=== PATIENT | male | born 1955 | race Caucasian/White ===

== ENCOUNTER → 2020-09-19 08:06 | Outpatient (BNVA) | payer BC, SELFPAY | PROVIDERS: Visit Provider Orthopaedic Surgery | DX: M75.101 Unspecified rotator cuff tear or rupture of right shoulder, not specified as traumatic (principal); M12.811 Other specific arthropathies, not elsewhere classified, right shoulder; I99.8 Other disorder of circulatory system | CPT/HCPCS: 20610; J1040 ==

== ENCOUNTER → 2021-03-14 15:41 | Outpatient (BNVA) | payer BC, SELFPAY | PROVIDERS: PCP Family Medicine; Visit Provider Orthopaedic Surgery ==

== ENCOUNTER 2021-12-31 15:37 | Outpatient (REF) | payer BC, SELFPAY ==
[2021-12-31 16:01] LABS: MANUAL DIFF FLAG NO
[2021-12-31 17:13] LABS: Basophils Absolute Auto 0.1 X10*3/uL (0.0-0.2); Basophils Percent Auto 0.6 % (0-2); Eosinophils Absolute Auto 0.4 X10*3/uL (0.0-0.4); Eosinophils Percent Auto 5.3 % (0-4); Hematocrit 40.6 % (42.0-52.0); Hemoglobin 13.4 g/dl (14.0-18.0); Imm Gran Abs Auto 0.02 X10*3/uL (0.00-0.03); Imm Gran Pct Auto 0.3 % (0.0-0.4); Lymphocytes Absolute Auto 1.2 X10*3/uL (1.2-4.9); Lymphocytes Percent Auto 15.5 % (20-40); Mean Corpuscular Hemoglobin 30.1 pg (27.0-33.0); Mean Corpuscular Volume 91.2 fL (80.0-98.0); Mean Platelet Volume 10.8 fL (9.4-12.4); Monocytes Absolute Auto 0.9 X10*3/uL (0.1-1.2); Monocytes Percent Auto 11.2 % (2-11); Neutrophils Absolute Auto 5.3 x10*3/uL (2.0-8.3); Neutrophils Percent Auto 67.1 % (45-73); Platelet Count 282 X10*3/uL (160-400); Red Blood Count 4.45 X10*6/uL (4.60-5.80); Red Cell Distribution Width 15.2 % (11.0-16.0); White Blood Count 7.9 X10*3/uL (4.8-10.8)
[2021-12-31 17:49] LABS: Anion Gap 14 (12-20); Blood Urea Nitrogen 13 mg/dL (9-16); Calcium 9.2 mg/dL (8.4-10.2); Carbon Dioxide 28 mmol/L (22-29); Chloride 101 mmol/L (96-108); Estimated Glomerular Filt Rate > 60; Glucose Random 82 mg/dL (60-115); Potassium 4.5 mmol/L (3.3-5.1); Sodium 138 mmol/L (135-145)
[2021-12-31 18:11] LABS: Erythrocyte Sedimentation Rate 20 MM/HR (0-15)
[2022-01-01 17:52] LABS: Lyme Abs Screen <0.90 index
[2022-01-07 10:33] LABS: Anti Nuclear Antibody Screen POSITIVE (NEGATIVE)
== END 2021-12-31 15:38 | disposition home or self-care (01) ==
LOC: HO.LAB 15:37
PROVIDERS: PCP Family Medicine; Visit Provider Psychiatry & Neurology Neurology
DX: G50.9 Disorder of trigeminal nerve, unspecified (principal)
CPT/HCPCS: 36415; 80048; 85025; 85652; 86038; 86039; 86617; 86618

== ENCOUNTER 2022-11-12 09:57 | Outpatient (AMB) | payer BC, SELFPAY ==
[2022-11-12 10:03] VITALS: BP 164/80; PULSE 60; BMI 23.2
--- NOTE | 2022-11-12 10:03 | MHC.OFFVIS ---
Intake Vital Signs 11/12/22 10:03 Height 5 ft 10 in Weight 162 lb BMI 23.2 BP 164/80 H Blood Pressure Location Rt brachial Position Sitting Pulse 60 Intake Visit Reasons: Hernia Intake Note: Patient referred for Lt lower abd hernia. C/o on and off pain and discomfort. Reports normal BM. Denies vomiting. Event Producer Required: No Accompanied by: Spouse Allergies No Known Allergies Allergy (Verified 11/12/22 10:05) HPI HPI Comments History of Present Illness Details Patient presents with his for evaluation of a recently acquired left inguinal hernia. He has had a several weeks time. He does not recall any precipitating events or activities. Patient is otherwise tolerating his diet. He is having normal bowel habits. He has lost an appreciable amount of weight over the last several months time. Chart was reviewed and patient evaluated. Patient was being treated for an acute renal insufficiency requiring temporary hemodialysis which was recently discontinued. The precise etiology of his renal ailment was unknown. 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 Right groin negative. Genitalia within normal limits. Moderate-sized left inguinal hernia reducible. Assessment & Plan Assessment & Plan (1) Inguinal hernia: Code(s): K40.90 - Unilateral inguinal hernia, without obstruction or gangrene, not specified as recurrent Plan: Risks, benefits, alternatives open inguinal hernia left side repair with mesh were reviewed with the patient and included but not limited to bleeding, infection, recurrence, numbness, pain, scarring the patient was to proceed. All questions were answered. Arrangements will be made for this on the day which is convenient for the patient. Coding Level of Care Code New Pt Level 5 (89695) Diagnoses Inguinal hernia K40.90
== END 2022-11-12 10:29 | disposition home or self-care (01) ==
PROVIDERS: PCP Family Medicine; Referring Provider Family Medicine; Visit Provider Surgery
DX: K40.90 Unilateral inguinal hernia, without obstruction or gangrene, not specified as recurrent (principal)
CPT/HCPCS: 99204

== ENCOUNTER → 2022-11-12 09:57 | Outpatient (BNVA) | payer BC, SELFPAY | PROVIDERS: PCP Family Medicine; Referring Provider Family Medicine; Visit Provider Surgery | DX: K40.90 Unilateral inguinal hernia, without obstruction or gangrene, not specified as recurrent (principal) | CPT/HCPCS: 99202 ==

== ENCOUNTER 2023-01-01 06:04 | Day surgery (SDC) | payer OTHER, SELFPAY ==
[2022-11-24 16:36] VITALS: BMI 23.2
[2022-11-25 12:08] VITALS: BMI 23.6
--- NOTE | 2022-11-26 09:08 | P.CONAN_ITS ---
HPI - Anesthesia Eval Consult details Narrative: 66yo M for Left OPEN Hernia Repair Inguinal w/mesh Previously on dialysis. None for ~ 3 months. Follows renal. Last seen 11/06/22. Stable CKD St 4 Cardiology clearance pending [facility] Active Problems Active Problems: All Active Problems (Updated 11/25/22 @ 12:07 by Allie Franklin RN) Inguinal hernia (Acute) Osteoarthritis of right shoulder (Acute) Rotator cuff tear arthropathy of right shoulder (Acute) Past Medical History Medical History (Updated 11/25/22 @ 12:07 by Allie Franklin RN) Chronic renal disease, stage IV History of renal stone Arthritis Hx of acute renal failure HTN (hypertension) History of renal dialysis Surgical History Surgical History (Updated 11/25/22 @ 12:05 by Allie Franklin RN) History of biopsy Hx of colonoscopy History of esophagogastroduodenoscopy (EGD) Hx of arthroscopy of knee History of excision of pilonidal cyst History of arthroscopic surgery of shoulder Social History Social History (Updated 11/12/22 @ 10:09 by CARLOS ENRIQUE Nix) Are you a primary acute care surgeon to a significant other at home: No Do you presently have visiting nurse or other home services: No Alcohol intake: never Patient Tobacco Use Status: Never used Tobacco Current occupational status: employed 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 [employer] Allergies Allergy/AdvReac Type Severity Reaction Status Date / Time No Known Allergies Allergy Verified 11/25/22 11:57 Home Medications Medication Instructions Recorded Confirmed Last Taken Type carvedilol 25 mg tablet 25 mg PO BID 11/12/22 11/25/22 Unknown History fluticasone propionate 50 1 spray intranasal DAILY 11/12/22 11/25/22 Unknown History mcg/actuation nasal spray,suspension vitamin B complex and vitamin C 1 cap PO DAILY 11/12/22 11/25/22 Unknown History no.20-folic acid 1 mg capsule ([place]ack Caps) ascorbic acid (vitamin C) 500 mg 500 mg PO DAILY 11/25/22 11/25/22 Unknown History tablet (Vitamin C) nifedipine 30 mg tablet,extended 30 mg PO DAILY 11/25/22 11/25/22 Unknown History release 24 hr Exam Exam Date and Time: November 26, 2022 09 Height,Weight and Vital Signs: Height 5 ft 9 in Weight 72.575 kg Assessment and Plan Assessment Anesthesia Assessment: Chart Reviewed
--- NOTE | 2022-12-31 08:54 | P.CONAN_ITS ---
Documented by User: Salena Ashford NP 12/31/22 11:48 HPI - Anesthesia Eval Consult details Narrative: 66yo M for Left OPEN Hernia Repair Inguinal w/mesh Previously on dialysis. None since 08/2022. Follows renal. Last seen 11/06/22. Stable CKD St 4 Cardiac and medically cleared [facility] Active Problems Active Problems: All Active Problems (Updated 11/25/22 @ 12:07 by Allie Franklin RN) Inguinal hernia (Acute) Osteoarthritis of right shoulder (Acute) Rotator cuff tear arthropathy of right shoulder (Acute) Past Medical History Medical History Chronic renal disease, stage IV History of renal stone Arthritis Hx of acute renal failure HTN (hypertension) History of renal dialysis Surgical History Surgical History Inguinal hernia (01/01/23) History of biopsy Hx of colonoscopy History of esophagogastroduodenoscopy (EGD) Hx of arthroscopy of knee History of excision of pilonidal cyst History of arthroscopic surgery of shoulder Social History Are you a primary wild animal caretaker to a significant other at home: No Do you presently have visiting nurse or other home services: No Alcohol intake: never Patient Tobacco Use Status: Never used Tobacco Current occupational status: employed 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 Allergies Allergy/AdvReac Type Severity Reaction Status Date / Time No Known Allergies Allergy Verified 01/09/23 09:43 Home Medications Medication Instructions Recorded Confirmed Last Taken Type carvedilol 25 mg tablet 25 mg PO BID 11/12/22 11/25/22 01/01/23 History fluticasone propionate 50 1 spray intranasal DAILY 11/12/22 11/25/22 Unknown History mcg/actuation nasal spray,suspension vitamin B complex and vitamin C 1 cap PO DAILY 11/12/22 11/25/22 Unknown History no.20-folic acid 1 mg capsule (Mack Caps) ascorbic acid (vitamin C) 500 mg 500 mg PO DAILY 11/25/22 11/25/22 Unknown History tablet (Vitamin C) nifedipine 30 mg tablet,extended 30 mg PO DAILY 11/25/22 11/25/22 01/01/23 History release 24 hr Exam Exam Date and Time: December 31, 2022 0854 Height,Weight and Vital Signs: Height 5 ft 9 in Weight 72.575 kg Pertinent Lab Results Pertinent Lab Results: CBC 12/11/22 from outside facility. WNL except low H&H (10.9&34.7) Lytes 12/11/22 from outside facility WNL except Bicarb low @ 20 BUN and Creat elevated @ 45 and 3.5 Narrative Narrative: EKG 12/2022 SB with 1st degree AV block @ 57 LAFB Nuc Stress 12/2022 1. Myocardial perfusion imaging is probably normal without reversible or definite fixed perfusion defect after exercise stress test. Small focal defect at the apex point with normal motion is likely normal variant. 2. LV function is normal with an EF of 54% at rest and 66% with stress with normal wall motion and thickening. 3. EKG portion showed no ischemic changes. Abnormal ETT d/t abnormal physiology ECHO 04/2022 (per cardiac clearance note) EF 50-55% mild dilation RA Trace mitral insufficiency Nml RV systolic function No RWMA Assessment and Plan Assessment Anesthesia Assessment: Chart Reviewed Documented by User: Francois Scott MD 01/29/23 18:22 [facility] Past Medical History Medical History Chronic renal disease, stage IV History of renal stone Arthritis Hx of acute renal failure HTN (hypertension) History of renal dialysis Family History Family history of problems with anesthesia: No Surgical History Surgical History Inguinal hernia (01/01/23) History of biopsy Hx of colonoscopy History of esophagogastroduodenoscopy (EGD) Hx of arthroscopy of knee History of excision of pilonidal cyst History of arthroscopic surgery of shoulder History of Problems with Anesthesia: No Social History Are you a primary wild animal caretaker to a significant other at home: No Do you presently have visiting nurse or other home services: No Alcohol intake: never Patient Tobacco Use Status: Never used Tobacco Current occupational status: employed 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 Allergies Allergy/AdvReac Type Severity Reaction Status Date / Time No Known Allergies Allergy Verified 01/09/23 09:43 Home Medications Medication Instructions Recorded Confirmed Last Taken Type carvedilol 25 mg tablet 25 mg PO BID 11/12/22 11/25/22 01/01/23 History fluticasone propionate 50 1 spray intranasal DAILY 11/12/22 11/25/22 Unknown History mcg/actuation nasal spray,suspension vitamin B complex and vitamin C 1 cap PO DAILY 11/12/22 11/25/22 Unknown History no.20-folic acid 1 mg capsule ([place] Caps) ascorbic acid (vitamin C) 500 mg 500 mg PO DAILY 11/25/22 11/25/22 Unknown History tablet (Vitamin C) nifedipine 30 mg tablet,extended 30 mg PO DAILY 11/25/22 11/25/22 01/01/23 History release 24 hr Exam Airway Mallampati Class: III Loose/Missing/Broken Teeth: Yes Assessment and Plan Assessment Anesthesia Assessment: Anesthesia Plan Discussed Final Anesthetic Review Family History of Problems with Anesthesia: No History of Problems with Anesthesia: No NPO: Yes ASA Class: III Final Preanesthetic Review: Meds/Allgs Chart Reviewed, Consent Obtained/Reviewed and Anes Risks/Benef Reviewed Patient Risk: Intermediate Procedure Risk: Intermediate Anesthetic Plan Anesthetic Plan: MAC: and Agree w/ Assess. and Plan Disposition: Standard PACU
--- NOTE | 2022-12-31 09:25 | MHC.SHP ---
Pre-Procedural Eval Section A Date of Service: 12/31/22 The patient is an INPATIENT: No Changes since office visit: No Cold of Flu in the past 2 weeks, No New Medical Problems, No Changes in Medication and No Patient answered all questions The History & Physical has been completed within 30 days and I have reviewed it.: Yes Section B Chief Complaint: Unilateral inguinal hernia, without obstruction or Allergies: Allergies Allergy/AdvReac Type Severity Reaction Status Date / Time No Known Allergies Allergy Verified 11/25/22 11:57 Plan I have reviewed the history and physical and performed a pertinent physical examination on my patient. No changes have occurred unless specified. Time Spent With Patient Time: Total time managing care of this patient today ____ minutes.
[2023-01-01 06:13] VITALS: BP 115/68; PULSE 60; RESP 20; TEMP 36.1; O2SAT 98
[2023-01-01] MEDS: 0.9 % Sodium Chloride 1,000 ML 100 ML IVCONT (06:39)
[2023-01-01 08:39] VITALS: BP 95/54; PULSE 54; RESP 18; TEMP 36.2; O2SAT 96
--- NOTE | 2023-01-01 08:52 | P.OP_ITS ---
Operative Note Operative Note Date of Service: 01/01/23 Narrative: Preoperative diagnosis: [] Symptomatic large left inguinal hernia Postop diagnosis: [] Same Procedure [] open left inguinal herniorrhaphy with Bard mesh Surgeon: [] [employer] Internship: [] Type of Anesthesia: [] MAC Indication for surgery: [] Very large indirect hernia. No direct hernia demonstrated. Findings; Patient brought to the operating room, placed on operative table in supine position, after adequate level of MAC anesthesia was induced, patient's left groin was prepped and draped in usual sterile fashion. Preemptive analgesia with ilioinguinal block using 0.5% Marcaine/1% lidocaine plus wound infiltration with the same was performed. A small left para- inguinal incision was made and carried down through skin, subcutaneous tissue, Troy's fascia. External oblique fascia was opened in the direction of its fibers with care to preserve the ilioinguinal nerve throughout the procedure. Spermatic cord was identified and retracted from the field. No direct hernia was demonstrated a very large indirect hernia sac was from the cord and reduced. A Bard plug was placed in the indirect defect and sutured inferiorly to the inguinal ligament and superiorly to the transversalis fascia using interrupted 0 Ethibond suture. At completion the procedure, mesh was in good position. Internal ring admitted 1 finger tip.. Mesh also covered entire inguinal floor. Wounds irrigated, secured hemostasis, and closed in the following manner; external oblique fascia was closed using running 2-0 Vicryl suture. Troy's fascia was reapproximated using interrupted 3-0 Vicryl sutures. Interrupted inverted deep dermal 3-0 Vicryl sutures followed by running subcuticular 4-0 Vicryl suture placed. Steri-Strips and sterile dressings were applied. Ipsilateral testicle is intrascrotal at completion of the procedure. Sponge, needle, and instrument counts reported correct. Patient tolerated the procedure well and emerged anesthesia and stable in condition. EBL minimal
[2023-01-01 08:54] VITALS: BP 104/58; PULSE 51; RESP 16; O2SAT 88
[2023-01-01 09:09] VITALS: BP 108/57; PULSE 51; RESP 16; O2SAT 98
[2023-01-01 09:24] VITALS: BP 110/63; PULSE 50; RESP 16; TEMP 36.3; O2SAT 99
== END 2023-01-01 10:00 | disposition home or self-care (01) ==
PROVIDERS: PCP Family Medicine; Visit Provider Surgery
PROC: (CPT 49505; principal; 2023-01-01 07:30)
DX: K40.90 Unilateral inguinal hernia, without obstruction or gangrene, not specified as recurrent (principal); R63.4 Abnormal weight loss; Z68.23 Body mass index [BMI] 23.0-23.9, adult; N17.9 Acute kidney failure, unspecified; I12.9 Hypertensive chronic kidney disease with stage 1 through stage 4 chronic kidney disease, or unspecified chronic kidney disease; N18.4 Chronic kidney disease, stage 4 (severe); Z87.442 Personal history of urinary calculi; Z79.899 Other long term (current) drug therapy
CPT/HCPCS: 49505; C1781; J0690; J1100; J1170; J2250; J2405

== ENCOUNTER → 2023-01-01 06:04 | Outpatient (BNV) | payer BC, SELFPAY | PROVIDERS: PCP Family Medicine; Visit Provider Surgery | DX: K40.90 Unilateral inguinal hernia, without obstruction or gangrene, not specified as recurrent (principal) | CPT/HCPCS: 49505 ==

== ENCOUNTER → 2023-01-09 09:36 | Outpatient (BNVA) | payer OTHER, SELFPAY | PROVIDERS: PCP Family Medicine; Visit Provider Surgery ==

== ENCOUNTER 2023-02-16 13:42 | Outpatient (AMB) | payer OTHER, SELFPAY ==
--- NOTE | 2023-02-16 13:48 | HO.NEPHOV_ITS ---
HPI HPI Comments History of Present Illness Details 67 yr old man with advanced CKD and HTN is here for follow up He was seen in [facility] for renal insufficiency. Biopsy revealed severe arterial sclerosis. He required hemodialysis for few weeks. Urine output progressively increased and he was therefore taken off hemodialysis. He has been off hemodialysis for the last 3 months. He complains of fatigue. He is also feeling cold all the time. No urinary symptoms. No hematuria. No nausea or vomiting. No shortness of breath. He recently underwent herniorrhaphy which was uneventful. Mary [facility] Medical History (Updated 02/16/23 @ 14:40 by Ruben Moreno MD) Chronic renal disease, stage IV History of renal stone Arthritis Hx of acute renal failure HTN (hypertension) History of renal dialysis Surgical History Inguinal hernia (01/01/23) History of biopsy Hx of colonoscopy History of esophagogastroduodenoscopy (EGD) Hx of arthroscopy of knee History of excision of pilonidal cyst History of arthroscopic surgery of shoulder Social History Are you a primary career coach to a significant other at home: No Do you presently have visiting nurse or other home services: No Alcohol intake: never Patient Tobacco Use Status: Never used Tobacco Current occupational status: employed 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 occupation: [employer] - Right 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 Vital Signs 02/16/23 13:50 Height 5 ft 9 in Weight 154 lb BMI 22.7 BP 124/70 Blood Pressure Location Lt brachial Position Sitting Physical Exam Vital Signs: Last Vital Signs BP 124/70 02/16/23 13:50 BMI result Body Mass Index 22.7 Const General: comfortable Nutritional Appearance: well nourished Orientation/consciousness: patient oriented x3 HEENT Head: No normal to inspection Mouth: moist mucous membranes Neck Neck: Yes supple and Yes no JVD Resp Auscultation: clear to auscultation bilaterally, no rales and rub present Cardio Jugular venous distension: no JVD Palpation: no palpable S3 and no palpable S4 Heart sounds: no rubs GI Palpation (GI): Soft to palpation and nontender Percussion: No Fluid wave present General: Yes no CVA tenderness Back/Spine/Pelvis Back: no CVA tenderness Skin General skin exam: other (Livedo reticularis Both thighs) Neuro General: patient oriented x3 Extrem General: Yes no pedal edema and No clubbing Assessment & Plan Assessment & Plan (1) Chronic renal disease, stage IV: Code(s): N18.4 - Chronic kidney disease, stage 4 (severe) (2) HTN (hypertension): Code(s): I10 - Essential (primary) hypertension (3) Anemia due to chronic kidney disease: Code(s): N18.9 - Chronic kidney disease, unspecified; D63.1 - Anemia in chronic kidney disease Plan 67-year-old man with advanced kidney disease in the setting of hypertension. Juan is experiencing significant fatigue which may be related to the underlying renal insufficiency. Anemia might be a contributing factor as well. Goal is to slow the progression of renal disease. Continue to avoid nephrotoxic agents including NSAIDs. Ordered a set of renal panel today. Hypertension blood pressure is well controlled home blood pressure readings are excellent. No hypotensive episodes. I would continue with the current regimen. He should stay on low-sodium diet. 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 Recheck hemoglobin along with iron panel today. If hemoglobin less than 10 he will benefit from erythropoietin replacement therapy. 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 I have repeated serological tests and he may need further workup and follow-up with supervisor liquefaction. Orders: Orders Creatinine Today N18.4 - Chronic kidney disease, stage 4 (severe) Creatinine Urine Today N18.4 - Chronic kidney disease, stage 4 (severe) Proteinase 3 PR3 Antibodies Today N18.4 - Chronic kidney disease, stage 4 (severe) Complement C4 Today N18.4 - Chronic kidney disease, stage 4 (severe) Complement C3 Today N18.4 - Chronic kidney disease, stage 4 (severe) Electrolytes Today N18.4 - Chronic kidney disease, stage 4 (severe) Blood Urea Nitrogen Today N18.4 - Chronic kidney disease, stage 4 (severe) Calcium Today N18.4 - Chronic kidney disease, stage 4 (severe) Sodium Urine Random Today N18.4 - Chronic kidney disease, stage 4 (severe) Total Protein Urine Random Today N18.4 - Chronic kidney disease, stage 4 (severe) Parathyroid Hormone Intact Today N18.4 - Chronic kidney disease, stage 4 ( severe) Complete Blood Count no Diff Today N18.4 - Chronic kidney disease, stage 4 (severe) IRON PROFILE Today N18.4 - Chronic kidney disease, stage 4 (severe) Ferritin Today N18.4 - Chronic kidney disease, stage 4 (severe) Neutrophil Cytoplasma Ab Today N18.4 - Chronic kidney disease, stage 4 (severe) TSH reflex Free T4 Today N18.4 - Chronic kidney disease, stage 4 (severe) Coding Level of Care Code Est Pt Level 4 (46433) Diagnoses Chronic renal disease, stage IV N18.4 HTN (hypertension) I10 Anemia due to chronic kidney disease N18.9; D63.1 Results Reviewed Results Reviewed: Labs on [facility] was reviewed Nephrology Results: Hgb 13.4 g/dl (14.0-18.0) L 12/31/21 WBC 7.9 X10*3/uL (4.8-10.8) 12/31/21 Plt Count 282 X10*3/uL (160-400) 12/31/21 Sodium 138 mmol/L (135-145) 12/31/21 Potassium 4.5 mmol/L (3.3-5.1) 12/31/21 Chloride 101 mmol/L (96-108) 12/31/21 Carbon Dioxide 28 mmol/L (22-29) 12/31/21 BUN 13 mg/dL (9-16) 12/31/21 Creatinine 0.86 mg/dL (0.5-1.4) 12/31/21 Calcium 9.2 mg/dL (8.4-10.2) 12/31/21
[2023-02-16 13:50] VITALS: BP 124/70; BMI 22.7
== END 2023-02-16 14:18 | disposition home or self-care (01) ==
PROVIDERS: PCP Family Medicine; Visit Provider Internal Medicine Hypertension Specialist
DX: I12.9 Hypertensive chronic kidney disease with stage 1 through stage 4 chronic kidney disease, or unspecified chronic kidney disease (principal); N18.4 Chronic kidney disease, stage 4 (severe); N18.9 Chronic kidney disease, unspecified; D63.1 Anemia in chronic kidney disease
CPT/HCPCS: 99214

== ENCOUNTER 2023-02-16 13:42 | Outpatient (REF) | payer OTHER, SELFPAY ==
[2023-02-16 15:24] LABS: Hematocrit 34.7 % (42.0-52.0); Hemoglobin 10.9 g/dl (14.0-18.0); Mean Corpuscular HGB Conc 31.4 g/dl (31.0-36.0); Mean Corpuscular Hemoglobin 30.4 pg (27.0-33.0); Mean Corpuscular Volume 96.9 fL (80.0-98.0); Mean Platelet Volume 10.1 fL (9.4-12.4); Platelet Count 244 X10*3/uL (160-400); Red Blood Count 3.58 X10*6/uL (4.60-5.80); White Blood Count 10.3 X10*3/uL (4.8-10.8)
[2023-02-16 15:53] LABS: Creatinine Urine 101.01 mg/dL; Total Protein Urine Random 23 mg/dL (<12)
[2023-02-16 15:54] LABS: Parathyroid Hormone Intact 50.5 pg/mL (8.7-77.1)
[2023-02-16 16:01] LABS: Anion Gap 13 (12-20); Blood Urea Nitrogen 40 mg/dL (9-16); Calcium 9.2 mg/dL (8.4-10.2); Carbon Dioxide 20 mmol/L (22-29); Chloride 110 mmol/L (96-108); Estimated Glomerular Filt Rate 22; Iron 59 mcg/dL (45-160); Percent Iron Saturation 30 % (15-50); Potassium 4.5 mmol/L (3.3-5.1); Sodium 138 mmol/L (135-145); Total Iron Binding Capacity 198 mcg/dL (228-428); Unsaturated Iron Binding 139 ug/dL
[2023-02-16 16:09] LABS: Ferritin 858 ng/mL (20-250); TSH reflex Free T4 2.08 uIU/mL (0.32-4.0)
[2023-02-17 18:35] LABS: Neutrophil Cyto Ab Screen NEGATIVE (NEGATIVE); Proteinase 3 PR3 Antibodies <1.0 AI
[2023-02-17 19:54] LABS: Complement C3 50 mg/dL (82-185)
== END 2023-02-16 13:43 | disposition home or self-care (01) ==
LOC: HO.LAB 13:42
PROVIDERS: PCP Family Medicine; Visit Provider Internal Medicine Hypertension Specialist
DX: I12.9 Hypertensive chronic kidney disease with stage 1 through stage 4 chronic kidney disease, or unspecified chronic kidney disease (principal); N18.4 Chronic kidney disease, stage 4 (severe); D63.1 Anemia in chronic kidney disease; R53.83 Other fatigue
CPT/HCPCS: 36415; 80051; 82310; 82565; 82570; 82728; 83540; 83970; 84156; 84300; 84443; 84520; 85027; 86021; 86036; 86160; 99212

== ENCOUNTER 2023-03-30 14:07 | Outpatient (AMB) | payer OTHER, SELFPAY ==
--- NOTE | 2023-03-30 14:14 | HO.NEPHOV ---
HPI HPI Comments History of Present Illness Details 67 yr old man with advanced CKD and HTN is here for follow up He was seen in [facility] for renal insufficiency. Biopsy revealed severe arterial sclerosis. He required hemodialysis for few weeks. Urine output progressively increased and he was therefore taken off hemodialysis. He has been off hemodialysis for the last 3 months. He complains of fatigue. He is also feeling cold all the time. No urinary symptoms. No hematuria. No nausea or vomiting. No shortness of breath. He recently underwent herniorrhaphy which was uneventful. 03/30/23 Still feels weak c/o fatigue Home BP readings are good [facility] Medical History (Updated 02/16/23 @ 14:40 by Ruben Moreno MD) Chronic renal disease, stage IV History of renal stone Arthritis Hx of acute renal failure HTN (hypertension) History of renal dialysis Surgical History Inguinal hernia (01/01/23) History of biopsy Hx of colonoscopy History of esophagogastroduodenoscopy (EGD) Hx of arthroscopy of knee History of excision of pilonidal cyst History of arthroscopic surgery of shoulder Social History Are you a primary senior care provider to a significant other at home: No Do you presently have visiting nurse or other home services: No Alcohol intake: never Patient Tobacco Use Status: Never used Tobacco Current occupational status: employed 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 03/30/23 14:15 Height 5 ft 9 in Weight 163 lb BMI 24.1 BP 128/70 Blood Pressure Location Rt brachial Position Sitting Pulse 56 Pulse Source Pulse Oximeter Pulse Oximetry (%) 96 Oxygen Delivery Method Room Air Physical Exam Vital Signs: Last Vital Signs Pulse 56 03/30/23 14:15 BP 128/70 03/30/23 14:15 Pulse Ox 96 03/30/23 14:15 Oxygen Delivery Method Room Air 03/30/23 14:15 BMI result Body Mass Index 24.1 Const General: comfortable Nutritional Appearance: well nourished Orientation/consciousness: patient oriented x3 HEENT Head: No normal to inspection Mouth: moist mucous membranes Neck Neck: Yes supple and Yes no JVD Resp Auscultation: clear to auscultation bilaterally, no rales and rub present Cardio Jugular venous distension: no JVD Palpation: no palpable S3 and no palpable S4 Heart sounds: no rubs GI Palpation (GI): Soft to palpation and nontender Percussion: No Fluid wave present General: Yes no CVA tenderness Back/Spine/Pelvis Back: no CVA tenderness Skin General skin exam: no rashes or lesions noted Neuro General: patient oriented x3 Extrem General: Yes no pedal edema and No clubbing Assessment & Plan Assessment & Plan (1) Chronic renal disease, stage IV: Code(s): N18.4 - Chronic kidney disease, stage 4 (severe) (2) HTN (hypertension): Code(s): I10 - Essential (primary) hypertension (3) Anemia due to chronic kidney disease: Code(s): N18.9 - Chronic kidney disease, unspecified; D63.1 - Anemia in chronic kidney disease Plan 67-year-old man with advanced kidney disease in the setting of hypertension. Juan is experiencing significant fatigue which may be related to the underlying renal insufficiency. Anemia might be a contributing factor as well. Goal is to slow the progression of renal disease. Continue to avoid nephrotoxic agents including NSAIDs. Hypertension blood pressure is well controlled home blood pressure readings are excellent. No hypotensive episodes. I would continue with the current regimen. He should stay on low-sodium diet. 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 Recheck hemoglobin along with iron panel today. If hemoglobin less than 10 he will benefit from erythropoietin replacement therapy. 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 serological tests were normal may need further workup and follow-up with confectionery drops machine operator. Await CT scan. Would not administer IV contrast since he is at high risk for contrast induced nephropathy Orders: Orders Comprehensive Met. Panel 3 Months D63.1 - Anemia in chronic kidney disease, N18.4 - Chronic kidney disease, stage 4 (severe), N18.9 - Chronic kidney disease, unspecified Complete Blood Count no Diff 3 Months D63.1 - Anemia in chronic kidney disease, N18.4 - Chronic kidney disease, stage 4 (severe), N18.9 - Chronic kidney disease, unspecified Coding Level of Care Code Est Pt Level 4 (81390) Diagnoses Chronic renal disease, stage IV N18.4 HTN (hypertension) I10 Anemia due to chronic kidney disease N18.9; D63.1 Results Reviewed Nephrology Results: Hgb 10.9 g/dl (14.0-18.0) L 02/16/23 WBC 10.3 X10*3/uL (4.8-10.8) 02/16/23 Plt Count 244 X10*3/uL (160-400) 02/16/23 Sodium 138 mmol/L (135-145) 02/16/23 Potassium 4.5 mmol/L (3.3-5.1) 02/16/23 Chloride 110 mmol/L (96-108) H 02/16/23 Carbon Dioxide 20 mmol/L (22-29) L 02/16/23 BUN 40 mg/dL (9-16) H 02/16/23 Creatinine 2.82 mg/dL (0.5-1.4) H 02/16/23 Calcium 9.2 mg/dL (8.4-10.2) 02/16/23 PTH Intact 50.5 pg/mL (8.7-77.1) 02/16/23 Urine Creatinine 101.01 mg/dL 02/16/23
[2023-03-30 14:15] VITALS: BP 128/70; PULSE 56; O2SAT 96; BMI 24.1
== END 2023-03-30 14:48 | disposition home or self-care (01) ==
PROVIDERS: PCP Family Medicine; Referring Provider Family Medicine; Visit Provider Internal Medicine Hypertension Specialist
DX: I12.9 Hypertensive chronic kidney disease with stage 1 through stage 4 chronic kidney disease, or unspecified chronic kidney disease (principal); N18.4 Chronic kidney disease, stage 4 (severe); N18.9 Chronic kidney disease, unspecified; D63.1 Anemia in chronic kidney disease
CPT/HCPCS: 99214

== ENCOUNTER → 2023-03-30 14:07 | Outpatient (BNVA) | payer OTHER, SELFPAY | PROVIDERS: PCP Family Medicine; Visit Provider Internal Medicine Hypertension Specialist | DX: I12.9 Hypertensive chronic kidney disease with stage 1 through stage 4 chronic kidney disease, or unspecified chronic kidney disease (principal); N18.4 Chronic kidney disease, stage 4 (severe); D63.1 Anemia in chronic kidney disease | CPT/HCPCS: 99212 ==

== ENCOUNTER 2023-06-19 14:57 | Outpatient (REF) | payer OTHER, SELFPAY ==
[2023-06-19 17:05] LABS: Hematocrit 35.9 % (42.0-52.0); Hemoglobin 11.6 g/dl (14.0-18.0); Mean Corpuscular HGB Conc 32.3 g/dl (31.0-36.0); Mean Corpuscular Hemoglobin 30.1 pg (27.0-33.0); Mean Corpuscular Volume 93.2 fL (80.0-98.0); Mean Platelet Volume 10.2 fL (9.4-12.4); Platelet Count 289 X10*3/uL (160-400); Red Blood Count 3.85 X10*6/uL (4.60-5.80); Red Cell Distribution Width 14.6 % (11.0-16.0); White Blood Count 11.4 X10*3/uL (4.8-10.8)
[2023-06-19 17:42] LABS: Alanine Aminotransferase 11 U/L (0-40); Albumin Level 3.9 g/dL (3.5-5.0); Alkaline Phosphatase 67 U/L (39-117); Anion Gap 18 (12-20); Aspartate Amino Transferase 16 U/L (5-37); Bilirubin Total 0.4 mg/dL (0.0-1.0); Blood Urea Nitrogen 42 mg/dL (9-16); Calcium 9.4 mg/dL (8.4-10.2); Carbon Dioxide 17 mmol/L (22-29); Chloride 107 mmol/L (96-108); Estimated Glomerular Filt Rate 25; Glucose Random 84 mg/dL (60-115); Potassium 4.5 mmol/L (3.3-5.1); Sodium 137 mmol/L (135-145); Total Protein 7.7 g/dL (6.5-8.0)
== END 2023-06-19 14:58 | disposition home or self-care (01) ==
LOC: HO.LAB 14:57
PROVIDERS: PCP Internal Medicine; Visit Provider Internal Medicine Hypertension Specialist
DX: N18.4 Chronic kidney disease, stage 4 (severe) (principal); D63.1 Anemia in chronic kidney disease
CPT/HCPCS: 36415; 80053; 85027

== ENCOUNTER 2023-06-29 14:27 | Outpatient (AMB) | payer OTHER, SELFPAY ==
[2023-06-29 14:30] VITALS: BP 128/70; PULSE 60; O2SAT 99; BMI 24.5
--- NOTE | 2023-06-29 14:30 | HO.NEPHOV ---
Vital Signs 06/29/23 14:30 Height 5 ft 9 in Weight 166 lb BMI 24.5 BP 128/70 Blood Pressure Location Rt brachial Position Sitting Pulse 60 Pulse Source Pulse Oximeter Pulse Oximetry (%) 99 Oxygen Delivery Method Room Air Intake Visit Reasons: Anemia due to ckd/ 3 MO FU/ Confirmed Core Rescuer Required: No Accompanied by: Spouse Allergies No Known Allergies Allergy (Verified 06/29/23 14:32) HPI Comments Details: 67 yr old man with advanced CKD and HTN is here for follow up He was seen in [facility] for renal insufficiency. Biopsy revealed severe arterial sclerosis. He required hemodialysis for few weeks. Urine output progressively increased and he was therefore taken off hemodialysis. He has been off hemodialysis for the last 3 months. He complains of fatigue. He is also feeling cold all the time. No urinary symptoms. No hematuria. No nausea or vomiting. No shortness of breath. He recently underwent herniorrhaphy which was uneventful. 03/30/23 Still feels weak;c/o fatigue ; Home BP readings are good 06/29/23 c/o Fatigue Appetite is fair Gained 8 lbs in 6 months [facility] Medical History (Updated 06/29/23 @ 14:52 by Ruben Moreno MD) Chronic renal disease, stage IV History of renal stone Arthritis Hx of acute renal failure HTN (hypertension) History of renal dialysis Surgical History Inguinal hernia (01/01/23) History of biopsy Hx of colonoscopy History of esophagogastroduodenoscopy (EGD) Hx of arthroscopy of knee History of excision of pilonidal cyst History of arthroscopic surgery of shoulder Social History Are you a primary medicare contact specialist to a significant other at home: No Do you presently have visiting nurse or other home services: No Alcohol intake: never Patient Tobacco Use Status: Never used Tobacco Current occupational status: employed 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 Exam Vital Signs: Last Vital Signs Pulse 60 06/29/23 14:30 BP 128/70 06/29/23 14:30 Pulse Ox 99 06/29/23 14:30 Oxygen Delivery Method Room Air 06/29/23 14:30 BMI result Body Mass Index 24.5 Const General: comfortable Nutritional Appearance: well nourished Orientation/consciousness: patient oriented x3 HEENT Head: No normal to inspection Mouth: moist mucous membranes Neck Neck: Yes supple and Yes no JVD Resp Auscultation: clear to auscultation bilaterally, no rales and rub present Cardio Jugular venous distension: no JVD Palpation: no palpable S3 and no palpable S4 Heart sounds: no rubs GI Palpation (GI): Soft to palpation and nontender Percussion: No Fluid wave present General: Yes no CVA tenderness Back/Spine/Pelvis Back: no CVA tenderness Skin General skin exam: no rashes or lesions noted Neuro General: patient oriented x3 Extrem General: Yes no pedal edema and No clubbing Results Reviewed Nephrology Results: Hgb 11.6 g/dl (14.0-18.0) L 06/19/23 WBC 11.4 X10*3/uL (4.8-10.8) H 06/19/23 Plt Count 289 X10*3/uL (160-400) 06/19/23 Sodium 137 mmol/L (135-145) 06/19/23 Potassium 4.5 mmol/L (3.3-5.1) 06/19/23 Chloride 107 mmol/L (96-108) 06/19/23 Carbon Dioxide 17 mmol/L (22-29) L 06/19/23 BUN 42 mg/dL (9-16) H 06/19/23 Creatinine 2.57 mg/dL (0.5-1.4) H 06/19/23 Calcium 9.4 mg/dL (8.4-10.2) 06/19/23 PTH Intact 50.5 pg/mL (8.7-77.1) 02/16/23 Urine Creatinine 101.01 mg/dL 02/16/23 Assessment & Plan Assessment & Plan (1) Chronic renal disease, stage IV: Code(s): N18.4 - Chronic kidney disease, stage 4 (severe) Category: Medical (2) HTN (hypertension): Code(s): I10 - Essential (primary) hypertension Category: Medical (3) Anemia due to chronic kidney disease: Code(s): N18.9 - Chronic kidney disease, unspecified; D63.1 - Anemia in chronic kidney disease Category: Medical Plan 67-year-old man with advanced kidney disease in the setting of hypertension. Biopsy revealed Nephrosclerosis Goal is to slow the progression of renal disease. Continue to avoid nephrotoxic agents including NSAIDs. Hypertension blood pressure is well controlled home blood pressure readings are excellent. No hypotensive episodes. I would continue with the current regimen. He should stay on low-sodium diet. 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 Shall refer Orders: Orders Complete Blood Count Auto Diff 3 Months N18.30 - Chronic kidney disease, stage 3 unspecified Comprehensive Met. Panel 3 Months N18.9 - Chronic kidney disease, unspecified Referrals Rheumatology Referral M35.9 - Systemic involvement of connective tissue, unspecified Scribe Plan - Not visible on output: Mary
== END 2023-06-29 14:56 | disposition home or self-care (01) ==
LOC: HO.HKA 14:27
PROVIDERS: PCP Internal Medicine; Visit Provider Internal Medicine Hypertension Specialist
DX: I12.9 Hypertensive chronic kidney disease with stage 1 through stage 4 chronic kidney disease, or unspecified chronic kidney disease (principal); N18.4 Chronic kidney disease, stage 4 (severe); N18.9 Chronic kidney disease, unspecified; D63.1 Anemia in chronic kidney disease
CPT/HCPCS: 99214

== ENCOUNTER → 2023-06-29 14:27 | Outpatient (BNVA) | payer OTHER, SELFPAY | PROVIDERS: PCP Internal Medicine; Visit Provider Internal Medicine Hypertension Specialist | DX: I12.9 Hypertensive chronic kidney disease with stage 1 through stage 4 chronic kidney disease, or unspecified chronic kidney disease (principal); N18.4 Chronic kidney disease, stage 4 (severe) | CPT/HCPCS: 99212 ==

== ENCOUNTER 2023-09-08 10:59 | Outpatient (AMB) | payer OTHER, SELFPAY ==
--- NOTE | 2023-09-08 11:04 | A.OFFVIS_ITS ---
Vital Signs 09/08/23 11:09 Height 5 ft 9 in Weight 164 lb 7.437 oz BMI 24.3 BP 120/70 Blood Pressure Location Rt brachial Position Sitting Pulse 55 Pulse Source Pulse Oximeter Pulse Oximetry (%) 95 Oxygen Delivery Method Room Air Intake Visit Reasons: + AARON/CONFIRMED Intake Note: Patient presents for AARON. Allergies No Known Allergies Allergy (Verified 09/08/23 11:08) Medication List - Last Reconciled 09/08/23 by Jose Dent MD ascorbic acid (vitamin C) (Vitamin C) 500 mg PO DAILY B complex with C 20-folic acid 1 mg (Doswell Caps) 1 cap PO DAILY carvedilol 25 mg PO BID fluticasone propionate 50 mcg/actuation 1 spray intranasal DAILY nifedipine ER 30 mg PO DAILY HPI Comments Details: This is a 67-year-old male who presents for evaluation of a positive AARON. Patient states that in April of 2022 he developed abrupt onset of difficulty breathing, he went to the emergency room, his blood pressure was significantly elevated. He was started on hemodialysis inpatient. He continued on hemodialysis for 4 more months. Prior to that episode he was losing weight. Was not feeling well, feeling cold all the time, bluish discoloration of his fingertips, skin changes especially of his thighs. Intermittent acid reflux. States that he has lost around 50 lb in the last 18 months or so. Mostly due to lack of appetite. He has generalized fatigue. Patient is unaware of any family history of an autoimmune rheumatic disease. Denies any history of DVT/PE [facility] Medical History (Updated 09/08/23 @ 12:23 by Jose Dent MD) Chronic renal disease, stage IV History of renal stone Arthritis Hx of acute renal failure HTN (hypertension) History of renal dialysis Surgical History Inguinal hernia (01/01/23) History of biopsy Hx of colonoscopy History of esophagogastroduodenoscopy (EGD) Hx of arthroscopy of knee History of excision of pilonidal cyst History of arthroscopic surgery of shoulder Social History Are you a primary career placement services counselor to a significant other at home: No Do you presently have visiting nurse or other home services: No Alcohol intake: never Patient Tobacco Use Status: Never used Tobacco Current occupational status: employed 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 Review of Systems Const Denies fever(s), Reports weakness and Reports weight loss Musc Reports muscle weakness and Reports numbness Neuro Reports numbness and Reports weakness Physical Exam Vital Signs: Last Vital Signs Pulse 55 09/08/23 11:09 BP 120/70 09/08/23 11:09 Pulse Ox 95 09/08/23 11:09 Oxygen Delivery Method Room Air 09/08/23 11:09 BMI result Body Mass Index 24.3 Const General: cooperative, healthy appearing and comfortable Nutritional Appearance: average body habitus Orientation/consciousness: patient oriented x3 Limitations: no limitations HEENT Head: Yes normocephalic and Yes atraumatic Resp Effort & Inspection: normal respiratory effort and able to speak in complete sentences Auscultation: clear to auscultation bilaterally Cardio Rate: regular rate Rhythm: regular rhythm Skin Other: Skin thickening of his fingers distal to his PIP is and patch of and thickening on the dorsal aspect of his left ankle Multiple areas of salt and pepper appearance of his skin Multiple telangiectasias especially left hand, face, oral cavity No significant skin thickening otherwise Neuro General: patient oriented x3 Extrem Other: Osteoarthritic changes of both hands with no active synovitis Mildly cool fingertips no tapered appearance of his fingertips No bluish discoloration today Normal nailfold capillaroscopy Pretibial edema bilaterally Assessment & Plan Assessment & Plan (1) AARON positive: Code(s): R76.8 - Other specified abnormal immunological findings in serum Category: Medical Plan: This is a 67-year-old male who presents for evaluation of a positive AARON. Patient has history of abrupt onset of malignant hypertension requiring hemodialysis, (possible scleroderma renal crisis) significant weight loss, new onset Raynaud's,, multiple telangiectasias on exam, few areas of skin thickening all suggest scleroderma. Will order comprehensive serology to screen for underlying autoimmune rheumatic disease. Check bilateral hand x-rays Follow-up in 6 weeks Plan I spent 60 minutes reviewing patient's chart, evaluating patient, ordering diagnostic workup, counseling patient and documenting in the chart Orders: Orders AARON Reflex Titer and Pattern Today M32.9 - Systemic lupus erythematosus, unspecified Anti Extractable Nuclear Ag Today M32.9 - Systemic lupus erythematosus, unspecified Anti DNA DS Antibody Today M32.9 - Systemic lupus erythematosus, unspecified C Reactive Protein Today M32.9 - Systemic lupus erythematosus, unspecified Protein Creatinine Ratio, Ur Today M32.9 - Systemic lupus erythematosus, unspecified UA w Microscopic Today M32.9 - Systemic lupus erythematosus, unspecified Scleroderma 12 Panel Today M34.9 - Systemic sclerosis, unspecified Cardiolipin Antibodies Today D68.61 - Antiphospholipid syndrome Lupus Anticoagulant Panel Today D68.61 - Antiphospholipid syndrome Complete Blood Count Auto Diff Today M34.9 - Systemic sclerosis, unspecified Comprehensive Met. Panel Today M34.9 - Systemic sclerosis, unspecified Creatine Kinase Total Today M34.9 - Systemic sclerosis, unspecified Hepatitis A,B,C Profile Today Z11.59 - Encounter for screening for other viral diseases T Spot TB Today Z11.7 - Encounter for testing for latent tuberculosis infection Protein Electrophoresis, Serum Today M34.9 - Systemic sclerosis, unspecified XR hand wrist LT Today M25.50 - Pain in unspecified joint Complement C3 Today M32.9 - Systemic lupus erythematosus, unspecified Complement C4 Today M32.9 - Systemic lupus erythematosus, unspecified DNA Double Stranded-Crithidia Today M32.9 - Systemic lupus erythematosus, unspecified Erythrocyte Sedimentation Rate Today M32.9 - Systemic lupus erythematosus, unspecified Sjogren's Antibodies Today M32.9 - Systemic lupus erythematosus, unspecified MSA Panel Extended Today M60.9 - Myositis, unspecified Rheumatoid Factor Today M25.50 - Pain in unspecified joint Cyclic Citrullinated Peptide Today M25.50 - Pain in unspecified joint Beta-2 Glycoprotein Antibody Today D68.61 - Antiphospholipid syndrome Immunofixation Pnl, Serum Today M34.9 - Systemic sclerosis, unspecified HIV Ab/Ag Today Z11.59 - Encounter for screening for other viral diseases XR hand wrist RT Today M25.50 - Pain in unspecified joint Coding Level of Care Code New Pt Level 4 (48840) Diagnoses AARON positive R76.8
[2023-09-08 11:09] VITALS: BP 120/70; PULSE 55; O2SAT 95; BMI 24.3
== END 2023-09-08 11:50 | disposition home or self-care (01) ==
PROVIDERS: PCP Internal Medicine; Referring Provider Family Medicine; Visit Provider Student in an Organized Health Care Education/Training Program
DX: R76.8 Other specified abnormal immunological findings in serum (principal)
CPT/HCPCS: 99204

== ENCOUNTER 2023-09-08 10:59 | Outpatient (REF) | payer OTHER, SELFPAY ==
[2023-09-08 12:25] LABS: MANUAL DIFF FLAG NO
[2023-09-08 12:45] LABS: Basophils Absolute Auto 0.1 X10*3/uL (0.0-0.2); Basophils Percent Auto 0.6 % (0-2); Eosinophils Absolute Auto 0.6 X10*3/uL (0.0-0.4); Eosinophils Percent Auto 6.1 % (0-4); Hematocrit 36.3 % (42.0-52.0); Hemoglobin 11.6 g/dl (14.0-18.0); Imm Gran Abs Auto 0.04 X10*3/uL (0.00-0.03); Imm Gran Pct Auto 0.4 % (0.0-0.4); Lymphocytes Absolute Auto 0.9 X10*3/uL (1.2-4.9); Lymphocytes Percent Auto 8.6 % (20-40); Mean Corpuscular Hemoglobin 29.4 pg (27.0-33.0); Mean Corpuscular Volume 92.1 fL (80.0-98.0); Mean Platelet Volume 9.8 fL (9.4-12.4); Monocytes Absolute Auto 0.7 X10*3/uL (0.1-1.2); Monocytes Percent Auto 6.6 % (2-11); Neutrophils Absolute Auto 8.2 x10*3/uL (2.0-8.3); Neutrophils Percent Auto 77.7 % (45-73); Platelet Count 291 X10*3/uL (160-400); Red Blood Count 3.94 X10*6/uL (4.60-5.80); Red Cell Distribution Width 14.9 % (11.0-16.0); White Blood Count 10.6 X10*3/uL (4.8-10.8)
[2023-09-08 12:50] LABS: Appearance Urine Clear; Color Urine Yellow; Glucose Urine UA Negative (Negative); Leukocyte Esterase Urine Negative (Negative); Nitrite Urine Negative (Negative); PH 5.5 (5.0-9.0); Specific Gravity - Urine 1.015 (1.005-1.025); Urine Blood Negative (Negative); Urine Ketones Negative (Negative); Urine Protein Trace mg/dL (Neg-Trace)
[2023-09-08 12:55] LABS: Bacteria Urine None Seen (None Seen); Hyaline Casts Urine 0-2 /LPF (0-2); RBC Urine 0-2 /HPF (0-2); Squamous Epithelial Cell Urine 0-2 /HPF (0-2); WBC Urine 0-5 /HPF (0-5)
[2023-09-08 13:14] LABS: Creatinine Urine 115.44 mg/dL; Protein/Creatinine Ratio, Ur 0.15 (<0.2); Total Protein Urine Random 17 mg/dL (<12)
[2023-09-08 13:17] LABS: Alanine Aminotransferase 12 U/L (0-40); Albumin Level 3.9 g/dL (3.5-5.0); Alkaline Phosphatase 72 U/L (39-117); Anion Gap 13 (12-20); Aspartate Amino Transferase 20 U/L (5-37); Bilirubin Total 0.4 mg/dL (0.0-1.0); Blood Urea Nitrogen 40 mg/dL (9-16); Calcium 9.2 mg/dL (8.4-10.2); Carbon Dioxide 22 mmol/L (22-29); Chloride 107 mmol/L (96-108); Estimated Glomerular Filt Rate 25; Glucose Random 110 mg/dL (60-115); Potassium 4.8 mmol/L (3.3-5.1); Sodium 137 mmol/L (135-145); Total Protein 7.9 g/dL (6.5-8.0)
[2023-09-08 13:24] LABS: Rheumatoid Factor < 13.0 IU/mL (<15.0)
[2023-09-08 13:29] LABS: Erythrocyte Sedimentation Rate 40 MM/HR (0-15)
[2023-09-08 15:33] LABS: HBc Num1 0.15 S/CO (0.00-0.79); HBsAGNum1 0.24 S/CO (0.00-0.99); HIV AB/AG Nonreactive (Nonreactive); HIV Num 1 0.05 S/CO (0.00-0.99); Hepatitis A Antibody IgM 0.15 Index (0-0.79); Hepatitis B Core Antibody Nonreactive (Nonreactive); Hepatitis B Surface Antigen Negative (Negative); ~HepC Num1 0.23 S/CO (0.00-0.79); ~Hepatitis A Antibody IgM Nonreactive (Nonreactive); ~Hepatitis B Surface Antibody NONREACTIVE (Nonreactive); ~Hepatitis C Antibody Nonreactive (Nonreactive)
[2023-09-09 13:44] LABS: Anti DNA DS Antibody 1 IU/mL; Antibody to SS-A Antigen <1.0 NEG AI (<1.0 NEG); Antibody to SS-B Antigen <1.0 NEG AI (<1.0 NEG); SM/Ribonucleoprotein Ab <1.0 NEG AI (<1.0 NEG); Smith Protein <1.0 NEG AI (<1.0 NEG)
[2023-09-09 22:09] LABS: IgA 431 mg/dL (70-320); IgG 1601 mg/dL (600-1540); IgM 78 mg/dL (50-300)
[2023-09-09 23:44] LABS: Cardiolipin IgG Ab <2.0 GPL-U/mL; Cardiolipin IgM Ab <2.0 MPL-U/mL
[2023-09-10 20:39] LABS: TS Negative Control Passed; TS Panel A 0; TS Panel B 0; TS Positive Control Passed; TSpotTB Negative (Negative)
[2023-09-11 12:28] LABS: Prot Elec - Albumin 3.9 g/dL (3.8-4.8); Prot Elec - Alpha1 0.4 g/dL (0.2-0.3); Prot Elec - Alpha2 0.8 g/dL (0.5-0.9); Prot Elec - Beta 1 0.4 g/dL (0.4-0.6); Prot Elec - Beta 2 0.5 g/dL (0.2-0.5); Prot Elec - Gamma 1.5 g/dL (0.8-1.7); Prot Elec - Total Protein 7.4 g/dL (6.1-8.1)
[2023-09-12 00:54] LABS: Complement C3 113 mg/dL (82-185)
[2023-09-15 12:39] LABS: Cyclic Citrullinated Peptide <16 UNITS
[2023-09-16 05:19] LABS: PTT (LAC) Screen 40 sec (<=40)
[2023-09-16 05:49] LABS: Beta-2 Glycoprotein IgA <2.0 U/mL (<20.0); Beta-2 Glycoprotein IgG <2.0 U/mL (<20.0); Beta-2 Glycoprotein IgM <2.0 U/mL (<20.0)
[2023-09-16 12:03] LABS: Centromere Protein A Ab <11 SI (<11); Centromere Protein B Ab <11 SI (<11); Fibrillarin Ab <11 SI (<11); PM SCL 100 Ab <11 SI (<11); PM SCL 75 Ab <11 SI (<11); RNA Polymerase III RP11 Ab <11 SI (<11); RNA Polymerase III RP155 Ab <11 SI (<11); SCL-70 Extractable Nuclear Ab 101 SI (<11); Th-To Ab <11 SI (<11); U1 SNRNP RNP 70KD <11 SI (<11); U1 SNRNP RNP A <11 SI (<11); U1 SNRNP RNP C <11 SI (<11)
[2023-09-17 15:54] LABS: DNAds, Crithidia Antibody Negative (Negative)
[2023-09-18 09:28] LABS: ANA Pattern 2 Nuclear, Speckled; Anti Nuclear Antibody Pattern Nuclear, Nucleolar; Anti Nuclear Antibody Screen POSITIVE (NEGATIVE)
[2023-09-20 15:29] LABS: Cytosolic 5'nuc 1A Ab IgG <5 Units; Ej Ab <11 SI (<11); HMGCR Ab IgG <2 CU (<20); Jo-1 Ab <11 SI (<11); MDA5 Ab <11 SI (<11); Mi-2 alpha Ab <11 SI (<11); Mi-2 beta Ab <11 SI (<11); NXP-2 (MJ) Ab <11 SI (<11); Oj Ab <11 SI (<11); Pl-12 Ab <11 SI (<11); Pl-7 Ab <11 SI (<11); SRP Ab <11 SI (<11); TIF1 gamma Ab <11 SI (<11)
== END 2023-09-08 11:00 | disposition home or self-care (01) ==
LOC: HO.LAB 10:59
PROVIDERS: PCP Internal Medicine; Visit Provider Student in an Organized Health Care Education/Training Program
DX: Z11.7 Encounter for testing for latent tuberculosis infection (principal); Z11.59 Encounter for screening for other viral diseases; M32.9 Systemic lupus erythematosus, unspecified; M34.9 Systemic sclerosis, unspecified; D68.61 Antiphospholipid syndrome; M25.50 Pain in unspecified joint; R76.8 Other specified abnormal immunological findings in serum; Z72.89 Other problems related to lifestyle
CPT/HCPCS: 36415; 80053; 81001; 82550; 82570; 82784; 83516; 83520; 84156; 84165; 84182; 85025; 85597; 85598; 85613; 85652; 85730; 86038; 86039; 86140; 86146; 86147; 86160; 86200; 86225; 86235; 86255; 86334; 86431; 86481; 86704; 86706; 86709; 86803; 87340; 87389; 99202

== ENCOUNTER 2023-09-21 16:07 | Outpatient (REF) | payer OTHER, SELFPAY ==
--- NOTE | ~2023-09-21 | XR_ITS ---
EXAMINATION: XR HAND/WRIST, BILATERAL CLINICAL INFORMATION: Bilateral hand pain. COMPARISON: None available. TECHNIQUE: 4 views of each hand/wrist FINDINGS: Right Hand/Wrist: Cyst or erosion within the central/volar aspect of the mid scaphoid. Chronic-appearing erosion of the distal ulna in the region of the fovea, and degenerative cyst or erosion of the proximal lunate, opposite the distal ulna. Mild osteoarthritis of the triscaphoid articulation, 1st CMC joint, and 1st interphalangeal joint. Mild degenerative changes of the interphalangeal joints with no active erosion or suspicious soft tissue calcification. Left Hand/Wrist: Marked narrowing and chronic remodeling at the junction of the distal radius and the lunate. Sclerosis and a cyst/erosion of the distal radius. Ulnar-positive variance, chronically eroding into the ulnar aspect of the lunate. Mild degenerative changes of the interphalangeal joints and 1st CMC joint. No suspicious soft tissue calcification. XR/XR hand wrist LT IMPRESSION: RIGHT HAND/WRIST: Findings of the carpus suggest an inflammatory arthritis, likely chronic. Mild degenerative changes elsewhere. LEFT HAND/WRIST: Marked arthritic changes of the radiocarpal joint likely due to a chronic inflammatory arthritis. Mild degenerative changes elsewhere.
--- NOTE | ~2023-09-21 | XR_ITS ---
EXAMINATION: XR HAND/WRIST, BILATERAL CLINICAL INFORMATION: Bilateral hand pain. COMPARISON: None available. TECHNIQUE: 4 views of each hand/wrist FINDINGS: Right Hand/Wrist: Cyst or erosion within the central/volar aspect of the mid scaphoid. Chronic-appearing erosion of the distal ulna in the region of the fovea, and degenerative cyst or erosion of the proximal lunate, opposite the distal ulna. Mild osteoarthritis of the triscaphoid articulation, 1st CMC joint, and 1st interphalangeal joint. Mild degenerative changes of the interphalangeal joints with no active erosion or suspicious soft tissue calcification. Left Hand/Wrist: Marked narrowing and chronic remodeling at the junction of the distal radius and the lunate. Sclerosis and a cyst/erosion of the distal radius. Ulnar-positive variance, chronically eroding into the ulnar aspect of the lunate. Mild degenerative changes of the interphalangeal joints and 1st CMC joint. No suspicious soft tissue calcification. XR/XR hand wrist RT IMPRESSION: RIGHT HAND/WRIST: Findings of the carpus suggest an inflammatory arthritis, likely chronic. Mild degenerative changes elsewhere. LEFT HAND/WRIST: Marked arthritic changes of the radiocarpal joint likely due to a chronic inflammatory arthritis. Mild degenerative changes elsewhere.
[2023-09-21 16:21] LABS: MANUAL DIFF FLAG NO
[2023-09-21 16:32] LABS: Basophils Absolute Auto 0.1 X10*3/uL (0.0-0.2); Basophils Percent Auto 0.5 % (0-2); Eosinophils Absolute Auto 0.6 X10*3/uL (0.0-0.4); Eosinophils Percent Auto 5.5 % (0-4); Hematocrit 33.5 % (42.0-52.0); Hemoglobin 10.6 g/dl (14.0-18.0); Imm Gran Abs Auto 0.04 X10*3/uL (0.00-0.03); Imm Gran Pct Auto 0.4 % (0.0-0.4); Lymphocytes Absolute Auto 0.9 X10*3/uL (1.2-4.9); Mean Corpuscular HGB Conc 31.6 g/dl (31.0-36.0); Mean Corpuscular Hemoglobin 29.1 pg (27.0-33.0); Mean Platelet Volume 9.5 fL (9.4-12.4); Monocytes Absolute Auto 0.9 X10*3/uL (0.1-1.2); Monocytes Percent Auto 8.1 % (2-11); Neutrophils Absolute Auto 8.6 x10*3/uL (2.0-8.3); Neutrophils Percent Auto 77.5 % (45-73); Platelet Count 262 X10*3/uL (160-400); Red Blood Count 3.64 X10*6/uL (4.60-5.80); White Blood Count 11.1 X10*3/uL (4.8-10.8)
[2023-09-21 17:05] LABS: Alanine Aminotransferase 10 U/L (0-40); Albumin Level 3.8 g/dL (3.5-5.0); Alkaline Phosphatase 68 U/L (39-117); Anion Gap 16 (12-20); Aspartate Amino Transferase 16 U/L (5-37); Bilirubin Total 0.4 mg/dL (0.0-1.0); Blood Urea Nitrogen 36 mg/dL (9-16); Calcium 9.3 mg/dL (8.4-10.2); Carbon Dioxide 19 mmol/L (22-29); Chloride 109 mmol/L (96-108); Estimated Glomerular Filt Rate 26; Glucose Random 123 mg/dL (60-115); Potassium 4.6 mmol/L (3.3-5.1); Sodium 139 mmol/L (135-145); Total Protein 7.5 g/dL (6.5-8.0)
== END 2023-09-21 16:08 | disposition home or self-care (01) ==
LOC: HO.LAB 16:07
PROVIDERS: Absent Provider Internal Medicine Hypertension Specialist; PCP Internal Medicine; Visit Provider Student in an Organized Health Care Education/Training Program
DX: N18.30 Chronic kidney disease, stage 3 unspecified (principal); N18.9 Chronic kidney disease, unspecified; M25.50 Pain in unspecified joint
CPT/HCPCS: 36415; 73110; 73130; 80053; 85025

== ENCOUNTER 2023-09-28 15:27 | Outpatient (AMB) | payer OTHER, SELFPAY ==
[2023-09-28 15:29] VITALS: BP 122/68; PULSE 58; O2SAT 98; BMI 24.4
--- NOTE | 2023-09-28 15:29 | HO.NEPHOV ---
Vital Signs 09/28/23 15:29 Height 5 ft 9 in Weight 165 lb BMI 24.4 BP 122/68 Blood Pressure Location Lt brachial Position Sitting Pulse 58 Pulse Source Pulse Oximeter Pulse Oximetry (%) 98 Oxygen Delivery Method Room Air Intake Visit Reasons: Anemia due to ckd/ 3 MO FU/ Conf Matrix Inspector Required: No Accompanied by: Spouse Allergies No Known Allergies Allergy (Verified 09/28/23 15:31) HPI Comments Details: 67 yr old man with advanced CKD and HTN is here for follow up He was seen in [facility] for renal insufficiency. Biopsy revealed severe arterial sclerosis. He required hemodialysis for few weeks. Urine output progressively increased and he was therefore taken off hemodialysis. He has been off hemodialysis for the last 3 months. He complains of fatigue. He is also feeling cold all the time. No urinary symptoms. No hematuria. No nausea or vomiting. No shortness of breath. He recently underwent herniorrhaphy which was uneventful. 03/30/23 Still feels weak;c/o fatigue ; Home BP readings are good 06/29/23 c/o Fatigue Appetite is fair Gained 8 lbs in 6 months [facility] Medical History (Updated 09/08/23 @ 12:23 by Jose Dent MD) Chronic renal disease, stage IV History of renal stone Arthritis Hx of acute renal failure HTN (hypertension) History of renal dialysis Surgical History Inguinal hernia (01/01/23) History of biopsy Hx of colonoscopy History of esophagogastroduodenoscopy (EGD) Hx of arthroscopy of knee History of excision of pilonidal cyst History of arthroscopic surgery of shoulder Social History Are you a primary care manager to a significant other at home: No Do you presently have visiting nurse or other home services: No Alcohol intake: never Patient Tobacco Use Status: Never used Tobacco Current occupational status: employed 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 Vital Signs: Last Vital Signs Pulse 58 09/28/23 15:29 BP 122/68 09/28/23 15:29 Pulse Ox 98 09/28/23 15:29 Oxygen Delivery Method Room Air 09/28/23 15:29 BMI result Body Mass Index 24.4 Eyes General: appearance normal, both eyes and all related structures Visual Reeves: normal visual reeves by confrontation Neck Neck: Yes supple Resp Effort & Inspection: normal respiratory effort and respiratory effort not decreased Auscultation: clear to auscultation bilaterally Cardio Palpation: no palpable S3 Heart sounds: no rubs GI Inspection: Yes normal to inspection Palpation (GI): Soft to palpation Percussion: Yes normal to percussion Auscultation: normal bowel sounds General: Yes no CVA tenderness Back/Spine/Pelvis Back: no CVA tenderness Skin General skin exam: no petechiae and no purpura Neuro General: no focal motor deficits Motor exam (neuro): no asterixis Extrem General: No clubbing and No edema Results Reviewed Nephrology Results: Hgb 10.6 g/dl (14.0-18.0) L 09/21/23 WBC 11.1 X10*3/uL (4.8-10.8) H 09/21/23 Plt Count 262 X10*3/uL (160-400) 09/21/23 Sodium 139 mmol/L (135-145) 09/21/23 Potassium 4.6 mmol/L (3.3-5.1) 09/21/23 Chloride 109 mmol/L (96-108) H 09/21/23 Carbon Dioxide 19 mmol/L (22-29) L 09/21/23 BUN 36 mg/dL (9-16) H 09/21/23 Creatinine 2.46 mg/dL (0.5-1.4) H 09/21/23 Calcium 9.3 mg/dL (8.4-10.2) 09/21/23 PTH Intact 50.5 pg/mL (8.7-77.1) 02/16/23 Urine Protein Trace mg/dL (Neg-Trace) 09/08/23 Urine Creatinine 115.44 mg/dL 09/08/23 Protein/Creatinin Ratio 0.15 (<0.2) 09/08/23 Assessment & Plan Assessment & Plan (1) Chronic renal disease, stage IV: Code(s): N18.4 - Chronic kidney disease, stage 4 (severe) Category: Medical (2) HTN (hypertension): Code(s): I10 - Essential (primary) hypertension Category: Medical (3) Anemia due to chronic kidney disease: Code(s): N18.9 - Chronic kidney disease, unspecified; D63.1 - Anemia in chronic kidney disease Category: Medical Plan 67-year-old man with advanced kidney disease in the setting of hypertension. Biopsy revealed Nephrosclerosis Goal is to slow the progression of renal disease. Continue to avoid nephrotoxic agents including NSAIDs. Hypertension blood pressure is well controlled home blood pressure readings are excellent. No hypotensive episodes. I would continue with the current regimen. He should stay on low-sodium diet. 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
== END 2023-09-28 15:46 | disposition home or self-care (01) ==
PROVIDERS: PCP Internal Medicine; Visit Provider Internal Medicine Hypertension Specialist
DX: I12.9 Hypertensive chronic kidney disease with stage 1 through stage 4 chronic kidney disease, or unspecified chronic kidney disease (principal); N18.4 Chronic kidney disease, stage 4 (severe); N18.9 Chronic kidney disease, unspecified; D63.1 Anemia in chronic kidney disease
CPT/HCPCS: 99213

== ENCOUNTER → 2023-09-28 15:27 | Outpatient (BNVA) | payer OTHER, SELFPAY | PROVIDERS: PCP Internal Medicine; Visit Provider Internal Medicine Hypertension Specialist | DX: I12.9 Hypertensive chronic kidney disease with stage 1 through stage 4 chronic kidney disease, or unspecified chronic kidney disease (principal); N18.4 Chronic kidney disease, stage 4 (severe); D63.1 Anemia in chronic kidney disease | CPT/HCPCS: 99212 ==

== ENCOUNTER 2023-10-20 12:34 | Outpatient (AMB) | payer OTHER, SELFPAY ==
--- NOTE | 2023-10-20 12:35 | A.OFFVIS_ITS ---
Vital Signs 10/20/23 12:38 Height 5 ft 9 in Weight 166 lb 3.657 oz BMI 24.5 BP 124/68 Blood Pressure Location Lt brachial Position Sitting Pulse 53 Pulse Source Pulse Oximeter Pulse Oximetry (%) 99 Oxygen Delivery Method Room Air Intake Visit Reasons: Scleroderma/CM Intake Note: Patient presents for Scleroderma. Allergies No Known Allergies Allergy (Verified 10/20/23 12:38) Medication List - Last Reconciled 10/20/23 by Jose Dent MD ascorbic acid (vitamin C) (Vitamin C) 500 mg PO DAILY B complex with C 20-folic acid 1 mg ([place] Caps) 1 cap PO DAILY carvedilol 25 mg PO BID fluticasone propionate 50 mcg/actuation 1 spray intranasal DAILY nifedipine ER 30 mg PO DAILY HPI Comments Details: Patient returns for follow-up after completion of his diagnostic workup Initial history: This is a 67-year-old male who presents for evaluation of a positive AARON. Patient states that in April of 2022 he developed abrupt onset of difficulty breathing, he went to the emergency room, his blood pressure was significantly elevated. He was started on hemodialysis inpatient. He continued on hemodialysis for 4 more months. Prior to that episode he was losing weight. Was not feeling well, feeling cold all the time, bluish discoloration of his fingertips, skin changes especially of his thighs. Intermittent acid reflux. States that he has lost around 50 lb in the last 18 months or so. Mostly due to lack of appetite. He has generalized fatigue. Patient is unaware of any family history of an autoimmune rheumatic disease. Denies any history of DVT/PE [facility] Medical History Chronic renal disease, stage IV History of renal stone Arthritis Hx of acute renal failure HTN (hypertension) History of renal dialysis Surgical History Inguinal hernia (01/01/23) History of biopsy Hx of colonoscopy History of esophagogastroduodenoscopy (EGD) Hx of arthroscopy of knee History of excision of pilonidal cyst History of arthroscopic surgery of shoulder Social History Are you a primary mall plant caretaker to a significant other at home: No Do you presently have visiting nurse or other home services: No Alcohol intake: never Patient Tobacco Use Status: Never used Tobacco Current occupational status: employed 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 Review of Systems Const Denies fever(s), Reports weakness and Reports weight loss Musc Reports muscle weakness and Reports numbness Neuro Reports numbness and Reports weakness Physical Exam Vital Signs: Last Vital Signs Pulse 53 10/20/23 12:38 BP 124/68 10/20/23 12:38 Pulse Ox 99 10/20/23 12:38 Oxygen Delivery Method Room Air 10/20/23 12:38 BMI result Body Mass Index 24.5 Const General: cooperative, healthy appearing and comfortable Nutritional Appearance: average body habitus Orientation/consciousness: patient oriented x3 Limitations: no limitations HEENT Head: Yes normocephalic and Yes atraumatic Resp Effort & Inspection: normal respiratory effort and able to speak in complete sentences Auscultation: clear to auscultation bilaterally Cardio Rate: regular rate Rhythm: regular rhythm Skin Other: Skin thickening of his fingers distal to his PIP is and patch of and thickening on the dorsal aspect of his left ankle Hair loss on extensor aspect of both forearms Multiple areas of salt and pepper appearance of his skin Multiple telangiectasias especially left hand, face, oral cavity No significant skin thickening otherwise Neuro General: patient oriented x3 Extrem Other: Osteoarthritic changes of both hands with no active synovitis no tapered appearance of his fingertips No bluish discoloration today Normal nailfold capillaroscopy Pretibial edema bilaterally Assessment & Plan Assessment & Plan (1) Diffuse scleroderma: Comment: onset 2022 (weight loss, scleroderma renal crisis ,Raynaud's, skin thickening , possible GERD, telangiectasias +++Sc 70) Code(s): M34.9 - Systemic sclerosis, unspecified Category: Medical Plan: This is a 67-year-old male with newly diagnosed diffuse scleroderma who presents for follow-up. Today I had a long discussion with patient regarding his diagnosis and management Discussed conservative measures for Raynaud's Patient does have episode when he wakes up having to clear his throat, possible esophageal dysmotility. Advised patient to sleep more elevated, use at least 3 pillows, consider buying a wedge pillow Will check HRCT chest to evaluate for interstitial lung disease Check PFTs to screen for ILD/PAH Check a 2D echo to screen for pulmonary artery hypertension There are some erosive changes on his wrist radiographs but there is no active synovitis currently that require DMARDs Continue to monitor patient clinically Follow-up in 3 months Plan I spent 40 minutes reviewing patient's chart, evaluating patient, ordering diagnostic workup, counseling patient and documenting in the chart Orders: Orders CT chest wo con - High Res Today J84.9 - Interstitial pulmonary disease, unspecified, M34.9 - Systemic sclerosis, unspecified PFT pulmonary function test Today M34.9 - Systemic sclerosis, unspecified, R06.02 - Shortness of breath CA echo transthoracic complete Today R06.02 - Shortness of breath Coding Level of Care Code Est Pt Level 5 (78502) Complex EM visit Add On G2211 Diagnoses Diffuse scleroderma M34.9
[2023-10-20 12:38] VITALS: BP 124/68; PULSE 53; O2SAT 99; BMI 24.5
== END 2023-10-20 13:06 | disposition home or self-care (01) ==
PROVIDERS: PCP Internal Medicine; Visit Provider Student in an Organized Health Care Education/Training Program
DX: M34.9 Systemic sclerosis, unspecified (principal)
CPT/HCPCS: 99215; G2211

== ENCOUNTER → 2023-10-20 12:34 | Outpatient (BNVA) | payer OTHER, SELFPAY | PROVIDERS: PCP Internal Medicine; Visit Provider Student in an Organized Health Care Education/Training Program | DX: M34.9 Systemic sclerosis, unspecified (principal) | CPT/HCPCS: 99212 ==

== ENCOUNTER → 2023-11-17 14:02 | Outpatient (REF) | payer OTHER, SELFPAY ==
--- NOTE | 2023-11-17 14:05 | CA_ITS ---
Transthoracic Echocardiogram Patient (Last, First, Middle): Juan Lomax E Gender: Male Date of : 1955 Age: 67 Procedure Date: 11/17/2023 Procedure Type: Transthoracic Echocardiogram Location: OP Height: 175. cm Weight: 74.39 kg BSA: 1.90 m2 Heart Rate: 56 bpm BP: 118 / 65 mmHg [employer] Supervisor: MUKESH Referring MD: Jose Dent MD Symptoms: R06.02 - Shortness of breath Study Quality: Good ECG Rhythm: Sinus Conclusions: - The left ventricular systolic function is normal. The calculated ejection fraction is 63% by biplane method. - Moderate biatrial enlargement. - No obvious valvular pathology seen on this study. Findings Left Ventricle Normal left ventricular cavity size. There is mildly increased left ventricular wall thickness. The left ventricular systolic function is normal. The calculated ejection fraction is 63% by biplane method. There is no evidence of regional wall motion abnormalities. Diastolic function is normal for age. Right Ventricle Mildly increased right ventricular cavity size. There is normal right ventricular systolic function. Atria Moderate biatrial enlargement. Aortic Valve There is a normal trileaflet aortic valve. There is mild calcification of the aortic valve. There is no aortic valve stenosis. Trace to mild aortic regurgitation. Mitral Valve The mitral valve appears normal. There is trace mitral valve regurgitation. There is no mitral valve stenosis. Pulmonic Valve The pulmonic valve is likely normal. Tricuspid Valve There is mild tricuspid valve regurgitation. There is no evidence of pulmonary hypertension. Great Vessels The asc aorta is normal in size. Venous The inferior vena cava is normal in size and collapses greater than 50% with inspiration. Pericardium/Pleural There is no evidence of pericardial effusion. Prior Study Comparison No prior study available for comparison. Recommendations, Care & Conclusions No obvious valvular pathology seen on this study. Measurements 2D Linear Measurements IVSd: 1.08 0.6-0.9/0.6-1.0 cm LVIDd: 5.98 3.9-5.3/4.2-5.9 cm LVIDd Index: 3.15 2.4-3.2/2.2-3.1 cm/m2 LVIDs: 3.40 2.0-3.6 cm LVPWd: 1.19 0.7-1.1 cm LA Diam: 3.80 2.7-3.8/3.0-4.0 cm LAIDs Index: 2.00 1.5-2.3 cm/m2 LV Mass: 361.58 67-162/88-224 g LV Mass Index: 190.30 43-95/49-115 g/m2 LVOT Diam: 2.20 3.0+(-)1.3 cm 2D Systolic Function EF 4C: 57.70 >55% EF 2C: 68.10 >55% EF BiP: 62.60 >55% Mitral Valve MV Pk E: 0.92 MV PK A: 1.07 MV Decel Time: 305.00 E/A: 0.90 E'Lateral: 9.90 E'Medial: 7.18 E/E' Med: 12.80 E/E' Lat: 9.30 PHT: 89.00 MVA PHT: 2.47 Decel Atkinson: 3.02 Aortic Valve AoV Pk Tyron: 1.67 AoV Mn Tyron: 1.27 AoV VTI: 0.44 AoV Pk Grad: 11.00 Aov Mn Grad: 7.00 DAMON Cont.VTI: 2.66 AI Pk Tyron: 4.03 AI Atkinson: 2.54 LVOT LVOT Pk Tyron: 1.59 LVOT Mn Tyron: 0.94 LVOT VTI: 0.31 LVOT Pk Grad: 10.00 LVOT Mn Grad: 4.00 LVOT Diam: 2.20 LVOT Area: 3.80 Diastolic Function MV Pk E: 0.92 MV Pk A: 1.07 E/A: 0.90 E'Medial: 7.18 E/E' Med: 12.80 E' Laterial: 9.90 E/E' Lat: 9.30 Right Ventricle TAPSE (mm): 27.70 TVS' Tyron: 13.60 Tricuspid Valve TR Pk Tyron: 2.37 TR Pk Grad: 22.00 RA Press: 3.00 RVSP: 25.00 Great Vessels Aorta Sinus of Valsalva: 3.90 2.0-3.5 cm Ao Asc: 3.80 2.1-3.4 cm Pulmonary Valve PV Pk Tyron: 1.38 Peak PV Grad: 8.00 Updated in Other Vendor System with Status of Final Freeman Pinto MD electronically signed on 11/18/2023 8:30:02 AM with status of Final
== END ==
LOC: HO.CARD 14:02
PROVIDERS: PCP Internal Medicine; Visit Provider Student in an Organized Health Care Education/Training Program
DX: R06.02 Shortness of breath (principal)
CPT/HCPCS: 93306

== ENCOUNTER → 2023-11-17 14:05 | Outpatient (BNV) | payer OTHER, SELFPAY | PROVIDERS: PCP Internal Medicine; Visit Provider Internal Medicine | DX: I35.1 Nonrheumatic aortic (valve) insufficiency (principal); I36.1 Nonrheumatic tricuspid (valve) insufficiency | CPT/HCPCS: 93306 ==

== ENCOUNTER 2023-11-17 14:41 | Outpatient (REF) | payer OTHER, SELFPAY ==
--- NOTE | ~2023-11-17 | CT_ITS ---
EXAMINATION: CT CHEST WITHOUT CONTRAST CLINICAL INFORMATION: Interstitial pulmonary disease COMPARISON: None available. TECHNIQUE: Multidetector volumetric CT imaging of the chest was done. Axial MIP volume rendering provided. Sagittal and coronal reformatted images were obtained. This CT examination was performed using dose optimization techniques as appropriate, variously including the following: *Automated exposure control *Adjustment of mA and/or kV according to patient size (this includes techniques or standardized protocols for targeted exams where dose is matched to indication/reason for exam; i.e. extremities or head) *Use of iterative reconstruction technique DLP: 354 mGy-cm FINDINGS: CABLE CUTTER AND SWAGER: Unremarkable LUNGS: Lungs are well expanded with linear bronchiectasis seen in the right lower lobe and multiple punctate calcified granulomas in the right lower lobe subpleural as well as left lower lobe of the lesser degree but there is single larger granuloma seen in the left lower lobe, measured 0.7 cm. There are increased interstitial markings more prominent in the right lower lobe subpleural metastases in bilaterally there are no lung nodules identified. MEDIASTINUM: Thyroid gland is unremarkable. There is mediastinal lymphadenopathy with pretracheal lymph nodes measured between 2.7 and 2.1 cm . There is no hilar lymphadenopathy CORONARY AR or pericardial effusion seen. DAHIANA CALCIFICATION: Mild coronary artery calcifications present PLEURA: There is no pleural effusion. No pleural mass or thickening. AXILLA: No lymphadenopathy. UPPER ABDOMEN: Unremarkable. OSSEOUS STRUCTURES: Mild changes of degenerative spondylosis in thoracic spine CT/CT chest wo con - High Res IMPRESSION: 1. Mild interstitial lung disease with linear bronchiectasis in the right lower lobe and multiple calcified granulomas seen bilaterally. 2. Mediastinal lymphadenopathy. Fleischner guidelines were followed. Electronically signed by: Craig Lira MD 12/23/2023 11:08 AM EDT
== END 2023-11-17 14:42 | disposition home or self-care (01) ==
LOC: HO.CT 14:41
PROVIDERS: PCP Internal Medicine; Visit Provider Student in an Organized Health Care Education/Training Program
DX: J84.9 Interstitial pulmonary disease, unspecified (principal); M34.9 Systemic sclerosis, unspecified
CPT/HCPCS: 71250

== ENCOUNTER 2024-01-20 12:09 | Outpatient (REF) | payer OTHER, SELFPAY ==
[2024-01-20 12:35] LABS: MANUAL DIFF FLAG NO
[2024-01-20 12:54] LABS: Basophils Absolute Auto 0.1 X10*3/uL (0.0-0.2); Basophils Percent Auto 0.8 % (0-2); Eosinophils Absolute Auto 0.7 X10*3/uL (0.0-0.4); Eosinophils Percent Auto 6.5 % (0-4); Hematocrit 35.3 % (42.0-52.0); Hemoglobin 11.4 g/dl (14.0-18.0); Imm Gran Abs Auto 0.04 X10*3/uL (0.00-0.03); Imm Gran Pct Auto 0.4 % (0.0-0.4); Lymphocytes Absolute Auto 0.9 X10*3/uL (1.2-4.9); Mean Corpuscular HGB Conc 32.3 g/dl (31.0-36.0); Mean Corpuscular Volume 89.8 fL (80.0-98.0); Mean Platelet Volume 9.6 fL (9.4-12.4); Monocytes Absolute Auto 0.8 X10*3/uL (0.1-1.2); Monocytes Percent Auto 7.9 % (2-11); Neutrophils Absolute Auto 7.8 x10*3/uL (2.0-8.3); Neutrophils Percent Auto 75.4 % (45-73); Platelet Count 276 X10*3/uL (160-400); Red Blood Count 3.93 X10*6/uL (4.60-5.80); Red Cell Distribution Width 15.7 % (11.0-16.0); White Blood Count 10.3 X10*3/uL (4.8-10.8)
[2024-01-20 13:29] LABS: Anion Gap 12 (12-20); Blood Urea Nitrogen 45 mg/dL (9-16); Calcium 9.5 mg/dL (8.4-10.2); Carbon Dioxide 20 mmol/L (22-29); Chloride 108 mmol/L (96-108); Estimated Glomerular Filt Rate 26; Potassium 4.6 mmol/L (3.3-5.1); Sodium 135 mmol/L (135-145)
== END 2024-01-20 12:10 | disposition home or self-care (01) ==
LOC: HO.LAB 12:09
PROVIDERS: PCP Internal Medicine; Visit Provider Internal Medicine Nephrology
DX: I10 Essential (primary) hypertension (principal); N18.4 Chronic kidney disease, stage 4 (severe)
CPT/HCPCS: 36415; 80051; 82310; 82565; 84520; 85025

== ENCOUNTER 2024-01-25 13:46 | Outpatient (AMB) | payer OTHER, SELFPAY ==
[2024-01-25 13:51] VITALS: BP 126/62; BMI 24.7
--- NOTE | 2024-01-25 13:51 | HO.NEPHOV_ITS ---
Vital Signs 01/25/24 13:51 Height 5 ft 9 in Weight 167 lb BMI 24.7 BP 126/62 Blood Pressure Location Lt brachial Position Sitting Intake Visit Reasons: 4 mon follow up/ Conf Residential Support Worker Required: No Accompanied by: Spouse Allergies No Known Allergies Allergy (Verified 01/25/24 13:54) Medication List - Last Reconciled 01/25/24 by Ruben Moreno MD ascorbic acid (vitamin C) (Vitamin C) 500 mg PO DAILY B complex with C 20-folic acid 1 mg ([place] Caps) 1 cap PO DAILY carvedilol 25 mg PO BID fluticasone propionate 50 mcg/actuation 1 spray intranasal DAILY nifedipine ER 30 mg PO DAILY HPI Comments Details: 67 yr old man with advanced CKD and HTN is here for follow up He was seen in [facility] for renal insufficiency. Biopsy revealed severe arterial sclerosis. He required hemodialysis for few weeks. Urine output progressively increased and he was therefore taken off hemodialysis. He has been off hemodialysis for the last 3 months. He complains of fatigue. He is also feeling cold all the time. No urinary symptoms. No hematuria. No nausea or vomiting. No shortness of breath. He recently underwent herniorrhaphy which was uneventful. 03/30/23 Still feels weak;c/o fatigue ; Home BP readings are good 06/29/23 c/o Fatigue Appetite is fair Gained 8 lbs in 6 months 01/15/2024. Continues to complain of fatigue. He has gained few more lb. No nausea or vomiting. He has been followed by Rheumatology. [facility] Medical History Chronic renal disease, stage IV History of renal stone Arthritis Hx of acute renal failure HTN (hypertension) History of renal dialysis Surgical History Inguinal hernia (01/01/23) History of biopsy Hx of colonoscopy History of esophagogastroduodenoscopy (EGD) Hx of arthroscopy of knee History of excision of pilonidal cyst History of arthroscopic surgery of shoulder Social History Are you a primary medicare sales representative to a significant other at home: No Do you presently have visiting nurse or other home services: No Alcohol intake: never Patient Tobacco Use Status: Never used Tobacco Current occupational status: employed 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 Exam Vital Signs: Last Vital Signs BP 126/62 01/25/24 13:51 BMI result Body Mass Index 24.7 Eyes General: appearance normal, both eyes and all related structures Visual Delgadillo: normal visual delgadillo by confrontation Neck Neck: Yes supple Resp Effort & Inspection: normal respiratory effort and respiratory effort not decreased Auscultation: clear to auscultation bilaterally Cardio Palpation: no palpable S3 Heart sounds: no rubs GI Inspection: Yes normal to inspection Palpation (GI): Soft to palpation Percussion: Yes normal to percussion Auscultation: normal bowel sounds General: Yes no CVA tenderness Back/Spine/Pelvis Back: no CVA tenderness Skin General skin exam: no petechiae and no purpura Neuro General: no focal motor deficits Motor exam (neuro): no asterixis Extrem General: No clubbing and No edema Results Reviewed Results Reviewed: CT/CT chest wo con - High Res IMPRESSION: 1. Mild interstitial lung disease with linear bronchiectasis in the right lower lobe and multiple calcified granulomas seen bilaterally. 2. Mediastinal lymphadenopathy. Nephrology Results: Hgb 11.4 g/dl (14.0-18.0) L 01/20/24 WBC 10.3 X10*3/uL (4.8-10.8) 01/20/24 Plt Count 276 X10*3/uL (160-400) 01/20/24 Sodium 135 mmol/L (135-145) 01/20/24 Potassium 4.6 mmol/L (3.3-5.1) 01/20/24 Chloride 108 mmol/L (96-108) 01/20/24 Carbon Dioxide 20 mmol/L (22-29) L 01/20/24 BUN 45 mg/dL (9-16) H 01/20/24 Creatinine 2.50 mg/dL (0.5-1.4) H 01/20/24 Calcium 9.5 mg/dL (8.4-10.2) 01/20/24 Urine Protein Trace mg/dL (Neg-Trace) 09/08/23 Urine Creatinine 115.44 mg/dL 09/08/23 Protein/Creatinin Ratio 0.15 (<0.2) 09/08/23 Assessment & Plan Assessment & Plan (1) Chronic renal disease, stage IV: Code(s): N18.4 - Chronic kidney disease, stage 4 (severe) Category: Medical (2) HTN (hypertension): Code(s): I10 - Essential (primary) hypertension Category: Medical (3) Anemia due to chronic kidney disease: Code(s): N18.9 - Chronic kidney disease, unspecified; D63.1 - Anemia in chronic kidney disease Category: Medical Plan 67-year-old man with advanced kidney disease in the setting of hypertension. Biopsy revealed Nephrosclerosis Goal is to slow the progression of renal disease. Continue to avoid nephrotoxic agents including NSAIDs. Hypertension blood pressure is well controlled home blood pressure readings are excellent. No hypotensive episodes. He should stay on low-sodium diet. 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 due to coreg Will reduce by 50% to 12.5 mg bid Continue to monitor BP at home Orders: Orders Basic Metabolic Panel 4 Months D63.1 - Anemia in chronic kidney disease, N18.4 - Chronic kidney disease, stage 4 (severe), N18.9 - Chronic kidney disease, unspecified Medications: Changed From carvedilol must administer with a meal/food 25 mg PO BID To carvedilol must administer with a meal/food 12.5 mg PO BID Scribe Plan - Not visible on output: Mary Coding Level of Care Code Est Pt Level 4 (43863) Diagnoses Chronic renal disease, stage IV N18.4 HTN (hypertension) I10 Anemia due to chronic kidney disease N18.9; D63.1
== END 2024-01-25 14:14 | disposition home or self-care (01) ==
PROVIDERS: PCP Internal Medicine; Visit Provider Internal Medicine Hypertension Specialist
DX: I12.9 Hypertensive chronic kidney disease with stage 1 through stage 4 chronic kidney disease, or unspecified chronic kidney disease (principal); N18.4 Chronic kidney disease, stage 4 (severe); D63.1 Anemia in chronic kidney disease
CPT/HCPCS: 99214

== ENCOUNTER → 2024-01-25 13:46 | Outpatient (BNVA) | payer OTHER, SELFPAY | PROVIDERS: PCP Internal Medicine; Visit Provider Internal Medicine Hypertension Specialist | DX: I12.9 Hypertensive chronic kidney disease with stage 1 through stage 4 chronic kidney disease, or unspecified chronic kidney disease (principal); N18.4 Chronic kidney disease, stage 4 (severe); D63.1 Anemia in chronic kidney disease | CPT/HCPCS: 99212 ==

== ENCOUNTER 2024-02-25 11:18 | Outpatient (AMB) | payer OTHER, SELFPAY ==
--- NOTE | 2024-02-25 11:21 | A.OFFVIS_ITS ---
Vital Signs 02/25/24 11:25 Height 5 ft 9 in Weight 166 lb 0.129 oz BMI 24.5 BP 130/62 Blood Pressure Location Lt brachial Position Sitting Pulse 61 Pulse Source Pulse Oximeter Pulse Oximetry (%) 97 Oxygen Delivery Method Room Air Intake Visit Reasons: DSSc Intake Note: Patient presents for DSSc. 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 He states that he feels about the same overall. Continues to get intermittent muscle and joint aches, gets intermittent itching of the skin specially on his forehead, he does not have much of an appetite, he still eats in his weight is stable. When he awakens in the morning he feels that he coughs a few times to clear his throat. He sleeps elevated using multiple pillows. He denies any significant cough or shortness of breath. But feels generally weak. Has not had any significant Raynaud's episodes. He keeps his core warm, he has gloves and glove warmers. Has not had any digital ulcers. Initial history: This is a 67-year-old male who presents for evaluation of a positive AARON. Patient states that in April of 2022 he developed abrupt onset of difficulty breathing, he went to the emergency room, his blood pressure was significantly elevated. He was started on hemodialysis inpatient. He continued on hemodialysis for 4 more months. Prior to that episode he was losing weight. Was not feeling well, feeling cold all the time, bluish discoloration of his fingertips, skin changes especially of his thighs. Intermittent acid reflux. States that he has lost around 50 lb in the last 18 months or so. Mostly due to lack of appetite. He has generalized fatigue. Patient is unaware of any family history of an autoimmune rheumatic disease. Denies any history of DVT/PE [facility] Medical History Chronic renal disease, stage IV History of renal stone Arthritis Hx of acute renal failure HTN (hypertension) History of renal dialysis Surgical History Inguinal hernia (01/01/23) History of biopsy Hx of colonoscopy History of esophagogastroduodenoscopy (EGD) Hx of arthroscopy of knee History of excision of pilonidal cyst History of arthroscopic surgery of shoulder Social History Are you a primary rn progressive care to a significant other at home: No Do you presently have visiting nurse or other home services: No Alcohol intake: never Patient Tobacco Use Status: Never used Tobacco Current occupational status: employed 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 Review of Systems Const Denies fever(s) and Reports weakness Musc Reports muscle weakness Skin/Breast Reports pruritus Neuro Reports weakness Physical Exam Vital Signs: Last Vital Signs Pulse 61 02/25/24 11:25 BP 130/62 02/25/24 11:25 Pulse Ox 97 02/25/24 11:25 Oxygen Delivery Method Room Air 02/25/24 11:25 BMI result Body Mass Index 24.5 Const General: cooperative, healthy appearing and comfortable Nutritional Appearance: average body habitus Orientation/consciousness: patient oriented x3 Limitations: no limitations HEENT Head: Yes normocephalic and Yes atraumatic Resp Effort & Inspection: normal respiratory effort and able to speak in complete sentences Auscultation: clear to auscultation bilaterally Cardio Rate: regular rate Rhythm: regular rhythm Skin Other: Skin thickening of his fingers distal to his PIP is and patch of and thickening on the dorsal aspect of his left ankle Hair loss on extensor aspect of both forearms Multiple areas of salt and pepper appearance of his skin Multiple telangiectasias especially left hand, face, oral cavity No significant skin thickening otherwise Neuro General: patient oriented x3 Extrem Other: Osteoarthritic changes of both hands with no active synovitis Mildly cool fingertips no tapered appearance of his fingertips No bluish discoloration today Normal nailfold capillaroscopy Pretibial edema bilaterally Assessment & Plan Assessment & Plan (1) Diffuse scleroderma: Comment: onset 2022 (weight loss, scleroderma renal crisis ,Raynaud's, skin thickening , possible GERD, telangiectasias +++Scl 70) Code(s): M34.9 - Systemic sclerosis, unspecified Category: Medical Plan: This is a 68-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 Raynaud's has been well controlled. Continue with conservative measures, he is also on nifedipine 30 mg daily for his hypertension, this may help his Raynaud's as well Patient does have episodes when he wakes up having to clear his throat, sometimes initial dysphagia with food and has to sip water when eating. possible esophageal dysmotility. Will order a barium swallow. Advised patient to sleep more elevated HRCT chest only showed mild ILD, also showed mediastinal lymphadenopathy. PFTs were done, [facility] Referred patient to Pulmonary for evaluation 2D echo did not show signs suggestive of pulmonary arterial hypertension There are some erosive changes on his wrist radiographs but there is no active synovitis currently that require DMARDs Labs before next visit in 3 months Plan I spent 30 minutes reviewing patient's chart, evaluating patient, ordering diagnostic workup, counseling patient and documenting in the chart Orders: Orders Complete Blood Count Auto Diff 4 Months M34.9 - Systemic sclerosis, unspecified Creatine Kinase Total 4 Months M34.9 - Systemic sclerosis, unspecified FL barium swallow Today R13.10 - Dysphagia, unspecified Comprehensive Met. Panel 4 Months M34.9 - Systemic sclerosis, unspecified C Reactive Protein 4 Months M34.9 - Systemic sclerosis, unspecified Erythrocyte Sedimentation Rate 4 Months M34.9 - Systemic sclerosis, unspecified Referrals Pulmonology Referral J84.9 - Interstitial pulmonary disease, unspecified Coding Level of Care Code Est Pt Level 4 (47595) Diagnoses Diffuse scleroderma M34.9
--- OUTSIDE RECORDS SUMMARY | 2024-02-25 11:21 | XMS_ITS | Encounter Summary ---
Author Name [facility] [facility] [place] Address [address] [place] [address] Care Team Providers Care Paid Search Specialist Name Role Phone KARIE DE LOS SANTOS Primary Care Provider Unava ilable Insurance Providers: All historical and current Section Date Range: From patient's date of to the date document was created. This section includes the names of all active insurance providers for the patient. Insurance Provider Type of Coverage Plan Name Start of Policy Coverage End of Policy Coverage Group Number Member ID Insurance Provider's Telephone Number Policy Connolly's Name Patient's Relationship to Policy Connolly [place] ([place]ARD) PREFERRED PROVIDER ORGANIZAT ION (PPO) FELICITY TY HEALT H Dec 08, 2019 [id number] [phone] JUANITO KRAUSE PATIENT [place] PREFERRED PROVIDER ORGANIZAT ION (PPO) FELICITY TY [place] RA Mar 09, 2021 [id number] 20 [id number] [phone] SHALONDA SnowERON SPOUSE [place] PRESCRIPT ION [id number] 2 Mar 09, 2018 [id number] JUANITO KRAUSE PATIENT [employer] PRESCRIPT ION [id number] 4 Mar 09, 2016 [id number] UJANITO KRAUSE PATIENT MEDICARE (WNR) MEDICARE (M) PART B Feb 06, 2023 PART B [id number] [facility] JUANITO KRAUSE PATIENT MEDICARE (WNR) MEDICARE (M) PART A Dec 08, 2019 PART A [id number] [facility] JUANITO KRAUSE PATIENT OPTUM RX PRESCRIPT ION FELICITY TY Mar 09, 2021 [facility] [id number] [phone] JUANITO KRAUSE PATIENT OPT[employer] RX PRESCRIPT ION FELICITY TY HEALT H [place] Dec 08, 2019 [facility] [id number] JUANITO KRAUSE PATIENT Selected Encounter This section includes the information on record at [place] for the Encounter. Date/Time Encounter Type Encounter Description Reason Pro vider Source Apr 07, 2023 02:53 PM Outpatient Encounter ADMIN PAT ACTIVTIES (MASNONCT) IHE Encounter Template Text not used by [place] Plan of Treatment: Future Appointments (+ 6 months) and Future Tests (+/- 45 days) The Plan of Treatment section includes future care activities for the patient from all [place] treatmentfacilities. This section includes future appointments and future orders which are active, pending or scheduled. Future Appointments This section includes appointments that were scheduled to occur 6 months from the date of the Encounter, up to a maximum of 20 appointments. The data comes from all [place] treatment facilities. Appointment Date/Time Appointment Type Appointme nt Facility Name May 06, 2023 01:00 PM AMBULATORY - NONE [facility] Jun 15, 2023 02:15 PM AMBULATORY - NONE [facility] Sep 01, 2023 01:00 PM AMBULATORY - MEDICINE [facility] Sep 08, 2023 11:00 AM AMBULATORY - MEDICINE [facility] Sep 28, 2023 03:30 PM AMBULATORY - MEDICINE [facility] Lab Results: +/- 30 days of the encounter This section includes the Chemistry and Hematology Lab Results on record with [place] for the patient. Radiology Reports and Pathology Reports are provided separately, in subsequent sections. Lab Results This section contains the Chemistry/Hematology Results that were resulted 30 days before or 30 daysafter the date of the Encounter. Date/Time Source Result Type Result - Unit Interpretation Reference Range Comment Apr 29, 2023 12:13 PM [place] UREA NITROGEN Specimen Type: SERUM No comment entered. Ordering Provider: JAYDON ARIAS Report Released Date/Time: Apr 16, 2023 09:46 AM Reporting Lab: [address] [id number] Performing Lab: [address] [id number] UREA NITROGEN 31 mg/dL H 7-25 Apr 29, 2023 12:13 PM [place] CREATININE (eGFR 2020) Specimen Type: SERUM No comment entered. Ordering Provider: JAYDON ARIAS Report Released Date/Time: Apr 16, 2023 09:46 AM Reporting Lab: [address] [id number] Performing Lab: [address] [id number] CREATININE, Serum 2.69 mg/dL H 0.50-1.40 eGFR(CKD-EPI 2020) 25 mL/min L >60 Social History: Smoking Status (Most current) and Tobacco Use (All prior to encounter date) This section includes the most current, and the historical, smoking and tobacco- related health factors from the [place] facility where the Encounter took place. Current Smoking Status This section includes the most current smoking, or tobacco-related health factor, from the [place] facility where the Encounter took place. Date/Time Current Smoking Status Comment Gisselle prieto May 17, 2021 12:53 PM VA-TOBACCO NEVER USED [facility] Radiology Reports: +/- 30 days of the encounter Radiology Reports For cases when an order for radiology services may have been completed prior to the date of the Encounter, the report list includes the Radiology Reports that were completed up to 30 days before dateof the Encounter. For cases when an order for radiology services may have been completed after the date of the Encounter, the report list also includes the Radiology Reports that were completed up to30 days after date of the Encounter. The data comes from all [place] treatment facilities. Date/Time Radiology Report Provider Source May 06, 2023 01:[address] HEAD W/O CONT: JUANITO LANGE [id number] -[id number] M Exm Date: MAY 06, 2023@13:04 Req Phys: HUGOJAYDON Janie Loc: CWM/SO/PACT/TELE/MD (Req'g Loc Img Loc: NHM/CT Service: Unknown (Case [id number] COMPLETE) CT HEAD W/O CONT (CT Detailed) CPT:29645 Reason for Study: numbness of his gums/around his nose on left side Clinical History: present for several months. pt unable to get mri of the brain b/c of a shoulder replacement. Report Status: Verified Date Reported: MAY 06, 2023 Date Verified: MAY 06, 2023 [employer] E-Sig:/BRODY/WENDIE BUTLER JR Report: Study: Noncontrast CT scan of the head. Comparison: None. Technique: Noncontrast 5 mm contiguous axial images were taken from the skullbase to the vertex. Findings: The brain parenchyma is normal without evidence of mass, hematoma or shift of the midline structures. The ventricles and sulci are normal in size, shape and position. There are no intra or extra-axial fluid collections. No calvarial pathology is identified. The paranasal sinuses and mastoid air cells appear normal. Moderate calcific atherosclerotic change is present to the basilar and internal carotid arteries. Impression: No acute intracranial process. No CT etiology for facial numbness. Primary Diagnostic Code: No immediate attention required Primary Interpreting Staff: WENDIE BUTLER JR, Radiologist ([employer]) /WENDIE ESQUIVEL JR [facility] Encounter Notes: All associated encounter notes This section contains the clinical notes associated to the Encounter. Date/Time Encounter Note(s) Provider Source Apr 07, 2023 03:11 PM ADDENDUM: LOCAL TITLE: Addendum STANDARD TITLE: ADDENDUM DATE OF NOTE: APR 07, 2023@15:11:06 ENTRY DATE: APR 07, 2023@15:11:07 AUTHOR: FABIO GIBBS EXP COSIGNER: URGENCY: STATUS: COMPLETED See Consult note from PCP 04/06/23. /brody/ FABIO GIBBS LPN LICENSED PRACTICAL NURSE Signed: 04/07/2023 15:11 Receipt Acknowledged By: 04/11/2023 10:14 /brody/ Jaydon Arias M.D. STAFF PHYSICIAN === --- Original Document --- 04/07/23 CCC: SCHEDULING ADMINISTRATION: patient called for status of mri or ct scan and concerned about metal piece in shoulder, patient awaiting call back /consuelo FUENTES Signed: 04/07/2023 14:56 Receipt Acknowledged By: 04/09/2023 11:44 /consuelo REED RN REGISTERED NURSE 04/07/2023 15:11 /brody/ FABIO GIBBS LPN LICENSED PRACTICAL NURSE 04/09/2023 ADDENDUM STATUS: COMPLETED Called and spoke to . Informed him PACT is just waiting on confirmation his replacement part is MRI compatible. understands information and informed this RN he has receives his anti-anxiety meds for the MRI. /brody/ ZULEMA REED RN REGISTERED NURSE Signed: 04/09/2023 11:44 FABIO GIBBS [facility] Apr 07, 2023 02:53 PM ADMINISTRATIVE NOTE: LOCAL TITLE: CCC: SCHEDULING ADMINISTRATION STANDARD TITLE: ADMINISTRATIVE NOTE DATE OF NOTE: APR 07, 2023@14:53 ENTRY DATE: APR 07, 2023@14:54:04 AUTHOR: GUME FUENTES COSIGNER: URGENCY: STATUS: COMPLETED CCC: SCHEDULING ADMINISTRATION Has ADDENDA patient called for status of mri or ct scan and concerned about metal piece in shoulder, patient awaiting call back /consuelo FUENTES Signed: 04/07/2023 14:56 Receipt Acknowledged By: 04/09/2023 11:44 /consuelo REED RN REGISTERED NURSE 04/07/2023 15:11 /consuelo GIBBS LPN LICENSED PRACTICAL NURSE 04/07/2023 ADDENDUM STATUS: COMPLETED See Consult note from PCP 04/06/23. /es/ FABIO GIBBS LPN LICENSED PRACTICAL NURSE Signed: 04/07/2023 15:11 Receipt Acknowledged By: * AWAITING SIGNATURE * JAYDON ARIAS 04/09/2023 ADDENDUM STATUS: COMPLETED Called and spoke to . Informed him PACT is just waiting on confirmation his replacement part is MRI compatible. [place] understands information and informed this RN he has receives his anti-anxiety meds for the MRI. /es/ ZULEMA REED, CONSUELO REGISTERED NURSE Signed: 04/09/2023 11:44 GUME FUENTES [facility]
--- OUTSIDE RECORDS SUMMARY | 2024-02-25 11:21 | XMS_ITS | Continuity of Care Document ---
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 It does not include entries that were removed or entered in error. Problem Status Onset Date Problem Type Date of Resolution Comments Source Cyst - pilonidal Active Condition [place] Essential hypertension Active Condition [place] History of knee surgery Active Condition Jun 20, 2016 Entered By: JAYDON ARIAS Comment: R in early [place] History of shoulder surgery Active Condition Jun 20 Entered By: JAYDON ARIAS Comment: R in s [place] Impaired fasting glucose Active Condition [place] Left inguinal hernia Active Condition Feb 25, 2023 Entered By: JAYDON ARIAS Comment: repair 12/2022 [place] Pain of right shoulder joint Active Condition Feb 25, 2023 Entered By: JAYDON ARIAS Comment: right shoulder replacement 08/2021 [place] Postnasal drip Active Condition [facility] Diagnosis: ICD-10-CM M34.9 Systemic sclerosis, unspecified Active Diagnosis [facility] Diagnosis: ICD-10-CM I10 Essential (primary) hypertension Active Diagnosis [place] Medications Combined list of outpatient medications from Department of Defense and Veterans Affairs facilities.Medications provided include 1) outpatient medications from the last 15 months, and 2) patient-reported medications. Medication Details Route Status Patient Instructions Prescription Expires Prescription Number Last Dispense Date Ordering Provider Order Date Order Qty Source ALPRAZOLAM 0.5MG TAB TAKE ONE TABLET BY MOUTH DIRECTED FOR ANXIETY FOR ANXIETY/ NERVES TAKE ONE TABLET TWO HOURS BEFORE. MAY TAKE THE SECOND TABLET ONE HOUR BEFORE IF NEEDED FOR ANXIETY/ NERVES TAKE ONE TABLET TWO HOURS BEFORE. MAY TAKE THE SECOND TABLET ONE HOUR BEFORE IF NEEDED ORAL 04/28/2023 [id number] SIERRA ARIAS 2023 2 [place] ASCORBIC ACID TAB TAKE BY MOUTH DAILY ORAL ACTIVE SIERRA ARIAS 2016 [place] CARVEDILOL 25MG TAB TAKE ONE TABLET BY MOUTH TWICE DAILY FOR HIGH BLOOD PRESSURE ORAL ACTIVE 12/25/2024 [id number] MAGALI, APOLINARI O 2023 180 [place] CARVEDILOL 25MG TAB TAKE ONE TABLET BY MOUTH TWICE DAILY FOR HIGH BLOOD PRESSURE ORAL DISCONT INUED 12/25/2024 [id number] MAGALI, APOLINARI O 2023 180 [place] CARVEDILOL 25MG TAB TAKE ONE TABLET BY MOUTH TWICE DAILY FOR HIGH BLOOD PRESSURE ORAL DISCONT INUED 02/26/2024 [id number] 4 SIERRA ARIAS 2022 180 [place] FLUTICASONE PROPIONATE 50MCG/SPRAY SOLN,NASAL, 16GM INSTILL 2 SPRAYS INTO EACH NOSTRIL ONCE DAILY NASAL ACTIVE SIERRA ARIAS 2022 [facility] I[place] NIFEDIPINE (EQV-CC) 30MG TAB,SA TAKE ONE TABLET BY MOUTH TWICE DAILY FOR HIGH BLOOD PRESSURE DO NOT TAKE WITH GRAPEFRU IT JUICE ORAL ACTIVE 09/01/2024 [id number] 4 MAGALI, APOLINARI O 2023 180 [place] NIFEDIPINE (EQV-CC) 30MG TAB,SA TAKE ONE TABLET BY MOUTH TWICE DAILY FOR HIGH BLOOD PRESSURE DO NOT TAKE WITH GRAPEFRU IT JUICE ORAL DISCONT INUED 02/26/2024 [id number] SIERRA ARIAS 2022 180 [place] OTHER CAP/TAB TAKE RENOCAP BY MOUTH ONCE DAILY ORAL ACTIVE SIERRA ARIAS 2022 [facility] I[place] RENAL MULTIVIT W/1MG OR LESS FOLIC ACID TAB TAKE 1 TABLET BY MOUTH ONCE DAILY FOR VITAMIN SUPPLEME NTATION ORAL ACTIVE 03/16/2024 [id number] SIERRA ARIAS 2023 90 [place] Immunizations Combined list of available immunizations from the Department of Defense and Veterans Affairs facilities. 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 Comments Source INFLUENZA, UNSPECIFIED FORMULATION 2020 88 complet ed [facility] COVID-19 (MODERNA), MRNA, LNP-S, PF, 100 MCG OR 50 MCG DOSE 2 2020 207 complet ed [facility] COVID-19 (MODERNA), MRNA, LNP-S, PF, 100 MCG OR 50 MCG DOSE 1 2020 207 complet ed [facility] INFLUENZA, SEASONAL, INJECTABLE 2016 141 complet ed [facility] INFLUENZA, SEASONAL, INJECTABLE 2016 141 complet ed [facility] FLU,3 YRS (HISTORICAL) 2015 88 complet ed [facility] TDAP 2015 115 complet ed [facility] Results Combined list of recent chemistry, hematology and other laboratory results from Department of Defense and Veterans Affairs, ranging from 15 months to all on record, depending upon the facility. Order Name Results Value Reference Range Date Interpretation Specimen Comments Source BASIC METABOLI C PANEL (fasting ) UREA NITROGEN [MASS/VOLU ME] IN SERUM OR PLASMA 40 mg/dL 7 - 25 08/24 H Specimen Type: SERUM No comment entered. Ordering Provider: LEYDI ARIAS IE Report Released Date/Time: Feb 25, 2023 03:45 PM Reporting Lab: [address] [address] Performing Lab: [address] [address] [place] BASIC METABOLI C PANEL (fasting ) GLUCOSE [MASS/VOLU ME] IN SERUM OR PLASMA 101 mg/dL 65 - 100 08/24 H Specimen Type: SERUM No comment entered. Ordering Provider: LEYDI ARIAS IE Report Released Date/Time: Feb 25, 2023 03:45 PM Reporting Lab: [facility] [address] [address] Performing Lab: [address] [address] [place] BASIC METABOLI C PANEL (fasting ) SODIUM [MOLES/VOL UME] IN SERUM OR PLASMA 136 mmol/L 135 - 145 08/24 Specimen Type: SERUM No comment entered. Ordering Provider: LEYDI ARIAS IE Report Released Date/Time: Feb 25, 2023 03:45 PM Reporting Lab: [facility] [address] [address] Performing Lab: [facility] [address] [address] [place] BASIC METABOLI C PANEL (fasting ) POTASSIUM [MOLES/VOL UME] IN SERUM OR PLASMA 4.3 mmol/L 3.5 - 5.0 08/24 Specimen Type: SERUM No comment entered. Ordering Provider: LEYDI ARIAS IE Report Released Date/Time: Feb 25, 2023 03:45 PM Reporting Lab: [facility] [address] [address] Performing Lab: [facility] [address] [address] [place] [employer] BASIC METABOLI C PANEL (fasting ) CHLORIDE [MOLES/VOL UME] IN SERUM OR PLASMA 110 mmol/L 100 - 110 08/24 Specimen Type: SERUM No comment entered. Ordering Provider: LEYDI ARIAS IE Report Released Date/Time: Feb 25, 2023 03:45 PM Reporting Lab: [facility]ENTERUSE[address] [address] Performing Lab: [facility]ETS [facility] [address] [address] [place] BASIC METABOLI C PANEL (fasting ) CARBON DIOXIDE, TOTAL [MOLES/VOL UME] IN SERUM OR PLASMA 19 meq/L 20 - 30 08/24 L Specimen Type: SERUM No comment entered. Ordering Provider: LEYDI ARIAS IE Report Released Date/Time: Feb 25, 2023 03:45 PM Reporting Lab: [facility]TR[facility]USE[facility] [address] [address] Performing Lab: [facility]TR[facility]USETS [facility] [address] [address] [place] BASIC METABOLI C PANEL (fasting ) CREATININE [MASS/VOLU ME] IN SERUM OR PLASMA 2.54 mg/dL 0.50 - 1.40 08/24 H Specimen Type: SERUM No comment entered. Ordering Provider: LEYDI ARIAS IE Report Released Date/Time: Feb 25, 2023 03:45 PM Reporting Lab: [facility] [address] [address] Performing Lab: [facility] [address] [address] [place] BASIC METABOLI C PANEL (fasting ) GLOMERULAR FILTRATION RATE/1.73 SQ M.PREDICTE D [VOLUME RATE/AREA] IN SERUM, PLASMA OR BLOOD BY CREATININE -BASED FORMULA (CKD-EPI 2020) 27 mL/min 60 08/24 L Specimen Type: SERUM No comment entered. Ordering Provider: LEYDI ARIAS IE Report Released Date/Time: Feb 25, 2023 03:45 PM Reporting Lab: [facility] [address] [address] Performing Lab: [address] [address] [place] LIPID PANEL FASTING CHOLESTERO L [MASS/VOLU ME] IN SERUM OR PLASMA 208 mg/dL 08/24 H Specimen Type: SERUM No comment entered. Ordering Provider: LEYDI ARIAS IE Report Released Date/Time: Feb 25, 2023 03:45 PM Reporting Lab: [address] [address] Performing Lab: [facility] [address] [address] [place] [employer] LIPID PANEL FASTING TRIGLYCERI DE [MASS/VOLU ME] IN SERUM OR PLASMA 98 mg/dL 0 - 150 08/24 Specimen Type: SERUM No comment entered. Ordering Provider: LEYDI ARIAS IE Report Released Date/Time: Feb 25, 2023 03:45 PM Reporting Lab: [address] [address] Performing Lab: [facility] [address] [address] [place] LIPID PANEL FASTING CHOLESTERO L IN LDL [MASS/VOLU ME] IN SERUM OR PLASMA BY CALCNI N 154 mg/dL 0 - 129 08/24 H Specimen Type: SERUM No comment entered. Ordering Provider: LEYDI ARIAS IE Report Released Date/Time: Feb 25, 2023 03:45 PM Reporting Lab: [facility] [address] [address] Performing Lab: [facility] [address] [address] [place] LIPID PANEL FASTING CHOLESTERO L.TOTAL/CH OLESTEROL IN HDL [MASS RATIO] IN SERUM OR PLASMA 6.1 08/24 Specimen Type: SERUM No comment entered. Ordering Provider: LEYDI ARIAS IE Report Released Date/Time: Feb 25, 2023 03:45 PM Reporting Lab: [facility] [address] [address] Performing Lab: [place] [facility] [address] [address] [place] LIPID PANEL FASTING CHOLESTERO L IN HDL [MASS/VOLU ME] IN SERUM OR PLASMA 34 mg/dL 40 - 60 08/24 L Specimen Type: SERUM No comment entered. Ordering Provider: LEYDI ARIAS IE Report Released Date/Time: Feb 25, 2023 03:45 PM Reporting Lab: [facility] [address] [address] Performing Lab: [place] [facility] [facility] [address] [address] [place] LIVER FUNCTION PROTEIN [MASS/VOLU ME] IN SERUM OR PLASMA 7.2 g/dL 6.0 - 8.3 08/24 Specimen Type: SERUM No comment entered. Ordering Provider: LEYDI ARIAS IE Report Released Date/Time: Feb 25, 2023 03:45 PM Reporting Lab: [facility]ENTER[facility] [address] Performing Lab: [place] [facility] [address] [address] [place] LIVER FUNCTION ALBUMIN [MASS/VOLU ME] IN SERUM OR PLASMA 3.6 g/dL 3.5 - 5.0 08/24 Specimen Type: SERUM No comment entered. Ordering Provider: LEYDI ARIAS IE Report Released Date/Time: Feb 25, 2023 03:45 PM Reporting Lab: [place] [facility] [place] [facility] [address] [address] Performing Lab: [facility] [place] [facility] [address] [address] [place] LIVER FUNCTION ALKALINE PHOSPHATAS E [ENZYMATIC ACTIVITY/V OLUME] IN SERUM OR PLASMA 66 U/L 40 - 150 08/24 Specimen Type: SERUM No comment entered. Ordering Provider: LEYDI ARIAS IE Report Released Date/Time: Feb 25, 2023 03:45 PM Reporting Lab: [place] [facility] [address] [address] Performing Lab: [place] [facility] [place] [facility] [address] [address] [place] LIVER FUNCTION ASPARTATE AMINOTRANS FERASE [ENZYMATIC ACTIVITY/V OLUME] IN SERUM OR PLASMA 17 U/L 5 - 34 08/24 Specimen Type: SERUM No comment entered. Ordering Provider: LEYDI ARIAS IE Report Released Date/Time: Feb 25, 2023 03:45 PM Reporting Lab: [place] [facility] [address] [address] Performing Lab: [place] [facility] [facility] [address] [address] [place] LIVER FUNCTION ALANINE AMINOTRANS FERASE [ENZYMATIC ACTIVITY/V OLUME] IN SERUM OR PLASMA 11 U/L 08/24 Specimen Type: SERUM No comment entered. Ordering Provider: LEYDI ARIAS IE Report Released Date/Time: Feb 25, 2023 03:45 PM Reporting Lab: [place] [facility] [address] [address] Performing Lab: [place] [facility] [address] [address] [place] LIVER FUNCTION BILIRUBIN. TOTAL [MASS/VOLU ME] IN SERUM OR PLASMA 0.4 mg/dL 0.2 - 1.2 08/24 Specimen Type: SERUM No comment entered. Ordering Provider: LEYDI ARIAS IE Report Released Date/Time: Feb 25, 2023 03:45 PM Reporting Lab: [facility] [address] [address] Performing Lab: [facility] [address] [address] [place] CBC AND DIFF (AUTO) LEUKOCYTES [#/VOLUME] IN BLOOD BY AUTOMATED COUNT 10.43 10*3/uL 4.50 - 11.00 08/24 Specimen Type: BLOOD No comment entered. Ordering Provider: LEYDI ARIAS IE Report Released Date/Time: Feb 25, 2023 03:45 PM Reporting Lab: [facility] [address] [address] Performing Lab: [facility] [address] [address] [place] CBC AND DIFF (AUTO) ERYTHROCYT ES [#/VOLUME] IN BLOOD BY AUTOMATED COUNT 3.68 10*6/uL 4.23 - 5.66 08/24 L Specimen Type: BLOOD No comment entered. Ordering Provider: LEYDI ARIAS IE Report Released Date/Time: Feb 25, 2023 03:45 PM Reporting Lab: [facility] [address] [address] Performing Lab: [facility]ITALN [facility] [address] [place] CBC AND DIFF (AUTO) HEMOGLOBIN [MASS/VOLU ME] IN BLOOD 10.7 g/dL 12.8 - 17 08/24 L Specimen Type: BLOOD No comment entered. Ordering Provider: LEYDI ARIAS IE Report Released Date/Time: Feb 25, 2023 03:45 PM Reporting Lab: [facility] [address] [address] Performing Lab: [facility] [address] [address] [place] CBC AND DIFF (AUTO) HEMATOCRIT [VOLUME FRACTION] OF BLOOD BY AUTOMATED COUNT 33.6 39.2 - 50.4 08/24 L Specimen Type: BLOOD No comment entered. Ordering Provider: LEYDI ARIAS IE Report Released Date/Time: Feb 25, 2023 03:45 PM Reporting Lab: [facility] [address] [address] Performing Lab: [place] [facility] [facility]ENTER[facility] [address] [place] CBC AND DIFF (AUTO) MCV [ENTITIC VOLUME] BY AUTOMATED COUNT 91.3 fL 82 - 99 08/24 Specimen Type: BLOOD No comment entered. Ordering Provider: LEYDI ARIAS IE Report Released Date/Time: Feb 25, 2023 03:45 PM Reporting Lab: [facility]ENTERTRN [address] [address] Performing Lab: [facility]TR[facility] [address] [place] CBC AND DIFF (AUTO) MCHC [MASS/VOLU ME] BY AUTOMATED COUNT 31.8 g/dL 30.8 - 35.1 08/24 Specimen Type: BLOOD No comment entered. Ordering Provider: LEYDI ARIAS IE Report Released Date/Time: Feb 25, 2023 03:45 PM Reporting Lab: [facility]ENTERTRN [address] [address] Performing Lab: [facility]ENTER[facility] [address] [address] [place] CBC AND DIFF (AUTO) PLATELETS [#/VOLUME] IN BLOOD BY AUTOMATED COUNT 287 10*3/uL 140 - 360 08/24 Specimen Type: BLOOD No comment entered. Ordering Provider: LYEDI ARIAS IE Report Released Date/Time: Feb 25, 2023 03:45 PM Reporting Lab: [facility] [address] [address] Performing Lab: [facility]ITALN [facility]ENTER[facility] [address] [place] CBC AND DIFF (AUTO) ERYTHROCYT E DISTRIBUTI ON WIDTH [RATIO] BY AUTOMATED COUNT 14.6 12.0 - 16.0 08/24 Specimen Type: BLOOD No comment entered. Ordering Provider: LEYDI ARIAS IE Report Released Date/Time: Feb 25, 2023 03:45 PM Reporting Lab: [facility] [address] [address] Performing Lab: [facility] [address] [address] [place] CBC AND DIFF (AUTO) MONOCYTES [#/VOLUME] IN BLOOD BY AUTOMATED COUNT 0.80 10*3/uL 0.30 - 1.10 08/24 Specimen Type: BLOOD No comment entered. Ordering Provider: LEYDI ARIAS IE Report Released Date/Time: Feb 25, 2023 03:45 PM Reporting Lab: [facility] [address] [address] Performing Lab: [facility] [address] [address] [place] CBC AND DIFF (AUTO) MCH [ENTITIC MASS] BY AUTOMATED COUNT 29.1 pg 26.2 - 32.6 08/24 Specimen Type: BLOOD No comment entered. Ordering Provider: LEYDI ARIAS IE Report Released Date/Time: Feb 25, 2023 03:45 PM Reporting Lab: [facility] [address] [address] Performing Lab: [facility] [address] [address] [place] CBC AND DIFF (AUTO) NEUTROPHIL S/100 LEUKOCYTES IN BLOOD BY AUTOMATED COUNT 76.3 43.7 - 75.8 08/24 H Specimen Type: BLOOD No comment entered. Ordering Provider: LEYDI ARIAS IE Report Released Date/Time: Feb 25, 2023 03:45 PM Reporting Lab: [facility] [address] [address] Performing Lab: [facility] [address] [address] [place] CBC AND DIFF (AUTO) LYMPHOCYTE S/100 LEUKOCYTES IN BLOOD BY AUTOMATED COUNT 8.7 14.0 - 42.3 08/24 L Specimen Type: BLOOD No comment entered. Ordering Provider: LEYDI ARIAS IE Report Released Date/Time: Feb 25, 2023 03:45 PM Reporting Lab: [place] [facility] [address] [facility] [address] Performing Lab: [place] [facility] [address] [facility] [address] [place] CBC AND DIFF (AUTO) MONOCYTES/ 100 LEUKOCYTES IN BLOOD BY AUTOMATED COUNT 7.7 5.1 - 13.7 08/24 Specimen Type: BLOOD No comment entered. Ordering Provider: LEYDI ARIAS IE Report Released Date/Time: Feb 25, 2023 03:45 PM Reporting Lab: [place] [facility] [address] [address] Performing Lab: [place] [facility] [address] [address] [place] CBC AND DIFF (AUTO) EOSINOPHIL S/100 LEUKOCYTES IN BLOOD BY AUTOMATED COUNT 6.5 0.4 - 6.8 08/24 Specimen Type: BLOOD No comment entered. Ordering Provider: LEYDI ARIAS IE Report Released Date/Time: Feb 25, 2023 03:45 PM Reporting Lab: [place] [facility] [address] [address] Performing Lab: [place] [facility] [address] [address] [place] CBC AND DIFF (AUTO) BASOPHILS/ 100 LEUKOCYTES IN BLOOD BY AUTOMATED COUNT 0.5 0.1 - 2.0 08/24 Specimen Type: BLOOD No comment entered. Ordering Provider: LEYDI ARIAS IE Report Released Date/Time: Feb 25, 2023 03:45 PM Reporting Lab: [place] [facility] [address] [address] Performing Lab: [facility]ENTERTRN [facility]ENTERUSE[address] [address] [place] CBC AND DIFF (AUTO) NEUTROPHIL S [#/VOLUME] IN BLOOD BY AUTOMATED COUNT 7.96 10*3/uL 2.20 - 7.60 08/24 H Specimen Type: BLOOD No comment entered. Ordering Provider: LEYDI ARIAS IE Report Released Date/Time: Feb 25, 2023 03:45 PM Reporting Lab: [place] [facility] [address] [address] Performing Lab: [place] [facility] [address] [address] [place] CBC AND DIFF (AUTO) LYMPHOCYTE S [#/VOLUME] IN BLOOD BY AUTOMATED COUNT 0.91 10*3/uL 1.00 - 3.20 08/24 L Specimen Type: BLOOD No comment entered. Ordering Provider: LEYDI ARIAS IE Report Released Date/Time: Feb 25, 2023 03:45 PM Reporting Lab: [place] [facility] [facility] [address] [address] Performing Lab: [place] [facility] [address] [address] [place] CBC AND DIFF (AUTO) EOSINOPHIL S [#/VOLUME] IN BLOOD BY AUTOMATED COUNT 0.68 10*3/uL 0.03 - 0.44 08/24 H Specimen Type: BLOOD No comment entered. Ordering Provider: LEYDI ARIAS IE Report Released Date/Time: Feb 25, 2023 03:45 PM Reporting Lab: [facility] [address] [address] Performing Lab: [place] [facility] [address] [address] [place] CBC AND DIFF (AUTO) BASOPHILS [#/VOLUME] IN BLOOD BY AUTOMATED COUNT 0.05 10*3/uL 0.01 - 0.13 08/24 Specimen Type: BLOOD No comment entered. Ordering Provider: LEYDI ARIAS IE Report Released Date/Time: Feb 25, 2023 03:45 PM Reporting Lab: [place] [facility] [address] [address] Performing Lab: [place] [facility] [address] [address] [place] CBC AND DIFF (AUTO) IMMATURE GRANULOCYT ES/100 LEUKOCYTES IN BLOOD BY AUTOMATED COUNT 0.3 0.0 - 0.7 08/24 Specimen Type: BLOOD No comment entered. Ordering Provider: LEYDI ARIAS IE Report Released Date/Time: Feb 25, 2023 03:45 PM Reporting Lab: [address] [address] Performing Lab: [facility] [address] [address] [place] CBC AND DIFF (AUTO) IMMATURE GRANULOCYT ES [#/VOLUME] IN BLOOD 0.03 10*3/uL 0.00 - 0.06 08/24 Specimen Type: BLOOD No comment entered. Ordering Provider: LEYDI ARIAS IE Report Released Date/Time: Feb 25, 2023 03:45 PM Reporting Lab: [address] [address] Performing Lab: [address] [address] [place] CBC AND DIFF (AUTO) NRBC % 0.0 0.0 - 0.0 08/24 Specimen Type: BLOOD No comment entered. Ordering Provider: LEYDI ARIAS IE Report Released Date/Time: Feb 25, 2023 03:45 PM Reporting Lab: [address] [address] Performing Lab: [address] [address] [place] CBC AND DIFF (AUTO) NRBC, ABS 0.00 10*3/uL 0.00 - 0.00 08/24 Specimen Type: BLOOD No comment entered. Ordering Provider: LEYDI ARIAS IE Report Released Date/Time: Feb 25, 2023 03:45 PM Reporting Lab: [address] [address] Performing Lab: [address] [address] [place] HEMOGLOB IN A1C PANEL HEMOGLOBIN A1C/HEMOGL OBIN.TOTAL IN BLOOD BY HPLC 5.1 4.0 - 5.6 08/24 Specimen Type: BLOOD Comment: Values obtained from A1C measurement s can vary. For atypical A1C assays, a reported value of 7.0 could actually be between 6.72 and 7.28 if measured by a reference method. A reported value of 9.0 could actually be between 8.73 and 9.27. Ref: http://www. ngsp.org/[place] Pdata.asp Ordering Provider: LEYDI ARIAS Report Released Date/Time: Feb 25, 2023 03:45 PM Reporting Lab: [address] [address] Performing Lab: [address] [address] [place] TSH THYROTROPI N [UNITS/VOL UME] IN SERUM OR PLASMA 1.98 u[IU]/mL 0.35 - 5.00 08/24 Specimen Type: SERUM No comment entered. Ordering Provider: LEYDI ARIAS Report Released Date/Time: Feb 25, 2023 03:45 PM Reporting Lab: [address] [address] Performing Lab: [address] [address] [place] URINALYS IS COLOR OF URINE Light-Ye llow 08/24 Specimen Type: URINE Comment: If Glucose = >500 and Ketones are positive, please alert the Physician. Ordering Provider: LEYDI ARIAS IE Report Released Date/Time: Feb 25, 2023 03:45 PM Reporting Lab: [address] [address] Performing Lab: [address] [address] [place] URINALYS IS APPEARANCE OF URINE Clear 08/24 Specimen Type: URINE Comment: If Glucose = >500 and Ketones are positive, please alert the Physician. Ordering Provider: LEDYI ARIAS IE Report Released Date/Time: Feb 25, 2023 03:45 PM Reporting Lab: [facility] [address] [facility] [address] Performing Lab: [facility] [address] [address] [place] URINALYS IS GLUCOSE [MASS/VOLU ME] IN URINE NEGATIVE mg/dL 08/24 Specimen Type: URINE Comment: If Glucose = >500 and Ketones are positive, please alert the Physician. Ordering Provider: LEYDI ARIAS IE Report Released Date/Time: Feb 25, 2023 03:45 PM Reporting Lab: [address] [address] Performing Lab: [address] [address] [place] URINALYS IS KETONES [MASS/VOLU ME] IN URINE BY TEST STRIP NEGATIVE mg/dL 08/24 Specimen Type: URINE Comment: If Glucose = >500 and Ketones are positive, please alert the Physician. Ordering Provider: LEYDI ARIAS IE Report Released Date/Time: Feb 25, 2023 03:45 PM Reporting Lab: [address] [address] Performing Lab: [address] [address] [place]INAL[place] IS ERYTHROCYT ES [PRESENCE] IN URINE SEDIMENT BY LIGHT MICROSCOPY NEGATIVE mg/dL 08/24 Specimen Type: URINE Comment: If Glucose = >500 and Ketones are positive, please alert the Physician. Ordering Provider: LEYDI ARIAS IE Report Released Date/Time: Feb 25, 2023 03:45 PM Reporting Lab: [address] [address] Performing Lab: [address] [address] [place] URINALYS IS PROTEIN [MASS/VOLU ME] IN URINE BY TEST STRIP 10 mg/dL 08/24 Specimen Type: URINE Comment: If Glucose = >500 and Ketones are positive, please alert the Physician. Ordering Provider: LEYDI ARIAS IE Report Released Date/Time: Feb 25, 2023 03:45 PM Reporting Lab: [address] [address] Performing Lab: [address] [address] [place] URINALYS IS NITRITE [PRESENCE] IN URINE NEGATIVE mg/dL 08/24 Specimen Type: URINE Comment: If Glucose = >500 and Ketones are positive, please alert the Physician. Ordering Provider: LEYDI ARIAS IE Report Released Date/Time: Feb 25, 2023 03:45 PM Reporting Lab: [address] [address] Performing Lab: [address] [address] [place] URINALYS IS BILIRUBIN. TOTAL [PRESENCE] IN URINE NEGATIVE mg/dL 08/24 Specimen Type: URINE Comment: If Glucose = >500 and Ketones are positive, please alert the Physician. Ordering Provider: LEYDI ARIAS IE Report Released Date/Time: Feb 25, 2023 03:45 PM Reporting Lab: [address] [address] Performing Lab: [address] [address] [place] URINALYS IS SPECIFIC GRAVITY OF URINE BY REFRACTOME TRY 1.016 1.016 - 1.022 08/24 Specimen Type: URINE Comment: If Glucose = >500 and Ketones are positive, please alert the Physician. Ordering Provider: LEYDI ARIAS IE Report Released Date/Time: Feb 25, 2023 03:45 PM Reporting Lab: [address] [address] Performing Lab: [address] [address] [place] URINALYS IS PH OF URINE BY TEST STRIP 5.5 5.0 - 9.0 08/24 Specimen Type: URINE Comment: If Glucose = >500 and Ketones are positive, please alert the Physician. Ordering Provider: LEYDI ARIAS IE Report Released Date/Time: Feb 25, 2023 03:45 PM Reporting Lab: [facility] [address] [address] Performing Lab: [facility] [address] [address] [place] URIN[place]YS IS UROBILINOG EN [MASS/VOLU ME] IN URINE BY TEST STRIP <2.0mg/d L <2.0 - 2.0 08/24 Specimen Type: URINE Comment: If Glucose = >500 and Ketones are positive, please alert the Physician. Ordering Provider: LEYDI ARIAS Report Released Date/Time: Feb 25, 2023 03:45 PM Reporting Lab: [address] [address] Performing Lab: [address] [address] [place] URINALYS IS LEUKOCYTE ESTERASE [PRESENCE] IN URINE BY TEST STRIP NEGATIVE 08/24 Specimen Type: URINE Comment: If Glucose = >500 and Ketones are positive, please alert the Physician. Ordering Provider: LEYDI ARIAS Report Released Date/Time: Feb 25, 2023 03:45 PM Reporting Lab: [facility] [address] [address] Performing Lab: [address] [address] [place] PSA PROSTATE SPECIFIC AG [MASS/VOLU ME] IN SERUM OR PLASMA 1.68 ng/mL 0.00 - 4.00 08/24 Specimen Type: SERUM No comment entered. Ordering Provider: LEYDI ARIAS Report Released Date/Time: Feb 25, 2023 03:45 PM Reporting Lab: [facility] [address] [address] Performing Lab: [facility] [address] [address] [place] UREA NITROGEN UREA NITROGEN [MASS/VOLU ME] IN SERUM OR PLASMA 31 mg/dL 7 - 25 04/29 H Specimen Type: SERUM No comment entered. Ordering Provider: LEYDI ARIAS IE Report Released Date/Time: Apr 16, 2023 09:46 AM Reporting Lab: [facility] [address] [address] Performing Lab: [address] [address] [place] CREATINI NE (eGFR 2020) CREATININE [MASS/VOLU ME] IN SERUM OR PLASMA 2.69 mg/dL 0.50 - 1.40 04/29 H Specimen Type: SERUM No comment entered. Ordering Provider: LEYDI ARIAS IE Report Released Date/Time: Apr 16, 2023 09:46 AM Reporting Lab: [address] [address] Performing Lab: [facility] [address] [address] [place] CREATINI NE (eGFR 2020) GLOMERULAR FILTRATION RATE/1.73 SQ M.PREDICTE D [VOLUME RATE/AREA] IN SERUM, PLASMA OR BLOOD BY CREATININE -BASED FORMULA (CKD-EPI 2020) 25 mL/min 60 04/29 L Specimen Type: SERUM No comment entered. Ordering Provider: LEYDI ARIAS IE Report Released Date/Time: Apr 16, 2023 09:46 AM Reporting Lab: [address] [address] Performing Lab: [facility] [address] [address] [place] Vital Signs Combined list of inpatient and outpatient Vital Signs from Department of Defense and Veterans Affairs, ranging from 12 months to all on record, depending upon the facility. Vital Sign Value Date Comments Source SYSTOLIC BLOOD PRESSURE 127 09/01/19 24 13:14:26 [facility] DIASTOLIC BLOOD PRESSURE 71 024 13:14:26 [facility] PULSE OXIMETRY 100 09/01/2023 13:14:26 [facility] WEIGHT 163 09/01/2023 13:14:26 [facility] BMI 23kg/m2 09/01/2023 13:14:26 [facility] PAIN 0 09/01/2023 13:14:26 [facility] HEIGHT 70 09/01/2023 13:14:26 [facility] TEMPERATURE 97.5 09/01/2023 13:14:26 [facility] PULSE 57 09/01/2023 13:14:26 [facility] RESPIRATION 20 09/01/2023 13:14:26 [facility] Encounters Combined list of: 1) Encounters from Department of Veterans Affairs facilities going back up to thelast 18 months. 2) Encounters from the Department of Defense facilities going back up to 280 months. Location Location Details Encounter Type Encounter Number Reason For Visit Attending Provider ADM Date DC Date Status Disposition Source [facility] Outpatient Encounter [id number] YI ARREDONDO 11/07 [facility] Out[facility]counter [id number] 11/12 [facility] Out[facility]counter [id number] 11/13 [facility] Out[facility]counter [id number] 12/25 [facility]counter [id number] 12/30 [facility] Out[facility]counter [id number] 01/21 [facility] Out[facility]counter [id number] 01/21 [facility] Out[facility]counter [id number] 01/23 [facility] Out[facility]counter [id number] 02/04 [facility] Out[facility]counter [id number] 02/16 [facility] Out[facility] Encounter [id number] 02/23 [facility] OFFICE O/P EST MOD 30-39 MIN [id number] Diagnos is: ICD-10- CM I10 Essenti al (primar y) hyperte nsion<b r/> SCOTT ARIAS 02/25 [place] [facility] Out[facility] Encounter [id number] 03/04 [facility] Out[facility]counter [id number] 03/26 [facility] Out[facility]counter [id number] 04/07 [facility] Out[facility]counter [id number] 04/07 [facility] Out[facility] Encounter [id number] 04/14 [facility] Out[facility]counter [id number] 04/16 [facility] Out[facility] Encounter [id number] 05/21 [facility] Out[facility]counter [id number] 06/09 [facility] Out[facility]counter [id number] 06/28 [facility] Out[facility] Encounter [id number] 06/30 [facility] Out[facility]counter [id number] 07/10 [facility] Encounter [id number] 08/11 [facility] OFFICE O/P EST MOD 30 MIN [id number] Diagnos is: ICD-10- CM I10 Essenti al (primar y) hyperte nsion<b r/> Terrance DE [place]ANTOS 08/31 [place] [facility] Out[facility] Encounter [id number] 09/01 [facility]counter [id number] 09/07 [facility] Encounter [id number] 09/07 [facility]counter [id number] 09/20 [facility]counter [id number]/20 [facility]counter [id number] 09/27 [facility]counter [id number] 10/19 [facility] Encounter [id number] 10/26 [facility] Encounter [id number] 1.11/09 [facility] Out[facility]counter [id number] 11/16 [facility]counter [id number] 12/13 [facility]counter [id number] 12/24 [facility] Encounter [id number] 01/19 [facility]counter [id number] 01/24 [facility] Outpatient [facility]counter [id number] 02/07 [facility] EVALUATION OF WHEEZING [id number] 1. 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, unspeci fied
JARMOLOWIC Z,CARI 02/07 [place] [facility] PULM FUNCTION TEST [place] GAS [id number] 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, unspeci fied
Edwige HYMAN MD 02/09 [facility] Outpatient Encounter [id number] Rashmi SWANSON 02/15 [place] [facility] Outpatient Encounter [id number] 02/24 [place] [facility] Social History Combined list of available smoking, tobacco, and other social history from Department of Defense and Veterans Affairs facilities. Social History Type Response Date Comment Sourc e Tobacco smoking status NMIS [facility] of tobacco use VA-TOBACCO NEVER USED 05/17/2021 [facility] History of tobacco use LIFETIME NON-TOBACCO USER 06/15/2017 [facility] History of tobacco use LIFETIME NON-TOBACCO USER 06/20/2016 [facility] Plan of Care List of future care activities from Department of Veterans Affairs facilities. Additional future care activities may be listed in the Assessment and Plan section. Date/Time Care Activity Care Activity Detail Facili ty 03/03/2024 AMBULATORY - MEDICINE AMBULATORY - MEDICI NE [facility]
--- OUTSIDE RECORDS SUMMARY | 2024-02-25 11:21 | XMS_ITS | Encounter Summary ---
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 Name Role Phone KARIE DE LOS SANTOS [...] FELICITY TY HEALT H Dec 08, 2019 [id number] 20 [id number] SHALONDA nSowJUANITO PATIENT [place] ([place]) PREFERRED PROVIDER ORGANIZAT ION (PPO) FELICITY TY [place] RA Mar 09, 2021 [id number] [phone] SHALONDA SnowERON SPOUSE CAR[place]ARK PRESCRIPT ION [id number] 2 Mar 09, 2018 [id number] JUANITO KRAUSE PATIENT CAREMARK PRESCRIPT ION [id number] 4 Mar 09, 2016 [id number] [phone] SHALONDA SnowJUANITO PATIENT MEDICARE (WNR) MEDICARE (M) PART B Feb 06, 2023 PART B [id number] JUANITO KRAUSE PATIENT MEDICARE (WNR) MEDICARE (M) PART A Dec 08, 2019 PART A [id number] [facility] JUANITO KRAUSE PATIENT OPTUM RX PRESCRIPT ION FELICITY TY Mar 09, 2021 [facility] [id number] JUANITO KRAUSE PATIENT OPTUM RX PRESCRIPT ION FELICITY TY HEALT H [place] Dec 08, 2019 [facility] [id number] JUANITO KRAUSE PATIENT Selected Encounter This section includes the information on record at [place] for the Encounter. Date/Time Encounter Type Encounter Description Reason Provider Source Feb 25, 2023 02:00 PM OFFICE O/P EST MOD 30-39 MIN PRIMARY CARE/MEDICINE ICD-10-CM I10 Essential (primary) hypertension JAYDON ARIAS Encounter Template Text not used by [place] Assessments - Encounter Diagnoses This section includes the primary and secondary diagnoses documented for the Encounter. Date/Time Primary/Secondary Diagnosis Diagnosis Name Provider Source Feb 25, 2023 03:44 PM PRIMARY Essential (primary) hypertension JAYDON ARIAS Feb 25, 2023 03:44 PM SECONDARY Unspecified kidney failure JAYDON ARIAS Plan of Treatment: Future Appointments (+ 6 [...] Date/Time Appointment Type Appointme nt Facility Name Mar 30, 2023 02:00 PM AMBULATORY - MEDICINE [facility] May 06, 2023 01:00 PM AMBULATORY - NONE [facility] Jun 15, 2023 02:15 PM AMBULATORY - NONE [facility] Social History: Smoking Status (Most current) and [...] Date/Time Current Smoking Status Comment Gisselle prieto Jun 15, 2017 01:14 PM LIFETIME NON-TOBACCO USER [facility] Tobacco Use History This section includes a history of the smoking, or tobacco-related health factors, that were collected on or before the date of the Encounter. The data comes from the [place] facility where the Encounter took place. Date/Time Smoking Status/Tobacco Use Comment Jordan youssef Jun 20, 2016 10:56 AM LIFETIME NON-TOBACCO USER [facility] Encounter Notes: All associated encounter notes This section contains the clinical notes associated to the Encounter. Date/Time Encounter Note(s) Provider Source Apr 03, 2023 02:25 PM ADDENDUM: LOCAL TITLE: Addendum STANDARD TITLE: ADDENDUM DATE OF NOTE: APR 03, 2023@14:25:28 ENTRY DATE: APR 03, 2023@14:25:29 AUTHOR: JAYDON ARIAS EXP COSIGNER: URGENCY: STATUS: COMPLETED kindly contact Dr. Hurtado's office out of [facility] to see if his reverse shoulder replacement is mri compatible. thank you /brody/ Jaydon Arias M.D. STAFF PHYSICIAN Signed: 04/03/2023 14:26 Receipt Acknowledged By: 04/07/2023 08:25 /brody/ ZULEMA REED RN REGISTERED NURSE ==== --- Original Document --- 03/30/23 NOTE: kindly obtain operative report of reverse shoulder surgery of the right shoulder done by Dr. Hurtado at [facility] in August of 2021. thank you /brody/ Jaydon Arias M.D. STAFF PHYSICIAN Signed: 04/01/2023 15:22 Receipt Acknowledged By: 04/01/2023 16:08 /brody/ OWEN MARTIN [employer]ANCE INDUSTRIAL MAINTENANCE MECHANIC 04/01/2023 ADDENDUM STATUS: COMPLETED THIS FINANCE VICE PRESIDENT SENT FAX REQUEST FOR SHOULDER SURG @ [facility] 2021 /brody/ OWEN Huynh VERONICA [employer]VANCE INDUSTRIAL MAINTENANCE MECHANIC Signed: 04/01/2023 16:07 04/06/2023 ADDENDUM STATUS: COMPLETED Called and spoke to PSR at [facility]/Dr. Figueroa's office. Left message requesting PCP's questions. She will forward question and have someone call the clinic back. /brody/ ZULEMA REED RN REGISTERED NURSE Signed: 04/06/2023 11:45 JAYDON ARIAS Mar 30, 2023 02:18 PM PHYSICIAN NOTE: LOCAL TITLE: MD NOTE STANDARD TITLE: PHYSICIAN NOTE DATE OF NOTE: MAR 30, 2023@14:18 ENTRY DATE: MAR 30, 2023@14:18:59 AUTHOR: JAYDON ARIAS EXP COSIGNER: URGENCY: STATUS: COMPLETED MD NOTE Has ADDENDA kindly obtain operative report of reverse shoulder surgery of the right shoulder done by Dr. Hurtado at [facility] in August of 2021. thank you /brody/ Jaydon Arias M.D. STAFF PHYSICIAN Signed: 04/01/2023 15:22 Receipt Acknowledged By: 04/01/2023 16:08 /brody/ OWEN MARTIN [employer]RIAL MAINTENANCE MECHANIC 04/01/2023 ADDENDUM STATUS: COMPLETED THIS FINANCE VICE PRESIDENT SENT FAX REQUEST FOR SHOULDER SURG @ [facility] 2021 /brody/ OWEN Huynh VERONICA [employer] INDUSTRIAL MAINTENANCE MECHANIC Signed: 04/01/2023 16:07 04/03/2023 ADDENDUM STATUS: COMPLETED kindly contact Dr. Hurtado's office out of [facility] to see if his reverse shoulder replacement is mri compatible. thank you /brody/ Jaydon Arias M.D. STAFF PHYSICIAN Signed: 04/03/2023 14:26 Receipt Acknowledged By: 04/07/2023 08:25 /brody/ ZULEMA REED RN REGISTERED NURSE 04/06/2023 ADDENDUM STATUS: COMPLETED Called and spoke to PSR at [facility]/Dr. Figueroa's office. Left message requesting PCP's questions. She will forward question and have someone call the clinic back. /brody/ ZULEMA REED RN REGISTERED NURSE Signed: 04/06/2023 11:45 04/09/2023 ADDENDUM STATUS: COMPLETED Called Dr. Figueroa's office again and spoke w/Ashly. Asked about shoulder replacement compatability and was informed ther ewas no message in Leslie's chart of this RN's call. Ashly has sent a message to provider and his orthopedic physician assistant and either she or the orthopedic physician assistant will call back with the answer. /brody/ ZULEMA REED RN REGISTERED NURSE Signed: 04/09/2023 11:39 JAYDON ARIAS Mar 29, 2023 12:56 PM ACCOUNTING OF DISC LOSURES NOTE: LOCAL TITLE: STATE PRESCRIPTION DRUG MONITORING PROGRAM STANDARD TITLE: ACCOUNTING OF DISCLOSURES NOTE DATE OF NOTE: MAR 29, 2023@12:56:08 ENTRY DATE: MAR 29, 2023@12:56:08 AUTHOR: JAYDON ARIASIGNER: URGENCY: STATUS: COMPLETED This PDMP query was submitted by Jaydon Arias MD. The clinical justification for this PDMP query is to review controlled substances prescribed outside of the [facility], and any additional information that may become available, as an important component of standard clinical care, and in accordance with [facility] policy. Patient information was shared with the PDMP [place]. No prescription(s) for controlled substances outside the [facility] were found in the last 90 days. /brody/ Jaydon Arias M.D. STAFF PHYSICIAN Signed: 03/29/2023 12:56 JAYDON ARIAS Feb 27, 2023 02:52 PM LETTERS: LOCAL TITLE: PATIENT LETTER (T) STANDARD TITLE: LETTERS DATE OF NOTE: FEB 27, 2023@14:52 ENTRY DATE: FEB 27, 2023@14:52:04 AUTHOR: JAYDON ARIASIGNER: URGENCY: STATUS: COMPLETED DEPARTMENT OF [facility] Toll Free Number Primary Care Telephone Assistance can be reached at extension [phone] [place] [facility] scheduling can be reached at extension [phone] [place] [facility] scheduling can be reached at ext [phone] JUANITO [address]ANGE [address], [place], [address] Dear , We are pleased to inform you that your stress test was normal . No further intervention is required at this time. Kindly leave a message for Dr. Arias if you have any questions. Thank you for allowing the [place] to participate in your care. We look forward to seeing you in the future! Sincerely, Your Primary Care Team [facility] [address] [facility] [address] [place] [address] [place] [address] [phone] [facility] [address] [place] [address] [place] [address] [phone] [facility] [address] [facility],[address] [place] [address] [place] [address] JAYDON ARIAS Feb 25, 2023 02:02 PM PHYSICIAN NOTE: LOCAL TITLE: MD NOTE STANDARD TITLE: PHYSICIAN NOTE DATE OF NOTE: FEB 25, 2023@14:02 ENTRY DATE: FEB 25, 2023@14:02:37 AUTHOR: JAYDON ARIAS EXP COSIGNER: URGENCY: STATUS: COMPLETED NOTE Has ADDENDA VIRTUAL VISIT renal: dr. waldrop, pcp: dr. olivia esquivel CC: kidney failure History of Present Illness: 1. kidney failure -he had lost over 40 lbs w/o trying about 1.5 years ago -04/16/2022 admitted to ICU for 10 days -he had hypertensive crisis and renal failure -he had a kidney biopsy but he reports he doesn't know if the biopsy result explained the renal failure -he was on dialysis in the hospital and continued until about 4mths after discharge 2. he reports a numbness of his gums/around his nose before the hospitalization for renal failure -present for months before the renal failure -he has a decreased appetite -reports loss of appetite 3. he feels cold all of the time -from the tips of my fingers all the way centrally 4. he feels fatigued all the time with less activity -he's trying to exercise to improve his -he wakes several times a night to urinate - reports that he snores more recently Medications were reviewed and reconciled with patient Active Outpatient Medications (including Supplies): Active Non-[facility] Medications Status 1) flonase nasal spray carvedilol 25mg bid nifedipine 30mg bid renocap softgel 1 tab daily Social Hx: SERVICE CONNECTED % - NONE FOUND Physical Exam: pleasant. Alert and oriented X3 All labs, diagnostic tests, and medication changes were reviewed and discussed with patient. The patient verbalized understanding. ASSESSMENT AND PLAN 1. renal failure: no records available to review. possible hypertensive crisis -f/u w/renal as scheduled 2. htn: he reports his b/p has been better controlled on meds -will fill his antihypertensive meds 3. somnolence: possible sleep apnea -sleep study ordered Return to clinic RECALL 08/2023 with fasting labs /brody/ Jaydon Arias M.D. STAFF PHYSICIAN Signed: 02/25/2023 15:44 Receipt Acknowledged By: 02/27/2023 11:09 /brody/ OWEN MARTIN [employer] INDUSTRIAL MAINTENANCE MECHANIC 02/27/2023 ADDENDUM STATUS: COMPLETED RTC PLACED IN RECALL /brody/ OWEN MARTIN [employer] INDUSTRIAL MAINTENANCE MECHANIC Signed: 02/27/2023 11:09 JAYDON ARIAS
--- OUTSIDE RECORDS SUMMARY | 2024-02-25 11:21 | XMS_ITS | Encounter Summary ---
Author Name [facility] [place] [facility] [place] Address [address] [place] [address] Care Team Providers Care Bioinformatics Assistant Name Role Phone KARIE DE LOS SANTOS [...] FELICITY TY HEALT H Dec 08, 2019 [id number] 20 [id number] JUANITO KRAUSE PATIENT BCBS [place] (BLUE CARD) PREFERRED PROVIDER ORGANIZAT ION (PPO) FELICITY TY [place] RA Mar 09, 2021 [id number] 20 [id number] SHALONDA SnowERON SPOUSE CAREMARK PRESCRIPT ION [id number] 2 Mar 09, 2018 [id number] JUANITO KRAUSE PATIENT CAREMARK PRESCRIPT ION [id number] 4 Mar 09, 2016 [id number] [phone] JUANITO KRAUSE PATIENT MEDICARE (WNR) MEDICARE (M) PART B Feb 06, 2023 PART B [id number] [facility] JUANITO KRAUSE PATIENT MEDICARE (WNR) MEDICARE (M) PART A Dec 08, 2019 PART A [id number] [facility] JUANITO KRAUSE PATIENT OPTUM RX PRESCRIPT ION FELICITY TY Mar 09, 2021 [facility] [id number] JUANITO KRAUSE PATIENT OPTUM RX PRESCRIPT ION FELICITY TY HEALT H CORPO Dec 08, 2019 [facility] [id number] JUANITO KRAUSE PATIENT Selected Encounter This section includes the information on record at [place] for the Encounter. Date/Time Encounter Type Encounter Description Reason Pro vider Source Apr 14, 2023 03:28 PM Outpatient Encounter ADMIN PAT ACTIVTIES (MASNONCT) IHE Encounter Template Text not used by [place] Plan of Treatment: Future Appointments (+ 6 months) and Future Tests (+/- 45 days) The Plan of Treatment section includes future care activities for the patient from all [place] treatmentfacilities. This section includes future appointments and future orders which are active, pending or scheduled. Future Appointments This section includes appointments that were scheduled to occur 6 months from the date of the Encounter, up to a maximum of 20 appointments. The data comes from all [place] treatment facilities. Appointment Date/Time Appointment Type Appointme nt Facility Name May 06, 2023 01:00 PM AMBULATORY - NONE [facility] [place] [facility] Jun 15, 2023 02:15 PM AMBULATORY - NONE [facility] [place] [facility] Sep 01, 2023 01:00 PM AM[facility]ULATORY [facility]ICINE [facility] [place] [facility] Sep 08, 2023 11:00 AM AM[facility]ULATORY - [facility]ICINE [facility] [place] [facility] Sep 28, 2023 03:30 PM [facility] - [facility] Lab Results: +/- 30 days of the encounter This section includes the Chemistry and Hematology Lab Results on record with [place] for the patient. Radiology Reports and Pathology Reports are provided separately, in subsequent sections. Lab Results This section contains the Chemistry/Hematology Results that were resulted 30 days before or 30 daysafter the date of the Encounter. Date/Time Source Result Type Result - Unit Interpretation Reference Range Comment Apr 29, 2023 12:13 PM [facility] UREA NITROGEN Specimen Type: SERUM No comment entered. Ordering Provider: JAYDON ARIAS Report Released Date/Time: Apr 16, 2023 09:46 AM Reporting Lab: [address] [id number] Performing Lab: [address] [address] UREA NITROGEN 31 mg/dL H 7-25 Apr 29, 2023 12:13 PM [facility] CREATININE (eGFR 2020) Specimen Type: SERUM No comment entered. Ordering Provider: JAYDON ARIAS Report Released Date/Time: Apr 16, 2023 09:46 AM Reporting Lab: [address] [address] Performing Lab: [address] [address] CREATININE, Serum 2.69 mg/dL H 0.50-1.40 eGFR(CKD-EPI 2020) 25 mL/min L >60 Social History: Smoking Status (Most current) and Tobacco Use (All prior to encounter date) This section includes the most current, and the historical, smoking and tobacco- related health factors from the [place] facility where the Encounter took place. Current Smoking Status This section includes the most current smoking, or tobacco-related health factor, from the [place] facility where the Encounter took place. Date/Time Current Smoking Status Comment Gisselle prieto May 17, 2021 12:53 PM VA-TOBACCO NEVER USED [facility] Radiology Reports: +/- 30 days of [...] the Encounter. The data comes from all [place] treatment facilities. Date/Time Radiology Report Provider Source May 06, 2023 01:[address] HEAD W/O CONT: JUANITO LANGE [id number] -1955 M Exm Date: MAY 06, 2023@13:04 Req Phys: HUGO,JAYDON Pat Loc: CWM/SO/PACT/TELE/MD (Req'g Loc Img Loc: NHM/CT Service: Unknown (Case [id number] COMPLETE) CT HEAD W/O CONT (CT Detailed) CPT:24174 Reason for Study: numbness of his gums/around his nose on left side Clinical History: present for several months. pt unable to get mri of the brain b/c of a shoulder replacement. Report Status: Verified Date Reported: MAY 06, 2023 Date Verified: MAY 06, 2023 Supervisor [facility] E-Sig:/BRODY/WENDIE BUTLER JR Report: Study: Noncontrast CT [...] Primary Interpreting Staff: WENDIE BUTLER JR, Radiologist (Supervisor Rolling Room) /WENDIE ESQUIVEL JR [facility] Encounter Notes: All associated encounter notes This section contains the clinical notes associated to the Encounter. Date/Time Encounter Note(s) Provider Source Apr 14, 2023 03:43 PM ADDENDUM: LOCAL TITLE: Addendum STANDARD TITLE: ADDENDUM DATE OF NOTE: APR 14, 2023@15:43:01 ENTRY DATE: APR 14, 2023@15:43:02 AUTHOR: FABIO GIBBS EXP COSIGNER: URGENCY: STATUS: COMPLETED Will include PCP for above. /brody/ FABIO GIBBS LPN LICENSED PRACTICAL NURSE Signed: 04/14/2023 15:43 Receipt Acknowledged By: 04/15/2023 18:36 /es/ Jaydon Arias M.D. STAFF PHYSICIAN === --- Original Document --- 04/14/23 CCC: SCHEDULING ADMINISTRATION: Patient Demographics Patient Name: JUANITO LANGE Patient Primary Phone: [phone] Patient Primary Address: [address] [place] [address] Patient : 1955 Patient Age: 67 Caller/Recipient Relation to Patient: Other If Other Describe Relation to Patient: [facility] Caller Name: Debbie Fleming Administrative Administrative Note Reason: Outside Care Performed Administrative Note Comments: She is calling to let PCP know this can't have MRI's done with reverse shoulder, CT Scans are okay, Please call her back with any questions at # [phone] /brody/ ARACELIS ABEL VISN1 [facility] A[facility] Signed: 04/14/2023 15:28 Receipt Acknowledged By: 04/14/2023 15:42 /es/ FABIO GIBBS LPN LICENSED PRACTICAL NURSE 04/14/2023 15:54 /es/ ZULEMA REED RN REGISTERED NURSE FABIO GIBBS [facility] Apr 14, 2023 03:28 PM ADMINISTRATIVE NOTE: LOCAL TITLE: CCC: SCHEDULING ADMINISTRATION STANDARD TITLE: ADMINISTRATIVE NOTE DATE OF NOTE: APR 14, 2023@15:28:44 ENTRY DATE: APR 14, 2023@15:28:44 AUTHOR: ARACELIS ABEL EXP COSIGNER: URGENCY: STATUS: COMPLETED CCC: SCHEDULING ADMINISTRATION Has ADDENDA Patient Demographics Patient Name: JUANITO LANGE Patient Primary Phone: [phone] Patient Primary Address: [address] [place] [address] Patient : 1955 Patient Age: 67 Caller/Recipient Relation to Patient: Other If Other Describe Relation to Patient: [facility] Caller Name: Debbie Fleming Administrative Administrative Note Reason: Outside Care Performed Administrative Note Comments: She is calling to let PCP know this can't have MRI's done with reverse shoulder, CT Scans are okay, Please call her back with any questions at # [phone] /brody/ ARACELIS ABEL VISN1 [facility] AMSA Signed: 04/14/2023 15:28 Receipt Acknowledged By: 04/14/2023 15:42 /brody/ FABIO GIBBS LPN LICENSED PRACTICAL NURSE 04/14/2023 15:54 /brody/ ZULEMA REED RN REGISTERED NURSE 04/14/2023 ADDENDUM STATUS: COMPLETED Will include PCP for above. /brody/ FABIO GIBBS LPN LICENSED PRACTICAL NURSE Signed: 04/14/2023 15:43 Receipt Acknowledged By: * AWAITING SIGNATURE * JAYDON ARIAS TAMARA J [facility]
--- OUTSIDE RECORDS SUMMARY | 2024-02-25 11:21 | XMS_ITS | Encounter Summary ---
Author Name [facility] [place] Address [address] [place] [id number] Care Team Providers Care Math Professor Name Role Phone KARIE DE LOS SANTOS [...] FELICITY TY HEALT H Dec 08, 2019 [id number] [phone] JUANITO KRAUSE PATIENT BCBS [place] (BLUE CARD) PREFERRED PROVIDER ORGANIZAT ION (PPO) FELICITY TY PACE [place]PO RA Mar 09, 2021 [id number] 20 [id number] SHALONDA SnowERON SPOUSE CAREMARK PRESCRIPT ION [id number] 2 Mar 09, 2018 [id number] [phone] JUANITO KRAUSE PATIENT CAREMARK PRESCRIPT ION [id number] 4 Mar 09, 2016 [id number] JUANITO KRAUSE PATIENT MEDICARE (WNR) MEDICARE (M) PART B Feb 06, 2023 PART B [id number] [facility] JUANITO KRAUSE PATIENT MEDICARE (WNR) MEDICARE (M) PART A Dec 08, 2019 PART A [id number] [facility] JUANITO KRAUSE PATIENT OPTUM RX PRESCRIPT ION FELICITY TY Mar 09, 2021 [facility] [id number] [phone] JUANITO KRAUSE PATIENT OPTUM RX PRESCRIPT ION FELICITY TY HEALT H CORPO Dec 08, 2019 [facility] [id number] JUANITO KRAUSE PATIENT Selected Encounter This section includes the information on record at [place] for the Encounter. Date/Time Encounter Type Encounter Description Reason Pro vider Source Mar 04, 2023 09:37 AM Outpatient Encounter COMMUNITY CARE CONSULT IHE Encounter Template Text not used by [place] Plan of Treatment: Future Appointments (+ 6 months) and Future Tests (+/- 45 days) The Plan of Treatment section includes future care activities for the patient from all [place] [facility]. This section includes future appointments and future orders which are active, pending or scheduled. Future Appointments This section includes appointments that were scheduled to occur 6 months from the date of the Encounter, up to a maximum of 20 appointments. The data comes from all [place] treatment facilities. Appointment Date/Time Appointment Type Appointme nt Facility Name Mar 30, 2023 02:00 PM [facility] [place] [facility] May 06, 2023 01:00 PM [facility] NONE [facility] [place] [facility] Jun 15, 2023 02:15 PM AMBULATORY - NONE [facility] [place] [facility] Sep 01, 2023 01:00 PM [facility]UL[facility] Social History: Smoking Status (Most current) and Tobacco Use (All prior to encounter date) This section includes the most current, and the historical, smoking and tobacco- related health factors from the [place] facility where the Encounter took place. Current Smoking Status This section includes the most current smoking, or tobacco-related health factor, from the [place] facility where the Encounter took place. Date/Time Current Smoking Status Comment Facil ity May 17, 2021 12:53 PM VA-TOBACCO NEVER USED [facility] [place] [facility] Encounter Notes: All associated encounter notes This section contains the clinical notes associated to the Encounter. Date/Time Encounter Note(s) Provider Source Mar 30, 2023 11:54 AM ADDENDUM: LOCAL TITLE: Addendum STANDARD TITLE: ADDENDUM DATE OF NOTE: MAR 30, 2023@11:54:31 ENTRY DATE: MAR 30, 2023@11:54:33 AUTHOR: FABIO GIBBS EXP COSIGNER: URGENCY: STATUS: COMPLETED Adding PCP to review MRI consult: ADDED COMMENT 03/30/23 11:39 RAFAEL DODSON JULIE [employer] called . He stated he has metal & plastic hardware in his shoulder. Please review & advise if MRI can be performed. Thank you. /brody/ FABIO GIBBS LPN LICENSED PRACTICAL NURSE Signed: 03/30/2023 11:55 Receipt Acknowledged By: 03/31/2023 06:39 /brody/ Jaydon Arias M.D. STAFF PHYSICIAN === --- Original Document --- 03/04/23 ADMINISTRATIVE NOTE: CC received a called from Shala at [facility]. CC Vendor inquiring about a Nephrology authorization/referral, CC Vendor was informed that no referral was in the system. was schedule on 02/16@ 130pm with f/u on 03/30@2pm CC Vendor would like to have a auth for the following , . /brody/ YONY HANSEN Signed: 03/04/2023 09:41 03/16/2023 ADDENDUM STATUS: COMPLETED SHALA CALL FROM [facility] CHECKING IN ON STATUS OF CONSULT ALERTING PACT /brody/ LAUREL REDD Signed: 03/16/2023 09:37 Receipt Acknowledged By: 03/18/2023 05:58 /consuelo Arias M.D. STAFF PHYSICIAN 03/16/2023 10:43 /brody/ ZULEMA REED RN REGISTERED NURSE 03/16/2023 ADDENDUM STATUS: COMPLETED Consult placed and awaiting PCP's signature. /consuelo REED RN REGISTERED NURSE Signed: 03/16/2023 10:43 03/18/2023 ADDENDUM STATUS: COMPLETED please inform shala at that the consult was placed thank christian /consuelo Arias M.D. STAFF PHYSICIAN Signed: 03/18/2023 05:59 Receipt Acknowledged By: 03/18/2023 14:45 /consuelo MARTIN ADVANCE TENSIONING MACHINE OPERATOR 03/18/2023 ADDENDUM STATUS: COMPLETED THIS [facility] [employer] CALLED AND LEFT SHALA A MESSAGE (HE WAS OUT TO LUNCH) REGARDING THE CONSULT BEING PLACED /brody/ OWEN MARTIN ADVANCE TENSIONING MACHINE OPERATOR Signed: 03/18/2023 14:44 FABIO GIBBS [facility] [place] [facility] Mar 18, 2023 05:59 AM ADDENDUM: LOCAL TITLE: Addendum STANDARD TITLE: ADDENDUM DATE OF NOTE: MAR 18, 2023@05:59:24 ENTRY DATE: MAR 18, 2023@05:59:26 AUTHOR: JAYDON ARIAS EXP COSIGNER: URGENCY: STATUS: COMPLETED please inform shala at that the consult was placed thank christian /consuelo Arias M.D. STAFF PHYSICIAN Signed: 03/18/2023 05:59 Receipt Acknowledged By: 03/18/2023 14:45 /consuelo MARTIN ADVANCE TENSIONING MACHINE OPERATOR === --- Original Document --- 03/04/23 ADMINISTRATIVE NOTE: CC received a called from Shala at [facility]. CC Vendor inquiring about a Nephrology authorization/referral, CC Vendor was informed that no referral was in the system. Coral was schedule on 02/16@ 130pm with f/u on 03/30@2pm CC Vendor would like to have a auth for the following , . /brody/ YONY HANSEN Signed: 03/04/2023 09:41 03/16/2023 ADDENDUM STATUS: COMPLETED SHALA CALL FROM [facility] CHECKING IN ON STATUS OF CONSULT ALERTING PACT /es/ LAUREL REDD Signed: 03/16/2023 09:37 Receipt Acknowledged By: 03/18/2023 05:58 /consuelo Arias M.D. STAFF PHYSICIAN 03/16/2023 10:43 /brody/ ZULEMA REED RN REGISTERED NURSE 03/16/2023 ADDENDUM STATUS: COMPLETED Consult placed and awaiting PCP's signature. /brody/ ZULEMA REED RN REGISTERED NURSE Signed: 03/16/2023 10:43 03/18/2023 ADDENDUM STATUS: COMPLETED THIS [facility] [employer] CALLED AND LEFT SHALA A MESSAGE (HE WAS OUT TO LUNCH) REGARDING THE CONSULT BEING PLACED /brody/ OWEN MARTIN BUD TENSIONING MACHINE OPERATOR Signed: 03/18/2023 14:44 JAYDON ARIAS [facility] [place] [facility] Mar 16, 2023 09:36 AM ADDENDUM: LOCAL TITLE: Addendum STANDARD TITLE: ADDENDUM DATE OF NOTE: MAR 16, 2023@09:36:41 ENTRY DATE: MAR 16, 2023@09:36:43 AUTHOR: LAUREL WILDER EXP COSIGNER: URGENCY: STATUS: COMPLETED SHALA CALL FROM [facility] CHECKING IN ON STATUS OF CONSULT ALERTING PACT /es/ LAUREL REDD Signed: 03/16/2023 09:37 Receipt Acknowledged By: 03/18/2023 05:58 /brody/ Jaydon Arias M.D. STAFF PHYSICIAN 03/16/2023 10:43 /brody/ ZULEMA REED RN REGISTERED NURSE === --- Original Document --- 03/04/23 ADMINISTRATIVE NOTE: CC received a called from Shala at [facility]. CC Vendor inquiring about a Nephrology authorization/referral, CC Vendor was informed that no referral was in the system. Coral was schedule on 02/16@ 130pm with f/u on 03/30@2pm CC Vendor would like to have a auth for the following , . /consuelo HANSEN Signed: 03/04/2023 09:41 03/16/2023 ADDENDUM STATUS: COMPLETED Consult placed and awaiting PCP's signature. /brody/ ZULEMA REED RN REGISTERED NURSE Signed: 03/16/2023 10:43 LAUREL WILDER [facility] [place] [facility] Mar 04, 2023 09:37 AM ADMINISTRATIVE NOTE: LOCAL TITLE: ADMINISTRATIVE NOTE STANDARD TITLE: ADMINISTRATIVE NOTE DATE OF NOTE: MAR 04, 2023@09:37 ENTRY DATE: MAR 04, 2023@09:37:22 AUTHOR: YONY HANSEN EXP COSIGNER: URGENCY: STATUS: COMPLETED ADMINISTRATIVE NOTE Has ADDENDA CC received a called from Shala at [facility]. CC Vendor inquiring about a Nephrology authorization/referral, CC Vendor was informed that no referral was in the system. Coral was schedule on 02/16@ 130pm with f/u on 03/30@2pm CC Vendor would like to have a auth for the following , . /consuelo HANSEN Signed: 03/04/2023 09:41 03/16/2023 ADDENDUM STATUS: COMPLETED SHALA CALL FROM [facility] CHECKING IN ON STATUS OF CONSULT ALERTING PACT /brody/ LAUREL REDD Signed: 03/16/2023 09:37 Receipt Acknowledged By: 03/18/2023 05:58 /brody/ Jaydon Arias M.D. STAFF PHYSICIAN 03/16/2023 10:43 /brody/ ZULEMA REED RN REGISTERED NURSE 03/16/2023 ADDENDUM STATUS: COMPLETED Consult placed and awaiting PCP's signature. /brody/ ZULEMA REED RN REGISTERED NURSE Signed: 03/16/2023 10:43 03/18/2023 ADDENDUM STATUS: COMPLETED please inform shala at that the consult was placed thank you /brody/ Jaydon Arias M.D. STAFF PHYSICIAN Signed: 03/18/2023 05:59 Receipt Acknowledged By: 03/18/2023 14:45 /brody/ OWEN MARTIN ADVANCE TENSIONING MACHINE OPERATOR 03/18/2023 ADDENDUM STATUS: COMPLETED THIS [facility] [employer] CALLED AND LEFT SHALA A MESSAGE (HE WAS OUT TO LUNCH) REGARDING THE CONSULT BEING PLACED /brody/ OWEN MARTIN ADVANCE TENSIONING MACHINE OPERATOR Signed: 03/18/2023 14:44 03/30/2023 ADDENDUM STATUS: COMPLETED Adding PCP to review MRI consult: ADDED COMMENT 03/30/23 11:39 RAFAEL DODSON JULIE [employer] called . He stated he has metal & plastic hardware in his shoulder. Please review & advise if MRI can be performed. Thank you. /brody/ FABIO GIBBS LPN LICENSED PRACTICAL NURSE Signed: 03/30/2023 11:55 Receipt Acknowledged By: * AWAITING SIGNATURE * JAYDON ARIAS [facility]
--- OUTSIDE RECORDS SUMMARY | 2024-02-25 11:21 | XMS_ITS | Encounter Summary ---
Author Name [facility] [place] Organization [facility] [place] [facility] [place] Address [address] [place] [address] Care Team Providers Care Beekeeper Name Role Phone KARIE DE LOS SANTOS [...] FELICITY TY HEALT H Dec 08, 2019 [id number] 20 [id number] [phone] JUANITO KRAUSE PATIENT BCBS [place] (BLUE CARD) PREFERRED PROVIDER ORGANIZAT ION (PPO) FELICITY TY [place] RA Mar 09, 2021 [id number] 20 [id number] SHALONDA SnowERON SPOUSE CAREMARK PRESCRIPT ION [id number] 2 Mar 09, 2018 [id number] JUANITO KRAUSE PATIENT CAREMARK PRESCRIPT ION [id number] 4 Mar 09, 2016 [id number] JUANITO KRAUSE PATIENT MEDICARE (WNR) MEDICARE (M) PART B Feb 06, 2023 PART B [id number] [facility] JUANITO KRAUSE PATIENT MEDICARE (WNR) MEDICARE (M) PART A Dec 08, 2019 PART A [id number] [facility] JUANITO KRAUSE PATIENT OPTUM RX PRESCRIPT ION FELICITY TY Mar 09, 2021 [facility] [id number] JUANITO KRAUSE PATIENT OPTUM RX PRESCRIPT ION FELICITY TY HEALT H CORPO Dec 08, 2019 [facility] [id number] JUANITO KRAUSE PATIENT Selected Encounter This section includes the information on record at [place] for the Encounter. Date/Time Encounter Type Encounter Description Reason Pro vider Source Mar 26, 2023 03:30 PM Outpatient Encounter ADMIN PAT ACTIVTIES (MASNONCT) IHE Encounter Template Text not used by MS Plan of Treatment: Future Appointments (+ 6 months) and Future Tests (+/- 45 days) The Plan of Treatment section includes future care activities for the patient from all [place] treatmentfacilities. This section includes future appointments and future orders which are active, pending or scheduled. Future Appointments This section includes appointments that were scheduled to occur 6 months from the date of the Encounter, up to a maximum of 20 appointments. The data comes from all [place] treatment facilities. Appointment Date/Time Appointment Type Appointme nt Facility Name Mar 30, 2023 02:00 PM AMBULATORY - MEDICINE [facility] [place] [facility] May 06, 2023 01:00 PM AMBULATORY - NONE [facility] [place] [facility] Jun 15, 2023 02:15 PM AMBULATORY - NONE [facility] [facility] Sep 01, 2023 01:00 PM AMBULATORY - MEDICINE [facility] C [facility] [facility] Sep 08, 2023 11:00 AM [facility]UL[facility] Social History: Smoking Status (Most current) and Tobacco Use (All prior to encounter date) This section includes the most current, and the historical, smoking and tobacco- related health factors from the [place] facility where the Encounter took place. Current Smoking Status This section includes the most current smoking, or tobacco-related health factor, from the [place] facility where the Encounter took place. Date/Time Current Smoking Status Comment Gisselle prieto May 17, 2021 12:53 PM VA-TOBACCO NEVER USED [facility] [place] [facility] Encounter Notes: All associated encounter notes This section contains the clinical notes associated to the Encounter. Date/Time Encounter Note(s) Provider Source Mar 27, 2023 06:48 AM ADDENDUM: LOCAL TITLE: Addendum STANDARD TITLE: ADDENDUM DATE OF NOTE: MAR 27, 2023@06:48:04 ENTRY DATE: MAR 27, 2023@06:48:05 AUTHOR: AYLIN ARIAS EXP COSIGNER: URGENCY: STATUS: COMPLETED kindly instruct pt that pcp ordered an mri of his brain. CC will call him to scheduled. thank you /consuelo Arias M.D. STAFF PHYSICIAN Signed: 03/27/2023 06:48 Receipt Acknowledged By: 03/27/2023 15:55 /brody/ ZULEMA REED RN REGISTERED NURSE === --- Original Document --- 03/26/23 CCC: SCHEDULING ADMINISTRATION: Patient Demographics Patient Name: JUANITO LANGE Patient Primary Phone: [phone] Patient Primary Address: [address] [place] [address] Patient : 1955 Patient Age: 67 Caller/Recipient Relation to Patient: Self Administrative Administrative Note Comments: [place] called wanting to remind primary he has a renal appt on thursday. Also, he mentioned the issue with the numbness and wanted primary to know it was still happening, makes it difficult to eat, etc. /brody/ FABIO MARIE Signed: 03/26/2023 15:31 Receipt Acknowledged By: 03/26/2023 15:52 /brody/ FABIO GIBBS LPN LICENSED PRACTICAL NURSE 03/27/2023 08:39 /brody/ ZULEMA REED RN REGISTERED NURSE 03/26/2023 ADDENDUM STATUS: COMPLETED Will include PCP in above info. /brody/ FABIO GIBBS LPN LICENSED PRACTICAL NURSE Signed: 03/26/2023 15:53 Receipt Acknowledged By: 03/27/2023 06:47 /brody/ Aylin Arias M.D. STAFF PHYSICIAN [facility] Mar 26, 2023 03:52 PM ADDENDUM: LOCAL TITLE: Addendum STANDARD TITLE: ADDENDUM DATE OF NOTE: MAR 26, 2023@15:52:59 ENTRY DATE: MAR 26, 2023@15:53 AUTHOR: FABIO GIBBS EXP COSIGNER: URGENCY: STATUS: COMPLETED Will include PCP in above info. /brody/ FABIO GIBBS LPN LICENSED PRACTICAL NURSE Signed: 03/26/2023 15:53 Receipt Acknowledged By: 03/27/2023 06:47 /brody/ Aylin Arias M.D. STAFF PHYSICIAN === --- Original Document --- 03/26/23 CCC: SCHEDULING ADMINISTRATION: Patient Demographics Patient Name: JUANITO LANGE Patient Primary Phone: [phone] Patient Primary Address: [address] [place] [address] Patient : 1955 Patient Age: 67 Caller/Recipient Relation to Patient: Self Administrative Administrative Note Comments: [place] called wanting to remind primary he has a renal appt on thursday. Also, he mentioned the issue with the numbness and wanted primary to know it was still happening, makes it difficult to eat, etc. /brody/ FABIO MARIE Signed: 03/26/2023 15:31 Receipt Acknowledged By: 03/26/2023 15:52 /brody/ FABIO GIBBS LPN LICENSED PRACTICAL NURSE * AWAITING SIGNATURE * ZULEMA REED [facility] [place] [facility] Mar 26, 2023 03:31 PM ADMINISTRATIVE NOTE: LOCAL TITLE: CCC: SCHEDULING ADMINISTRATION STANDARD TITLE: ADMINISTRATIVE NOTE DATE OF NOTE: MAR 26, 2023@15:31:01 ENTRY DATE: MAR 26, 2023@15:31:01 AUTHOR: FABIO MARIE COSIGNER: URGENCY: STATUS: COMPLETED CCC: SCHEDULING ADMINISTRATION Has ADDENDA Patient Demographics Patient Name: JUANITO LANGE Patient Primary Phone: [phone] Patient Primary [address]: [address] [place] [address] Patient : 1955 Patient Age: 67 Caller/Recipient Relation to Patient: Self Administrative Administrative Note Comments: [place] called wanting to remind primary he has a renal appt on thursday. Also, he mentioned the issue with the numbness and wanted primary to know it was still happening, makes it difficult to eat, etc. /consuelo MARIE Signed: 03/26/2023 15:31 Receipt Acknowledged By: 03/26/2023 15:52 /brody/ FABIO GIBBS LPN LICENSED PRACTICAL NURSE 03/27/2023 08:39 /brody/ ZULEMA REED RN REGISTERED NURSE 03/26/2023 ADDENDUM STATUS: COMPLETED Will include PCP in above info. /consuelo GIBBS LPN LICENSED PRACTICAL NURSE Signed: 03/26/2023 15:53 Receipt Acknowledged By: 03/27/2023 06:47 /brody/ Aylin Arias M.D. STAFF PHYSICIAN 03/27/2023 ADDENDUM STATUS: COMPLETED kindly instruct pt that pcp ordered an mri of his brain. CC will call him to scheduled. thank you /consuelo Arias M.D. STAFF PHYSICIAN Signed: 03/27/2023 06:48 Receipt Acknowledged By: 03/27/2023 15:55 /brody/ ZULEMA REED RN REGISTERED NURSE 03/27/2023 ADDENDUM STATUS: COMPLETED Called and spoke to . Forwarded PCP's message. understands and will wait for CC to call him with appt information. [place] states he would like to have medication prescribed to take prior to MRI. /consuelo REED RN REGISTERED NURSE Signed: 03/27/2023 15:57 Receipt Acknowledged By: * AWAITING SIGNATURE * AYLIN ARIAS MELISSA D [facility]
--- OUTSIDE RECORDS SUMMARY | 2024-02-25 11:21 | XMS_ITS | Encounter Summary ---
Author Name [facility] of Veter[facility] ([place]) Organization Department of Veter[place] [facility] [place] Address [address] [place] [id number] Care Team Providers Care Molder Vacuum Name Role Phone KARIE DE LOS SANTOS [...] FELICITY TY HEALT H Dec 08, 2019 [id number] JUANITO KRAUSE PATIENT BCBS [place] (BLUE CARD) PREFERRED PROVIDER ORGANIZAT ION (PPO) FELICITY TY PACE [place]PO RA Mar 09, 2021 [id number] SHALONDA SnowERON SPOUSE CAREMARK PRESCRIPT ION [id number] 2 Mar 09, 2018 [id number] [phone] JUANITO KRAUSE PATIENT CAREMARK PRESCRIPT ION [id number] 4 Mar 09, 2016 [id number] JUANITO KRAUSE PATIENT MEDICARE (WNR) MEDICARE (M) PART B Feb 06, 2023 PART B [id number] [facility] JUANITO KRAUSE PATIENT MEDICARE (WNR) MEDICARE (M) PART A Dec 08, 2019 PART A [id number] [facility] JUANITO KRAUSE PATIENT OPTUM RX PRESCRIPT ION FELICITY TY Mar 09, 2021 [facility] [id number] [phone] JUANITO KRAUSE PATIENT OPTUM RX PRESCRIPT ION FELICITY TY HEALT H CORPO Dec 08, 2019 [facility] [id number] JUANITO KRAUSE PATIENT Selected Encounter This section includes the information on record at MD for the Encounter. Date/Time Encounter Type Encounter Description Reason Pro vider Source Apr 07, 2023 10:05 AM Outpatient Encounter PRIMARY CARE/MEDICINE IHE Encounter Template Text not used by MD Plan of Treatment: Future Appointments (+ 6 months) and Future Tests (+/- 45 days) The Plan of Treatment section includes future care activities for the patient from all MD treatmentfacilities. This section includes future appointments and future orders which are active, pending or scheduled. Future Appointments This section includes appointments that were scheduled to occur 6 months from the date of the Encounter, up to a maximum of 20 appointments. The data comes from all MD treatment facilities. Appointment Date/Time Appointment Type Appointme nt Facility Name May 06, 2023 01:00 PM AMBULATORY - NONE [facility] [place] [facility] Jun 15, 2023 02:15 PM AMBULATORY - NONE [facility] [place] [facility] Sep 01, 2023 01:00 PM AMBULATORY - MEDICINE MD C [facility] [place] [facility] Sep 08, 2023 11:00 AM AMBULATORY - MEDICINE [facility] C [facility] [place] [facility] Sep 28, 2023 03:30 PM AMBULATORY - MEDICINE [facility] C [facility] [facility] Lab Results: +/- 30 days of the encounter This section includes the Chemistry and Hematology Lab Results on record with MD for the patient. Radiology Reports and Pathology Reports are provided separately, in subsequent sections. Lab Results This section contains the Chemistry/Hematology Results that were resulted 30 days before or 30 daysafter the date of the Encounter. Date/Time Source Result Type Result - Unit Interpretation Reference Range Comment Apr 29, 2023 12:13 PM [facility] UREA NITROGEN Specimen Type: SERUM No comment entered. Ordering Provider: JAYDON ARIAS Report Released Date/Time: Apr 16, 2023 09:46 AM Reporting Lab: [address] [id number] Performing Lab: [address] [address] UREA NITROGEN 31 mg/dL H 7-25 Apr 29, 2023 12:13 PM [facility] CREATININE (eGFR 2020) Specimen Type: SERUM No comment entered. Ordering Provider: JAYDON ARIAS Report Released Date/Time: Apr 16, 2023 09:46 AM Reporting Lab: [address] [address] Performing Lab: [address] [address] CREATININE, Serum 2.69 mg/dL H 0.50-1.40 eGFR(CKD-EPI 2020) 25 mL/min L >60 Social History: Smoking Status (Most current) and Tobacco Use (All prior to encounter date) This section includes the most current, and the historical, smoking and tobacco- related health factors from the MD facility where the Encounter took place. Current Smoking Status This section includes the most current smoking, or tobacco-related health factor, from the MD facility where the Encounter took place. Date/Time Current Smoking Status Comment Gisselle prieto May 17, 2021 12:53 PM VA-TOBACCO NEVER USED [facility] Radiology Reports: +/- 30 days of [...] the Encounter. The data comes from all MD treatment facilities. Date/Time Radiology Report Provider Source May 06, 2023 01:[address] HEAD W/O CONT: MALANOWSKI,JUANITO E [id number] -1955 M Exm Date: MAY 06, 2023@13:04 Req Phys: HUGO,JAYDON Pat Loc: CWM/SO/PACT/TELE/MD (Req'g Loc Img Loc: NHM/CT Service: Unknown (Case [id number] COMPLETE) CT HEAD W/O CONT (CT Detailed) CPT:95728 Reason for Study: numbness of his gums/around his nose on left side Clinical History: present for several months. pt unable to get mri of the brain b/c of a shoulder replacement. Report Status: Verified Date Reported: MAY 06, 2023 Date Verified: MAY 06, 2023 [employer] Architect E-Sig:/BRODY/WENDIE BUTLER JR Report: Study: Noncontrast CT [...] Primary Interpreting Staff: WENDIE BUTLER JR, Radiologist ([employer] Architect) /WENDIE ESQUIVEL JR [facility] Encounter Notes: All associated encounter notes This section contains the clinical notes associated to the Encounter. Date/Time Encounter Note(s) Provider Source Apr 07, 2023 10:05 AM NONVA CONSULT: LOCAL TITLE: NON-VA CONSULT REPORTS STANDARD TITLE: NONVA CONSULT DATE OF NOTE: APR 07, 2023@10:05 ENTRY DATE: APR 07, 2023@10:05:17 AUTHOR: ZULEMA REED EXP COSIGNER: URGENCY: STATUS: COMPLETED This note is entered for the sole purpose of scanning Non-VA documentation into [employer]. [facility] Orthopedic Operative and Surgical Arthroplasty of Right Shoulder August 13, 2021. /brody/ ZULEMA REED RN REGISTERED NURSE Signed: 04/07/2023 10:06 ZULEMA REED
--- OUTSIDE RECORDS SUMMARY | 2024-02-25 11:22 | XMS_ITS | Encounter Summary ---
Author Name [facility] [place] Address [address] [place] [address] Care Team Providers Care High Voltage Electrician Name Role Phone KARIE DE LOS SANTOS [...] FELICITY TY HEALT H Dec 08, 2019 [id number] [phone] JUANITO KRAUSE PATIENT BCBS [place] (BLUE CARD) PREFERRED PROVIDER ORGANIZAT ION (PPO) FELICITY TY PACE [place]PO RA Mar 09, 2021 [id number] 20 [id number] SHALONDA SnowERON SPOUSE CAREMARK PRESCRIPT ION [id number] 2 Mar 09, 2018 [id number] [phone] JUANITO KRAUSE PATIENT CAREMARK PRESCRIPT ION [id number] 4 Mar 09, 2016 [id number] JUANITO KRAUSE PATIENT MEDICARE (WNR) MEDICARE (M) PART B Feb 06, 2023 PART B [id number] [facility] JUANITO KRAUSE PATIENT MEDICARE (WNR) MEDICARE (M) PART A Dec 08, 2019 PART A [id number] [facility] JUANITO KRAUSE PATIENT OPTUM RX PRESCRIPT ION FELICITY TY Mar 09, 2021 [facility] [id number] [phone] JUANITO KRAUSE PATIENT OPTUM RX PRESCRIPT ION FELICITY TY HEALT H CORPO Dec 08, 2019 [facility] [id number] JUANITO KRAUSE PATIENT Selected Encounter This section includes the information on record at [place] for the Encounter. Date/Time Encounter Type Encounter Description Reason Pro vider Source Jul 01, 2023 02:00 PM Outpatient Encounter ADMIN PAT ACTIVTIES (MASNONCT) IHE Encounter Template Text not used by PA Plan of Treatment: Future Appointments (+ 6 months) and Future Tests (+/- 45 days) The Plan of Treatment section includes future care activities for the patient from all [place] treatmentfacilities. This section includes future appointments and future orders which are active, pending or scheduled. Future Appointments This section includes appointments that were scheduled to occur 6 months from the date of the Encounter, up to a maximum of 20 appointments. The data comes from all [place] treatment facilities. Appointment Date/Time Appointment Type Appointme nt Facility Name Sep 01, 2023 01:00 PM AMBULATORY - MEDICINE [facility] [place] [facility] Sep 08, 2023 11:00 AM AMBULATORY - MEDICINE [facility] [place] [facility] Sep 28, 2023 03:30 PM AMBULATORY - MEDICINE [facility] Social History: Smoking Status (Most current) and Tobacco Use (All prior to encounter date) This section includes the most current, and the historical, smoking and tobacco- related health factors from the VA facility where the Encounter took place. Current Smoking Status This section includes the most current smoking, or tobacco-related health factor, from the [place] facility where the Encounter took place. Date/Time Current Smoking Status Comment Facil itjosh May 17, 2021 12:53 PM [facility] Radiology Reports: +/- 30 days of [...] the Encounter. The data comes from all [place] treatment facilities. Date/Time Radiology Report Provider Source Jun 15, 2023 02:[address] CERVICAL SPINE W/O CONT: JUANITO LANGE Edwige [id number] -1955 M Exm Date: JUN 15, 2023@14:14 Req Phys: SALLY CHANDLER Loc: CWM/SO/PACT 4 (Req'g Loc) Img Loc: NHM/CT Service: Unknown (Case 70 COMPLETE) CT CERVICAL SPINE W/O CONT (CT Detailed) CPT:84576 Reason for Study: Follow-up facial numbness and neck pain Clinical History: Report Status: Verified Date Reported: JUN 18, 2023 Date Verified: JUN 18, 2023 Business Center Manager E-Sig: Report: History (exactly as written by referring clinician): Follow-up facial numbness and neck pain Technique: CT of the cervical spine. The study was protocoled and supervised at the local [place] facility. 1860 images were subsequently received by the [place] National Teleradiology Program (NTP) for interpretation. Total DLP (mGy*cm): 293 IV Contrast Type: None IV Contrast Dose (mL): None Comparison: No priors available Findings: There is straightening of the normal cervical lordosis. Vertebral body heights are maintained without compression fracture. Moderate multilevel degenerative disc disease most significant from C3-4 through C5-6. Posterior elements are intact. Prevertebral soft tissues are unremarkable. Visualized lung reeves are clear. Incidental soft tissue imaging is unremarkable. Significant findings by level as below: C2/3: Small diffuse disc bulge. No significant bony central canal narrowing. No neuroforaminal stenosis. C3/4: Moderate posterior disc osteophyte complex. Moderate bilateral uncovertebral hypertrophy. No significant bony central canal narrowing. Moderate bilateral neuroforaminal stenosis. C4/5: Small posterior disc osteophyte complex. Moderate bilateral uncovertebral hypertrophy. No significant bony central canal narrowing. Mild right neuroforaminal stenosis. C5/6: Moderate posterior disc osteophyte complex. Moderate left and mild right uncovertebral hypertrophy. No significant bony central canal narrowing. No neuroforaminal stenosis. C6/7: Mild posterior disc osteophyte complex. Moderate bilateral uncovertebral hypertrophy. No significant bony central canal narrowing. No neuroforaminal stenosis. C7/T1: Mild posterior disc osteophyte complex. No significant bony central canal narrowing. No neuroforaminal stenosis. Impression: Moderate multilevel degenerative changes of the cervical spine most significant in the mid cervical spine as described. READING PHYSICIAN: Sally Nelson M.D. -[phone] 06/18/2023 15:01 EDT [facility] [employer] Teleradiology Program [phone] (For Medical Practitioner Use Only) Attention Patients / Veterans: If you have questions or concerns about these test results, please contact your ordering provider or primary care team. Primary Diagnostic Code: NO ALERT REQUIRED Primary Interpreting Staff: RADIOLOGY,OUTSIDE SERVICE, Staff Physician / RADIOLOGY,OUTSIDE SERVICE [facility] Encounter Notes: All associated encounter notes This section contains the clinical notes associated to the Encounter. Date/Time Encounter Note(s) Provider Source Jul 01, 2023 02:00 PM ADMINISTRATIVE NOT E: LOCAL TITLE: CCC: SCHEDULING ADMINISTRATION STANDARD TITLE: ADMINISTRATIVE NOTE DATE OF NOTE: JUL 01, 2023@14:00:47 ENTRY DATE: JUL 01, 2023@14:00:47 AUTHOR: SIMONE JEFFRIES EXP COSIGNER: URGENCY: STATUS: COMPLETED CCC: SCHEDULING ADMINISTRATION Has ADDENDA Patient Demographics Patient Name: JUANITO LANGE Patient Primary Phone: [phone] Patient Primary [address]: [address] [place] [address] Patient : 1955 Patient Age: 67 Call Back Number: Caller/Recipient Relation to Patient: Self Administrative Administrative Note Reason: Other Administrative Note Comments: reports he is being referred to see Dr. Dent at [facility]([phone]) [employer] Home [employer] Manager and needs a VA referral. /brody/ SIMONE JEFFRIES [employer]OOKING SHOW HOST Signed: 07/01/2023 14:00 Receipt Acknowledged By: 07/01/2023 16:22 /es/ MAIA RAZA LPN LPN 07/01/2023 15:01 /brody/ IVONNE NAVAS,RN-BC REGISTERED NURSE (RN) 07/01/2023 ADDENDUM STATUS: COMPLETED Called and advised him his blocker hand will need to fax over his clinic note or a referral request to [phone]. Once documentation is received provider will review and oredr if appropriate. verbalized understanding and agree to plan. /brody/ IVONNE NAVAS,RN-BC REGISTERED NURSE (RN) Signed: 07/01/2023 15:04 SIMONE JEFFRIES [facility]
--- OUTSIDE RECORDS SUMMARY | 2024-02-25 11:22 | XMS_ITS | Encounter Summary ---
Author Name [facility] [place] [place] Organization [facility] [place] [facility] [place] Address [address] [place] [id number] Care Team Providers Care Soaping Department Supervisor Name Role Phone KARIE DE LOS SANTOS [...] FELICITY TY HEALT H Dec 08, 2019 [id number] 20 [id number] [phone] JUANITO KRAUSE PATIENT BCBS [place] (BLUE CARD) PREFERRED PROVIDER ORGANIZAT ION (PPO) FELICITY TY [place] RA Mar 09, 2021 [id number] 20 [id number] [phone] SHALONDA SnowERON SPOUSE CAREMARK PRESCRIPT ION [id number] 2 Mar 09, 2018 [id number] JUANITO KRAUSE PATIENT CAREMARK PRESCRIPT ION [id number] 4 Mar 09, 2016 [id number] JUANITO KRAUSE PATIENT MEDICARE (WNR) MEDICARE (M) PART B Feb 06, 2023 PART B [id number] [facility] JUANITO KRAUSE PATIENT MEDICARE (WNR) MEDICARE (M) PART A Dec 08, 2019 PART A [id number] [facility] JUANITO KRAUSE PATIENT OPTUM RX PRESCRIPT ION FELICITY TY Mar 09, 2021 [facility] [id number] JUANITO KRAUSE PATIENT OPTUM RX PRESCRIPT ION FELICITY TY HEALT H CORPO Dec 08, 2019 [facility] [id number] JUANITO KRAUSE PATIENT Selected Encounter This section includes the information on record at [place] for the Encounter. Date/Time Encounter Type Encounter Description Reason Pro vider Source Apr 16, 2023 08:10 AM Outpatient Encounter TELEPHONE PRIMARY CARE IHE Encounter Template Text not used by [place] Plan of Treatment: Future Appointments (+ 6 months) and Future Tests (+/- 45 days) The Plan of Treatment section includes future care activities for the patient from all [place] treatmentfacilities. This section includes future appointments and future orders which are active, pending or scheduled. Future Appointments This section includes appointments that were scheduled to occur 6 months from the date of the Encounter, up to a maximum of 20 appointments. The data comes from all [place] treatment facilities. Appointment Date/Time Appointment Type Appointme nt Facility Name May 06, 2023 01:00 PM AMBULATORY - NONE [place] [facility] [place] [facility] Jun 15, 2023 02:15 PM AMBULATORY - NONE [facility] [place] [facility] Sep 01, 2023 01:00 PM AMBULATORY - MEDICINE [facility] [place] [facility] Sep 08, 2023 11:00 AM AMBULATORY - MEDICINE [facility] [place] [place] [facility] Sep 28, 2023 03:30 PM AMBULATORY - MEDICINE [facility] [place] [place] [facility] Lab Results: +/- 30 days of the encounter This section includes the Chemistry and Hematology Lab Results on record with [place] for the patient. Radiology Reports and Pathology Reports are provided separately, in subsequent sections. Lab Results This section contains the Chemistry/Hematology Results that were resulted 30 days before or 30 daysafter the date of the Encounter. Date/Time Source Result Type Result - Unit Interpretation Reference Range Comment Apr 29, 2023 12:13 PM [facility] [place] NITROGEN Specimen Type: SERUM No comment entered. Ordering Provider: AYLIN ARIAS Report Released Date/Time: Apr 16, 2023 09:46 AM Reporting Lab: [address] [address] Performing Lab: [address] [address] U[facility]A NITROGEN 31 mg/dL H 7-25 Apr 29, 2023 12:13 PM [place] CREATININE (eGFR 2020) Specimen Type: SERUM No comment entered. Ordering Provider: AYLIN ARIAS Report Released Date/Time: Apr 16, 2023 09:46 AM Reporting Lab: [address] [address] Performing Lab: [address] [address] CREATININE, Serum 2.69 mg/dL H 0.50-1.40 eGFR(CKD-EPI 2020) 25 mL/min L >60 Social History: Smoking Status (Most current) and Tobacco Use (All prior to encounter date) This section includes the most current, and the historical, smoking and tobacco- related health factors from the [place] facility where the Encounter took place. Current Smoking Status This section includes the most current smoking, or tobacco-related health factor, from the [place] facility where the Encounter took place. Date/Time Current Smoking Status Comment Gisselle prieto May 17, 2021 12:53 PM VA-TOBACCO NEVER USED [facility] Radiology Reports: +/- 30 days of [...] the Encounter. The data comes from all [place] treatment facilities. Date/Time Radiology Report Provider Source May 06, 2023 01:[address] HEAD W/O CONT: JUANITO LANGE [id number] -1955 M Exm Date: MAY 06, 2023@13:04 Req Phys: AYLIN ARIAS Loc: CWM/SO/PACT/TELE/MD (Req'g Loc Img Loc: NHM/CT Service: Unknown (Case [id number] COMPLETE) CT HEAD W/O CONT (CT Detailed) CPT:20985 Reason for Study: numbness of his gums/around his nose on left side Clinical History: present for several months. pt unable to get mri of the brain b/c of a shoulder replacement. Report Status: Verified Date Reported: MAY 06, 2023 Date Verified: MAY 06, 2023 Preschool Associate Teacher E-Sig:/CHIDI/WENDIE BUTLER JR Report: Study: Noncontrast CT scan [...] Primary Interpreting Staff: WENDIE BUTLER JR, Radiologist (Shira) /WENDIE ESQUIVEL JR [facility] Encounter Notes: All associated encounter notes This section contains the clinical notes associated to the Encounter. Date/Time Encounter Note(s) Provider Source Apr 16, 2023 08:10 AM PRIMARY CARE TELEP SHANTELL ENCOUNTER NOTE: LOCAL TITLE: TELEPHONE NOTE/PRIMARY CARE STANDARD TITLE: PRIMARY CARE TELEPHONE ENCOUNTER NOTE DATE OF NOTE: APR 16, 2023@08:10 ENTRY DATE: APR 16, 2023@08:10:55 AUTHOR: AYLIN ARIAS EXP COSIGNER: URGENCY: STATUS: COMPLETED spoke to pt and informed him that he cannot have an mri because of the shoulder replacement. will order a cat scan of the brain. /chidi/ Aylin Arias M.D. STAFF PHYSICIAN Signed: 04/16/2023 08:11 AYLIN ARIAS
--- OUTSIDE RECORDS SUMMARY | 2024-02-25 11:22 | XMS_ITS | Encounter Summary ---
Author Name [facility] [place] [facility] [place] [facility] [place] Address [address] [place] [address] Care Team Providers Care Palletizer Operator Name Role Phone KARIE DE LOS SANTOS [...] CT (BLUECARD) PREFERRED PROVIDER ORGANIZAT ION (PPO) EFLICITY TY HEALT H Dec 08, 2019 [id number] [phone] JUANITO KRAUSE PATIENT BCBS [place] ([place]UE CARD) PREFERRED PROVIDER ORGANIZAT ION (PPO) FELICITY TY [place] RA Mar 09, 2021 [id number] [phone] SHALONDA SnowERON SPOUSE CAREMARK PRESCRIPT ION [id number] 2 Mar 09, 2018 [id number] [phone] JUANITO KRAUSE PATIENT CAREMARK PRESCRIPT ION [id number] 4 Mar 09, 2016 [id number] JUANITO KRAUSE PATIENT MEDICARE (WNR) MEDICARE (M) PART B Feb 06, 2023 PART B [id number] [facility] JUANITO KRAUSE PATIENT MEDICARE (WNR) MEDICARE (M) PART A Dec 08, 2019 PART A [id number] [facility] [id number] JUANITO KRAUSE PATIENT OPTUM RX PRESCRIPT ION FELICITY TY Mar 09, 2021 [facility] [id number] [phone] JUANITO KRAUSE PATIENT OPTUM RX PRESCRIPT ION FELICITY TY HEALT H CORPO Dec 08, 2019 [facility] [id number] JUANITO KRAUSE PATIENT Selected Encounter This section includes the information on record at [place] for the Encounter. Date/Time Encounter Type Encounter Description Reason Pro vider Source Aug 12, 2023 01:37 PM Outpatient Encounter ADMIN PAT ACTIVTIES (MASNONCT) IHE Encounter Template Text not used by [place] Plan of Treatment: Future Appointments (+ 6 months) and Future Tests (+/- 45 days) The Plan of Treatment section includes future care activities for the patient from all [place] treatmentfacilities. This section includes future appointments and future orders which are active, pending or scheduled. Future Appointments This section includes appointments that were scheduled to occur 6 months from the date of the Encounter, up to a maximum of 20 appointments. The data comes from all [place] treatment facilities. Appointment Date/Time Appointment Type Appointme nt Facility Name Sep 01, 2023 01:00 PM [facility] Sep 08, 2023 11:00 AM AMBULATORY - MEDICINE [facility] [place] [place] [facility] Sep 28, 2023 03:30 PM [facility] - [facility] Feb 08, 2024 12:30 PM AMBULATORY - MEDICINE [facility] [place] [place] [facility] Feb 10, 2024 11:30 AM AMBULATORY - MEDICINE [facility] Lab Results: +/- 30 days of the encounter This section includes the Chemistry and Hematology Lab Results on record with [place] for the patient. Radiology Reports and Pathology Reports are provided separately, in subsequent sections. Lab Results This section contains the Chemistry/Hematology Results that were resulted 30 days before or 30 daysafter the date of the Encounter. Date/Time Source Result Type Result - Unit Interpretation Reference Range Comment Aug 25, 2023 12:20 PM [facility] BASIC METABOLIC PANEL (fasting) Specime n Type: SERUM No comment entered. Ordering Provider: JAYDON ARIAS Report Released Date/Time: Feb 25, 2023 03:45 PM Reporting Lab: [address] [address] Performing Lab: [address] [address] UREA NITROGEN 40 mg/dL H 7-25 GLUCOSE 101 mg/dL H 65-100 SODIUM 136 mmol/L 135-145 POTASSIUM 4.3 mmol/L 3.5-5.0 CHLORIDE 110 mmol/L 100-110 CO2 19 meq/L L 20-30 CREATININE, Serum 2.54 mg/dL H 0.50-1.40 eGFR(CKD-EPI 2020) 27 mL/min L >60 Aug 25, 2023 12:20 PM [facility] LIPID PANEL FASTING Specimen Type: SERUM No comment entered. Ordering Provider: JAYDON ARIAS Report Released Date/Time: Feb 25, 2023 03:45 PM Reporting Lab: [address] [address] Performing Lab: [address] [address] CHOLESTEROL 208 mg/dL H TRIGLYCERIDE 98 mg/dL 0-150 LDL calculated 154 mg/dL H 0-129 CHOL/HDL 6.1 HDL CHOLESTEROL 34 mg/dL L 40-60 Aug 25, 2023 12:20 PM [facility] LIVER FUNCTION Specimen Type: SERUM No comment entered. Ordering Provider: JAYDON ARIAS Report Released Date/Time: Feb 25, 2023 03:45 PM Reporting Lab: [address] [address] Performing Lab: [address] [address] PROTEIN,TOTAL 7.2 g/dL 6.0-8.3 ALBUMIN 3.6 g/dL 3.5-5.0 ALKALINE PHOSPHATASE 66 U/L 40-150 AST 17 U/L 5-34 ALT 11 U/L BILIRUBIN, TOTAL 0.4 mg/dL 0.2-1.2 Aug 25, 2023 12:20 PM [facility] CBC AND DIFF (AUTO) Specimen Type: BLOOD No comment entered. Ordering Provider: JAYDON ARIAS Report Released Date/Time: Feb 25, 2023 03:45 PM Reporting Lab: [address] [address] Performing Lab: [address] [address] WBC 10.43 10*3/uL 4.50-11.00 RBC 3.68 10*6/uL L 4.23-5.66 HGB 10.7 g/dL L 12.8-17 HCT 33.6 L 39.2-50.4 MCV 91.3 fL 82-99 MCHC 31.8 g/dL 30.8-35.1 PLT 287 10*3/uL 140-360 RDW-CV 14.6 12.0-16.0 MONO, ABS 0.80 10*3/uL 0.30-1.10 MCH 29.1 pg 26.2-32.6 NEUT % 76.3 H 43.7-75.8 LYMPH % 8.7 L 14.0-42.3 MONO % 7.7 5.1-13.7 EOS % 6.5 0.4-6.8 BASO % 0.5 0.1-2.0 NEUT, ABS 7.96 10*3/uL H 2.20-7.60 LYMPH, ABS 0.91 10*3/uL L 1.00-3.20 EOS, ABS 0.68 10*3/uL H 0.03-0.44 BASO, ABS 0.05 10*3/uL 0.01-0.13 IMMATURE GRAN % 0.3 0.0-0.7 IMMATURE GRAN, ABS 0.03 10*3/uL 0.00-0.06 NRBC % 0.0 0.0-0.0 NRBC, ABS 0.00 10*3/uL 0.00-0.00 Aug 25, 2023 12:20 PM [facility] HEMOGLOBIN A1C PANEL Specimen Type: BLOOD Comment: Values obtained from A1C measurements can vary. For atypical A1C assays, a reported value of 7.0 could actually be between 6.72 and 7.28 if measured by a reference method. A reported value of 9.0 could actually be between 8.73 and 9.27. Ref: http://www.ngs p.org/CAPdata. asp Ordering Provider: JAYDON ARIAS Report Released Date/Time: Feb 25, 2023 03:45 PM Reporting Lab: [address] [address] Performing Lab: [address] [address] HEMOGLOBIN A1C 5.1 4.0-5.6 Aug 25, 2023 12:20 PM [facility] TSH Specimen Type: SERUM No comment entered. Ordering Provider: JAYDON ARIAS Report Released Date/Time: Feb 25, 2023 03:45 PM Reporting Lab: [address] [address] Performing Lab: [address] [address] TSH 1.98 u[IU]/mL 0.35-5.00 Aug 25, 2023 12:20 PM [facility] URINALYSIS Specimen Type: URINE Comment: If Glucose = >500 and Ketones are positive, please alert the Physician. Ordering Provider: JAYDON ARIAS Report Released Date/Time: Feb 25, 2023 03:45 PM Reporting Lab: [address] [address] Performing Lab: [address] [address] UA COLOR Light-Yellow Yellow UA APPEARANCE Clear Clear UA GLUCOSE NEGATIVE mg/dL Negative UA KETONES NEGATIVE mg/dL Negative UA BLOOD NEGATIVE mg/dL Negative UA PROTEIN 10 mg/dL Negative UA NITRITE NEGATIVE mg/dL Negative UA BILIRUBIN NEGATIVE mg/dL Negative UA SPECIFIC GRAVITY 1.016 1.016-1.022 UA pH 5.5 5.0-9.0 UA UROBILINOGEN <2.0 mg/dL <2.0 UA LEUKOCYTE NEGATIVE Negative Aug 25, 2023 12:20 PM [facility] PSA Specimen Type: SERUM No comment entered. Ordering Provider: JAYDON ARIAS Report Released Date/Time: Feb 25, 2023 03:45 PM Reporting Lab: [place] [facility] [place] [place] [facility] [address] [facility] [address] Performing Lab: [place] [facility] [facility] [address] [facility] [address] PSA 1.68 ng/mL 0.00-4.00 Social History: Smoking Status (Most current) and Tobacco Use (All prior to encounter date) This section includes the most current, and the historical, smoking and tobacco- related health factors from the [place] facility where the Encounter took place. Current Smoking Status This section includes the most current smoking, or tobacco-related health factor, from the [place] facility where the Encounter took place. Date/Time Current Smoking Status Comment Facil ity May 17, 2021 12:53 PM [facility]ACCO [facility] Encounter Notes: All associated encounter notes This section contains the clinical notes associated to the Encounter. Date/Time Encounter Note(s) Provider Source Aug 12, 2023 01:37 PM ADMINISTRATIVE NOT E: LOCAL TITLE: CCC: SCHEDULING ADMINISTRATION STANDARD TITLE: ADMINISTRATIVE NOTE DATE OF NOTE: AUG 12, 2023@13:37:16 ENTRY DATE: AUG 12, 2023@13:37:16 AUTHOR: TSERING SARAH EXP COSIGNER: URGENCY: STATUS: COMPLETED Patient Demographics Patient Name: JUANITO LANGE Patient Primary Phone: [phone] Patient Primary Address: [address] [place] [address] Patient : 1955 Patient Age: 67 Caller/Recipient Relation to Patient: Self Administrative Administrative Note Reason: Other Administrative Note Comments: [place] called stating he wanted to update PCP that he will be seeing Rheumatology in [facility] 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 This note serves as an FYI. /brody/ TSERING SARAH VISN1 AZALIA AMSA Signed: 08/12/2023 13:37 Receipt Acknowledged By: 08/18/2023 11:27 /es/ MAIA RAZA LPN LPN 08/12/2023 14:23 /es/ IVONNE NAVAS,RN-BC REGISTERED NURSE (RN) TSERING SARAH [facility]
--- OUTSIDE RECORDS SUMMARY | 2024-02-25 11:22 | XMS_ITS | Encounter Summary ---
Author Name [facility] [facility] [place] Address [address] [place] [id number] Care Team Providers Care Fiber Optic Assembler Name Role Phone KARIE DE LOS SANTOS [...] FELICITY TY HEALT H Dec 08, 2019 [id number] JUANITO KRAUSE PATIENT BCBS [place] (BLUE CARD) PREFERRED PROVIDER ORGANIZAT ION (PPO) FELICITY TY [place] RA Mar 09, 2021 [id number] SHALONDA SnowERON SPOUSE CAREMARK PRESCRIPT ION [id number] 2 Mar 09, 2018 [id number] [phone] JUANITO KRAUSE PATIENT CAREMARK PRESCRIPT ION [id number] 4 Mar 09, 2016 [id number] JUANITO KRAUSE PATIENT MEDICARE (WNR) MEDICARE (M) PART B Feb 06, 2023 PART B [id number] JUANITO KRAUSE PATIENT MEDICARE (WNR) MEDICARE (M) PART A Dec 08, 2019 PART A [id number] JUANITO KRAUSE PATIENT OPTUM RX PRESCRIPT ION FELICITY TY Mar 09, 2021 [facility] [id number] [phone] JUANITO KRAUSE PATIENT OPTUM RX PRESCRIPT ION FELICITY TY HEALT H [place] Dec 08, 2019 [facility] [id number] JUANITO KRAUSE PATIENT Selected Encounter This section includes the information on record at [place] for the Encounter. Date/Time Encounter Type Encounter Description Reason Provider Source Sep 01, 2023 01:00 PM OFFICE O/P EST MOD 30 MIN PRIMARY CARE/MEDICINE ICD-10-CM I10 Essential (primary) hypertension MAGALI,APOL INARIO IHE Encounter Template Text not used by [place] Assessments - Encounter Diagnoses This section includes the primary and secondary diagnoses documented for the Encounter. Date/Time Primary/Secondary Diagnosis Diagnosis Name Provider Source Nov 27, 2023 07:13 AM PRIMARY Essential (primary) hypertension MAGALI,NAYANA KARIMI [facility] Nov 27, 2023 07:13 AM SECONDARY Abnormal weight loss MAGALINAYANA RIVKA Nov 27, 2023 07:13 AM SECONDARY Anemia, unspecified MAGALI,NAYANA KARIMI [facility] Nov 27, 2023 07:13 AM SECONDARY Chronic kidney disease, unspecified MAGALI,NAYANA KARIMI [facility] Plan of Treatment: Future Appointments (+ 6 months) and Future Tests (+/- 45 days) The Plan of Treatment section includes future care activities for the patient from all [place] treatmentfacilities. This section includes future appointments and future orders which are active, pending or scheduled. Future Appointments This section includes appointments that were scheduled to occur 6 months from the date of the Encounter, up to a maximum of 20 appointments. The data comes from all [place] treatment facilities. Appointment Date/Time Appointment Type Appointme nt Facility Name Sep 08, 2023 11:00 AM [facility] Sep 28, 2023 03:30 PM [facility] Feb 08, 2024 12:30 PM [facility] Feb 10, 2024 11:30 AM AM[facility]ULATORY - MEDICINE [facility] Lab Results: +/- 30 days of the encounter This section includes the Chemistry and Hematology Lab Results on record with [place] for the patient. Radiology Reports and Pathology Reports are provided separately, in subsequent sections. Lab Results This section contains the Chemistry/Hematology Results that were resulted 30 days before or 30 daysafter the date of the Encounter. Date/Time Source Result Type Result - Unit Interpretation Reference Range Comment Aug 25, 2023 12:20 PM [facility] BASIC METABOLIC PANEL (fasting) Specime n Type: SERUM No comment entered. Ordering Provider: JAYDON ARIAS Report Released Date/Time: Feb 25, 2023 03:45 PM Reporting Lab: [address] [address] Performing Lab: [address] [address] UREA NITROGEN 40 mg/dL H 7-25 GLUCOSE 101 mg/dL H 65-100 SODIUM 136 mmol/L 135-145 POTASSIUM 4.3 mmol/L 3.5-5.0 CHLORIDE 110 mmol/L 100-110 CO2 19 meq/L L 20-30 CREATININE, Serum 2.54 mg/dL H 0.50-1.40 eGFR(CKD-EPI 2020) 27 mL/min L >60 Aug 25, 2023 12:20 PM [facility] LIPID PANEL FASTING Specimen Type: SERUM No comment entered. Ordering Provider: JAYDON ARIAS Report Released Date/Time: Feb 25, 2023 03:45 PM Reporting Lab: [address] [address] Performing Lab: [address] [address] CHOLESTEROL 208 mg/dL H TRIGLYCERIDE 98 mg/dL 0-150 LDL calculated 154 mg/dL H 0-129 CHOL/HDL 6.1 HDL CHOLESTEROL 34 mg/dL L 40-60 Aug 25, 2023 12:20 PM [facility] LIVER FUNCTION Specimen Type: SERUM No comment entered. Ordering Provider: JAYDON ARIAS Report Released Date/Time: Feb 25, 2023 03:45 PM Reporting Lab: [address] [address] Performing Lab: [address] [address] PROTEIN,TOTAL 7.2 g/dL 6.0-8.3 ALBUMIN 3.6 g/dL 3.5-5.0 ALKALINE PHOSPHATASE 66 U/L 40-150 AST 17 U/L 5-34 ALT 11 U/L BILIRUBIN, TOTAL 0.4 mg/dL 0.2-1.2 Aug 25, 2023 12:20 PM [facility] CBC AND DIFF (AUTO) Specimen Type: BLOOD No comment entered. Ordering Provider: JAYDON ARIAS Report Released Date/Time: Feb 25, 2023 03:45 PM Reporting Lab: [address] [address] Performing Lab: [address] [address] WBC 10.43 10*3/uL 4.50-11.00 RBC 3.68 10*6/uL [...] 10*3/uL 0.00-0.00 Aug 25, 2023 12:20 PM [facility] HEMOGLOBIN A1C PANEL Specimen Type: BLOOD Comment: [...] Feb 25, 2023 03:45 PM Reporting Lab: [address] [address] Performing Lab: [address] [address] HEMOGLOBIN A1C 5.1 4.0-5.6 Aug 25, 2023 12:20 PM [facility] TSH Specimen Type: SERUM No comment entered. Ordering Provider: JAYDON ARIAS Report Released Date/Time: Feb 25, 2023 03:45 PM Reporting Lab: [address] [address] Performing Lab: [address] [address] TSH 1.98 u[IU]/mL 0.35-5.00 Aug 25, 2023 12:20 PM [facility] URINALYSIS Specimen Type: URINE Comment: If Glucose = >500 and Ketones are positive, please alert the Physician. Ordering Provider: JAYDON ARIAS Report Released Date/Time: Feb 25, 2023 03:45 PM Reporting Lab: [address] [address] Performing Lab: [address] [address] UA COLOR Light-Yellow Yellow UA APPEARANCE Clear Clear UA GLUCOSE NEGATIVE mg/dL Negative UA KETONES NEGATIVE mg/dL Negative UA BLOOD NEGATIVE mg/dL Negative UA PROTEIN 10 mg/dL Negative UA NITRITE NEGATIVE mg/dL Negative UA BILIRUBIN NEGATIVE mg/dL Negative UA SPECIFIC GRAVITY 1.016 1.016-1.022 UA pH 5.5 5.0-9.0 UA UROBILINOGEN <2.0 mg/dL <2.0 UA LEUKOCYTE NEGATIVE Negative Aug 25, 2023 12:20 PM [facility] PSA Specimen Type: SERUM No comment entered. Ordering Provider: JAYDON ARIAS Report Released Date/Time: Feb 25, 2023 03:45 PM Reporting Lab: [facility] [address] [facility] [address] Performing Lab: [address] [address] PSA 1.68 ng/mL 0.00-4.00 Social History: Smoking Status (Most current) and Tobacco Use (All prior to encounter date) This section includes the most current, and the historical, smoking and tobacco- related health factors from the [place] facility where the Encounter took place. Current Smoking Status This section includes the most current smoking, or tobacco-related health factor, from the [place] facility where the Encounter took place. Date/Time Current Smoking Status Comment Gisselle prieto Sep 01, 2023 01:00 PM [place]-TOBACCO NEVER USED [facility] Tobacco Use History This section includes a history of the smoking, or tobacco-related health factors, that were collected on or before the date of the Encounter. The data comes from the [place] facility where the Encounter took place. Date/Time Smoking Status/Tobacco Use Comment F acility Jun 15, 2017 01:14 PM LIFETIME NON-TOBACCO USER [facility] Jun 20, 2016 10:56 AM LIFETIME NON-TOBACCO USER [facility] Encounter Notes: All associated encounter notes This section contains the clinical notes associated to the Encounter. Date/Time Encounter Note(s) Provider Source Sep 01, 2023 01:15 PM PREVENTIVE MEDICIN E NURSING NOTE: LOCAL TITLE: CLINICAL REMINDERS/NURSING STANDARD TITLE: PREVENTIVE MEDICINE NURSING NOTE DATE OF NOTE: SEP 01, 2023@13:15 ENTRY DATE: SEP 01, 2023@13:15:05 AUTHOR: MAIA RAZA EXP COSIGNER: URGENCY: STATUS: COMPLETED Advance Directive Screen MH AD: Patient does not have a completed advance directive on file at any facility, [facility] or outside. S/he is not interested in completing one at this time. The patient received education about Advance Directives and written notification of his/her rights. Suicide Screen: C-SSRS Screening [place] Suicide Severity Rating Scale (C-SSRS) screener 1. Over the past month, have you wished you were or wished you could go to sleep and not wake up? No 2. Over the past month, have you had any actual thoughts of killing yourself? No 3. Over the past month, have you been thinking about how you might do this? Response not required due to responses to other questions. 4. Over the past month, have you had these thoughts and had some intention of acting on them? Response not required due to responses to other questions. 5. Over the past month, have you started to work out or worked out the details of how to kill yourself? Response not required due to responses to other questions. 6. If yes, at any time in the past month did you intend to carry out this plan? Response not required due to responses to other questions. 7. In your lifetime, have you ever done anything, started to do anything, or prepared to do anything to end your life (for example, collected pills, obtained a gun, gave away valuables, went to the roof but didn't jump)? No 8. If YES, was this within the past 3 months? Response not required due to responses to other questions. Toxic Exposure Screening: The [place]/caregiver was asked if they believe the [place] experienced any toxic exposure(s), such as Airborne Hazards and [place], [place] War related exposures, [place], Radiation, contaminated water at [place] or other such exposures, while serving in the [employer]. [place] has no concerns about toxic exposure(s) while serving in the [employer]. The [place]/caregiver was informed that we will continue to ask this screening question every 5 years. They can contact their provider/healthcare team if they have concerns about exposures and would like to be screened sooner. Printed information was offered and provided if desired. Homelessness/Food Insecurity Screen: In the past 2 months, have you been living in stable housing that you own, rent, or stay in as part of a household? Yes - Living in stable housing. Are you worried or concerned that in the next 2 months you may NOT have stable housing that you own, rent, or stay in as part of a household? No - Not worried about housing near future The reports the following: Within the past 12 months, you worried whether your food would run out before you got money to buy more. Never true Within the past 12 months, the food you bought just didn't last and you didn't have money to get more. Never true Depression Screening: Perform PHQ-2 A PHQ-2 screen was performed. The score was 0 which is a negative screen for depression. Over the past two weeks, how often have you been bothered by the following problems? 1. Little interest or pleasure in doing things Not at all 2. Feeling down, depressed, or hopeless Not at all Hepatitis C Testing: Patient declines HCV lab test. HIV Screening: Patient has been offered HIV testing and has declined. I have explained that HIV testing is recommended for all adults, even if all risk factors are absent. The patient was educated on the risk of delayed screening. Pneumococcal Conjugate Vaccine (PCV15/PCV20): Refuses PCV vaccine Immunization: PNEUMOCOCCAL CONJUGATE, UNSPECIFIED FORMULATION Refusal Reason: PATIENT DECISION Patient refuses all immunization(s) in the PneumoPCV group Date Documented: 09/01/23 13:16 Tobacco Use Screening: The patient has never used tobacco. Influenza Immunization: No influenza vaccination was received during the recent influenza season. Alcohol Use Screen (AUDIT-C): Alcohol Screen: SCREEN FOR ALCOHOL (AUDIT-C) An alcohol screening test (AUDIT-C) was negative (score=0). 1. How often did you have a drink containing alcohol in the past year? Consider a drink to be a 12 ounce can or bottle of regular beer, 8 ounces of malt liquor, a 5 ounce glass of table wine, or a 1.5 ounce shot of liquor (like scotch, gin, or vodka). Never 2. How many drinks containing alcohol did you have on a typical day when you were drinking in the past year? Response not required due to responses to other questions. 3. How often did you have six or more drinks on one occasion in the past year? Response not required due to responses to other questions. COVID-19 Immunization: Refused Moderna Monovalent COVID-19 vaccine Immunization: COVID-19 (MODERNA), MRNA, LNP-S, PF, 50 MCG/0.5 ML (AGES 12+ YEARS) Refusal Reason: PATIENT DECISION Patient refuses all immunization(s) in the COVID-19 group Date Documented: 09/01/23 13:16 Herpes Zoster (Shingles) Vaccine: The patient declines to receive the recommended dose of zoster (shingles) vaccine. Immunization: ZOSTER RECOMBINANT Refusal Reason: PATIENT DECISION Patient refuses all immunization(s) in the ZOSTER group Date Documented: 09/01/23 13:16 Sexual Orientation: The patient thinks of their sexual orientation as: Straight or Heterosexual RHS Screen: RHS Screen Session Format: Face to Face Environmental Check Upon inquiry, the individual reports that the environment is safe to proceed. Informed Consent to Screen and Document The individual consents to proceed with screening. The individual consents to documentation of responses. PRIMARY SCREEN: In the past 12 months, how often did a current or former intimate partner (e.g., boyfriend, girlfriend, , , sexual partner): 1. Scream or curse at you Never 2. Insult or talk down to you Never 3. Threaten you with harm Never 4. Physically hurt you Never 5. Force or pressure you to have sexual contact against your will, or when you were unable to say no Never ?? The HITS tool (items 1-4 above) is [place] copyright protected by Jerardo Bhaagt MD, and the user has full rights to use it throughout the [place] system. PRIMARY SCREEN RESULT: The Primary Screen is NEGATIVE. The individual answered never to all forms of IPV above (i.e., answered never to all 5 items) The individual accepts education and/or resources: No EDUCATION: The individual indicated readiness to learn. Education offered during this session as noted above. The individual indicated understanding by asking relevant questions and making appropriate comments. No barriers to learning were observed or identified. MED REC COMPLETED BY PROVIDER DURING VISIT. /brody/ MAIA RAZA LPN LPN Signed: 09/01/2023 13:17 MAIA RAZA Sep 01, 2023 08:27 AM PHYSICIAN NOTE: LOCAL TITLE: NOTE STANDARD TITLE: PHYSICIAN NOTE DATE OF NOTE: SEP 01, 2023@08:27 ENTRY DATE: SEP 01, 2023@08:27:54 AUTHOR: KARIE DE LOS SANTOS EXP COSIGNER: URGENCY: STATUS: COMPLETED CC: 67 year old WHITE MALE SERVICE CONNECTED % - NONE FOUND HPI: Patient has reported loss of private health insurance. Until recently under care of Dr. Tate Hicks [facility]: dr. waldrop, last seen Jun 2023 with follow September 2023. Consult appears to be still active to that date. At present, he is in no acute distress nor relays any safety issues (and none was implied or inferred). Since last contact, patient reports no changs in medication, new drug alleries, or important medical events include recent hospitalizations, surgeries, diagnosis or regular care from new specialties. Problem list and medications reviewed. Last Labs: August 2023 Last seen Feb 2023 Zoltan(edited exerpt): ...ASSESSMENT AND PLAN 1. renal failure: no records available to review. possible hypertensive crisis -f/u w/renal as scheduled 2. htn: he reports his b/p has been better controlled on meds -will fill his antihypertensive meds 3. somnolence: possible sleep apnea -sleep study ordered Return to clinic RECALL 08/2023 with fasting labs Active problems - Computerized Problem List is the source for the followin. Left inguinal hernia repair 12/2022 2. Essential hypertension 3. Pain of right shoulder joint right shoulder replacement 08/2021 4. Postnasal drip 5. History of shoulder surgery R in 1970's 6. History of knee surgery R in early 7. Cyst - pilonidal 8. Impaired fasting glucose PHYSICAL EXAMINATION/DIRECTED EXAM: BP:127/71 (09/01/2023 13:14) Resp:20 (09/01/2023 13:14) Temp:97.5 F [36.4 C] (09/01/2023 13:14) Pulse:57 (09/01/2023 13:14) WEIGHT 09/01/2023 13:14 163(73.94)[23] 05/17/2021 13:09 187(84.82)[27] 06/15/2017 13:20 199.7(90.58)[29*] slight in built; normal gait S1S2 RRR lungs CTA Benign abdomen No edema ASSESSMENT & PLAN: 67 year old MALE [facility] [place] [facility] [place] presents for 6m follow-up with noted significant weight loss. He reports INTENTIONAL although we did discuss the importance of maintaing muscle mass. He declines nutritional consult at this time. Encouraged to discuss this withhis renal MD. HTN on carvidilol/nifidepine; discussed possble need to titrate with weight changes. He expresses understanding. Renal insufficiency - appears to be stable; as per specialty CREATININE-EGFR 08/25/23 12:20 2.54 H 04/29/23 12:13 2.69 H Anemia - new; reports this has been tracted by his renal and outside PCP; likely sec to chronic renal insufficiency Collection DT Spec WBC RBC HGB HCT MCV MCH PLT 08/25/2023 12:20 BLOOD 10.43 3.68 L 10.7 L 33.6 L 91.3 29.1 287 05/30/2021 10:19 BLOOD 8.12 5.02 14.9 46.6 92.8 29.7 271 06/11/2017 11:34 BLOOD 7.05 5.19 15.4 45.6 87.9 29.7 277 05/28/2016 08:12 BLOOD 5.64 5.16 15.6 46.4 89.9 30.2 249 Plan of care discussed with patient who articulates understanding. Chronic issues reviewed briefly; no changes to management unless specified above. RTC 6mo or sooner if needed TIME ATTESTATION: Time spent directly with the patient was ( x ) 30 minutes More than 50% of the time spent with the patient included counselling regarding the admission Medical Review, History and Physical Examination, discussion of the findings, both remote and local data in the medical record, management, and patient education for the annotated medical conditions above. Discussed with patient and agrees to plan. VA and Non VA meds were reconciled. Today's documentation was made using voice recognition software. This note may contain spelling/grammatical errors secondary to this software. Patient provided copies of labs/studies and medication list. Upcoming Appointments: No data available Med Reconciliation: Active Outpatient Medications (including Supplies): Active Outpatient Medications Status 1) CARVEDILOL 25MG TAB TAKE ONE TABLET BY MOUTH TWICE ACTIVE DAILY FOR HIGH BLOOD PRESSURE 2) NIFEDIPINE (EQV-CC) 30MG SA TAB TAKE ONE TABLET BY ACTIVE MOUTH TWICE DAILY FOR HIGH BLOOD PRESSURE DO NOT TAKE WITH GRAPEFRUIT JUICE 3) RENAL MULTIVIT W/1MG OR LESS FA TAB TAKE 1 TABLET BY ACTIVE MOUTH ONCE DAILY FOR VITAMIN SUPPLEMENTATION Active Non-VA Medications Status 1) Non-VA ASCORBIC ACID TAB BY MOUTH DAILY ACTIVE 2) Non-VA FLUTICASONE PROP 50MCG 120D NASAL INHL 2 ACTIVE SPRAYS INTO EACH NOSTRIL ONCE DAILY 3) Non-VA OTHER CAP/TAB RENOCAP BY MOUTH ONCE DAILY ACTIVE 6 Total Medications Medication (Local) Status No local medications found. Medication (Remote) Status No remote medications found. /brody/ KARIE DE LOS SANTOS MD PHYSICIAN Signed: 11/27/2023 07:13 KARIE DE LOS SANTOS [facility]
--- OUTSIDE RECORDS SUMMARY | 2024-02-25 11:22 | XMS_ITS | Encounter Summary ---
Author Name [facility] [place] [facility] [place] Address [address] [place] [address] Care Team Providers Care Fiberglass Quality Technician Name Role Phone KARIE DE LOS SANTOS [...] FELICITY TY HEALT H Dec 08, 2019 [id number] 20 [id number] [phone] JUANITO KRAUSE PATIENT BCBS [place] (BLUE CARD) PREFERRED PROVIDER ORGANIZAT ION (PPO) FELICITY TY PACE CORPO RA Mar 09, 2021 [id number] 20 [id number] [phone] SHALONDA SnowERON SPOUSE CAREMARK PRESCRIPT ION [id number] 2 Mar 09, 2018 [id number] [phone] JUANITO KRAUSE PATIENT CAREMARK PRESCRIPT ION [id number] 4 Mar 09, 2016 [id number] [phone] JUANITO KRAUSE PATIENT MEDICARE (WNR) MEDICARE (M) PART B Feb 06, 2023 PART B [id number] [facility] JUANITO KRAUSE PATIENT MEDICARE (WNR) MEDICARE (M) PART A Dec 08, 2019 PART A [id number] [facility] JUANITO KRAUSE PATIENT OPTUM RX PRESCRIPT ION FELICITY TY Mar 09, 2021 [facility] [id number] [phone] JUANITO KRAUSE PATIENT OPTUM RX PRESCRIPT ION FELICTIY TY HEALT H CORPO Dec 08, 2019 [facility] [id number] JUANITO KRAUSE PATIENT Selected Encounter This section includes the information on record at [place] for the Encounter. Date/Time Encounter Type Encounter Description Reason Pro vider Source July 11, 2023 06:06 PM Outpatient Encounter ADMIN PAT ACTIVTIES (MASNONCT) IHE Encounter Template Text not used by [place] Plan of Treatment: Future Appointments (+ 6 months) and Future Tests (+/- 45 days) The Plan of Treatment section includes future care activities for the patient from all [place] treatmentfacilities. This section includes future appointments and future orders which are active, pending or scheduled. Future Appointments This section includes appointments that were scheduled to occur 6 months from the date of the Encounter, up to a maximum of 20 appointments. The data comes from all [place] treatment facilities. Appointment Date/Time Appointment Type Appointme nt Facility Name Sep 01, 2023 01:00 PM AMBULATORY - MEDICINE [facility] [facility] Sep 08, 2023 11:00 AM AMBULATORY - MEDICINE [facility] [facility] Sep 28, 2023 03:30 PM [facility] Social History: Smoking Status (Most current) and Tobacco Use (All prior to encounter date) This section includes the most current, and the historical, smoking and tobacco- related health factors from the [place] facility where the Encounter took place. Current Smoking Status This section includes the most current smoking, or tobacco-related health factor, from the [place] facility where the Encounter took place. Date/Time Current Smoking Status Comment Facil ity May 17, 2021 12:53 PM [facility] Radiology Reports: +/- 30 days of [...] the Encounter. The data comes from all [place] treatment facilities. Date/Time Radiology Report Provider Source Jun 15, 2023 02:[address] CERVICAL SPINE W/O CONT: JUANITO LANGE Edwige [id number] -1955 M Exm Date: JUN 15, 2023@14:14 Req Phys: SALLY CHANDLER Loc: CWM/SO/PACT 4 (Req'g Loc) Img Loc: [facility]/CT Service: Unknown (Case 70 COMPLETE) CT CERVICAL SPINE W/O CONT (CT Detailed) CPT:73800 Reason for Study: Follow-up facial numbness and neck pain Clinical History: Report Status: Verified Date Reported: JUN 18, 2023 Date Verified: JUN 18, 2023 Exploration Manager E-Sig: Report: History (exactly as written by referring clinician): Follow-up facial numbness and neck pain Technique: CT of the cervical spine. The study was protocoled and supervised at the local [place] facility. 1860 images were subsequently received by the [place] National Teleradiology Program (NTP) for interpretation. Total [...] as described. READING PHYSICIAN: Sally Nelson M.D. -[id number] 06/18/2023 15:01 EDT [facility] [employer] [phone] (For Medical Practitioner Use Only) Attention Patients / Veterans: If you have questions or concerns about these test results, please contact your ordering provider or primary care team. Primary Diagnostic Code: NO ALERT REQUIRED Primary Interpreting Staff: RADIOLOGY,OUTSIDE SERVICE, Staff Physician / RADIOLOGY,OUTSIDE SERVICE [employer] Encounter Notes: All associated encounter notes This section contains the clinical notes associated to the Encounter. Date/Time Encounter Note(s) Provider Source July 11, 2023 06:06 PM ADMINISTRATIVE NOT E: LOCAL TITLE: CCC: SCHEDULING ADMINISTRATION STANDARD TITLE: ADMINISTRATIVE NOTE DATE OF NOTE: JULY 11, 2023@18:06 ENTRY DATE: JULY 11, 2023@18:06:33 AUTHOR: ELSY THOMAS EXP COSIGNER: URGENCY: STATUS: COMPLETED Cancel Appointment Verify Patient Demographics Successfully verified patient demographics Appointment Type: HOME SLEEP 07/16/23@1000 Reason for Cancellation: Patient would like: reschedule appointment Action(s) Completed: Successfully canceled appointment. Informed to call back during regular business hours to reschedule. /brody/ ELSY NOBLE 2 [facility] AMSA Signed: 07/11/2023 18:07 ELSY THOMAS [employer]
--- OUTSIDE RECORDS SUMMARY | 2024-02-25 11:22 | XMS_ITS | Encounter Summary ---
Author Name [facility] [facility] [place] [facility] [place] Address [address] [place] [address] Care Team Providers Care Garment Supervisor Name Role Phone KARIE DE LOS [...] FELICITY TY HEALT H Dec 08, 2019 [id number] [phone] JUANITO KRAUSE PATIENT BCBS [place] (BLUE CARD) PREFERRED PROVIDER ORGANIZAT ION (PPO) FELICITY TY PACE CORPO RA Mar 09, 2021 [id number] SHALONDA SnowERON SPOUSE CAREMARK PRESCRIPT ION [id number] 2 Mar 09, 2018 [id number] JUANITO KRAUSE PATIENT CAREMARK PRESCRIPT ION [id number] 4 Mar 09, 2016 [id number] JUANITO KRAUSE PATIENT MEDICARE (WNR) MEDICARE (M) PART B Feb 06, 2023 PART B [id number] [facility] JUANITO KRAUSE PATIENT MEDICARE (WNR) MEDICARE (M) PART A Dec 08, 2019 PART A [id number] [facility] JUANITO KRAUSE PATIENT OPTUM RX PRESCRIPT ION FELICITY TY Mar 09, 2021 [facility] [id number] JUANITO KRAUSE PATIENT OPTUM RX PRESCRIPT ION FELICITY TY HEALT H CORPO Dec 08, 2019 [facility] [id number] JUANITO KRAUSE PATIENT Selected Encounter This section includes the information on record at [place] for the Encounter. Date/Time Encounter Type Encounter Description Reason Pro vider Source May 22, 2023 03:15 PM Outpatient Encounter ADMIN PAT ACTIVTIES (MASNONCT) IHE Encounter Template Text not used by [place] Plan of Treatment: Future Appointments (+ 6 months) and Future Tests (+/- 45 days) The Plan of Treatment section includes future care activities for the patient from all [place] treatmentfacilities. This section includes future appointments and future orders which are active, pending or scheduled. Future Appointments This section includes appointments that were scheduled to occur 6 months from the date of the Encounter, up to a maximum of 20 appointments. The data comes from all [place] treatment facilities. Appointment Date/Time Appointment Type Appointme nt Facility Name Jun 15, 2023 02:15 PM AMBULATORY - NONE [facility] [place] [facility] Sep 01, 2023 01:00 PM AMBULATORY - MEDICINE [facility] [place] [place] [facility] Sep 08, 2023 11:00 AM AMBULATORY - MEDICINE [facility] [place] [facility] Sep 28, 2023 03:30 PM [facility]ULAT[facility] Lab Results: +/- 30 days of the encounter This section includes the Chemistry and Hematology Lab Results on record with [place] for the patient. Radiology Reports and Pathology Reports are provided separately, in subsequent sections. Lab Results This section contains the Chemistry/Hematology Results that were resulted 30 days before or 30 daysafter the date of the Encounter. Date/Time Source Result Type Result - Unit Interpretation Reference Range Comment Apr 29, 2023 12:13 PM [facility] UREA NITROGEN Specimen Type: SERUM No comment entered. Ordering Provider: JAYDON ARIAS Report Released Date/Time: Apr 16, 2023 09:46 AM Reporting Lab: [address] [id number] Performing Lab: [address] [id number] UREA NITROGEN 31 mg/dL H 7-25 Apr 29, 2023 12:13 PM [facility] CREATININE (eGFR 2020) Specimen Type: SERUM No comment entered. Ordering Provider: JAYDON ARIAS Report Released Date/Time: Apr 16, 2023 09:46 AM Reporting Lab: [address] [id number] Performing Lab: [address] [address] CREATININE, Serum 2.69 mg/dL H 0.50-1.40 eGFR(CKD-EPI 2020) 25 mL/min L >60 Social History: Smoking Status (Most current) and Tobacco Use (All prior to encounter date) This section includes the most current, and the historical, smoking and tobacco- related health factors from the [place] facility where the Encounter took place. Current Smoking Status This section includes the most current smoking, or tobacco-related health factor, from the [place] facility where the Encounter took place. Date/Time Current Smoking Status Comment Gisselle prieto May 17, 2021 12:53 PM VA-TOBACCO NEVER USED [facility] Radiology Reports: +/- 30 days of the [...] the Encounter. The data comes from all [place] treatment facilities. Date/Time Radiology Report Provider Source Jun 15, 2023 02:[address] CERVICAL SPINE W/O CONT: JUANITO LANGE [id number] -1955 [facility] Date: JUN 15, 2023@14:14 Req Phys: SALLY CHANDLER Loc: CWM/SO/PACT 4 (Req'g Loc) Img Loc: [facility]/CT Service: Unknown (Case 70 COMPLETE) CT CERVICAL SPINE W/O CONT (CT Detailed) CPT:99605 Reason for Study: Follow-up facial numbness and neck pain Clinical History: Report Status: Verified Date Reported: JUN 18, 2023 Date Verified: JUN 18, 2023 Felt Puller E-Sig: Report: History (exactly as written by referring clinician): Follow-up facial numbness and neck pain Technique: CT of the cervical spine. The study was protocoled and supervised at the local [place] facility. 1860 images were subsequently received by the [place] National Teleradiology Program (NTP) for interpretation. Total [...] as described. READING PHYSICIAN: Sally Nelson M.D. -[phone] 06/18/2023 15:01 EDT [facility] National Teleradiology Program [phone] (For Medical Practitioner Use Only) Attention Patients / Veterans: If you have questions or concerns about these test results, please contact your ordering provider or primary care team. Primary Diagnostic Code: NO ALERT REQUIRED Primary Interpreting Staff: RADIOLOGY,OUTSIDE SERVICE, Staff Physician / RADIOLOGY,OUTSIDE SERVICE [facility] May 06, 2023 01:[address] HEAD W/O CONT: JUANITO LANGE [id number] -1955 M Exm Date: MAY 06, 2023@13:04 Req Phys: JAYDON ARIAS Loc: CWM/SO/PACT/TELE/MD (Req'g Loc Img Loc: [facility]/CT Service: Unknown (Case 316 COMPLETE) CT HEAD W/O CONT (CT Detailed) CPT:44053 Reason for Study: numbness of his gums/around his nose on left side Clinical History: present for several months. pt unable to get mri of the brain b/c of a shoulder replacement. Report Status: Verified Date Reported: MAY 06, 2023 Date Verified: MAY 06, 2023 Felt Puller E-Sig:/ES/WENDIE BUTLER JR Report: Study: Noncontrast CT scan [...] Primary Interpreting Staff: WENDIE BUTLER JR, Radiologist (Felt Puller) /WENDIE ESQUIVEL JR [facility] Encounter Notes: All associated encounter notes This section contains the clinical notes associated to the Encounter. Date/Time Encounter Note(s) Provider Source May 26, 2023 04:05 PM ADDENDUM: LOCAL TITLE: Addendum STANDARD TITLE: ADDENDUM DATE OF NOTE: MAY 26, 2023@16:05:09 ENTRY DATE: MAY 26, 2023@16:05:10 AUTHOR: ZULEMA REED COSIGNER: URGENCY: STATUS: COMPLETED Called and spoke to [place]. Forwarded PCP's message.[place] understands information and agrees w/follow up treatment plan. /brody/ ZULEMA REED RN REGISTERED NURSE Signed: 05/26/2023 16:05 Receipt Acknowledged By: 05/29/2023 11:59 /brody/ SALLY CHANDLER NP NURSE PRACTITIONER === --- Original Document --- 05/22/23 CCC: SCHEDULING ADMINISTRATION: Patient Demographics Patient Name: JUANITO LANGE Patient Primary Phone: [phone] Patient Primary Address: [address] [place] [address] Patient : 1955 Patient Age: 67 Caller/Recipient Relation to Patient: Self Administrative Administrative Note Reason: Lab / Imaging Results Administrative Note Comments: is calling to speak with pact team to get the results of his recent CT scan. please call back at /es/ SAMUEL NOBLE 1 [facility] Signed: 05/22/2023 15:16 Receipt Acknowledged By: 05/22/2023 15:41 /es/ FABIO GIBBS LPN LICENSED PRACTICAL NURSE 05/22/2023 16:05 /es/ NAUN DELEON RN REGISTERED NURSE for ZULEMA REED 05/22/2023 ADDENDUM STATUS: COMPLETED Will forward this message to the provider to review and discuss what the next steps may possibly be. /brody/ NAUN DELEON RN REGISTERED NURSE Signed: 05/22/2023 16:04 Receipt Acknowledged By: 05/26/2023 14:59 /brody/ SALLY CHANDLER NP NURSE PRACTITIONER 05/26/2023 ADDENDUM STATUS: COMPLETED CT Head 05/06/23 without contrast: Impression: No acute intracranial process. No CT etiology for facial numbness. Please contact the and advise normal CT. His symptoms are longstanding. I will order CT of C-spine which will inform further care. Ultimately, he may benefit from a neurology reerral. /brody/ SALLY CHANDLER NP NURSE PRACTITIONER Signed: 05/26/2023 15:02 Receipt Acknowledged By: 05/26/2023 16:02 /brody/ ZULEMA REED RN REGISTERED NURSE ZULEMA REED [place] [place] [facility] May 26, 2023 02:59 PM ADDENDUM: LOCAL TITLE: Addendum STANDARD TITLE: ADDENDUM DATE OF NOTE: MAY 26, 2023@14:59:57 ENTRY DATE: MAY 26, 2023@14:59:57 AUTHOR: SALLY CHANDLER COSIGNER: URGENCY: STATUS: COMPLETED CT Head 05/06/23 without contrast: Impression: No acute intracranial process. No CT etiology for facial numbness. Please contact the and advise normal CT. His symptoms are longstanding. I will order CT of C-spine which will inform further care. Ultimately, he may benefit from a neurology reerral. /brody/ SALLY CHANDLER NP NURSE PRACTITIONER Signed: 05/26/2023 15:02 Receipt Acknowledged By: 05/26/2023 16:02 /brody/ ZULEMA REED RN REGISTERED NURSE === --- Original Document --- 05/22/23 CCC: SCHEDULING ADMINISTRATION: Patient Demographics Patient Name: JUANITO LANGE Patient Primary Phone: [phone] Patient Primary Address[address] [address] [place], [place] [id number] Patient : 1955 Patient Age: 67 Caller/Recipient Relation to Patient: Self Administrative Administrative Note Reason: Lab / Imaging Results Administrative Note Comments: [place] is calling to speak with pact team to get the results of his recent CT scan. please call back at /es/ SAMUEL NOBLE 1 [facility] Signed: 05/22/2023 15:16 Receipt Acknowledged By: 05/22/2023 15:41 /es/ FABIO GIBBS LPN LICENSED PRACTICAL NURSE 05/22/2023 16:05 /es/ NAUN DELEON RN REGISTERED NURSE for ZULEMA REED 05/22/2023 ADDENDUM STATUS: COMPLETED Will forward this message to the provider to review and discuss what the next steps may possibly be. /brody/ NAUN DELEON RN REGISTERED NURSE Signed: 05/22/2023 16:04 Receipt Acknowledged By: 05/26/2023 14:59 /brody/ SALLY CHANDLER NP NURSE PRACTITIONER SALLY CHANDLER [facility] May 22, 2023 04:04 PM ADDENDUM: LOCAL TITLE: Addendum STANDARD TITLE: ADDENDUM DATE OF NOTE: MAY 22, 2023@16:04:02 ENTRY DATE: MAY 22, 2023@16:04:04 AUTHOR: NAUN DELEON EXP COSIGNER: URGENCY: STATUS: COMPLETED Will forward this message to the provider to review and discuss what the next steps may possibly be. /consuelo DELEON RN REGISTERED NURSE Signed: 05/22/2023 16:04 Receipt Acknowledged By: 05/26/2023 14:59 /consuelo CHANDLER NP NURSE PRACTITIONER === --- Original Document --- 05/22/23 CCC: SCHEDULING ADMINISTRATION: Patient Demographics Patient Name: JUANITO LANGE Patient Primary Phone: [phone] Patient Primary [address]: [address] [place] [id number] Patient : 1955 Patient Age: 67 Caller/Recipient Relation to Patient: Self Administrative Administrative Note Reason: Lab / Imaging Results Administrative Note Comments: is calling to speak with pact team to get the results of his recent CT scan. please call back at /brody/ SAMUEL NOBLE 1 [facility] Signed: 05/22/2023 15:16 Receipt Acknowledged By: 05/22/2023 15:41 /consuelo GIBBS LPN LICENSED PRACTICAL NURSE 05/22/2023 16:05 /consuelo DELEON RN REGISTERED NURSE for NAUN CARCAMO [place] [place] [facility] May 22, 2023 03:15 PM ADMINISTRATIVE NOTE: LOCAL TITLE: [facility]: SCHEDULING ADMINISTRATION STANDARD TITLE: ADMINISTRATIVE NOTE DATE OF NOTE: MAY 22, 2023@15:15:52 ENTRY DATE: MAY 22, 2023@15:15:52 AUTHOR: SAMUEL KILGORE EXP COSIGNER: URGENCY: STATUS: COMPLETED [facility]: SCHEDULING ADMINISTRATION Has ADDENDA Patient Demographics Patient Name: JUANITO LANGE Patient Primary Phone: [phone] Patient Primary Address: [address] [place] [address] Patient : 1955 Patient Age: 67 Caller/Recipient Relation to Patient: Self Administrative Administrative Note Reason: Lab / Imaging Results Administrative Note Comments: [place] is calling to speak with pact team to get the results of his recent CT scan. please call back at /brody/ SAMUEL NOBLE 1 [facility] Signed: 05/22/2023 15:16 Receipt Acknowledged By: 05/22/2023 15:41 /consuelo GIBBS LPN LICENSED PRACTICAL NURSE 05/22/2023 16:05 /consuelo DELEON RN REGISTERED NURSE for ZULEMA REED 05/22/2023 ADDENDUM STATUS: COMPLETED Will forward this message to the provider to review and discuss what the next steps may possibly be. /consuelo DELEON RN REGISTERED NURSE Signed: 05/22/2023 16:04 Receipt Acknowledged By: 05/26/2023 14:59 /brody/ SALLY CHANDLER NP NURSE PRACTITIONER 05/26/2023 ADDENDUM STATUS: COMPLETED CT Head 05/06/23 without contrast: Impression: No acute intracranial process. No CT etiology for facial numbness. Please contact the and advise normal CT. His symptoms are longstanding. I will order CT of C-spine which will inform further care. Ultimately, he may benefit from a neurology reerral. /brody/ SALLY CHANDLER NP NURSE PRACTITIONER Signed: 05/26/2023 15:02 Receipt Acknowledged By: 05/26/2023 16:02 /brody/ ZULEMA REED RN REGISTERED NURSE 05/26/2023 ADDENDUM STATUS: COMPLETED Called and spoke to . Forwarded PCP's message.[place] understands information and agrees w/follow up treatment plan. /brody/ ZULEMA REED RN REGISTERED NURSE Signed: 05/26/2023 16:05 Receipt Acknowledged By: * AWAITING SIGNATURE * SALLY CHANDLER ERIN G [facility]
--- OUTSIDE RECORDS SUMMARY | 2024-02-25 11:22 | XMS_ITS | Encounter Summary ---
Author Name [facility] [place] Organization [facility] [place] Address [address] [place] [address] Care Team Providers Care Car Body Inspector Name Role Phone KARIE DE LOS SANTOS [...] FELICITY TY HEALT H Dec 08, 2019 [id number] 20 [id number] JUANITO KRAUSE PATIENT BCBS [place] ([place]) PREFERRED PROVIDER ORGANIZAT ION (PPO) FELICITY TY [place] RA Mar 09, 2021 [id number] 20 [id number] SHALONDA SnowERON SPOUSE CAREMARK PRESCRIPT ION [id number] 2 Mar 09, 2018 [id number] JUANITO KRAUSE PATIENT CAREMARK PRESCRIPT ION [id number] 4 Mar 09, 2016 [id number] JUANITO KRAUSE PATIENT MEDICARE (WNR) MEDICARE (M) PART B Feb 06, 2023 PART B [id number] [facility] JUANITO KRAUSE PATIENT MEDICARE (WNR) MEDICARE (M) PART A Dec 08, 2019 PART A [id number] [facility] JUANITO KRAUSE PATIENT OPTUM RX PRESCRIPT ION FELICITY TY Mar 09, 2021 [facility] [id number] [phone] JUANITO KRAUSE PATIENT OPTUM RX PRESCRIPT ION FELICITY TY HEALT H [place] Dec 08, 2019 [facility] [id number] JUANITO KRAUSE PATIENT Selected Encounter This section includes the information on record at OR for the Encounter. Date/Time Encounter Type Encounter Description Reason Pro vider Source Jun 10, 2023 02:52 PM Outpatient Encounter ADMIN PAT ACTIVTIES (MASNONCT) IHE Encounter Template Text not used by [place] Plan of Treatment: Future Appointments (+ 6 months) and Future Tests (+/- 45 days) The Plan of Treatment section includes future care activities for the patient from all [place] treatmentfacilities. This section includes future appointments and future orders which are active, pending or scheduled. Future Appointments This section includes appointments that were scheduled to occur 6 months from the date of the Encounter, up to a maximum of 20 appointments. The data comes from all [place] treatment facilities. Appointment Date/Time Appointment Type Appointme nt Facility Name Jun 15, 2023 02:15 PM [facility] Sep 01, 2023 01:00 PM [facility] [place] [facility] Sep 08, 2023 11:00 AM [facility] Sep 28, 2023 03:30 PM [facility] Social History: Smoking Status (Most current) and Tobacco Use (All prior to encounter date) This section includes the most current, and the historical, smoking and tobacco- related health factors from the [facility] facility where the Encounter took place. Current Smoking Status This section includes the most current smoking, or tobacco-related health factor, from the [facility] facility where the Encounter took place. Date/Time Current Smoking Status Comment Facil ity May 17, 2021 12:53 PM VA-TOBACCO NEVER USED [place] [facility] [place] [facility] Radiology Reports: +/- 30 days of [...] the Encounter. The data comes from all [place] treatment facilities. Date/Time Radiology Report Provider Source Jun 15, 2023 02:[address] CERVICAL SPINE W/O CONT: ANISAJUANITO Gibbons [id number] -1955 Ex Date: JUN 15, 2023@14:14 Req Phys: SALLY CHANDLER Loc: CWM/SO/PACT 4 (Req'g Loc) Img Loc: [place]/CT Service: Unknown (Case 70 COMPLETE) CT CERVICAL SPINE W/O CONT (CT Detailed) CPT:71816 Reason for Study: Follow-up facial numbness and neck pain Clinical History: Report Status: Verified Date Reported: JUN 18, 2023 Date Verified: JUN 18, 2023 Superintendent Local E-Sig: Report: History (exactly as written by referring clinician): Follow-up facial numbness and neck pain Technique: CT of the cervical spine. The study was protocoled and supervised at the local [place] facility. 1860 images were subsequently received by the [place] National Teleradiology Program (NTP) for interpretation. Total [...] as described. READING PHYSICIAN: Sally Nelson M.D. -[phone] 06/18/2023 15:01 EDT [facility] National Teleradiology Program [phone] (For Medical Practitioner Use Only) Attention Patients / Veterans: If you have questions or concerns about these test results, please contact your ordering provider or primary care team. Primary Diagnostic Code: NO ALERT REQUIRED Primary Interpreting Staff: RADIOLOGY,OUTSIDE SERVICE, Staff Physician / RADIOLOGY,OUTSIDE SERVICE [facility] Encounter Notes: All associated encounter notes This section contains the clinical notes associated to the Encounter. Date/Time Encounter Note(s) Provider Source Jun 10, 2023 02:52 PM ADMINISTRATIVE NOT E: LOCAL TITLE: CCC: SCHEDULING ADMINISTRATION STANDARD TITLE: ADMINISTRATIVE NOTE DATE OF NOTE: JUN 10, 2023@14:52:48 ENTRY DATE: JUN 10, 2023@14:52:48 AUTHOR: LAUREL BLACK COSIGNER: URGENCY: STATUS: COMPLETED CCC: SCHEDULING ADMINISTRATION Has ADDENDA Patient Demographics Patient Name: JUANITO LANGE Patient Primary Phone: [phone] Patient Primary [address]: [address] [place] [id number] Patient : 1955 Patient Age: 67 Caller/Recipient Relation to Patient: Self Administrative Administrative Note Reason: Other Administrative Note Comments: calling regarding his kidney appt (06-29-23) and would like to know if he can get blood work done before this appt. would to like to have a dental referral regarding the frozenness on his left side in his gums/face (has a cat scan on 06-15-23). Also when they do the blood work if he can have a PSA Test done . /brody/ LAUREL BLACK VISN1 CCC AMSA Signed: 06/10/2023 14:52 Receipt Acknowledged By: 06/10/2023 15:39 /es/ MIAA RAZA LPN LPN 06/10/2023 15:02 /es/ Fidelina Holder RN Registered Nurse (RN) for GUME CASTANEDA 06/10/2023 ADDENDUM STATUS: COMPLETED Spoke with , discussed that he does not qualify for VA dental benefits, he should wait unitl his Nephrology appointment as PCP can not anticipate what labs he may need, and his Dr did add a PSA to his upcoming labs which he can go to the lab anytime after 07/27/23 to have done. All questions answered and verbalized an understanding and is in agreement of the rigo /brody/ Fidelina Holder RN Registered Nurse (RN) Signed: 06/10/2023 15:02 [facility] BLACK [facility]
--- OUTSIDE RECORDS SUMMARY | 2024-02-25 11:22 | XMS_ITS | Encounter Summary ---
Author Name [facility] [place] Organization [place] Address [address] [place] [address] Care Team Providers Care Wage And Salary Administrator Name Role Phone KARIE DE LOS SANTOS [...] FELICITY TY HEALT H Dec 08, 2019 [id number] 20 [id number] JUANITO KRAUSE PATIENT BCBS [place] ([place]) PREFERRED PROVIDER ORGANIZAT ION (PPO) FELICITY TY [place] RA Mar 09, 2021 [id number] 20 [id number] SHALONDA SnowERON SPOUSE CAREMARK PRESCRIPT ION [id number] 2 Mar 09, 2018 [id number] JUANITO KRAUSE PATIENT CAREMARK PRESCRIPT ION [id number] 4 Mar 09, 2016 [id number] JUANITO KRAUSE PATIENT MEDICARE (WNR) MEDICARE (M) PART B Feb 06, 2023 PART B [id number] [facility] JUANITO KRAUSE PATIENT MEDICARE (WNR) MEDICARE (M) PART A Dec 08, 2019 PART A [id number] [facility] JUANITO KRAUSE PATIENT OPTUM RX PRESCRIPT ION FELICITY TY Mar 09, 2021 [facility] [id number] [phone] JUANITO KRAUSE PATIENT OPTUM RX PRESCRIPT ION FELICITY TY HEALT H [place] Dec 08, 2019 [facility] [id number] [phone] JUANITO KRAUSE PATIENT Selected Encounter This section includes the information on record at [place] for the Encounter. Date/Time Encounter Type Encounter Description Reason Pro vider Source Jun 29, 2023 12:00 AM Outpatient Encounter COMMUNITY CARE CONSULT IHE Encounter Template Text not used by [place] Plan of Treatment: Future Appointments (+ 6 months) and Future Tests (+/- 45 days) The Plan of Treatment section includes future care activities for the [facility] [place] [facility] This section includes future appointments and future orders which are active, pending or scheduled. Future Appointments This section includes appointments that were scheduled to occur 6 months from the date of the Encounter, up to a maximum of 20 appointments. The data comes from all [place] treatment facilities. Appointment Date/Time Appointment Type Appointme nt Facility Name Sep 01, 2023 01:00 PM AMBULATORY - MEDICINE [facility] Sep 08, 2023 11:00 AM [facility] Sep 28, 2023 03:30 PM AMBULATORY - MEDICINE [facility] Social History: Smoking Status (Most current) and Tobacco Use (All prior to encounter date) This section includes the most current, and the historical, smoking and tobacco- related health factors from the [place] facility where the Encounter took place. Current Smoking Status This section includes the most current smoking, or tobacco-related health factor, from the [place] facility where the Encounter took place. Date/Time Current Smoking Status Comment Facil ity May 17, 2021 12:53 PM VA-TOBACCO NEVER USED [facility] Radiology Reports: +/- 30 days of [...] the Encounter. The data comes from all [place] treatment facilities. Date/Time Radiology Report Provider Source Jun 15, 2023 02:[address] CERVICAL SPINE W/O CONT: JUANITO LANGE [id number] -1955 M Exm Date: JUN 15, 2023@14:14 Req Phys: SALLY CHANDLER Loc: CWM/SO/PACT 4 (Req'g Loc) Img Loc: NHM/CT Service: Unknown (Case 70 COMPLETE) CT CERVICAL SPINE W/O CONT (CT Detailed) CPT:28888 Reason for Study: Follow-up facial numbness and neck pain Clinical History: Report Status: Verified Date Reported: JUN 18, 2023 Date Verified: JUN 18, 2023 Vibration Technician E-Sig: Report: History (exactly as written by referring clinician): Follow-up facial numbness and neck pain Technique: CT of the cervical spine. The study was protocoled and supervised at the local [place] facility. 1860 images were subsequently received by the [place] National Teleradiology Program (NTP) for interpretation. Total [...] as described. READING PHYSICIAN: Sally Nelson M.D. -[phone] 06/18/2023 15:01 EDT [facility] Group Teleradiology Program [phone] (For Medical Practitioner Use Only) Attention Patients / Veterans: If you have questions or concerns about these test results, please contact your ordering provider or primary care team. Primary Diagnostic Code: NO ALERT REQUIRED Primary Interpreting Staff: RADIOLOGY,OUTSIDE SERVICE, Staff Physician / RADIOLOGY,OUTSIDE SERVICE [facility] Encounter Notes: All associated encounter notes This section contains the clinical notes associated to the Encounter. Date/Time Encounter Note(s) Provider Source Jun 29, 2023 12:00 AM NONVA CONSULT: LOCAL TITLE: COMMUNITY CARE-CONSULT RESULT NOTE STANDARD TITLE: NONVA CONSULT DATE OF NOTE: JUN 29, 2023 ENTRY DATE: JULY 09, 2023@11:21:41 AUTHOR: ALBA PENG EXP COSIGNER: URGENCY: STATUS: COMPLETED VistA Imaging - Scanned Document SCANNED DOCUMENT SIGNATURE NOT REQUIRED Electronically Filed: 07/09/2023 by: ALBA SANDERS [facility]
--- OUTSIDE RECORDS SUMMARY | 2024-02-25 11:22 | XMS_ITS ---
Author Name Department of [place] Organization [place] Address [address] [place] [address] Care Team Providers Care Tape Maker Name Role Phone KARIE DE LOS SANTOS [...] FELICITY TY HEALT H Dec 08, 2019 [id number] 20 [id number] JUANITO KRAUSE PATIENT BCBS [place] ([place]) PREFERRED PROVIDER ORGANIZAT ION (PPO) FELICITY TY [place] RA Mar 09, 2021 [id number] 20 [id number] SHALONDA SnowERON SPOUSE CAREMARK PRESCRIPT ION [id number] 2 Mar 09, 2018 [id number] JUANITO KRAUSE PATIENT CAREMARK PRESCRIPT ION [id number] 4 Mar 09, 2016 [id number] JUANITO KRAUSE PATIENT MEDICARE (WNR) MEDICARE (M) PART B Feb 06, 2023 PART B [id number] [facility] PATIENT MEDICARE (WNR) MEDICARE (M) PART A Dec 08, 2019 PART A [id number] [facility]USE PATIENT OPTUM RX PRESCRIPT ION FELICITY TY Mar 09, 2021 [facility] [id number] JUANITO KRAUSE PATIENT OPTUM RX PRESCRIPT ION FELICITY TY HEALT H [place] Dec 08, 2019 [facility] [id number] JUANITO KRAUSE PATIENT Selected Encounter This section includes the information on record at [place] for the Encounter. Date/Time Encounter Type Encounter Description Reason Pro vider Source Sep 02, 2023 09:17 AM Outpatient Encounter COMMUNITY CARE CONSULT IHE Encounter Template Text not used by [place] Plan of Treatment: Future Appointments (+ 6 months) and Future Tests (+/- 45 days) The Plan of Treatment section includes future care activities for the patient from all [place] treatmentfacilities. This section includes future appointments and future orders which are active, pending or scheduled. Future Appointments This section includes appointments that were scheduled to occur 6 months from the date of the Encounter, up to a maximum of 20 appointments. The data comes from all [place] treatment facilities. Appointment Date/Time Appointment Type Appointme nt Facility Name Sep 08, 2023 11:00 AM [facility] Sep 28, 2023 03:30 PM [facility] Feb 08, 2024 12:30 PM [facility] Feb 10, 2024 11:30 AM AMBULATORY - MEDICINE [facility] Mar 03, 2024 01:30 PM AMBULATORY - MEDICINE [facility] Lab Results: +/- 30 days of the encounter This section includes the Chemistry and Hematology Lab Results on record with [place] for the patient. Radiology Reports and Pathology Reports are provided separately, in subsequent sections. Lab Results This section contains the Chemistry/Hematology Results that were resulted 30 days before or 30 daysafter the date of the Encounter. Date/Time Source Result Type Result - Unit Interpretation Reference Range Comment Aug 25, 2023 12:20 PM [facility] BASIC METABOLIC PANEL (fasting) Specime n Type: SERUM No comment entered. Ordering Provider: JAYDON ARIAS Report Released Date/Time: Feb 25, 2023 03:45 PM Reporting Lab: [address] [address] Performing Lab: [address] [address] UREA NITROGEN 40 mg/dL H 7-25 GLUCOSE 101 mg/dL H 65-100 SODIUM 136 mmol/L 135-145 POTASSIUM 4.3 mmol/L 3.5-5.0 CHLORIDE 110 mmol/L 100-110 CO2 19 meq/L L 20-30 CREATININE, Serum 2.54 mg/dL H 0.50-1.40 eGFR(CKD-EPI 2020) 27 mL/min L >60 Aug 25, 2023 12:20 PM [facility] LIPID PANEL FASTING Specimen Type: SERUM No comment entered. Ordering Provider: JAYDON ARIAS Report Released Date/Time: Feb 25, 2023 03:45 PM Reporting Lab: [address] [address] Performing Lab: [address] [address] CHOLESTEROL 208 mg/dL H TRIGLYCERIDE 98 mg/dL 0-150 LDL calculated 154 mg/dL H 0-129 CHOL/HDL 6.1 HDL CHOLESTEROL 34 mg/dL L 40-60 Aug 25, 2023 12:20 PM [facility] LIVER FUNCTION Specimen Type: SERUM No comment entered. Ordering Provider: JAYDON ARIAS Report Released Date/Time: Feb 25, 2023 03:45 PM Reporting Lab: [address] [address] Performing Lab: [address] [address] PROTEIN,TOTAL 7.2 g/dL 6.0-8.3 ALBUMIN 3.6 g/dL 3.5-5.0 ALKALINE PHOSPHATASE 66 U/L 40-150 AST 17 U/L 5-34 ALT 11 U/L BILIRUBIN, TOTAL 0.4 mg/dL 0.2-1.2 Aug 25, 2023 12:20 PM [facility] CBC AND DIFF (AUTO) Specimen Type: BLOOD No comment entered. Ordering Provider: JAYDON ARIAS Report Released Date/Time: Feb 25, 2023 03:45 PM Reporting Lab: [facility] [address] [facility] [address] Performing Lab: [facility] [address] [address] WBC 10.43 10*3/uL 4.50-11.00 RBC 3.68 10*6/uL [...] 10*3/uL 0.00-0.00 Aug 25, 2023 12:20 PM [facility] HEMOGLOBIN A1C PANEL Specimen Type: BLOOD Comment: [...] Feb 25, 2023 03:45 PM Reporting Lab: [address] [address] Performing Lab: [address] [address] HEMOGLOBIN A1C 5.1 4.0-5.6 Aug 25, 2023 12:20 PM [facility] TSH Specimen Type: SERUM No comment entered. Ordering Provider: JAYDON ARIAS Report Released Date/Time: Feb 25, 2023 03:45 PM Reporting Lab: [address] [address] Performing Lab: [address] [address] TSH 1.98 u[IU]/mL 0.35-5.00 Aug 25, 2023 12:20 PM [facility] URINALYSIS Specimen Type: URINE Comment: If Glucose = >500 and Ketones are positive, please alert the Physician. Ordering Provider: JAYDON ARIAS Report Released Date/Time: Feb 25, 2023 03:45 PM Reporting Lab: [address] [address] Performing Lab: [address] [address] UA COLOR Light-Yellow Yellow UA APPEARANCE Clear Clear UA GLUCOSE NEGATIVE mg/dL Negative UA KETONES NEGATIVE mg/dL Negative UA BLOOD NEGATIVE mg/dL Negative UA PROTEIN 10 mg/dL Negative UA NITRITE NEGATIVE mg/dL Negative UA BILIRUBIN NEGATIVE mg/dL Negative UA SPECIFIC GRAVITY 1.016 1.016-1.022 UA pH 5.5 5.0-9.0 UA UROBILINOGEN <2.0 mg/dL <2.0 UA LEUKOCYTE NEGATIVE Negative Aug 25, 2023 12:20 PM [facility] PSA Specimen Type: SERUM No comment entered. Ordering Provider: JAYDON ARIAS Report Released Date/Time: Feb 25, 2023 03:45 PM Reporting Lab: [facility] [place] [facility] [address] [facility] [address] Performing Lab: [place] [facility] [place] [facility] [address] [address] PSA 1.68 ng/mL 0.00-4.00 Social History: Smoking Status (Most current) and Tobacco Use (All prior to encounter date) This section includes the most current, and the historical, smoking and tobacco- related health factors from the [place] facility where the Encounter took place. Current Smoking Status This section includes the most current smoking, or tobacco-related health factor, from the [place] facility where the Encounter took place. Date/Time Current Smoking Status Comment Facil ity May 17, 2021 12:53 PM VA-TOBACCO NEVER USED [place] [facility] [place] [facility] Encounter Notes: All associated encounter notes This section contains the clinical notes associated to the Encounter. Date/Time Encounter Note(s) Provider Source Sep 02, 2023 09:17 AM ADMINISTRATIVE NOT E: LOCAL TITLE: ADMINISTRATIVE NOTE STANDARD TITLE: ADMINISTRATIVE NOTE DATE OF NOTE: SEP 02, 2023@09:17 ENTRY DATE: SEP 02, 2023@09:17:43 AUTHOR: ISACC KAMINSKI EXP COSIGNER: URGENCY: STATUS: COMPLETED ADMINISTRATIVE NOTE Has ADDENDA Received call from [facility] reporting has been referred to them by his Spanisher for positive AARON. He is scheduled to see their provider on 09/08/23. Should PCP be in agreement a [facility] consult would be needed. Alerting PACT for review. /consuelo KAMINSKI Signed: 09/02/2023 09:18 Receipt Acknowledged By: 09/02/2023 10:42 /brody/ IVONNE NAVAS,RN-BC REGISTERED NURSE (RN) 09/02/2023 ADDENDUM STATUS: COMPLETED Consult has been placed and held for provider to review and sign if appropriate. /IVONNE Higginbotham,RN-BC REGISTERED NURSE (RN) Signed: 09/02/2023 10:46 [facility]ACC [facility] [place] [facility]
--- OUTSIDE RECORDS SUMMARY | 2024-02-25 11:24 | XMS_ITS | Encounter Summary ---
Author Name [place] Organization [place] Address [address] [place] [address] Care Team Providers Care E Commerce Architect Name Role Phone KARIE DE LOS SANTOS [...] Connolly's Name Patient's Relationship to Policy Connolly RBO[place] BCBS OF [place] (BLUECARD) PREFERRED PROVIDER ORGANIZAT ION (PPO) FELICITY TY HEALT H Dec 08, 2019 [id number] 20 [id number] [phone] JUANITO KRAUSE PATIENT [place]BS [place] ([place]) PREFERRED PROVIDER ORGANIZAT ION (PPO) FELICITY TY [place] RA Mar 09, 2021 [id number] 20 [id number] SHALONDA SnowERON SPOUSE CAREMARK PRESCRIPT ION [id number] 2 Mar 09, 2018 [id number] JUANITO KRAUSE PATIENT CAREMARK PRESCRIPT ION [id number] 4 Mar 09, 2016 [id number] JUANITO KRAUSE PATIENT MEDICARE (WNR) MEDICARE (M) PART B Feb 06, 2023 PART B [id number] [facility] JUANITO KRAUSE PATIENT MEDICARE (WNR) MEDICARE (M) PART A Dec 08, 2019 PART A [id number] [facility] JUANITO KRAUSE PATIENT OPTUM RX PRESCRIPT ION FELICITY TY Mar 09, 2021 [facility] [id number] [phone] JUANITO KRAUSE PATIENT OPTUM RX PRESCRIPT ION FELICITY TY HEALT H [place] Dec 08, 2019 [facility] [id number] JUANITO KRAUSE PATIENT Selected Encounter This section includes the information on record at [place] for the Encounter. Date/Time Encounter Type Encounter Description Reason Pro vider Source Jan 20, 2024 12:00 AM Outpatient Encounter EVENT (HISTORICAL) IHE Encounter Template Text not used by [place] Plan of Treatment: Future Appointments (+ 6 months) and Future Tests (+/- 45 days) The Plan of Treatment section includes future care activities for the patient from all [place] treatmentfacilities. This section includes future appointments and future orders which are active, pending or scheduled. Future Appointments This section includes appointments that were scheduled to occur 6 months from the date of the Encounter, up to a maximum of 20 appointments. The data comes from all [place] treatment facilities. Appointment Date/Time Appointment Type Appointme nt Facility Name Feb 08, 2024 12:30 [facility] Feb 10, 2024 11:30 AM AMBULATORY - MEDICINE [facility] Mar 03, 2024 01:30 PM AM[facility]ULATORY - [facility]ICINE [facility] Social History: Smoking Status (Most current) [...] 17, 2021 12:53 PM [facility] Encounter Notes: All associated encounter notes This section contains the clinical notes associated to the Encounter. Date/Time Encounter Note(s) Provider Source Jan 20, 2024 12:00 AM NONVA DIAGNOSTIC Jarred VALVERDE REPORT: LOCAL TITLE: NON-VA DIAGNOSTICS STANDARD TITLE: NONVA DIAGNOSTIC STUDY REPORT DATE OF NOTE: JAN 20, 2024 ENTRY DATE: FEB 16, 2024@09:23:11 AUTHOR: ALBA PENG EXP COSIGNER: URGENCY: STATUS: COMPLETED VistA Imaging - Scanned Document SCANNED DOCUMENT SIGNATURE NOT REQUIRED Electronically Filed: 02/16/2024 by: ALBA SANDERS [place] [facility]
--- OUTSIDE RECORDS SUMMARY | 2024-02-25 11:24 | XMS_ITS | Encounter Summary ---
Author Name [place] Address [address] [place] [address] Care Team Providers Care Beef Cattle Grazier Name Role Phone KARIE DE LOS SANTOS [...] FELICITY TY HEALT H Dec 08, 2019 [id number] 20 [id number] [phone] JUANITO KRAUSE PATIENT BCBS [place] ([place]UE CARD) PREFERRED PROVIDER ORGANIZAT ION (PPO) FELICITY TY [place] RA Mar 09, 2021 [id number] 20 [id number] SHALONDA SnowERON SPOUSE CAREMARK PRESCRIPT ION [id number] 2 Mar 09, 2018 [id number] [phone] JUANITO KRAUSE PATIENT CAREMARK PRESCRIPT ION [id number] 4 Mar 09, 2016 [id number] JUANITO KRAUSE PATIENT MEDICARE (WNR) MEDICARE (M) PART B Feb 06, 2023 PART B [id number] [facility] JUANITO KRAUSE PATIENT MEDICARE (WNR) MEDICARE (M) PART A Dec 08, 2019 PART A [id number] [facility] JUANITO KRAUSE PATIENT OPTUM RX PRESCRIPT ION FELICITY TY Mar 09, 2021 [facility] [id number] [phone] JUANITO KRAUSE PATIENT OPTUM RX PRESCRIPT ION FELICITY TY HEALT H CORPO Dec 08, 2019 [facility] [id number] JUANITO KRAUSE PATIENT Selected Encounter This section includes the information on record at [place] for the Encounter. Date/Time Encounter Type Encounter Description Reason Pro vider Source Oct 20, 2023 12:00 PM Outpatient Encounter COMMUNITY CARE CONSULT IHE Encounter Template Text not used by [place] Plan of Treatment: Future Appointments (+ 6 months) and Future Tests (+/- 45 days) The Plan of Treatment section includes future care activities for the patient from all [place] treatmentfacilities. This section includes future appointments and future orders which are active, pending or scheduled. Future Appointments This section includes appointments that were scheduled to occur 6 months from the date of the Encounter, up to a maximum of 20 appointments. The data comes from all [place] treatment facilities. Appointment Date/Time Appointment Type Appointme nt Facility Name Feb 08, 2024 12:30 PM [facility] Feb 10, 2024 11:30 AM [facility]INE [facility] Mar 03, 2024 01:30 PM [facility]UL[facility]INE [facility] Social History: Smoking Status (Most current) [...] [facility] Encounter Notes: All associated encounter notes This section contains the clinical notes associated to the Encounter. Date/Time Encounter Note(s) Provider Source Oct 20, 2023 12:00 PM NONVA CONSULT: LOCAL TITLE: COMMUNITY CARE-CONSULT RESULT NOTE STANDARD TITLE: NONVA CONSULT DATE OF NOTE: OCT 20, 2023@12:00 ENTRY DATE: NOV 10, 2023@08:20:48 AUTHOR: SANTO BECKHAM EXP COSIGNER: URGENCY: STATUS: COMPLETED VistA Imaging - Scanned Document SCANNED DOCUMENT SIGNATURE NOT REQUIRED Electronically Filed: 11/10/2023 by: SANTO BECKHAM ROUTE SALESMAN AND DRIVER SANTO BECKHAM [place] CNT[place] [facility]
--- OUTSIDE RECORDS SUMMARY | 2024-02-25 11:24 | XMS_ITS | Encounter Summary ---
Author Name [place] Address [address] [place] [address] Care Team Providers Care Steam Cleaner Name Role Phone KARIE DE LOS SANTOS [...] Connolly's Name Patient's Relationship to Policy Connolly [place] BCBS [place] (BLUECARD) PREFERRED PROVIDER ORGANIZAT ION (PPO) FELICITY TY HEALT H Dec 08, 2019 [id number] 20 [id number] [phone] JUANITO KRAUSE PATIENT BCBS [place] (BLUE CARD) PREFERRED PROVIDER ORGANIZAT ION (PPO) FELICITY TY [place]ACE [place] RA Mar 09, 2021 [id number] 20 [id number] [phone] SHALONDA SnowERON SPOUSE CAREMARK PRESCRIPT ION [id number] 2 Mar 09, 2018 [id number] JUANITO KRAUSE PATIENT CAREMARK PRESCRIPT ION [id number] 4 Mar 09, 2016 [id number] JUANITO KRAUSE PATIENT MEDICARE (WNR) MEDICARE (M) PART B Feb 06, 2023 PART B [id number] [facility] JUANITO KRAUSE PATIENT MEDICARE (WNR) MEDICARE (M) PART A Dec 08, 2019 PART A [id number] [facility] JUANITO KRAUSE PATIENT OPTUM RX PRESCRIPT ION FELICITY TY Mar 09, 2021 [facility] [id number] JUANITO KRAUSE PATIENT OPTUM RX PRESCRIPT ION FELICITY TY HEALT H CORPO Dec 08, 2019 [facility] [id number] [phone] JUANITO KRAUSE PATIENT Selected Encounter This section includes the information on record at [place] for the Encounter. Date/Time Encounter Type Encounter Description Reason Provider Source Feb 16, 2024 02:33 PM Outpatient Encounter ADMIN PAT ACTIVTIES (MASNONCT) NENITA SWANSON Encounter Template Text not used by [place] Plan of Treatment: Future Appointments (+ 6 months) and Future Tests (+/- 45 days) The Plan of Treatment section includes future care activities for the patient from all [place] treatmentfacilities. This section includes future appointments and future orders which are active, pending or scheduled. Future Appointments This section includes appointments that were scheduled to occur 6 months from the date of the Encounter, up to a maximum of 20 appointments. The data comes from all [place] treatment facilities. Appointment Date/Time Appointment Type Appointme nt Facility Name Mar 03, 2024 01:30 PM AMBULATORY - MEDICINE [facility] Social History: Smoking Status (Most current) and Tobacco Use (All prior to encounter date) This section includes the most current, and the historical, smoking and tobacco- related health factors from the [place] facility where the Encounter took place. Current Smoking Status This section includes the most current smoking, or tobacco-related health factor, from the [place] facility where the Encounter took place. Date/Time Current Smoking Status Comment Facil ity May 17, 2021 12:53 PM VA-TOBACCO NEVER USED [place] [facility] Encounter Notes: All associated encounter notes This section contains the clinical notes associated to the Encounter. Date/Time Encounter Note(s) Provider Source Feb 16, 2024 02:33 PM ADMINISTRATIVE NOT E: LOCAL TITLE: CCC: SCHEDULING ADMINISTRATION STANDARD TITLE: ADMINISTRATIVE NOTE DATE OF NOTE: FEB 16, 2024@14:33:29 ENTRY DATE: FEB 16, 2024@14:33:29 AUTHOR: NENITA SWANSON COSIGNER: URGENCY: STATUS: COMPLETED CCC: SCHEDULING ADMINISTRATION Has ADDENDA Patient Demographics Patient Name: JUANITO LANGE Patient Primary Phone: [phone] Patient Primary Address: [address] [place] [address] Patient : 1955 Patient Age: 68 Call Back Number: Caller/Recipient Relation to Patient: Self Caller Name: JUANITO LANGE Administrative Administrative Note Reason: Lab / Imaging Results Administrative Note Comments: . PATIENT CALLED FOR THE FOLLOWING: (1) RESULTS REQUEST: * PULMONARY FUNCTIONS TESTING (2) RESCHEDULE: * Mar 04, 2024@13:30 CWM/SO/PACT 9 CANCELLED BY CLINIC CCC INSERTING MACHINE OPERATOR RESTRICTED FROM SCHEDULING PCP/MAGALI PATIENT PHONE: . IMPORTANT: This note was created by [facility] Clinical Contact Center staff. Please do not alert the staff member by adding them as a signer for future communications. Alerts are not monitored by this user. /brody/ NENITA SWANSON VISN 1 [facility] AMSA Signed: 02/16/2024 14:33 Receipt Acknowledged By: 02/16/2024 14:48 /brody/ SAMUEL REDD 02/22/2024 13:52 /brody/ MAIA RAZA LPN LPN 02/20/2024 15:18 /brody/ IVONNE ZUNIGA RN-BC REGISTERED NURSE for GUME CASTANEDA 02/16/2024 ADDENDUM STATUS: COMPLETED Casino Slot Supervisor spoke to and scheduled appt on 03/03/24 @ 01:30 pm w/SO Pact 3 provider. /consuelo REDD Signed: 02/16/2024 14:48 02/20/2024 ADDENDUM STATUS: COMPLETED Forwarding request for PFT results performed on 02/08/2024 to pcp for review and follow up /es/ MARIJA CONLEY, BSN RN-BC REGISTERED NURSE Signed: 02/20/2024 15:20 Receipt Acknowledged By: * AWAITING SIGNATURE * KARIE DE LOS SANTOS [facility]
--- OUTSIDE RECORDS SUMMARY | 2024-02-25 11:24 | XMS_ITS ---
Author Name Department [place] Address [address] [place] [address] Care Team Providers Care Food General Manager Name Role Phone KARIE DE LOS SANTOS [...] FELICITY TY HEALT H Dec 08, 2019 [id number] 20 [id number] JUANITO KRAUSE PATIENT BCBS [place] (BLUE CARD) PREFERRED PROVIDER ORGANIZAT ION (PPO) FELICITY TY PACE [place]PO RA Mar 09, 2021 [id number] 20 [id number] SHALONDA SnowERON SPOUSE CAREMARK PRESCRIPT ION [id number] 2 Mar 09, 2018 [id number] JUANITO KRAUSE PATIENT CAREMARK PRESCRIPT ION [id number] 4 Mar 09, 2016 [id number] [phone] JUANITO KRAUSE PATIENT MEDICARE (WNR) MEDICARE (M) PART B Feb 06, 2023 PART B [id number] [facility] JUANITO KRAUSE PATIENT MEDICARE (WNR) MEDICARE (M) PART A Dec 08, 2019 PART A [id number] [facility] JUANITO KRAUSE PATIENT OPTUM RX PRESCRIPT ION FELICITY TY Mar 09, 2021 [facility] [id number] JUANITO KRAUSE PATIENT OPTUM RX PRESCRIPT ION FELICITY TY HEALT H CORPO Dec 08, 2019 [facility] [id number] JUANITO KRAUSE PATIENT Selected Encounter This section includes the information on record at [place] for the Encounter. Date/Time Encounter Type Encounter Description Reason Pro vider Source Sep 08, 2023 12:00 PM Outpatient Encounter COMMUNITY CARE CONSULT IHE Encounter Template Text not used by [place] Plan of Treatment: Future Appointments (+ 6 months) and Future Tests (+/- 45 days) The Plan of Treatment section includes future care activities for the patient from all [place] treatmentfacilities. This section includes future appointments and future orders which are active, pending or scheduled. Future Appointments This section includes appointments that were scheduled to occur 6 months from the date of the Encounter, up to a maximum of 20 appointments. The data comes from all [place] treatment facilities. Appointment Date/Time Appointment Type Appointme nt Facility Name Sep 28, 2023 03:30 PM AMBULATORY - MEDICINE [facility] Feb 08, 2024 12:30 PM AMBULATORY - MEDICINE [facility] Feb 10, 2024 11:30 AM AMBULATORY - MEDICINE [facility] Mar 03, 2024 01:30 PM AMBULATORY - MEDICINE [facility] Lab Results: +/- 30 days of the encounter This section includes the Chemistry and Hematology Lab Results on record with [place] for the patient. Radiology Reports and Pathology Reports are provided separately, in subsequent sections. Lab Results This section contains the Chemistry/Hematology Results that were resulted 30 days before or 30 daysafter the date of the Encounter. Date/Time Source Result Type Result - Unit Interpretation Reference Range Comment Aug 25, 2023 12:20 PM [facility] BASIC METABOLIC PANEL (fasting) Specime n Type: SERUM No comment entered. Ordering Provider: JAYDON ARIAS Report Released Date/Time: Feb 25, 2023 03:45 PM Reporting Lab: [address] [address] Performing Lab: [address] [address] UREA NITROGEN 40 mg/dL H 7-25 GLUCOSE 101 mg/dL H 65-100 SODIUM 136 mmol/L 135-145 POTASSIUM 4.3 mmol/L 3.5-5.0 CHLORIDE 110 mmol/L 100-110 CO2 19 meq/L L 20-30 CREATININE, Serum 2.54 mg/dL H 0.50-1.40 eGFR(CKD-EPI 2020) 27 mL/min L >60 Aug 25, 2023 12:20 PM [facility] LIPID PANEL FASTING Specimen Type: SERUM No comment entered. Ordering Provider: JAYDON ARIAS Report Released Date/Time: Feb 25, 2023 03:45 PM Reporting Lab: [address] [address] Performing Lab: [address] [address] CHOLESTEROL 208 mg/dL H TRIGLYCERIDE 98 mg/dL 0-150 LDL calculated 154 mg/dL H 0-129 CHOL/HDL 6.1 HDL CHOLESTEROL 34 mg/dL L 40-60 Aug 25, 2023 12:20 PM [facility] LIVER FUNCTION Specimen Type: SERUM No comment entered. Ordering Provider: JAYDON ARIAS Report Released Date/Time: Feb 25, 2023 03:45 PM Reporting Lab: [address] [address] Performing Lab: [address] [address] PROTEIN,TOTAL 7.2 g/dL 6.0-8.3 ALBUMIN 3.6 g/dL 3.5-5.0 ALKALINE PHOSPHATASE 66 U/L 40-150 AST 17 U/L 5-34 ALT 11 U/L BILIRUBIN, TOTAL 0.4 mg/dL 0.2-1.2 Aug 25, 2023 12:20 PM [facility] CBC AND DIFF (AUTO) Specimen Type: BLOOD No comment entered. Ordering Provider: JAYDON ARIAS Report Released Date/Time: Feb 25, 2023 03:45 PM Reporting Lab: [facility] [address] [address] Performing Lab: [facility] [address] [address] WBC 10.43 10*3/uL 4.50-11.00 RBC 3.68 10*6/uL [...] 10*3/uL 0.00-0.00 Aug 25, 2023 12:20 PM [facility] HEMOGLOBIN A1C PANEL Specimen Type: BLOOD Comment: [...] Feb 25, 2023 03:45 PM Reporting Lab: [address] [address] Performing Lab: [address] [address] HEMOGLOBIN A1C 5.1 4.0-5.6 Aug 25, 2023 12:20 PM [facility] TSH Specimen Type: SERUM No comment entered. Ordering Provider: JAYDON ARIAS Report Released Date/Time: Feb 25, 2023 03:45 PM Reporting Lab: [address] [address] Performing Lab: [address] [address] TSH 1.98 u[IU]/mL 0.35-5.00 Aug 25, 2023 12:20 PM [facility] URINALYSIS Specimen Type: URINE Comment: If Glucose = >500 and Ketones are positive, please alert the Physician. Ordering Provider: JAYDON ARIAS Report Released Date/Time: Feb 25, 2023 03:45 PM Reporting Lab: [address] [address] Performing Lab: [address] [address] UA COLOR Light-Yellow Yellow UA APPEARANCE Clear Clear UA GLUCOSE NEGATIVE mg/dL Negative UA KETONES NEGATIVE mg/dL Negative UA BLOOD NEGATIVE mg/dL Negative UA PROTEIN 10 mg/dL Negative UA NITRITE NEGATIVE mg/dL Negative UA BILIRUBIN NEGATIVE mg/dL Negative UA SPECIFIC GRAVITY 1.016 1.016-1.022 UA pH 5.5 5.0-9.0 UA UROBILINOGEN <2.0 mg/dL <2.0 UA LEUKOCYTE NEGATIVE Negative Aug 25, 2023 12:20 PM [facility] PSA Specimen Type: SERUM No comment entered. Ordering Provider: JAYDON ARIAS Report Released Date/Time: Feb 25, 2023 03:45 PM Reporting Lab: [address] [address] Performing Lab: [facility] [address] [address] PSA 1.68 ng/mL 0.00-4.00 Social History: Smoking Status (Most current) and Tobacco Use (All prior to encounter date) This section includes the most current, and the historical, smoking and tobacco- related health factors from the [place] facility where the Encounter took place. Current Smoking Status This section includes the most current smoking, or tobacco-related health factor, from the [place] facility where the Encounter took place. Date/Time Current Smoking Status Comment Facil ity May 17, 2021 12:53 PM VA-TOBACCO NEVER USED [facility] Encounter Notes: All associated encounter notes This section contains the clinical notes associated to the Encounter. Date/Time Encounter Note(s) Provider Source Sep 08, 2023 12:00 PM NONVA CONSULT: LOCAL TITLE: COMMUNITY CARE-CONSULT RESULT NOTE STANDARD TITLE: NONVA CONSULT DATE OF NOTE: SEP 08, 2023@12:00 ENTRY DATE: OCT 01, 2023@13:36:58 AUTHOR: LEXI CHATTERJEE EXP COSIGNER: URGENCY: STATUS: COMPLETED VistA Imaging - Scanned Document SCANNED DOCUMENT SIGNATURE NOT REQUIRED Electronically Filed: 10/01/2023 by: LEXI ROGEL [facility]
--- OUTSIDE RECORDS SUMMARY | 2024-02-25 11:24 | XMS_ITS | Encounter Summary ---
Author Name [place] Address [address] [place] [address] Care Team Providers Care Principal Librarian Name Role Phone KARIE DE LOS SANTOS [...] FELICITY TY HEALT H Dec 08, 2019 [id number] 20 [id number] JUANITO KRAUSE PATIENT BCBS [place] ([place]UE CARD) PREFERRED PROVIDER ORGANIZAT ION (PPO) FELICITY TY [place] RA Mar 09, 2021 [id number] 20 [id number] SHALONDA SnowERON SPOUSE CAREMARK PRESCRIPT ION [id number] 2 Mar 09, 2018 [id number] JUANITO KRAUSE PATIENT CAREMARK PRESCRIPT ION [id number] 4 Mar 09, 2016 [id number] JUANITO KRAUSE PATIENT MEDICARE (WNR) MEDICARE (M) PART B Feb 06, 2023 PART B [id number] [facility] JUANITO KRAUSE PATIENT MEDICARE (WNR) MEDICARE (M) PART A Dec 08, 2019 PART A [id number] [facility] JUANITO KRAUSE PATIENT OPTUM RX PRESCRIPT ION FELICITY TY Mar 09, 2021 [facility] [id number] [phone] JUANITO KRAUSE PATIENT OPTUM RX PRESCRIPT ION FELICITY TY HEALT H CORPO Dec 08, 2019 [facility] [id number] JUANITO KRAUSE PATIENT Selected Encounter This section includes the information on record at [place] for the Encounter. Date/Time Encounter Type Encounter Description Reason Pro vider Source Nov 10, 2023 03:01 PM Outpatient Encounter ADMIN PAT ACTIVTIES (MASNONCT) [...] 08, 2024 12:30 PM [facility] Feb 10, 2024 11:30 AM AMBULATORY - MEDICINE [facility] Mar 03, 2024 01:30 PM AMBULATORY - MEDICINE [facility] Social History: Smoking Status (Most current) and Tobacco Use (All prior to encounter date) This section includes the most current, and the historical, smoking and tobacco- related health factors from the [place] facility where the Encounter took place. Current Smoking Status This section includes the most current smoking, or tobacco-related health factor, from the [place] facility where the Encounter took place. Date/Time Current Smoking Status Comment Gisselle prieto May 17, 2021 12:53 PM VA-TOBACCO NEVER USED [facility] Encounter Notes: All associated encounter notes This section contains the clinical notes associated to the Encounter. Date/Time Encounter Note(s) Provider Source Nov 10, 2023 03:01 PM ADMINISTRATIVE NOT E: LOCAL TITLE: CCC: SCHEDULING ADMINISTRATION STANDARD TITLE: ADMINISTRATIVE NOTE DATE OF NOTE: NOV 10, 2023@15:01:19 ENTRY DATE: NOV 10, 2023@15:01:19 AUTHOR: RAYSHAWN GARRISON COSIGNER: URGENCY: STATUS: COMPLETED CCC: SCHEDULING ADMINISTRATION Has ADDENDA Patient Demographics Patient Name: JUANITO LANGE Patient Primary Phone: [phone] Patient Primary Address: [address] [place] [address] Patient : 1955 Patient Age: 67 Current Location: Call Back Number: [phone] Caller/Recipient Relation to Patient: Self Scheduling Patient Expects Callback: No Administrative Administrative Note Reason: [facility] / [place] Act Administrative Note Comments: REQUESTING RETURN CALL RE: REFERRAL TO COMMUNITY CARE FOR RHEUMATOLOGY- CANNOT BE SEEN IN OR FACILITY - 01/27/2024 FACILITY: [facility] IMPORTANT: This note was created by [facility] Clinical Contact Center staff. Please do not alert the staff member by adding them as a signer for future communications. Alerts are not monitored by this user. /brody/ RAYSHAWN GARRISON CDA/AMSA Signed: 11/10/2023 15:01 Receipt Acknowledged By: 11/11/2023 13:47 /brody/ MAIA RAZA LPN LPN 11/11/2023 10:24 /brody/ IVONNE NAVAS,RN-BC REGISTERED NURSE (RN) 11/11/2023 ADDENDUM STATUS: COMPLETED Called and he stated he is all set. He states he will keep his appt. for his PFT within the [facility]. /brody/ IVONNE NAVAS,RN-BC REGISTERED NURSE (RN) Signed: 11/11/2023 10:26 RAYSHAWN GARRISON [facility]
--- OUTSIDE RECORDS SUMMARY | 2024-02-25 11:24 | XMS_ITS | Encounter Summary ---
Author Name [place] Address [address] [place] [address] Care Team Providers Care Boatbuilder Supervisor Name Role Phone KARIE DE LOS [...] FELICITY TY HEALT H Dec 08, 2019 [id number] 20 [id number] [phone] JUANITO KRAUSE PATIENT BCBS [place] ([place]UE [place]ARD) PREFERRED PROVIDER ORGANIZAT ION (PPO) FELICITY TY PACE [place] RA Mar 09, 2021 [id number] 20 [id number] SHALONDA SnowERON SPOUSE CAREMARK PRESCRIPT ION [id number] 2 Mar 09, 2018 [id number] [phone] JUANITO KRAUSE PATIENT CAREMARK PRESCRIPT ION [id number] 4 Mar 09, 2016 [id number] JUANITO KRAUSE PATIENT MEDICARE (WNR) MEDICARE (M) PART B Feb 06, 2023 PART B [id number] [facility] JUANITO KRAUSE PATIENT MEDICARE (WNR) MEDICARE (M) PART A Dec 08, 2019 PART A [id number] [facility] JUANITO KRAUSE PATIENT OPTUM RX PRESCRIPT ION FELICITY TY Mar 09, 2021 [facility] [id number] JUANITO KRAUSE PATIENT OPTUM RX PRESCRIPT ION FELICITY TY HEALT H CORPO Dec 08, 2019 [facility] [id number] JUANITO KRAUSE PATIENT Selected Encounter This section includes the information on record at [place] for the Encounter. Date/Time Encounter Type Encounter Description Reason Provider Source Feb 08, 2024 12:30 PM EVALUATION OF WHEEZING PULMONARY FUNCTION ICD-10-CM M34.9 Systemic sclerosis, unspecified Nuria PAVON E Encounter Template Text not used by [place] Assessments - Encounter Diagnoses This section includes the primary and secondary diagnoses documented for the Encounter. Date/Time Primary/Secondary Diagnosis Diagnosis Name Provider Source Feb 08, 2024 04:42 PM PRIMARY Systemic sclerosis, unspecified BEAU PAVON Y [place] [facility] Plan of Treatment: Future Appointments (+ 6 [...] Appointment Type Appointme nt Facility Name Feb 10, 2024 11:30 AM AMBULATORY - MEDICINE [facility] Mar 03, 2024 01:30 PM AMBULATORY - MEDICINE [facility] Social History: Smoking Status (Most current) [...] 17, 2021 12:53 PM VA-TOBACCO NEVER USED [facility] Encounter Notes: All associated encounter notes This section contains the clinical notes associated to the Encounter. Date/Time Encounter Note(s) Provider Source Feb 08, 2024 04:39 PM RESPIRATORY THERAP Y NOTE: LOCAL TITLE: RESPIRATORY THERAPY NOTE(BLANK) STANDARD TITLE: RESPIRATORY THERAPY NOTE DATE OF NOTE: FEB 08, 2024@16:39 ENTRY DATE: FEB 08, 2024@16:39:43 AUTHOR: CARI PAVON EXP COSIGNER: URGENCY: STATUS: COMPLETED with a diagnosis of systemic sclerosis came in today for PFTs. PFTs were completed and tolerated procedure well. Moosic was advised that the results will be read by the Utility Aircrewman at [facility] and they will be notified of results by their PCP as soon as they are available. Moosic was given TH screening results notification survey card and contact information for this policy writer sales. /brody/ CARI PAVON BA, SAWMILL TALLY CLERK, RPFT RESPIRATORY THERAPIST Signed: 02/08/2024 16:43 CARI PAVON [facility]
--- OUTSIDE RECORDS SUMMARY | 2024-02-25 11:24 | XMS_ITS | Encounter Summary ---
Author Name [place] Address [address] [place] [address] Care Team Providers Care Pelletizer Name Role Phone KARIE DE LOS SANTOS [...] FELICITY TY HEALT H Dec 08, 2019 [id number] 20 [id number] JUANITO KRAUSE PATIENT BCBS [place] (BLUE CARD) PREFERRED PROVIDER ORGANIZAT ION (PPO) FELICITY TY P[place] RA Mar 09, 2021 [id number] 20 [id number] [phone] SHALONDA SnowERON SPOUSE CAREMARK PRESCRIPT ION [id number] 2 Mar 09, 2018 [id number] JUANITO KRAUSE PATIENT CAREMARK PRESCRIPT ION [id number] 4 Mar 09, 2016 [id number] [phone] JUANITO KRAUSE PATIENT MEDICARE (WNR) MEDICARE (M) PART B Feb 06, 2023 PART B [id number] [facility] JUANITO KRAUSE PATIENT MEDICARE (WNR) MEDICARE (M) PART A Dec 08, 2019 PART A [id number] [facility] JUANITO KRAUSE PATIENT OPTUM RX PRESCRIPT ION FELICITY TY Mar 09, 2021 [facility] [id number] [phone] JUANITO KRAUSE PATIENT OPTUM RX PRESCRIPT ION FELICITY TY HEALT H CORPO Dec 08, 2019 [facility] [id number] JUANITO KRAUSE PATIENT Selected Encounter This section includes the information on record at [place] for the Encounter. Date/Time Encounter Type Encounter Description Reason Pro vider Source Nov 17, 2023 12:00 AM Outpatient Encounter EVENT (HISTORICAL) IHE Encounter Template Text not used by [place] Plan of Treatment: Future Appointments (+ 6 months) and Future Tests (+/- 45 days) The Plan of Treatment section includes future care activities for the patient from all [place] treatmentfacilities. This section includes future appointments and future orders which are active, pending or scheduled. Future Appointments This section includes appointments that were scheduled to occur 6 months from the date of the Encounter, up to a maximum of 20 appointments. The data comes from all [place] treatment facilities. Appointment Date/Time Appointment Type Appointme nt Facility Name Feb 08, 2024 12:30 PM [facility] Feb 10, 2024 11:30 AM AMBULATORY - MEDICINE [facility] Mar 03, 2024 01:30 PM AMBULATORY - MEDICINE [facility] Social History: Smoking Status (Most [...] 17, 2021 12:53 PM [facility] Encounter Notes: All associated encounter notes This section contains the clinical notes associated to the Encounter. Date/Time Encounter Note(s) Provider Source Nov 17, 2023 12:00 AM RADIOLOGY NONVA NO TE: LOCAL TITLE: NON-VA RADIOLOGY STANDARD TITLE: RADIOLOGY NONVA NOTE DATE OF NOTE: NOV 17, 2023 ENTRY DATE: DEC 31, 2023@07:31:11 AUTHOR: ALBA PENG EXP COSIGNER: URGENCY: STATUS: COMPLETED VistA Imaging - Scanned Document SCANNED DOCUMENT SIGNATURE NOT REQUIRED Electronically Filed: 12/31/2023 by: ALBA SANDERS CNTRL W[facility]
--- OUTSIDE RECORDS SUMMARY | 2024-02-25 11:24 | XMS_ITS ---
Author Name Department [place] Address [address] [place] [address] Care Team Providers Care Architectural Model Maker Name Role Phone KARIE DE LOS [...] FELICITY TY HEALT H Dec 08, 2019 [id number] 20 [id number] JUANITO KRAUSE PATIENT BCBS [place] (BLUE CARD) PREFERRED PROVIDER ORGANIZAT ION (PPO) FELICITY TY [place] RA Mar 09, 2021 [id number] 20 [id number] SHALONDA SnowERON SPOUSE CAREMARK PRESCRIPT ION [id number] 2 Mar 09, 2018 [id number] JUANITO KRAUSE PATIENT CAREMARK PRESCRIPT ION [id number] 4 Mar 09, 2016 [id number] JUANITO KRAUSE PATIENT MEDICARE (WNR) MEDICARE (M) PART B Feb 06, 2023 PART B [id number] [facility] JUANITO KRAUSE PATIENT MEDICARE (WNR) MEDICARE (M) PART A Dec 08, 2019 PART A [id number] [facility] JUANITO KRAUSE PATIENT OPTUM RX PRESCRIPT ION FELICITY TY Mar 09, 2021 [facility] [id number] [phone] JUANITO KRAUSE PATIENT OPTUM RX PRESCRIPT ION FELICITY TY HEALT H CORPO Dec 08, 2019 [facility] [id number] JUANITO KRAUSE PATIENT Selected Encounter This section includes the information on record at [place] for the Encounter. Date/Time Encounter Type Encounter Description Reason Pro vider Source Sep 28, 2023 12:00 AM Outpatient Encounter COMMUNITY CARE CONSULT IHE Encounter Template Text not used by VA Plan of Treatment: Future Appointments (+ 6 months) and Future Tests (+/- 45 days) The Plan of Treatment section includes future care activities for the patient from all [place] treatmentfacilities. This section includes future appointments and future orders which are active, pending or scheduled. Future Appointments This section includes appointments that were scheduled to occur 6 months from the date of the Encounter, up to a maximum of 20 appointments. The data comes from all [place] treatment facilities. Appointment Date/Time Appointment Type Appointme nt Facility Name Feb 08, 2024 12:30 PM [facility] Feb 10, 2024 11:30 AM AMBULATORY - MEDICINE [facility] Mar 03, 2024 01:30 PM AMBULATORY - MEDICINE [facility] Social History: Smoking Status (Most current) [...] 17, 2021 12:53 PM [facility] Encounter Notes: All associated encounter notes This section contains the clinical notes associated to the Encounter. Date/Time Encounter Note(s) Provider Source Sep 28, 2023 12:00 AM NONVA CONSULT: LOCAL TITLE: COMMUNITY CARE-CONSULT RESULT NOTE STANDARD TITLE: NONVA CONSULT DATE OF NOTE: SEP 28, 2023 ENTRY DATE: OCT 20, 2023@07:30:21 AUTHOR: ALBA PENG EXP COSIGNER: URGENCY: STATUS: COMPLETED VistA Imaging - Scanned Document SCANNED DOCUMENT SIGNATURE NOT REQUIRED Electronically Filed: 10/20/2023 by: ALBA SANDERS CNTRL [facility]
--- OUTSIDE RECORDS SUMMARY | 2024-02-25 11:24 | XMS_ITS | Encounter Summary ---
Author Name Department [place] Address [address] [place] [address] Care Team Providers Care Global Ceo Name Role Phone KARIE SERRATO Primary Care Provider Unava ilable Insurance Providers: [...] FELICITY TY HEALT H Dec 08, 2019 [id number] 20 [id number] JUANITO KRAUSE PATIENT BCBS [place] (BLUE CARD) PREFERRED PROVIDER ORGANIZAT ION (PPO) FELICITY TY [place] RA Mar 09, 2021 [id number] 20 [id number] SHALONDA SnowERON SPOUSE CAREMARK PRESCRIPT ION [id number] 2 Mar 09, 2018 [id number] JUANITO KRAUSE PATIENT CAREMARK PRESCRIPT ION [id number] 4 Mar 09, 2016 [id number] [phone] JUANITO KRAUSE PATIENT MEDICARE (WNR) MEDICARE (M) PART B Feb 06, 2023 PART B [id number] [facility] JUANITO KRAUSE PATIENT MEDICARE (WNR) MEDICARE (M) PART A Dec 08, 2019 PART A [id number] [facility] JUANITO KRAUSE PATIENT OPTUM RX PRESCRIPT ION FELICITY TY Mar 09, 2021 [facility] [id number] JUANITO KRAUSE PATIENT OPTUM RX PRESCRIPT ION FELICITY TY HEALT H CORPO Dec 08, 2019 [facility] [id number] [phone] JUANITO KRAUSE PATIENT Selected Encounter This section includes the information on record at [place] for the Encounter. Date/Time Encounter Type Encounter Description Reason Pro vider Source Dec 25, 2023 02:28 PM Outpatient Encounter ADMIN PAT ACTIVTIES (MASNONCT) IHE Encounter Template Text not used by [place] Plan of Treatment: Future Appointments (+ 6 months) and Future Tests (+/- 45 days) The Plan of Treatment section includes future care activities for the patient from all [place] treatmentfacilities. This section includes future appointments and [...] 08, 2024 12:30 PM [facility] Feb 10, 2024 11:30 AM [facility] Mar 03, 2024 01:30 PM AMBULATORY - MEDICINE [facility] Social History: Smoking Status (Most [...] took place. Date/Time Current Smoking Status Comment Gisslele prieto May 17, 2021 12:53 PM VA-TOBACCO NEVER USED [facility] Encounter Notes: All associated encounter notes This section contains the clinical notes associated to the Encounter. Date/Time Encounter Note(s) Provider Source Dec 25, 2023 02:28 PM ADMINISTRATIVE NOT E: LOCAL TITLE: CCC: SCHEDULING ADMINISTRATION STANDARD TITLE: ADMINISTRATIVE NOTE DATE OF NOTE: DEC 25, 2023@14:28:08 ENTRY DATE: DEC 25, 2023@14:28:08 AUTHOR: ALPHONSO NOYOLA COSIGNER: URGENCY: STATUS: COMPLETED CCC: SCHEDULING ADMINISTRATION Has ADDENDA Patient Demographics Patient Name: JUANITO LANGE Patient Primary Phone: [phone] Patient Primary Address: [address] [place] [address] Patient : 1955 Patient Age: 67 Caller/Recipient Relation to Patient: Self Administrative Administrative Note Reason: Medication Renewal [place] Medications Refill/Renewal Request: Please renew, refill and send to patient in the mail. He called 10 days ago to get this medication and now he is out. Thank you. Rx #[id number] - CARVEDILOL 25MG TAB IMPORTANT: This note was created by [facility] Clinical Contact Center staff. Please do not alert the staff member by adding them as a signer for future communications. Alerts are not monitored by this user. /brody/ ALPHONSO NOBLE 1 [facility]3] AMSA Signed: 12/25/2023 14:28 Receipt Acknowledged By: 02/14/2024 16:26 /consuelo BOYCE NP NURSE PRACTITIONER for KARIE SERRATO 12/26/2023 11:55 /IVONNE Higginbotham,RN-BC REGISTERED NURSE (RN) 12/26/2023 ADDENDUM STATUS: COMPLETED Med was ordered. /IVONNE Higginbotham,RN-BC REGISTERED NURSE (RN) Signed: 12/26/2023 11:55 02/14/2024 ADDENDUM STATUS: COMPLETED Administratively signed for Dr. Serrato. Rx is active. /consuelo BOYCE NP NURSE PRACTITIONER Signed: 02/14/2024 16:27 ALPHONSO NOYOLA [facility]
--- OUTSIDE RECORDS SUMMARY | 2024-02-25 11:24 | XMS_ITS | Encounter Summary ---
Author Name Department of [place] Organization Department of [place] Address [address] [place] [address] Care Team Providers Care Rn Radiation Name Role Phone KARIE SERRATO Primary Care [...] FELICITY TY HEALT H Dec 08, 2019 [id number] 20 [id number] [phone] JUANITO KRAUSE PATIENT BCBS [place] (BLUE CARD) PREFERRED PROVIDER ORGANIZAT ION (PPO) FELICITY TY PACE [place]PO RA Mar 09, 2021 [id number] 20 [id number] SHALONDA SnowERON SPOUSE CAREMARK PRESCRIPT ION [id number] 2 Mar 09, 2018 [id number] [phone] JUANITO KRAUSE PATIENT CAREMARK PRESCRIPT ION [id number] 4 Mar 09, 2016 [id number] JUANITO KRAUSE PATIENT MEDICARE (WNR) MEDICARE (M) PART B Feb 06, 2023 PART B [id number] [facility] JUANITO KRAUSE PATIENT MEDICARE (WNR) MEDICARE (M) PART A Dec 08, 2019 PART A [id number] [facility] JUANITO KRAUSE PATIENT OPTUM RX PRESCRIPT ION FELICITY TY Mar 09, 2021 [facility] [id number] JUANITO KRAUSE PATIENT OPTUM RX PRESCRIPT ION FELICITY TY HEALT H CORPO Dec 08, 2019 [facility] [id number] JUANITO KRAUSE PATIENT Selected Encounter This section includes the information on record at [place] for the Encounter. Date/Time Encounter Type Encounter Description Reason Pro vider Source Dec 14, 2023 03:14 PM Outpatient Encounter ADMIN PAT ACTIVTIES (MASNONCT) [...] 08, 2024 12:30 PM [facility] Feb 10, 2024 11:30 AM AMBULATORY - MEDICINE [facility] Mar 03, 2024 01:30 PM AMBULATORY - MEDICINE [facility] Social History: Smoking Status (Most [...] 17, 2021 12:53 PM VA-TOBACCO NEVER USED [facility] Encounter Notes: All associated encounter notes This section contains the clinical notes associated to the Encounter. Date/Time Encounter Note(s) Provider Source Dec 14, 2023 03:14 PM ADMINISTRATIVE NOTE: LOCAL TITLE: CCC: SCHEDULING ADMINISTRATION STANDARD TITLE: ADMINISTRATIVE NOTE DATE OF NOTE: DEC 14, 2023@15:14:55 ENTRY DATE: DEC 14, 2023@15:14:55 AUTHOR: LA GOODWIN EXP COSIGNER: URGENCY: STATUS: COMPLETED CCC: SCHEDULING ADMINISTRATION Has ADDENDA Patient Demographics Patient Name: JUANITO LANGE Patient Primary Phone: [phone] Patient Primary Address: [address] [place] [address] Patient : 1955 Patient Age: 67 Call Back Number: [phone] Caller/Recipient Relation to Patient: Self Administrative Administrative Note Reason: Medication Renewal [place] Medications Refill/Renewal Request: PT IS REQUESTING THE FOLLOWING MEDICATION BE RENEWED AND MAILED TO ADDRESS ON FILE: [id number] - CARVEDILOL 25MG TAB - 1 TABLET - TAKE ONE TABLET BY MOUTH TWICE DAILY FOR HIGH BLOOD PRESSURE - 0 [facility] - 631BY - ACTIVE IMPORTANT: This note was created by [facility] Clinical Contact Center staff. Please do not alert the staff member by adding them as a signer for future communications. Alerts are not monitored by this user. /brody/ La Goodwin [id number] AMSA Signed: 12/14/2023 15:15 Receipt Acknowledged By: 02/14/2024 16:28 /brody/ CARLOS BOYCE NP NURSE PRACTITIONER for KARIE SERRATO 12/14/2023 16:03 /brody/ JOSE NAVASN,RN-BC REGISTERED NURSE (RN) 02/14/2024 ADDENDUM STATUS: COMPLETED Administratively signed for Dr. Serrato. /brody/ CARLOS BOYCE NP NURSE PRACTITIONER Signed: 02/14/2024 16:29 LA GOODWIN MD CNTRL [facility]
--- OUTSIDE RECORDS SUMMARY | 2024-02-25 11:24 | XMS_ITS | Encounter Summary ---
Author Name Department [place] Organization [place] Address [address] [place] [address] Care Team Providers Care Human Resource Professional Name Role Phone KARIE DE LOS SANTOS [...] FELICITY TY HEALT H Dec 08, 2019 [id number] 20 [id number] JUANITO KRAUSE PATIENT BCBS [place] (BLUE CARD) PREFERRED PROVIDER ORGANIZAT ION (PPO) FELICITY TY PACE [place]PO RA Mar 09, 2021 [id number] 20 [id number] SHALONDA SnowERON SPOUSE CAREMARK PRESCRIPT ION [id number] 2 Mar 09, 2018 [id number] JUANITO KRAUSE PATIENT CAREMARK PRESCRIPT ION [id number] 4 Mar 09, 2016 [id number] [phone] JUANITO KRAUSE PATIENT MEDICARE (WNR) MEDICARE (M) PART B Feb 06, 2023 PART B [id number] [facility] JUANITO KRAUSE PATIENT MEDICARE (WNR) MEDICARE (M) PART A Dec 08, 2019 PART A [id number] [facility] JUANITO KRAUSE PATIENT OPTUM RX PRESCRIPT ION FELICITY TY Mar 09, 2021 [facility] [id number] JUANITO KRAUSE PATIENT OPTUM RX PRESCRIPT ION FELICITY TY HEALT H CORPO Dec 08, 2019 [facility] [id number] [phone] JUANITO KRAUSE PATIENT Selected Encounter This section includes the information on record at [place] for the Encounter. Date/Time Encounter Type Encounter Description Reason Pro vider Source Sep 21, 2023 12:00 AM Outpatient Encounter COMMUNITY CARE [...] 28, 2023 03:30 PM AMBULATORY - MEDICINE [facility] Feb 08, 2024 12:30 PM [facility]UL[facility]ORY MEDICINE [facility] Feb 10, 2024 11:30 AM AMBULATORY - MEDICINE [facility] Mar 03, 2024 01:30 PM AMBULATORY - MEDICINE [facility] Lab Results: +/- 30 days of the encounter This section includes the Chemistry and Hematology Lab Results on record with [place] for the patient. Radiology Reports and Pathology Reports are provided separately, in subsequent sections. Lab Results This section contains the Chemistry/Hematology Results that were resulted 30 days before or 30 daysafter the date of the Encounter. Date/Time Source Result Type Result - Unit Interpretation Reference Range Comment Aug 25, 2023 12:20 PM [facility] BASIC METABOLIC PANEL (fasting) Specime n Type: SERUM No comment entered. Ordering Provider: JAYDON ARIAS Report Released Date/Time: Feb 25, 2023 03:45 PM Reporting Lab: [address] [address] Performing Lab: [address] [address] UREA NITROGEN 40 mg/dL H 7-25 GLUCOSE 101 mg/dL H 65-100 SODIUM 136 mmol/L 135-145 POTASSIUM 4.3 mmol/L 3.5-5.0 CHLORIDE 110 mmol/L 100-110 CO2 19 meq/L L 20-30 CREATININE, Serum 2.54 mg/dL H 0.50-1.40 eGFR(CKD-EPI 2020) 27 mL/min L >60 Aug 25, 2023 12:20 PM [facility] LIPID PANEL FASTING Specimen Type: SERUM No comment entered. Ordering Provider: JAYDON ARIAS Report Released Date/Time: Feb 25, 2023 03:45 PM Reporting Lab: [address] [address] Performing Lab: [address] [address] CHOLESTEROL 208 mg/dL H TRIGLYCERIDE 98 mg/dL 0-150 LDL calculated 154 mg/dL H 0-129 CHOL/HDL 6.1 HDL CHOLESTEROL 34 mg/dL L 40-60 Aug 25, 2023 12:20 PM [facility] LIVER FUNCTION Specimen Type: SERUM No comment entered. Ordering Provider: JAYDON ARIAS Report Released Date/Time: Feb 25, 2023 03:45 PM Reporting Lab: [address] [address] Performing Lab: [address] [address] PROTEIN,TOTAL 7.2 g/dL 6.0-8.3 ALBUMIN 3.6 g/dL 3.5-5.0 ALKALINE PHOSPHATASE 66 U/L 40-150 AST 17 U/L 5-34 ALT 11 U/L BILIRUBIN, TOTAL 0.4 mg/dL 0.2-1.2 Aug 25, 2023 12:20 PM [facility] CBC AND DIFF (AUTO) Specimen Type: BLOOD No comment entered. Ordering Provider: JAYDON ARIAS Report Released Date/Time: Feb 25, 2023 03:45 PM Reporting Lab: [facility] [address] [facility] [address] Performing Lab: [facility] [address] [facility] [address] WBC 10.43 10*3/uL 4.50-11.00 RBC 3.68 10*6/uL [...] 10*3/uL 0.00-0.00 Aug 25, 2023 12:20 PM [facility] HEMOGLOBIN A1C PANEL Specimen Type: BLOOD Comment: [...] Feb 25, 2023 03:45 PM Reporting Lab: [address] [address] Performing Lab: [address] [address] HEMOGLOBIN A1C 5.1 4.0-5.6 Aug 25, 2023 12:20 PM [facility] TSH Specimen Type: SERUM No comment entered. Ordering Provider: JAYDON ARIAS Report Released Date/Time: Feb 25, 2023 03:45 PM Reporting Lab: [address] [address] Performing Lab: [address] [address] TSH 1.98 u[IU]/mL 0.35-5.00 Aug 25, 2023 12:20 PM [facility] URINALYSIS Specimen Type: URINE Comment: If Glucose = >500 and Ketones are positive, please alert the Physician. Ordering Provider: JAYDON ARIAS Report Released Date/Time: Feb 25, 2023 03:45 PM Reporting Lab: [address] [address] Performing Lab: [address] [address] UA COLOR Light-Yellow Yellow UA APPEARANCE Clear Clear UA GLUCOSE NEGATIVE mg/dL Negative UA KETONES NEGATIVE mg/dL Negative UA BLOOD NEGATIVE mg/dL Negative UA PROTEIN 10 mg/dL Negative UA NITRITE NEGATIVE mg/dL Negative UA BILIRUBIN NEGATIVE mg/dL Negative UA SPECIFIC GRAVITY 1.016 1.016-1.022 UA pH 5.5 5.0-9.0 UA UROBILINOGEN <2.0 mg/dL <2.0 UA LEUKOCYTE NEGATIVE Negative Aug 25, 2023 12:20 PM [facility] PSA Specimen Type: SERUM No comment entered. Ordering Provider: JAYDON ARIAS Report Released Date/Time: Feb 25, 2023 03:45 PM Reporting Lab: [address] [address] Performing Lab: [facility] [address] [facility] [place] [address] PSA 1.68 ng/mL 0.00-4.00 Social History: Smoking [...] 17, 2021 12:53 PM VA-TOBACCO NEVER USED [facility] Encounter Notes: All associated encounter notes This section contains the clinical notes associated to the Encounter. Date/Time Encounter Note(s) Provider Source Sep 21, 2023 12:00 AM NONVA CONSULT: LOCAL TITLE: COMMUNITY CARE-CONSULT RESULT NOTE STANDARD TITLE: NONVA CONSULT DATE OF NOTE: SEP 21, 2023 ENTRY DATE: OCT 19, 2023@12:29:37 AUTHOR: ABDULAZIZ LEDESMA MA EXP COSIGNER: URGENCY: STATUS: COMPLETED VistA Imaging - Scanned Document SCANNED DOCUMENT SIGNATURE NOT REQUIRED Electronically Filed: 10/19/2023 by: ABDULAZIZ LEDESMA WOOD HEEL FINISHER ABDULAZIZ LEDESMA [facility]
--- OUTSIDE RECORDS SUMMARY | 2024-02-25 11:24 | XMS_ITS | Encounter Summary ---
Author Name [place] Address [address] [place] [address] Care Team Providers Care Health And Safety Advisor Name Role Phone KARIE SERRATO Primary Care [...] FELICITY TY HEALT H Dec 08, 2019 [id number] [phone] JUANITO KRAUSE PATIENT BCBS [place] (BLUE CARD) PREFERRED PROVIDER ORGANIZAT ION (PPO) FELICITY TY PACE [place]PO RA Mar 09, 2021 [id number] 20 [id number] [phone] SHALONDA SnowERON SPOUSE CAREMARK PRESCRIPT ION [id number] 2 Mar 09, 2018 [id number] [phone] JUANITO KRAUSE PATIENT CAREMARK PRESCRIPT ION [id number] 4 Mar 09, 2016 [id number] JUANITO KRAUSE PATIENT MEDICARE (WNR) MEDICARE (M) PART B Feb 06, 2023 PART B [id number] [facility] JUANITO KRAUSE PATIENT MEDICARE (WNR) MEDICARE (M) PART A Dec 08, 2019 PART A [id number] [facility] [id number] JUANITO KRAUSE PATIENT OPTUM RX PRESCRIPT ION FELICITY TY Mar 09, 2021 [facility] [id number] [phone] JUANITO KRAUSE PATIENT OPTUM RX PRESCRIPT ION FELICITY TY HEALT H CORPO Dec 08, 2019 [facility] [id number] JUANITO KRAUSE PATIENT Selected Encounter This section includes the information on record at [place] for the Encounter. Date/Time Encounter Type Encounter Description Reason Pro vider Source Oct 27, 2023 02:05 PM Outpatient Encounter ADMIN PAT ACTIVTIES (MASNONCT) [...] 08, 2024 12:30 PM [facility] Feb 10, 2024 11:30 AM [facility] Mar 03, 2024 01:30 PM AMBULATORY [...] 17, 2021 12:53 PM VA-TOBACCO NEVER USED [facility] Encounter Notes: All associated encounter notes This section contains the clinical notes associated to the Encounter. Date/Time Encounter Note(s) Provider Source Oct 27, 2023 02:05 PM ADMINISTRATIVE NOTE: LOCAL TITLE: CCC: SCHEDULING ADMINISTRATION STANDARD TITLE: ADMINISTRATIVE NOTE DATE OF NOTE: OCT 27, 2023@14:05:26 ENTRY DATE: OCT 27, 2023@14:05:27 AUTHOR: PHANI HATHAWAY COSIGNER: URGENCY: STATUS: COMPLETED CCC: SCHEDULING ADMINISTRATION Has ADDENDA Patient Demographics Patient Name: JUANITO LANGE Patient Primary Phone: [phone] Patient Primary Address: [address] [place] [address] Patient : 1955 Patient Age: 67 Call Back Number: [phone] Caller/Recipient Relation to Patient: Self Administrative Administrative Note Reason: Other Administrative Note Comments: PT WAS RECOMMENDED TO HAVE A PULMONARY FUNCTION TEST. PT INQUIRING IF TEST CAN BE DONE AT THE CARDINAL LOCATION. PLEASE REACH OUT TO PT IMPORTANT: This note was created by [facility] Clinical Contact Center staff. Please do not alert the staff member by adding them as a signer for future communications. Alerts are not monitored by this user. /brody/ PHANI HATHAWAY [facility] AMSA Signed: 10/27/2023 14:05 Receipt Acknowledged By: 10/28/2023 15:13 /es/ MAIA RAZA LPN LPN 10/27/2023 14:45 /es/ IVONNE NAVAS,RN-BC REGISTERED NURSE (RN) 10/27/2023 ADDENDUM STATUS: COMPLETED Coordinate Measuring Machine Programmer contacted and he states his rheumatology doctor is requesting a PFT study. Coordinate Measuring Machine Programmer requested to have his community provider fax an order to [phone] Serrato to rewrite order within the [place]. Pt. verbalized understanding and agreed to plan. /brody/ IVONNE NAVAS,RN-BC REGISTERED NURSE (RN) Signed: 10/27/2023 14:51 PHANI HATHAWAY [place] [facility]TR[facility]
--- OUTSIDE RECORDS SUMMARY | 2024-02-25 11:24 | XMS_ITS ---
Author Name Department [place] Organization [place] Address [address] [place] [address] Care Team Providers Care Window Decorator Name Role Phone KARIE DE LOS SANTOS [...] FELICITY TY HEALT H Dec 08, 2019 [id number] 20 [id number] SHALONDA SnowJUANITO PATIENT BCBS [place] (BLUE CARD) PREFERRED PROVIDER ORGANIZAT ION (PPO) FELICITY TY [place] RA Mar 09, 2021 [id number] 20 [id number] SHALONDA SnowEORN SPOUSE CAREMARK PRESCRIPT ION [id number] 2 Mar 09, 2018 [id number] SHALONDA SnowJUANITO PATIENT CAREMARK PRESCRIPT ION [id number] 4 Mar 09, 2016 [id number] SHALONDA SnowJUANITO PATIENT MEDICARE (WNR) MEDICARE (M) PART B Feb 06, 2023 PART B [id number] [facility] JUANITO KRAUSE PATIENT MEDICARE (WNR) MEDICARE (M) PART A Dec 08, 2019 PART A [id number] [facility] JUANITO KRAUSE PATIENT OPTUM RX PRESCRIPT ION FELICITY TY Mar 09, 2021 [facility] [id number] [phone] JUANITO KRAUSE PATIENT OPTUM RX PRESCRIPT ION FELICITY TY HEALT H CORPO Dec 08, 2019 [facility] [id number] [phone] JUANITO KRAUSE PATIENT Selected Encounter This section includes the information on record at [place] for the Encounter. Date/Time Encounter Type Encounter Description Reason Pro vider Source Feb 08, 2024 12:30 PM Outpatient Encounter PULMONARY FUNCTION IHE Encounter Template Text not used by [place] Plan of Treatment: Future Appointments (+ 6 months) and Future Tests (+/- 45 days) The Plan of Treatment section includes future care activities for the patient from all [place] treatmentfacilities. This section includes future appointments and future orders which are active, pending or scheduled. Future Appointments This section includes appointments that were scheduled to occur 6 months from the date of the Encounter, up to a maximum of 20 appointments. The data comes from all [place] treatment facilities. Appointment Date/Time Appointment Type Appointme nt Facility Name Feb 10, 2024 11:30 AM AMBULATORY [facility] MEDICINE [facility] Mar 03, 2024 01:30 PM AMBULATORY - MEDICINE [facility] Social History: Smoking Status (Most current) and Tobacco Use (All prior to encounter date) This section includes the most current, and the historical, smoking and tobacco- related health factors from the [place] facility where the Encounter took place. Current Smoking Status This section includes the most current smoking, or tobacco-related health factor, from the [place] facility where the Encounter took place. Date/Time Current Smoking Status Comment Facil ity May 17, 2021 12:53 PM VA-TOBACCO NEVER USED [place] [facility] [place] [facility] Encounter Notes: All associated encounter notes This section contains the clinical notes associated to the Encounter. Date/Time Encounter Note(s) Provider Source Feb 09, 2024 07:09 AM PULMONARY DIAGNOSTIC STUDY CONSULT: LOCAL TITLE: CP PULMONARY FUNCTION TEST STANDARD TITLE: PULMONARY DIAGNOSTIC STUDY CONSULT DATE OF NOTE: FEB 09, 2024@07:09 ENTRY DATE: FEB 09, 2024@07:09:16 AUTHOR: EMETERIO HYMAN MD EXP COSIGNER: URGENCY: STATUS: COMPLETED PROCEDURE SUMMARY CODE: Abnormal DATE/TIME PERFORMED: FEB 08, 2024@12:56 For complete results please go to [facility]. SPIROMETRY: Normal FVC 3.82 L (103%) Normal FEV1 3.10 L (109%) Normal FEV1/FVC After bronchodilator there is no significant change in FVC and FEV1 LUNG VOLUMES: Normal TLC Normal FRC Normal RV DIFFUSION: Mildly reduced diffusion 16.00 ml/min/mmHg (66%) INTERPRETATION: Normal lung volumes Normal spirometry Reduced diffusion There is no significant response to bronchodilator. /brody/ Emeterio Hyman MD Director, [facility] Signed: 02/13/2024 00:53 EMETERIO HYMAN MD [place] [facility]
--- OUTSIDE RECORDS SUMMARY | 2024-02-25 11:24 | XMS_ITS | Encounter Summary ---
Author Name Department of Vetera Affairs [place] Organization Department of [place] Address [address] [place] [address] Care Team Providers Care Senior Field Service Engineer Name Role Phone KARIE DE LOS SANTOS [...] FELICITY TY HEALT H Dec 08, 2019 [id number] 20 [id number] JUANITO KRAUSE PATIENT BCBS [place] (BLUE CARD) PREFERRED PROVIDER ORGANIZAT ION (PPO) FELICITY TY [place] RA Mar 09, 2021 [id number] 20 [id number] SHALONDA SnowERON SPOUSE CAREMARK PRESCRIPT ION [id number] 2 Mar 09, 2018 [id number] [phone] JUANITO KRAUSE PATIENT CAREMARK PRESCRIPT ION [id number] 4 Mar 09, 2016 [id number] JUANITO KRAUSE PATIENT MEDICARE (WNR) MEDICARE (M) PART B Feb 06, 2023 PART B [id number] [facility] JUANITO KRAUSE PATIENT MEDICARE (WNR) MEDICARE (M) PART A Dec 08, 2019 PART A [id number] [facility] JUANITO KRAUSE PATIENT OPTUM RX PRESCRIPT ION FELICITY TY Mar 09, 2021 [facility] [id number] [phone] JUANITO KRAUSE PATIENT OPTUM RX PRESCRIPT ION FELICITY TY HEALT H CORPO Dec 08, 2019 [facility] [id number] JUANITO KRAUSE PATIENT Selected Encounter This section includes the information on record at [place] for the Encounter. Date/Time Encounter Type Encounter Description Reason Pro vider Source Sep 08, 2023 12:00 AM Outpatient Encounter COMMUNITY CARE CONSULT IHE Encounter Template Text not used by [place] Plan of Treatment: Future Appointments (+ 6 months) and Future Tests (+/- 45 days) The Plan of Treatment section includes future care activities for the patient from all [place] treatmentfacilities. This section includes future appointments and future orders which are active, pending or scheduled. Future Appointments This section includes appointments that were scheduled to occur 6 months from the date of the Encounter, up to a maximum of 20 appointments. The data comes from all [place] treatment facilities. Appointment Date/Time Appointment Type Appointme nt Facility Name Sep 28, 2023 03:30 PM AMBULATORY - MEDICINE [facility] Feb 08, 2024 12:30 PM AMBULATORY - MEDICINE [facility] Feb 10, 2024 11:30 AM AMBULATORY - MEDICINE [facility] Mar 03, 2024 01:30 PM AMBULATORY - MEDICINE [facility] Lab Results: +/- 30 days of the encounter This section includes the Chemistry and Hematology Lab Results on record with [place] for the patient. Radiology Reports and Pathology Reports are provided separately, in subsequent sections. Lab Results This section contains the Chemistry/Hematology Results that were resulted 30 days before or 30 daysafter the date of the Encounter. Date/Time Source Result Type Result - Unit Interpretation Reference Range Comment Aug 25, 2023 12:20 PM [facility] BASIC METABOLIC PANEL (fasting) Specime n Type: SERUM No comment entered. Ordering Provider: JAYDON ARIAS Report Released Date/Time: Feb 25, 2023 03:45 PM Reporting Lab: [address] [address] Performing Lab: [address] [address] [facility]A NITROGEN 40 mg/dL H 7-25 GLUCOSE 101 mg/dL H 65-100 SODIUM 136 mmol/L 135-145 POTASSIUM 4.3 mmol/L 3.5-5.0 CHLORIDE 110 mmol/L 100-110 CO2 19 meq/L L 20-30 CREATININE, Serum 2.54 mg/dL H 0.50-1.40 eGFR(CKD-EPI 2020) 27 mL/min L >60 Aug 25, 2023 12:20 PM [facility] LIPID PANEL FASTING Specimen Type: SERUM No comment entered. Ordering Provider: JAYDON ARIAS Report Released Date/Time: Feb 25, 2023 03:45 PM Reporting Lab: [address] [address] Performing Lab: [address] [address] CHOLESTEROL 208 mg/dL H TRIGLYCERIDE 98 mg/dL 0-150 LDL calculated 154 mg/dL H 0-129 CHOL/HDL 6.1 HDL CHOLESTEROL 34 mg/dL L 40-60 Aug 25, 2023 12:20 PM [facility] LIVER FUNCTION Specimen Type: SERUM No comment entered. Ordering Provider: JAYDON ARIAS Report Released Date/Time: Feb 25, 2023 03:45 PM Reporting Lab: [address] [address] Performing Lab: [address] [address] PROTEIN,TOTAL 7.2 g/dL 6.0-8.3 ALBUMIN 3.6 g/dL 3.5-5.0 ALKALINE PHOSPHATASE 66 U/L 40-150 AST 17 U/L 5-34 ALT 11 U/L BILIRUBIN, TOTAL 0.4 mg/dL 0.2-1.2 Aug 25, 2023 12:20 PM [facility] CBC AND DIFF (AUTO) Specimen Type: BLOOD No comment entered. Ordering Provider: JAYDON ARIAS Report Released Date/Time: Feb 25, 2023 03:45 PM Reporting Lab: [facility] [address] [facility] [address] Performing Lab: [facility] [address] [facility] [address] WBC 10.43 10*3/uL 4.50-11.00 RBC 3.68 10*6/uL [...] 10*3/uL 0.00-0.00 Aug 25, 2023 12:20 PM [facility] HEMOGLOBIN A1C PANEL Specimen Type: BLOOD Comment: [...] 25, 2023 03:45 PM Reporting Lab: [address] [address] Performing Lab: [address] [address] HEMOGLOBIN A1C 5.1 4.0-5.6 Aug 25, 2023 12:20 PM [facility] TSH Specimen Type: SERUM No comment entered. Ordering Provider: JAYDON ARIAS Report Released Date/Time: Feb 25, 2023 03:45 PM Reporting Lab: [address] [address] Performing Lab: [address] [address] TSH 1.98 u[IU]/mL 0.35-5.00 Aug 25, 2023 12:20 PM [facility] URINALYSIS Specimen Type: URINE Comment: If Glucose = >500 and Ketones are positive, please alert the Physician. Ordering Provider: JAYDON ARIAS Report Released Date/Time: Feb 25, 2023 03:45 PM Reporting Lab: [address] [address] Performing Lab: [address] [address] UA COLOR Light-Yellow Yellow UA APPEARANCE Clear Clear UA GLUCOSE NEGATIVE mg/dL Negative UA KETONES NEGATIVE mg/dL Negative UA BLOOD NEGATIVE mg/dL Negative UA PROTEIN 10 mg/dL Negative UA NITRITE NEGATIVE mg/dL Negative UA BILIRUBIN NEGATIVE mg/dL Negative UA SPECIFIC GRAVITY 1.016 1.016-1.022 UA pH 5.5 5.0-9.0 UA UROBILINOGEN <2.0 mg/dL <2.0 UA LEUKOCYTE NEGATIVE Negative Aug 25, 2023 12:20 PM [facility] PSA Specimen Type: SERUM No comment entered. Ordering Provider: JAYDON ARIAS Report Released Date/Time: Feb 25, 2023 03:45 PM Reporting Lab: [address] [address] Performing Lab: [place] [facility] [place] [facility] [address] [facility] [address] PSA 1.68 ng/mL 0.00-4.00 Social History: Smoking Status (Most current) and Tobacco Use (All prior to encounter date) This section includes the most current, and the historical, smoking and tobacco- related health factors from the [place] facility where the Encounter took place. Current Smoking Status This section includes the most current smoking, or tobacco-related health factor, from the [place] facility where the Encounter took place. Date/Time Current Smoking Status Comment Facil ity May 17, 2021 12:53 PM [facility] Encounter Notes: All associated encounter notes This section contains the clinical notes associated to the Encounter. Date/Time Encounter Note(s) Provider Source Sep 08, 2023 12:00 AM NONVA CONSULT: LOCAL TITLE: COMMUNITY CARE-CONSULT RESULT NOTE STANDARD TITLE: NONVA CONSULT DATE OF NOTE: SEP 08, 2023 ENTRY DATE: SEP 26, 2023@13:14:57 AUTHOR: ALBA PENG EXP COSIGNER: URGENCY: STATUS: COMPLETED VistA Imaging - Scanned Document SCANNED DOCUMENT SIGNATURE NOT REQUIRED Electronically Filed: 09/26/2023 by: ALBA SANDERS [facility]
[2024-02-25 11:25] VITALS: BP 130/62; PULSE 61; O2SAT 97; BMI 24.5
--- OUTSIDE RECORDS SUMMARY | 2024-02-25 11:25 | XMS_ITS | Encounter Summary ---
Author Name Department [place] Address [address] [place] [address] Care Team Providers Care Engineering Technician Parking Name Role Phone KARIE DE LOS SANTOS [...] FELICITY TY HEALT H Dec 08, 2019 [id number] 20 [id number] JUANITO KRAUSE PATIENT BCBS [place] (BLUE CARD) PREFERRED PROVIDER ORGANIZAT ION (PPO) FELICITY TY [place] RA Mar 09, 2021 [id number] 20 [id number] SHALONDA SnowERON SPOUSE CAREMARK PRESCRIPT ION [id number] 2 Mar 09, 2018 [id number] JUANITO KRAUSE PATIENT CAREMARK PRESCRIPT ION [id number] 4 Mar 09, 2016 [id number] JUANITO KRAUSE PATIENT MEDICARE (WNR) MEDICARE (M) PART B Feb 06, 2023 PART B [id number] JUANITO KRAUSE PATIENT MEDICARE (WNR) MEDICARE (M) PART A Dec 08, 2019 PART A [id number] [facility] JUANITO KRAUSE PATIENT OPTUM RX PRESCRIPT ION FELICITY TY Mar 09, 2021 [facility] [id number] JUANITO KRAUSE PATIENT OPTUM RX PRESCRIPT ION FELICITY TY HEALT H CORPO Dec 08, 2019 [facility] [id number] [phone] JUANITO KRAUSE PATIENT Selected Encounter This section includes the information on record at [place] for the Encounter. Date/Time Encounter Type Encounter Description Reason Provider Source Feb 10, 2024 11:30 AM PULM FUNCTION TEST BY GAS PULMONARY FUNCTION ICD-10-CM M34.9 Systemic sclerosis, unspecified EMETERIO HYMAN MD E Encounter Template Text not used by [place] Assessments - Encounter Diagnoses This section includes the primary and secondary diagnoses documented for the Encounter. Date/Time Primary/Secondary Diagnosis Diagnosis Name Provider Source Feb 13, 2024 12:50 AM PRIMARY Systemic sclerosis, unspecified EMETERIO HYMAN MD [facility] Plan of Treatment: Future Appointments (+ 6 months) and Future Tests (+/- 45 days) The Plan of Treatment section includes future care activities for the patient from all [place] treatmentfacilities. This section includes future appointments and future orders which are active, pending or scheduled. Future Appointments This section includes appointments that were scheduled to occur 6 months from the date of the Encounter, up to a maximum of 20 appointments. The data comes from all [place] treatment facilities. Appointment Date/Time Appointment Type Appointme nt Facility Name Mar 03, 2024 01:30 PM AMBULATORY - MEDICINE [facility] Encounter Notes: All associated encounter notes This section contains the clinical notes associated to the Encounter. Date/Time Encounter Note(s) Provider Source Feb 13, 2024 12:49 AM PULMONARY DIAGNOST IC STUDY REPORT: LOCAL TITLE: CONSULT /DEXTER PFT STANDARD TITLE: PULMONARY DIAGNOSTIC STUDY REPORT DATE OF NOTE: FEB 13, 2024@00:49 ENTRY DATE: FEB 13, 2024@00:49:56 AUTHOR: EMETERIO HYMAN MD EXP COSIGNER: URGENCY: STATUS: COMPLETED Pulmonary Function Test interpretation report completed. See [facility] CPRS for report. /es/ EMETERIO HYMAN MD PULMONARY/CRITICAL CARE SECTION Signed: 02/13/2024 00:50 EMETERIO HYMAN MD [facility]
--- OUTSIDE RECORDS SUMMARY | 2024-02-25 11:25 | XMS_ITS | Encounter Summary ---
Author Name Department of [place] Organization [place] Address [address] [place] [address] Care Team Providers Care Emr Implementation Specialist Name Role Phone KARIE DE LOS [...] FELICITY TY HEALT H Dec 08, 2019 [id number] 20 [id number] JUANITO KRAUSE PATIENT BCBS [place] (BLUE CARD) PREFERRED PROVIDER ORGANIZAT ION (PPO) FELICITY TY [place] RA Mar 09, 2021 [id number] 20 [id number] [phone] SHALONDA SnowERON SPOUSE CAREMARK PRESCRIPT ION [id number] 2 Mar 09, 2018 [id number] JUANITO KRAUSE PATIENT CAREMARK PRESCRIPT ION [id number] 4 Mar 09, 2016 [id number] JUANITO KRAUSE PATIENT MEDICARE (WNR) MEDICARE (M) PART B Feb 06, 2023 PART B [id number] [facility] JUANITO KRAUSE PATIENT MEDICARE (WNR) MEDICARE (M) PART A Dec 08, 2019 PART A [id number] [facility] JUANITO KRAUSE PATIENT OPTUM RX PRESCRIPT ION FELICITY TY Mar 09, 2021 [facility] [id number] JUANITO KRAUSE PATIENT OPTUM RX PRESCRIPT ION FELICITY TY HEALT H CORPO Dec 08, 2019 [facility] [id number] JUANITO KRAUSE PATIENT Selected Encounter This section includes the information on record at [place] for the Encounter. Date/Time Encounter Type Encounter Description Reason Pro vider Source Jan 25, 2024 12:00 AM Outpatient Encounter COMMUNITY CARE CONSULT [...] 08, 2024 12:30 PM [facility] Feb 10, 2024 11:30 AM AMBULATORY - MEDICINE [facility] Mar 03, 2024 01:30 PM AMBULATORY - MEDICINE [facility] Social History: Smoking Status (Most [...] 17, 2021 12:53 PM VA-TOBACCO NEVER USED [facility] Encounter Notes: All associated encounter notes This section contains the clinical notes associated to the Encounter. Date/Time Encounter Note(s) Provider Source Jan 25, 2024 12:00 AM NONVA CONSULT: LOCAL TITLE: COMMUNITY CARE-CONSULT RESULT NOTE STANDARD TITLE: NONVA CONSULT DATE OF NOTE: JAN 25, 2024 ENTRY DATE: FEB 25, 2024@06:22:47 AUTHOR: EULALIO OJEDA EXP COSIGNER: URGENCY: STATUS: COMPLETED VistA Imaging - Scanned Document SCANNED DOCUMENT SIGNATURE NOT REQUIRED Electronically Filed: 02/25/2024 by: EULALIO YEBOAH DE CNTL [facility]
== END 2024-02-25 11:54 | disposition home or self-care (01) ==
PROVIDERS: PCP Internal Medicine; Visit Provider Student in an Organized Health Care Education/Training Program
DX: M34.9 Systemic sclerosis, unspecified (principal)
CPT/HCPCS: 99214

== ENCOUNTER → 2024-02-25 11:18 | Outpatient (BNVA) | payer OTHER, SELFPAY | PROVIDERS: PCP Internal Medicine; Visit Provider Student in an Organized Health Care Education/Training Program | DX: R13.10 Dysphagia, unspecified (principal); M34.9 Systemic sclerosis, unspecified | CPT/HCPCS: 99212 ==

== ENCOUNTER 2024-05-10 12:08 | Outpatient (REF) | payer OTHER, SELFPAY ==
[2024-05-10 13:01] LABS: Anion Gap 11 (12-20); Blood Urea Nitrogen 33 mg/dL (9-16); Calcium 9.2 mg/dL (8.4-10.2); Carbon Dioxide 22 mmol/L (22-29); Chloride 110 mmol/L (96-108); Estimated Glomerular Filt Rate 29; Glucose Random 108 mg/dL (60-115); Potassium 4.3 mmol/L (3.3-5.1); Sodium 139 mmol/L (135-145)
--- OUTSIDE RECORDS SUMMARY | 2024-05-10 15:16 | XMS_ITS | Clinical Summary ---
Author Organization [facility] Facility Address [address] [address] Care Team Providers Care Chief Accounting Officer Name Role Phone Gold Daley MD Primary Care Provider [phone] Allergies No known active allergies Medications carvedilol (COREG) 25 MG tabletIndicatio ns:Stage 3 chronic kidney disease, not otherwise specified (HCC),Acute injury of kidney,Hyperten juan luis Take 1 tablet (25 mg total) by mouth every 12 (twelve) hours 180 tablet 3 Active NIFEdipine XL (Procardia XL) 30 MG 24 hr tablet Take 1 tablet (30 mg total) by mouth 1 (one) time each day Do not crush, chew, or split. 30 tablet 11 3 Active fluticasone (Flonase Allergy Relief) 50 MCG/ACT nasal spray Administer 1 spray into each nostril 1 (one) time each day 16 g 12 3 Active Active Problems Problem Noted Date Diagnosed Date Arthritis 09/26/2022 Overview (12/08/2023): Replacing diagnoses that were inactivated after the 12/08/23 Regulatory Import Hypercholesterolemia 09/26/2022 09/26/2022 Hypertension 09/26/2022 09/26/2022 History of procedure 09/26/2022 Overview (12/08/2023): Colonoscopy 2010 normal, repeat 2020. Replacing diagnoses that were inactivated after the 12/08/23 Regulatory Import Raynaud's disease 09/26/2022 09/26/2022 Renal stone 09/26/2022 09/26/2022 Overview (09/26/2022): CT scan 2018 Seasonal allergic rhinitis 09/26/202209/26 Obstructive sleep apnea syndrome 02/15/2007 09/26/2022 Immunizations Name Administration Dates Next Due Influenza Whole 12/07/2018 Influenza, Unspecified 12/03/2021,12/12/2020 Moderna SARS-COV-2 09/26/2021,02/15/2021, 021,03/14/2020 Tdap 10/23/2010 Tetanus Toxoid, Unspecified 02/18/2001 Social History Tobacco Use Types Packs/Day Years Used Date Smoking Tobacco: Never Smokeless Tobacco: Never Tobacco Cessation:Counseling Given: Not Answered Alcohol Use Standard Drinks/Week Comments Not Currently 0 (1 standard drink = 0.6 oz pur e alcohol) Sex and Gender Information Value Date Recorded Sex Assigned at Not on file Legal Sex Male 9:27 AM EST Gender Identity Not on file Sexual Orientation Not on file Last Filed Vital Signs Vital Sign Reading Time Taken Comments Blood Pressure 140/100 11/06/2022 4:02 PM EDT Pulse 57 11/06/2022 4:02 PM EDT Temperature - - Respiratory Rate - - Oxygen Saturation 90% 09/29/2022 2:17 PM EDT Inhaled Oxygen Concentration - - Weight 72.4 kg (159 lb 9.6 oz) 11/06/2022 4:02 P M EDT Height - - Body Mass Index - - Plan of Treatment Health Maintenance Due Date Last Done Comments Pneumococcal Vaccine: 65+ Years (1 of 2 - PCV) 1961 Colorectal Cancer Screening: Annual FOBT 12/29/2003 Colorectal Cancer Screening: Colonoscopy 12/29/2003 Colorectal Cancer Screening: Sigmoidoscopy 12/29/2003 Influenza Vaccine (#1) 2023 2, 12/12/2020, 11/07/2020, Additional history exists Hepatitis B Vaccine Aged Out No longe r eligible based on patient's age to complete this topic Insurance [facility] 1,2,3 (VACCN) [place] [address] [address] [facility] 1,2,3 (VACCN) Care Teams Chief Accounting Officer Relationship Specialty Start Date End Date Gold Daley MD [facility] [address] [place] [address] PCP - General Family Medicine 04/22/22
--- OUTSIDE RECORDS SUMMARY | 2024-05-10 15:16 | XMS_ITS | Encounter Summary ---
Author Name [facility] Address [address] [place] [id number] Care Team Providers Care Cable Rigger Name Role Phone CARLOS BOYCE Primary Care Provider Unavail le Insurance Providers: All historical and current Section [...] FELICITY TY HEALT H Dec 08, 2019 [id number] [phone] JUANITO KRAUSE PATIENT [place]) PREFERRED PROVIDER ORGANIZAT ION (PPO) FELICITY TY [place] RA Mar 09, 2021 [id number] SHALONDA SnowERON SPOUSE [place] PRESCRIPT ION [id number] Mar 09, 2016 [id number] JUANITO KRAUSE PATIENT MEDICARE (WNR) MEDICARE (M) PART B Feb 06, 2023 PART B [id number] JUANITO KRAUSE PATIENT MEDICARE (WNR) MEDICARE (M) PART A Dec 08, 2019 PART A [id number] JUANITO KRAUSE PATIENT OPTUM RX PRESCRIPT ION FELICITY TY Mar 09, 2021 [facility] [id number] JUANITO KRAUSE PATIENT OPTUM RX PRESCRIPT ION FELICITY TY HEALT H [place] Dec 08, 2019 [facility] [id number] JUANITO KRAUSE PATIENT Selected Encounter This section includes the information on record at [place] for the Encounter. Date/Time Encounter Type Encounter Description Reason Provider Source Mar 03, 2024 01:30 PM OFFICE O/P EST LOW 20 MIN PRIMARY CARE/MEDICINE ICD-10-CM M34.9 Systemic sclerosis, unspecified ROSALINA JORDAN Encounter Template Text not used by [place] Assessments - Encounter Diagnoses This section includes the primary and secondary diagnoses documented for the Encounter. Date/Time Primary/Secondary Diagnosis Diagnosis Name Provider Source Mar 03, 2024 01:54 PM PRIMARY Systemic sclerosis, unspecified ROSALINA JORDAN Plan of Treatment: Future Appointments (+ 6 months) and Future Tests (+/- 45 days) The Plan of Treatment section includes future care activities for the patient from all [place] treatmentfacilities. This section includes future appointments and future orders which are active, pending or scheduled. Future Appointments This section includes appointments that were scheduled to occur 6 months from the date of the Encounter, up to a maximum of 20 appointments. The data comes from all [place] treatment facilities. Appointment Date/Time Appointment Type Appointme nt Facility Name May 17, 2024 01:45 PM AMBULATORY - MEDICINE [place] [facility] Active, Pending, and Scheduled Orders This section includes a listing of several types of active, pending, and scheduled orders, including clinic medications orders, diagnostic test orders, procedure orders and consult orders; where the start date of the order is 45 days before the date of the Encounter or 45 days after the date of theEncounter. The data comes from all [place] treatment facilities. Test Date/Time Test Type Test Details Facility Name Mar 03, 2024 01:48 PM Consult Order [facility]PHROLOGY [facility] Mar 03, 2024 01:48 PM Consult Order COMM[facility] C[facility]-RHEUMATOLOGY [facility] Vital Signs: All taken on the encounter date This section contains inpatient and outpatient Vital Signs collected on the date of the Encounter. Date/Time Temperature Pulse Blood Pressure Respiratory Rate SP02 Pain Height Weight Body Mass Index Source Mar 03, 2024 09:19 AM 97.4 77 114/74 18 98 165 24 [facility] I[facility] Social History: Smoking Status (Most current) and Tobacco Use (All prior to encounter date) This section includes the most current, and the historical, smoking and tobacco- related health factors from the [place] facility where the Encounter took place. Current Smoking Status This section includes the most current smoking, or tobacco-related health factor, from the [place] facility where the Encounter took place. Date/Time Current Smoking Status Comment Facil ity Sep 01, 2023 01:00 PM VA-TOBACCO NEVER USED [facility] Tobacco Use History This section includes a history of the smoking, or tobacco-related health factors, that were collected on or before the date of the Encounter. The data comes from the [place] facility where the Encounter took place. Date/Time Smoking Status/Tobacco Use Comment F acility Jun 15, 2017 01:14 PM LIFETIME NON-TOBACCO USER [facility] Jun 20, 2016 10:56 AM LIFETIME NON-TOBACCO USER [facility] Encounter Notes: All associated encounter notes This section contains the clinical notes associated to the Encounter. Date/Time Encounter Note(s) Provider Source Mar 03, 2024 01:48 PM PHYSICIAN TALISHA T NOTE: LOCAL TITLE: HARRY NOTE STANDARD TITLE: PHYSICIAN NURSING INFORMATICS CLINICAL ANALYST NOTE DATE OF NOTE: MAR 03, 2024@13:48 ENTRY DATE: MAR 03, 2024@13:48:39 AUTHOR: ROSALINA JORDAN COSIGNER: URGENCY: STATUS: COMPLETED S - f/u pft's O - PFT's: reviewed w/ pt A/P - Systemic Sclerosis, Diffuse - update referrals to Rheum and Nephro - PFT's NL Spirometry in MAR 01 RTC SEPTEMBER 30 - labs before Medication Reconciliation: Outpatient: Has the patient been taking medications as documented in the EMLR? YES: The patient has been taking medications as documented in the EMLR. Essential Medication List for Review used to complete this medication reconciliation. INCLUDED IN THIS LIST: Alphabetical list of active outpatient prescriptions dispensed from this [place] (local) and dispensed from another [place] or [facility] facility (remote) as well as inpatient orders (local, pending and active), local clinic medications, locally documented non-VA medications, and local prescriptions that have or been discontinued in the past 90 days. - All changes in medications, including all non-VA/Herbal/OTC medications were entered into [facility]S. Changes: nt - If there were any medications the patient should no longer take, they were discontinued. - The patient/caregiver was instructed to update this list, discard old lists, and take this list to the next appointment, whether with a VA or non-VA provider. /brody/ ROSALINA JORDAN PA-C STAFF PHYSICIAN NURSING INFORMATICS CLINICAL ANALYST Signed: 03/03/2024 13:54 ROSALINA JORDAN Mar 03, 2024 01:46 PM PREVENTIVE MEDICIN E NURSING NOTE: LOCAL TITLE: CLINICAL REMINDERS/NURSING STANDARD TITLE: PREVENTIVE MEDICINE NURSING NOTE DATE OF NOTE: MAR 03, 2024@13:46 ENTRY DATE: MAR 03, 2024@13:46:47 AUTHOR: RADHA WEAVER EXP COSIGNER: URGENCY: STATUS: COMPLETED only wanted to discuss his PFT results, never called. no CR completed. /brody/ RADHA WEAVER LPN LICENSED PRACTICAL NURSE Signed: 03/03/2024 13:47 RADHA WEAVER
--- OUTSIDE RECORDS SUMMARY | 2024-05-10 15:16 | XMS_ITS | Continuity of Care Document ---
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 It does not include entries that were removed or entered in error. Problem Status Onset Date Problem Type Date of Resolution Comments Source Cyst - pilonidal Active Condition [place] Essential hypertension Active Condition [place] History of knee surgery Active Condition Jun 20, 2016 Entered By: JAYDON ARIAS Comment: R in early [place] History of shoulder surgery Active Condition Jun 20 Entered By: JAYDON ARIAS Comment: R in s [place] Impaired fasting glucose Active Condition [place] Left inguinal hernia Active Condition Feb 25, 2023 Entered By: JAYDON ARIAS Comment: repair 12/2022 [place] Pain of right shoulder joint Active Condition Feb 25, 2023 Entered By: JAYDON ARIAS Comment: right shoulder replacement 08/2021 [place] Postnasal drip Active Condition [facility] [place] Systemic sclerosis, diffuse Active Condition Mar 03, 2024 Entered By: ROSALINA JORDAN Comment: PFT's MAR 01: NL SpirometryDec 2023 Entered By: ROSALINA JORDAN Comment: Barium Swallow Planned APR 02 (but has no dysphagia yet)Mar 03, 2024 Entered By: ROSALINA JORDAN Comment: Sees Both Rheum and Nephro at [place] for the Diffuse SS : [place] Diagnosis: ICD-10-CM M34.9 Systemic sclerosis, unspecified Active Diagnosis [place] Diagnosis: ICD-10-CM I10 Essential (primary) hypertension Active Diagnosis [place] Medications Combined list of outpatient medications from Department of [facility] and Veterans [facility] facilities.Medications provided include 1) outpatient medications from [...] ONE HOUR BEFORE IF NEEDED ORAL 04/28/2023 [id number] SIERRA ARIAS 2023 2 [place] ASCORBIC ACID TAB TAKE BY MOUTH DAILY ORAL ACTIVE SIERRA ARIAS 2016 [place] CARVEDILOL 25MG TAB TAKE ONE TABLET BY MOUTH TWICE DAILY FOR HIGH BLOOD PRESSURE ORAL ACTIVE 12/25/2024 [id number] MAGALI APOLINARI O 2023 180 [place] CARVEDILOL 25MG TAB TAKE ONE TABLET BY MOUTH TWICE DAILY FOR HIGH BLOOD PRESSURE ORAL DISCONT INUED 12/25/2024 [id number] MAGALI APOLINARI O 2023 180 [place] CARVEDILOL 25MG TAB TAKE ONE TABLET BY MOUTH TWICE DAILY FOR HIGH BLOOD PRESSURE ORAL DISCONT INUED 02/26/2024 [id number] SIERRA ARIAS 2022 180 [place] FLUTICASONE PROPIONATE 50MCG/SPRAY SOLN,NASAL, 16GM INSTILL 2 SPRAYS INTO EACH NOSTRIL ONCE DAILY NASAL ACTIVE SIERRA ARIAS 2022 [place] NIFEDIPINE (EQV-CC) 30MG TAB,SA TAKE ONE TABLET BY MOUTH TWICE DAILY FOR HIGH BLOOD PRESSURE DO NOT TAKE WITH GRAPEFRU IT JUICE ORAL ACTIVE 09/01/2024 [id number] ALIA DE LOS SANTOSARI O 2023 180 [place] NIFEDIPINE (EQV-CC) 30MG TAB,SA TAKE ONE TABLET BY MOUTH TWICE DAILY FOR HIGH BLOOD PRESSURE DO NOT TAKE WITH GRAPEFRU IT JUICE ORAL DISCONT INUED 02/26/2024 [id number] SIERRA ARIAS 2022 180 [place] OTHER CAP/TAB TAKE RENOCAP BY MOUTH ONCE DAILY ORAL ACTIVE SIERRA ARIAS 2022 [place] RENAL MULTIVIT W/1MG OR LESS FOLIC ACID TAB TAKE 1 TABLET BY MOUTH ONCE DAILY FOR VITAMIN SUPPLEME NTATION ORAL ACTIVE 03/04/2025 [id number] JAMES JORDAN SB 2024 90 [place] RENAL MULTIVIT W/1MG OR LESS FOLIC ACID TAB TAKE 1 TABLET BY MOUTH ONCE DAILY FOR VITAMIN SUPPLEME NTATION ORAL DISCONT INUED 03/16/2024 [id number] SIERRA ARIAS 2023 90 [place] Immunizations Combined list of available immunizations from the Department of Defense and Veterans Affairs facilities. 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 Status Comments Source INFLUENZA, UNSPECIFIED FORMULATION 2020 [...] INFLUENZA, SEASONAL, INJECTABLE 2016 141 complet ed [facility] INFLUENZA, SEASONAL, INJECTABLE 2016 141 complet ed [facility] FLU,3 YRS (HISTORICAL) 2015 88 complet ed [facility] TDAP 2015 115 complet ed recd [facility] t 2015 [facility] [place] Results Combined list of recent chemistry, hematology and other laboratory results from Department of Defense and Veterans Affairs, ranging from 15 months to all on record, depending upon the facility. Order Name Results Value Reference Range Date Interpretation Specimen Comments Source LIPID PANEL FASTING CHOLESTERO L [MASS/VOLU ME] IN SERUM OR PLASMA 208 mg/dL 08/24 H Specimen Type: SERUM No comment entered. Ordering Provider: LEYDI ARIAS Report Released Date/Time: Feb 25, 2023 03:45 PM Reporting Lab: [facility] [address] [address] Performing Lab: [facility] [address] [facility] [address] [place] LIPID PANEL FASTING TRIGLYCERI DE [MASS/VOLU ME] IN SERUM OR PLASMA 98 mg/dL 0 - 150 08/24 Specimen Type: SERUM No comment entered. Ordering Provider: LEYDI ARIAS IE Report Released Date/Time: Feb 25, 2023 03:45 PM Reporting Lab: [facility] [address] [facility] [address] Performing Lab: [facility]ITALRL TRN [facility] [address] [facility] [address] [place] LIPID PANEL FASTING CHOLESTERO L IN LDL [MASS/VOLU ME] IN SERUM OR PLASMA BY CALCULATIO N 154 mg/dL 0 - 129 08/24 H Specimen Type: SERUM No comment entered. Ordering Provider: LEYDI ARIAS IE Report Released Date/Time: Feb 25, 2023 03:45 PM Reporting Lab: [facility] [address] [facility] [address] Performing Lab: [facility]RL [facility]ITALUSE[address] [address] [place] LIPID PANEL FASTING CHOLESTERO L.TOTAL/CH OLESTEROL IN HDL [MASS RATIO] IN SERUM OR PLASMA 6.1 08/24 Specimen Type: SERUM No comment entered. Ordering Provider: LEYDI ARIAS IE Report Released Date/Time: Feb 25, 2023 03:45 PM Reporting Lab: [facility] [address] [facility] [address] Performing Lab: [facility]ITALRL TRN [facility] [address] [facility] [address] [place] LIPID PANEL FASTING CHOLESTERO L IN HDL [MASS/VOLU ME] IN SERUM OR PLASMA 34 mg/dL 40 - 60 08/24 L Specimen Type: SERUM No comment entered. Ordering Provider: LEYDI ARIAS IE Report Released Date/Time: Feb 25, 2023 03:45 PM Reporting Lab: [facility]ERN [facility] [address] [facility] [address] Performing Lab: [facility] [address] [facility] [address] [place] BASIC METABOLI C PANEL (fasting ) UREA NITROGEN [MASS/VOLU ME] IN SERUM OR PLASMA 40 mg/dL 7 - 25 08/24 H Specimen Type: SERUM No comment entered. Ordering Provider: LEYDI ARIAS IE Report Released Date/Time: Feb 25, 2023 03:45 PM Reporting Lab: [facility] [address] [facility] [address] Performing Lab: [facility] [address] [address] [place] BASIC METABOLI C PANEL (fasting ) GLUCOSE [MASS/VOLU ME] IN SERUM OR PLASMA 101 mg/dL 65 - 100 08/24 H Specimen Type: SERUM No comment entered. Ordering Provider: LEYDI ARIAS IE Report Released Date/Time: Feb 25, 2023 03:45 PM Reporting Lab: [facility] [address] [address] Performing Lab: [facility]ERN [address] [address] [employer] BASIC METABOLI C PANEL (fasting ) SODIUM [MOLES/VOL UME] IN SERUM OR PLASMA 136 mmol/L 135 - 145 08/24 Specimen Type: SERUM No comment entered. Ordering Provider: LEYDI ARIAS IE Report Released Date/Time: Feb 25, 2023 03:45 PM Reporting Lab: [facility] [address] [address] Performing Lab: [facility]ERN [address] [address] [place] BASIC METABOLI C PANEL (fasting ) POTASSIUM [MOLES/VOL UME] IN SERUM OR PLASMA 4.3 mmol/L 3.5 - 5.0 08/24 Specimen Type: SERUM No comment entered. Ordering Provider: LEYDI ARIAS IE Report Released Date/Time: Feb 25, 2023 03:45 PM Reporting Lab: [facility] [address] [address] Performing Lab: [facility] [address] [facility] [address] [place] BASIC METABOLI C PANEL (fasting ) CHLORIDE [MOLES/VOL UME] IN SERUM OR PLASMA 110 mmol/L 100 - 110 08/24 Specimen Type: SERUM No comment entered. Ordering Provider: LEYDI ARIAS IE Report Released Date/Time: Feb 25, 2023 03:45 PM Reporting Lab: [address] [address] Performing Lab: [facility] [address] [address] [place] BASIC METABOLI C PANEL (fasting ) CARBON DIOXIDE, TOTAL [MOLES/VOL UME] IN SERUM OR PLASMA 19 meq/L 20 - 30 08/24 L Specimen Type: SERUM No comment entered. Ordering Provider: LEYDI ARIAS IE Report Released Date/Time: Feb 25, 2023 03:45 PM Reporting Lab: [address] [address] Performing Lab: [facility] [address] [address] [place] BASIC METABOLI C PANEL (fasting ) CREATININE [MASS/VOLU ME] IN SERUM OR PLASMA 2.54 mg/dL 0.50 - 1.40 08/24 H Specimen Type: SERUM No comment entered. Ordering Provider: LEYDI ARIAS IE Report Released Date/Time: Feb 25, 2023 03:45 PM Reporting Lab: [address] [address] Performing Lab: [address] [address] [place] BASIC METABOLI C PANEL (fasting ) GLOMERULAR FILTRATION RATE/1.73 SQ M.PREDICTE D [VOLUME RATE/AREA] IN SERUM, PLASMA OR BLOOD BY CREATININE -BASED FORMULA (CKD-EPI 2020) 27 mL/min 60 08/24 L Specimen Type: SERUM No comment entered. Ordering Provider: LEYDI ARIAS IE Report Released Date/Time: Feb 25, 2023 03:45 PM Reporting Lab: [facility] [place] [facility] [address] [facility] [address] Performing Lab: [facility] [place] [facility] [address] [facility] [address] [place] LIVER FUNCTION PROTEIN [MASS/VOLU ME] IN SERUM OR PLASMA 7.2 g/dL 6.0 - 8.3 08/24 Specimen Type: SERUM No comment entered. Ordering Provider: LEYDI ARIAS IE Report Released Date/Time: Feb 25, 2023 03:45 PM Reporting Lab: [facility] [place] [facility] [address] [facility] [address] Performing Lab: [facility]ITALRL TRN [facility]ITAL[facility] [address] [place] LIVER FUNCTION ALBUMIN [MASS/VOLU ME] IN SERUM OR PLASMA 3.6 g/dL 3.5 - 5.0 08/24 Specimen Type: SERUM No comment entered. Ordering Provider: LEYDI ARIAS IE Report Released Date/Time: Feb 25, 2023 03:45 PM Reporting Lab: [facility] TRN [facility]ITAL[facility] [address] [facility] [address] Performing Lab: [facility] TRN [facility]ITALUSETS [address] [address] [place] LIVER FUNCTION ALKALINE PHOSPHATAS E [ENZYMATIC ACTIVITY/V OLUME] IN SERUM OR PLASMA 66 U/L 40 - 150 08/24 Specimen Type: SERUM No comment entered. Ordering Provider: LEYDI ARIAS IE Report Released Date/Time: Feb 25, 2023 03:45 PM Reporting Lab: [facility] [place] [address] [address] Performing Lab: [facility]ITALRL TRN [facility]ITALUSE[address] [address] [place] LIVER FUNCTION ASPARTATE AMINOTRANS FERASE [ENZYMATIC ACTIVITY/V OLUME] IN SERUM OR PLASMA 17 U/L 5 - 34 08/24 Specimen Type: SERUM No comment entered. Ordering Provider: LEYDI ARIAS IE Report Released Date/Time: Feb 25, 2023 03:45 PM Reporting Lab: [facility] [place] [address] [place] [address] Performing Lab: [facility] [address] [facility] [address] [place] LIVER FUNCTION ALANINE AMINOTRANS FERASE [ENZYMATIC ACTIVITY/V OLUME] IN SERUM OR PLASMA 11 U/L 08/24 Specimen Type: SERUM No comment entered. Ordering Provider: LEYDI ARIAS IE Report Released Date/Time: Feb 25, 2023 03:45 PM Reporting Lab: [address] [address] Performing Lab: [address] [address] [place] LIVER FUNCTION BILIRUBIN. TOTAL [MASS/VOLU ME] IN SERUM OR PLASMA 0.4 mg/dL 0.2 - 1.2 08/24 Specimen Type: SERUM No comment entered. Ordering Provider: LEYDI ARIAS IE Report Released Date/Time: Feb 25, 2023 03:45 PM Reporting Lab: [address] [address] Performing Lab: [address] [address] [place] HEMOGLOB IN A1C PANEL HEMOGLOBIN [...] [email or web address] Ordering Provider: LEYDI ARIAS IE Report Released Date/Time: Feb 25, 2023 03:45 PM Reporting Lab: [address] [address] Performing Lab: [address] [address] [place] TSH THYROTROPI N [UNITS/VOL UME] IN SERUM OR PLASMA 1.98 u[IU]/mL 0.35 - 5.00 08/24 Specimen Type: SERUM No comment entered. Ordering Provider: LEYDI ARIAS IE Report Released Date/Time: Feb 25, 2023 03:45 PM Reporting Lab: [facility]RB[facility] SOUTHTRN [address] [address] Performing Lab: [facility] [address] [address] [place] CBC AND DIFF (AUTO) LEUKOCYTES [#/VOLUME] IN BLOOD BY AUTOMATED COUNT 10.43 10*3/uL 4.50 - 11.00 08/24 Specimen Type: BLOOD No comment entered. Ordering Provider: LEYDI ARIAS IE Report Released Date/Time: Feb 25, 2023 03:45 PM Reporting Lab: [facility] [address] [address] Performing Lab: [facility]ERN [address] [address] [place] CBC AND DIFF (AUTO) ERYTHROCYT ES [#/VOLUME] IN BLOOD BY AUTOMATED COUNT 3.68 10*6/uL 4.23 - 5.66 08/24 L Specimen Type: BLOOD No comment entered. Ordering Provider: LEYDI ARIAS IE Report Released Date/Time: Feb 25, 2023 03:45 PM Reporting Lab: [facility]ERN [address] [address] Performing Lab: [facility]ERN [address] [address] [place] CBC AND DIFF (AUTO) HEMOGLOBIN [MASS/VOLU ME] IN BLOOD 10.7 g/dL 12.8 - 17 08/24 L Specimen Type: BLOOD No comment entered. Ordering Provider: LEYDI ARIAS IE Report Released Date/Time: Feb 25, 2023 03:45 PM Reporting Lab: [facility]TRN [address] [address] Performing Lab: [facility] [address] [address] [place] CBC AND DIFF (AUTO) HEMATOCRIT [VOLUME FRACTION] OF BLOOD BY AUTOMATED COUNT 33.6 39.2 - 50.4 08/24 L Specimen Type: BLOOD No comment entered. Ordering Provider: LEYDI ARIAS IE Report Released Date/Time: Feb 25, 2023 03:45 PM Reporting Lab: [facility] [address] [address] Performing Lab: [address] [address] [place] CBC AND DIFF (AUTO) MCV [ENTITIC VOLUME] BY AUTOMATED COUNT 91.3 fL 82 - 99 08/24 Specimen Type: BLOOD No comment entered. Ordering Provider: LEYDI ARIAS IE Report Released Date/Time: Feb 25, 2023 03:45 PM Reporting Lab: [address] [address] Performing Lab: [address] [address] [place] CBC AND DIFF (AUTO) MCHC [MASS/VOLU ME] BY AUTOMATED COUNT 31.8 g/dL 30.8 - 35.1 08/24 Specimen Type: BLOOD No comment entered. Ordering Provider: LEYDI ARIAS IE Report Released Date/Time: Feb 25, 2023 03:45 PM Reporting Lab: [address] [address] Performing Lab: [address] [address] [place] CBC AND DIFF (AUTO) PLATELETS [#/VOLUME] IN BLOOD BY AUTOMATED COUNT 287 10*3/uL 140 - 360 08/24 Specimen Type: BLOOD No comment entered. Ordering Provider: LEYDI ARIAS IE Report Released Date/Time: Feb 25, 2023 03:45 PM Reporting Lab: [facility] [address] [address] Performing Lab: [address] [address] [place] CBC AND DIFF (AUTO) ERYTHROCYT E DISTRIBUTI ON WIDTH [RATIO] BY AUTOMATED COUNT 14.6 12.0 - 16.0 08/24 Specimen Type: BLOOD No comment entered. Ordering Provider: LEYDI ARIAS IE Report Released Date/Time: Feb 25, 2023 03:45 PM Reporting Lab: [facility] [place] [address] [address] Performing Lab: [facility]ITALRL WSTRN [facility] [address] [address] [place] CBC AND DIFF (AUTO) MONOCYTES [#/VOLUME] IN BLOOD BY AUTOMATED COUNT 0.80 10*3/uL 0.30 - 1.10 08/24 Specimen Type: BLOOD No comment entered. Ordering Provider: LEYDI ARIAS IE Report Released Date/Time: Feb 25, 2023 03:45 PM Reporting Lab: [facility] TRN [address] [address] Performing Lab: [facility]ITALRL TRN [facility] [address] [address] [place] CBC AND DIFF (AUTO) MCH [ENTITIC MASS] BY AUTOMATED COUNT 29.1 pg 26.2 - 32.6 08/24 Specimen Type: BLOOD No comment entered. Ordering Provider: LEYDI ARIAS IE Report Released Date/Time: Feb 25, 2023 03:45 PM Reporting Lab: [facility]TRN [address] [address] Performing Lab: [facility]RB[facility]OUTHTRN [facility]ITALUSE[address] [address] [place] CBC AND DIFF (AUTO) NEUTROPHIL S/100 LEUKOCYTES IN BLOOD BY AUTOMATED COUNT 76.3 43.7 - 75.8 08/24 H Specimen Type: BLOOD No comment entered. Ordering Provider: LEYDI ARIAS IE Report Released Date/Time: Feb 25, 2023 03:45 PM Reporting Lab: [facility]ITALRL WSTRN [facility]ITAL[facility]ETS [address] [address] Performing Lab: [facility]ITALRL TRN [address] [address] [place] CBC AND DIFF (AUTO) LYMPHOCYTE S/100 LEUKOCYTES IN BLOOD BY AUTOMATED COUNT 8.7 14.0 - 42.3 08/24 L Specimen Type: BLOOD No comment entered. Ordering Provider: LEYDI ARIAS IE Report Released Date/Time: Feb 25, 2023 03:45 PM Reporting Lab: [facility]ITAL[facility]N [facility] [address] [facility] [address] Performing Lab: [facility]ERN [address] [address] [place] CBC AND DIFF (AUTO) MONOCYTES/ 100 LEUKOCYTES IN BLOOD BY AUTOMATED COUNT 7.7 5.1 - 13.7 08/24 Specimen Type: BLOOD No comment entered. Ordering Provider: LEYDI ARIAS IE Report Released Date/Time: Feb 25, 2023 03:45 PM Reporting Lab: [facility] [address] [address] Performing Lab: [facility]ITALR[address] [address] [place] CBC AND DIFF (AUTO) EOSINOPHIL S/100 LEUKOCYTES IN BLOOD BY AUTOMATED COUNT 6.5 0.4 - 6.8 08/24 Specimen Type: BLOOD No comment entered. Ordering Provider: LEYDI ARIAS IE Report Released Date/Time: Feb 25, 2023 03:45 PM Reporting Lab: [facility] [address] [address] Performing Lab: [facility] [address] [address] [place] CBC AND DIFF (AUTO) BASOPHILS/ 100 LEUKOCYTES IN BLOOD BY AUTOMATED COUNT 0.5 0.1 - 2.0 08/24 Specimen Type: BLOOD No comment entered. Ordering Provider: LEYDI ARIAS IE Report Released Date/Time: Feb 25, 2023 03:45 PM Reporting Lab: [facility] [address] [address] Performing Lab: [facility] [address] [address] [place] CBC AND DIFF (AUTO) NEUTROPHIL S [#/VOLUME] IN BLOOD BY AUTOMATED COUNT 7.96 10*3/uL 2.20 - 7.60 08/24 H Specimen Type: BLOOD No comment entered. Ordering Provider: LEYDI ARIAS IE Report Released Date/Time: Feb 25, 2023 03:45 PM Reporting Lab: [facility]TRN [address] [address] Performing Lab: [facility] [address] [address] [place] CBC AND DIFF (AUTO) LYMPHOCYTE S [#/VOLUME] IN BLOOD BY AUTOMATED COUNT 0.91 10*3/uL 1.00 - 3.20 08/24 L Specimen Type: BLOOD No comment entered. Ordering Provider: LEYDI ARIAS IE Report Released Date/Time: Feb 25, 2023 03:45 PM Reporting Lab: [facility] [address] [address] Performing Lab: [facility] [address] [address] [place] CBC AND DIFF (AUTO) EOSINOPHIL S [#/VOLUME] IN BLOOD BY AUTOMATED COUNT 0.68 10*3/uL 0.03 - 0.44 08/24 H Specimen Type: BLOOD No comment entered. Ordering Provider: LEYDI ARIAS IE Report Released Date/Time: Feb 25, 2023 03:45 PM Reporting Lab: [facility] [address] [address] Performing Lab: [facility] [address] [address] [place] CBC AND DIFF (AUTO) BASOPHILS [#/VOLUME] IN BLOOD BY AUTOMATED COUNT 0.05 10*3/uL 0.01 - 0.13 08/24 Specimen Type: BLOOD No comment entered. Ordering Provider: LEYDI ARIAS IE Report Released Date/Time: Feb 25, 2023 03:45 PM Reporting Lab: [facility] [address] [address] Performing Lab: [facility] [address] [address] [place] CBC AND DIFF (AUTO) IMMATURE GRANULOCYT ES/100 LEUKOCYTES IN BLOOD BY AUTOMATED COUNT 0.3 0.0 - 0.7 08/24 Specimen Type: BLOOD No comment entered. Ordering Provider: LEYDI ARIAS IE Report Released Date/Time: Feb 25, 2023 03:45 PM Reporting Lab: [facility] [address] [address] Performing Lab: [address] [address] [place] CBC AND DIFF (AUTO) IMMATURE GRANULOCYT ES [#/VOLUME] IN BLOOD 0.03 10*3/uL 0.00 - 0.06 08/24 Specimen Type: BLOOD No comment entered. Ordering Provider: LEYDI ARIAS IE Report Released Date/Time: Feb 25, 2023 03:45 PM Reporting Lab: [address] [address] Performing Lab: [address] [address] [place] CBC AND DIFF (AUTO) NRBC % 0.0 0.0 - 0.0 08/24 Specimen Type: BLOOD No comment entered. Ordering Provider: LEYDI ARIAS IE Report Released Date/Time: Feb 25, 2023 03:45 PM Reporting Lab: [address] [address] Performing Lab: [address] [address] [place] CBC AND DIFF (AUTO) NRBC, ABS 0.00 10*3/uL 0.00 - 0.00 08/24 Specimen Type: BLOOD No comment entered. Ordering Provider: LEYDI ARIAS IE Report Released Date/Time: Feb 25, 2023 03:45 PM Reporting Lab: [address] [address] Performing Lab: [address] [address] [place] PSA PROSTATE SPECIFIC AG [MASS/VOLU ME] IN SERUM OR PLASMA 1.68 ng/mL 0.00 - 4.00 08/24 Specimen Type: SERUM No comment entered. Ordering Provider: LEYDI ARIAS Report Released Date/Time: Feb 25, 2023 03:45 PM Reporting Lab: [facility]TRN [facility]ITALUSETS [address] [address] Performing Lab: [facility] [address] [address] [place] URINALYS IS COLOR OF URINE Light-Ye llow 08/24 Specimen Type: URINE Comment: If Glucose = >500 and Ketones are positive, please alert the Physician. Ordering Provider: LEYDI ARIAS Report Released Date/Time: Feb 25, 2023 03:45 PM Reporting Lab: [facility] [address] [address] Performing Lab: [address] [address] [place] [facility]INAL[place] IS APPEARANCE OF URINE Clear 08/24 Specimen Type: URINE Comment: If Glucose = >500 and Ketones are positive, please alert the Physician. Ordering Provider: LEYDI ARIAS Report Released Date/Time: Feb 25, 2023 03:45 PM Reporting Lab: [facility] [address] [address] Performing Lab: [facility] [address] [place] [facility]IN[place] IS GLUCOSE [MASS/VOLU ME] IN URINE NEGATIVE mg/dL 08/24 Specimen Type: URINE Comment: If Glucose = >500 and Ketones are positive, please alert the Physician. Ordering Provider: LEYDI ARIAS IE Report Released Date/Time: Feb 25, 2023 03:45 PM Reporting Lab: [facility] [address] Performing Lab: [facility] [address] [place] URIN[place] IS KETONES [MASS/VOLU ME] IN URINE BY TEST STRIP NEGATIVE mg/dL 08/24 Specimen Type: URINE Comment: If Glucose = >500 and Ketones are positive, please alert the Physician. Ordering Provider: LEYDI ARIAS Report Released Date/Time: Feb 25, 2023 03:45 PM Reporting Lab: [address] [address] Performing Lab: [address] [address] [place]INAL[place] IS ERYTHROCYT ES [PRESENCE] IN URINE SEDIMENT BY LIGHT MICROSCOPY NEGATIVE mg/dL 08/24 Specimen Type: URINE Comment: If Glucose = >500 and Ketones are positive, please alert the Physician. Ordering Provider: LEYDI ARIAS Report Released Date/Time: Feb 25, 2023 03:45 PM Reporting Lab: [address] [address] Performing Lab: [address] [address] [place] URINALYS IS PROTEIN [MASS/VOLU ME] IN URINE BY TEST STRIP 10 mg/dL 08/24 Specimen Type: URINE Comment: If Glucose = >500 and Ketones are positive, please alert the Physician. Ordering Provider: LEYDI ARIAS Report Released Date/Time: Feb 25, 2023 03:45 PM Reporting Lab: [address] [address] Performing Lab: [address] [address] [place] URINALYS IS NITRITE [PRESENCE] IN URINE NEGATIVE mg/dL 08/24 Specimen Type: URINE Comment: If Glucose = >500 and Ketones are positive, please alert the Physician. Ordering Provider: LEYDI ARIAS Report Released Date/Time: Feb 25, 2023 03:45 PM Reporting [facility]: [facility] [address] [address] Performing Lab: [address] [address] [place] URINALYS IS BILIRUBIN. TOTAL [PRESENCE] IN URINE NEGATIVE mg/dL 08/24 Specimen Type: URINE Comment: If Glucose = >500 and Ketones are positive, please alert the Physician. Ordering Provider: LEYDI ARIAS Report Released Date/Time: Feb 25, 2023 03:45 PM Reporting Lab: [address] [address] Performing Lab: [address] [address] [employer] URINAL[place] IS SPECIFIC GRAVITY OF URINE BY REFRACTOME TRY 1.016 1.016 - 1.022 08/24 Specimen Type: URINE Comment: If Glucose = >500 and Ketones are positive, please alert the Physician. Ordering Provider: LEYDI ARIAS IE Report Released Date/Time: Feb 25, 2023 03:45 PM Reporting Lab: [address] [address] Performing Lab: [address] [address] [place] PH OF URINE BY TEST STRIP 5.5 5.0 - 9.0 08/24 Specimen Type: URINE Comment: If Glucose = >500 and Ketones are positive, please alert the Physician. Ordering Provider: LEYDI ARIAS Report Released Date/Time: Feb 25, 2023 03:45 PM Reporting Lab: [address] [address] Performing Lab: [address] [address] [place] URIN[place] IS UROBILINOG EN [MASS/VOLU ME] IN URINE BY TEST STRIP <2.0mg/d L <2.0 - 2.0 08/24 Specimen Type: URINE Comment: If Glucose = >500 and Ketones are positive, please alert the Physician. Ordering Provider: LEYDI ARIAS IE Report Released Date/Time: Feb 25, 2023 03:45 PM Reporting Lab: [address] [address] Performing Lab: [facility] [address] [address] [place] URINALYS IS LEUKOCYTE ESTERASE [PRESENCE] IN URINE BY TEST STRIP NEGATIVE 08/24 Specimen Type: URINE Comment: If Glucose = >500 and Ketones are positive, please alert the Physician. Ordering Provider: LEYDI ARIAS IE Report Released Date/Time: Feb 25, 2023 03:45 PM Reporting Lab: [address] [address] Performing Lab: [address] [address] [place] UREA NITROGEN UREA NITROGEN [MASS/VOLU ME] IN SERUM OR PLASMA 31 mg/dL 7 - 25 04/29 H Specimen Type: SERUM No comment entered. Ordering Provider: LEYDI ARIAS IE Report Released Date/Time: Apr 16, 2023 09:46 AM Reporting Lab: [address] [address] Performing Lab: [address] [address] [place] CREATINI NE (eGFR 2020) CREATININE [MASS/VOLU ME] IN SERUM OR PLASMA 2.69 mg/dL 0.50 - 1.40 04/29 H Specimen Type: SERUM No comment entered. Ordering Provider: LEYDI ARIAS IE Report Released Date/Time: Apr 16, 2023 09:46 AM Reporting Lab: [address] [address] Performing Lab: [address] [address] [place] CREATINI NE (eGFR 2020) GLOMERULAR FILTRATION RATE/1.73 SQ M.PREDICTE D [VOLUME RATE/AREA] IN SERUM, PLASMA OR BLOOD BY CREATININE -BASED FORMULA (CKD-EPI 2020) 25 mL/min 60 04/29 L Specimen Type: SERUM No comment entered. Ordering Provider: LEYDI ARIAS IE Report Released Date/Time: Apr 16, 2023 09:46 AM Reporting Lab: [address] [place] [address] Performing Lab: [facility] [address] [facility] [address] [place] Vital Signs Combined list of inpatient and outpatient Vital Signs from Department of Defense and Veterans Affairs, ranging from 12 months to all on record, depending upon the facility. Vital Sign Value Date Comments Source SYSTOLIC BLOOD PRESSURE 114 03/03/20 09:19:31 [place] DIASTOLIC BLOOD PRESSURE 74 024 09:19:31 [facility] PULSE OXIMETRY 98 03/03/2024 09:19:31 [place] WEIGHT 165 03/03/2024 09:19:31 [place] BMI 24 kg/m2 03/03/2024 09:19:31 [place] TEMPERATURE 97.4 03/03/2024 09:19:31 [place] PULSE 77 03/03/2024 09:19:31 [place] RESPIRATION 18 03/03/2024 09:19:31 [place] SYSTOLIC BLOOD PRESSURE 127 09/01/19 13:14:26 [facility] DIASTOLIC BLOOD PRESSURE 71 024 13:14:26 [facility] PULSE OXIMETRY 100 09/01/2023 13:14:26 [facility] WEIGHT 163 09/01/2023 13:14:26 [facility] BMI 23 kg/m2 09/01/2023 13:14:26 [facility] [...] from Department of Veterans Affairs facilities going backup to the last 18 months, not all VA inpatient encounters are included; 2) Encounters from the Department of Defense facilities going backup to 280 months. Location Location Details Encounter Type Encounter Number Reason For Visit Attending Provider ADM Date DC Date Status Disposition Source [facility] Outpatient Encounter [id number] 11/12 [facility] Out[facility] Encounter [id number] 11/13 [facility] Out[facility] Encounter [id number] 12/25 [facility] Out[facility] Encounter [id number] 12/30 [facility] Out[facility] Encounter [id number] 01/21 [facility]counter [id number] 01/21 [facility] Encounter [id number] 01/23 [facility] Out[facility] Encounter [id number] 02/04 [facility] Out[facility] Encounter [id number] 02/16 [facility] Encounter [id number] 02/23 [facility] MOD 30-39 MIN [id number] Diagnos is: ICD-10- CM I10 Essenti al (primar y) hyperte SCOTT Monge 02/25 [facility] Out[facility] Encounter [id number] 03/04 [facility] Encounter [id number] 03/26 [facility] Out[facility] Encounter [id number] 04/07 [facility] Out[facility] Encounter [id number] 04/07 [facility] Out[facility] Encounter [id number] 04/14 [facility] Out[facility] Encounter [id number] 04/16 [facility] Out[facility] Encounter [id number] 05/21 [facility] Out[facility] Encounter [id number] 06/09 [facility] Out[facility] Encounter [id number] 06/28 [facility] Out[facility] Encounter [id number] 06/30 [facility] Out[facility] Encounter [id number] 07/10 [facility] Out[facility] Encounter [id number] 08/11 [facility] [place] OFF[place] O/P EST MOD 30 MIN [id number] Diagnos is: ICD-10- CM I10 Essenti al (primar y) hyperte nsion MAGALI,A POLINARIO 08/31 [place] [facility] Out[facility] Encounter [id number] 09/01 [facility] Out[facility] Encounter [id number] 09/07 [facility] Out[facility] Encounter [id number] 09/07 [facility] Out[facility] Encounter [id number] 09/20 [facility] Out[facility] Encounter [id number] 09/20 [facility] Out[facility] Encounter [id number] 09/27 [facility] Out[facility] Encounter [id number] 10/19 [facility] Out[facility] Encounter [id number] 10/26 [facility] Outpatient Encounter [id number] 11/09 [facility] Outpatient Encounter [id number] 11/16 [facility] Outpatient Encounter [id number] 12/13 [facility] Out[facility] Encounter [id number] 12/24 [facility] Out[facility] Encounter [id number] 1.01/19 [facility] Out[facility]counter [id number] 01/24 [facility] Out[facility] Encounter [id number] 02/07 [facility] EVALUATION OF WHEEZING [id number]. 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, unspeci fiESTEVAN Nieves 03/03 [facility] [place] Social History Combined list of available smoking, tobacco, and other social history from Department of Defense and Veterans Affairs facilities. Social History Type Response Date Comment Sourc e Tobacco smoking status NHIS ME-TOBACCO NEVER USED 09/01/2023 [facility] D History of tobacco use ME-TOBACCO NEVER USED 05/17/2021 [facility] History of tobacco use LIFETIME NON-TOBACCO USER 06/15/2017 [facility] History of tobacco use LIFETIME NON-TOBACCO USER 06/20/2016 [facility] Plan of Care List of future care activities from Department of Veterans Affairs facilities. Additional future care activities may be listed in the Assessment and Plan section. Date/Time Care Activity Care Activity Detail Facili ty 05/17/2024 AMBULATORY - MEDICINE [facility] [place] [facility]
--- OUTSIDE RECORDS SUMMARY | 2024-05-10 15:16 | XMS_ITS | Encounter Summary ---
Author Name [facility] [place] [facility] [place] [facility] [place] Address [address] [place] [address] Care Team Providers Care Leather Stamper Name Role Phone CARLOS BOYCE Primary Care Provider Unavailab le Insurance Providers: All historical and current [...] Connolly's Name Patient's Relationship to Policy Connolly [place] (BLUECARD) PREFERRED PROVIDER ORGANIZAT ION (PPO) FELICITY TY HEALT H Dec 08, 2019 [id number] [phone] JUANITO KRAUSE PATIENT [place]BS [place] ([place]) PREFERRED PROVIDER ORGANIZAT ION (PPO) FELICITY TY [place] RA Mar 09, 2021 [id number] SHALONDA SnowERON SPOUSE [place] PRESCRIPT ION [id number] 4 Mar 09, 2016 [id number] [phone] JUANITO KRAUSE PATIENT MEDICARE (WNR) MEDICARE (M) PART B Feb 06, 2023 PART B [id number] JUANITO KRAUSE PATIENT MEDICARE (WNR) MEDICARE (M) PART A Dec 08, 2019 PART A [id number] [facility] JUANITO KRAUSE PATIENT OPTUM RX PRESCRIPT ION FELICITY TY Mar 09, 2021 [facility] [id number] JUANITO KRAUSE PATIENT OPTUM RX PRESCRIPT ION FELICITY TY HEALT H [place] Dec 08, 2019 [facility] [id number] JUANITO KRAUSE PATIENT Selected Encounter This section includes the information on record at [place] for the Encounter. Date/Time Encounter Type Encounter Description Reason Provider Source Feb 16, 2024 02:33 PM Outpatient Encounter ADMIN PAT ACTIVTIES (KRISTOPHER) NENITA SWANSON Encounter Template Text not used by [place] Plan of Treatment: Future Appointments (+ 6 months) and Future Tests (+/- 45 days) The Plan of Treatment section includes future care activities for the patient from all [place] treatmentfacilities. This section includes future appointments and future orders which are active, pending or scheduled. Future Appointments This section includes appointments that were scheduled to occur 6 months from the date of the Encounter, up to a maximum of 20 appointments. The data comes from all [place] treatment facilities. Appointment Date/Time Appointment Type Appointme nt Facility Name Mar 03, 2024 01:30 PM AMBULATORY - MEDICINE [facility] May 17, 2024 01:45 PM AMBULATORY - MEDICINE [facility] Active, Pending, and [...] of theEncounter. The data comes from all [place] treatment facilities. Test Date/Time Test Type Test Details Facility Name Mar 03, 2024 01:48 PM Consult Order COMMUNITY CARE-NEPHROLOGY Cons Manager Of Community Relations's [facility] Mar 03, 2024 01:48 PM Consult Order COMMUNITY CARE-RHEUMATOLOGY Cons Manager Of Community Relations's [facility] Social History: Smoking Status (Most current) and Tobacco Use (All prior to encounter date) This section includes the most current, and the historical, smoking and tobacco- related health factors from the [place] facility where the Encounter took place. Current Smoking Status This section includes the most current smoking, or tobacco-related health factor, from the [place] facility where the Encounter took place. Date/Time Current Smoking Status Comment Gisselle prieto May 17, 2021 12:53 PM VA-TOBACCO NEVER USED [facility] Encounter Notes: All associated encounter notes This section contains the clinical notes associated to the Encounter. Date/Time Encounter Note(s) Provider Source Feb 20, 2024 03:18 PM ADDENDUM: LOCAL TITLE: Addendum STANDARD TITLE: ADDENDUM DATE OF NOTE: FEB 20, 2024@15:18:58 ENTRY DATE: FEB 20, 2024@15:18:59 AUTHOR: MARIJA CONLEY COSIGNER: URGENCY: STATUS: COMPLETED Forwarding request for PFT results performed on 02/08/2024 to pcp for review and follow up /brody/ IVONNE ZUNIGA RN-BC REGISTERED NURSE Signed: 02/20/2024 15:20 Receipt Acknowledged By: 03/11/2024 09:36 /es/ KARIE DE LOS SANTOS MD PHYSICIAN === --- Original Document --- 02/16/24 CCC: SCHEDULING ADMINISTRATION: Patient Demographics Patient Name: JUANITO LANGE Patient Primary Phone: [phone] Patient Primary [address]: [address] [place] [address] Patient : 1955 Patient Age: 68 Call Back Number: Caller/Recipient Relation to Patient: Self Caller Name: JUANITO LANGE Administrative Administrative Note Reason: Lab / Imaging Results Administrative Note Comments: . PATIENT CALLED FOR THE FOLLOWING: (1) RESULTS REQUEST: * PULMONARY FUNCTIONS TESTING (2) RESCHEDULE: * Mar 04, 2024@13:30 CWM/SO/PACT 9 CANCELLED BY CLINIC CCC ORACLE ETL DEVELOPER RESTRICTED FROM SCHEDULING PCP/MAGALI PATIENT PHONE: . IMPORTANT: This note was created by [facility] Clinical Contact Center staff. Please do not alert the staff member by adding them as a signer for future communications. Alerts are not monitored by this user. /brody/ NENITA SWANSON VISN 1 [facility] AMSA Signed: 02/16/2024 14:33 Receipt Acknowledged By: 02/16/2024 14:48 /brody/ SAMUEL REDD 02/22/2024 13:52 /es/ MAIA RAZA LPN LPN 02/20/2024 15:18 /es/ MARIJA CONLEY BSN RN-BC REGISTERED NURSE for GUME CASTANEDA 02/16/2024 ADDENDUM STATUS: COMPLETED Compensation Manager spoke to and scheduled appt on 03/03/24 @ 01:30 pm w/SO Pact 3 provider. /brody/ SAMUEL REDD Signed: 02/16/2024 14:48 MARIJA CONLEY [place] [facility] Feb 16, 2024 02:33 PM ADMINISTRATIVE NOT E: LOCAL TITLE: CCC: SCHEDULING ADMINISTRATION STANDARD TITLE: ADMINISTRATIVE NOTE DATE OF NOTE: FEB 16, 2024@14:33:29 ENTRY DATE: FEB 16, 2024@14:33:29 AUTHOR: NENITA SWANSON COSIGNER: URGENCY: STATUS: COMPLETED CCC: SCHEDULING ADMINISTRATION Has ADDENDA Patient Demographics Patient Name: JUANITO DENSONAL Patient Primary Phone: [phone] Patient Primary [address]: [address] [place] [address] Patient : 1955 Patient Age: 68 Call Back Number: Caller/Recipient Relation to Patient: Self Caller Name: JUANITO DENSONAL Administrative Administrative Note Reason: Lab / Imaging Results Administrative Note Comments: . PATIENT CALLED FOR THE FOLLOWING: (1) RESULTS REQUEST: * PULMONARY FUNCTIONS TESTING (2) RESCHEDULE: * Mar 04, 2024@13:30 CWM/SO/PACT 9 CANCELLED BY CLINIC CCC ORACLE ETL DEVELOPER RESTRICTED FROM SCHEDULING PCP/MAGALI PATIENT PHONE: . IMPORTANT: This note was created by [facility] Clinical Contact Center staff. Please do not alert the staff member by adding them as a signer for future communications. Alerts are not monitored by this user. /brody/ NENITA SWANSON VISN 1 AZALIA REDD Signed: 02/16/2024 14:33 Receipt Acknowledged By: 02/16/2024 14:48 /brody/ SAMUEL REDD 02/22/2024 13:52 /es/ MAIA RAZA LPN LPN 02/20/2024 15:18 /brody/ IVONNE ZUNIGA RN-BC REGISTERED NURSE for GUME CASTANEDA 02/16/2024 ADDENDUM STATUS: COMPLETED Compensation Manager spoke to and scheduled appt on 03/03/24 @ 01:30 pm w/SO Pact 3 provider. /brody/ SAMUEL REDD Signed: 02/16/2024 14:48 02/20/2024 ADDENDUM STATUS: COMPLETED Forwarding request for PFT results performed on 02/08/2024 to pcp for review and follow up /brody/ IVONNE ZUNIGA RN-BC REGISTERED NURSE Signed: 02/20/2024 15:20 Receipt Acknowledged By: * AWAITING SIGNATURE * KARIE DE LOS SANTOS REBECCA [facility]
--- OUTSIDE RECORDS SUMMARY | 2024-05-10 15:16 | XMS_ITS | Clinical Summary ---
Author Organization [facility] Address [address] [place] [address] Care Team Providers Care It Application Development Manager Name Role Phone Gold Daley MD Primary Care Provider [phone] Surgical History Surgery Date Site/Laterality Comments SHOULDER SURGERY PROCEDURE: HISTORICAL SHOULDER SURGERY COLONOSCOPY 12/26/2010 PROCEDURE: HISTORICAL COLONOSCOPY ESOPHAGOGASTRODUODENOSCOPY 12/04/2006 PROCEDURE: [place] ESOPHAGOGASTRODUODENOSCOPY TRANSORAL DIAGNOSTIC Medical History Medical History Date Comments Arthritis of right shoulder region DX:Arthritis of right shoulder region Diverticulosis DX:Diverticulosi s Erectile dysfunction DX:Erectile dysfunction Gastric reflux DX:Gastric reflu x Nephrolithiasis DX:Nephrolithias is SAMANTHA (obstructive sleep apnea) DX :SAMANTHA (obstructive sleep apnea) Raynaud's phenomenon DX:Raynaud' s phenomenon Seasonal allergic rhinitis DX:Se asonal allergic rhinitis Family History Medical History Relation Name Comments Other cancer Brother Diabetes Father Heart attack Father Hypertension Father Relation Name Status Comments Brother Father Social History Tobacco Use Types Packs/Day Years Used Date Smoking Tobacco: Never Smokeless Tobacco: Never Alcohol Use Standard Drinks/Week Comments Not Currently 0 (1 standard drink = 0.6 oz pur e alcohol) Sex and Gender Information Value Date Recorded Sex Assigned at Not on file Legal Sex Male 3:44 PM EST Gender Identity Not on file Sexual Orientation Not on file Obstetrics History Last Filed Vital Signs Vital Sign Reading Time Taken Comments Blood Pressure 148/73 02/25/2023 9:10 AM EST Pulse 60 11/26/2022 2:09 PM EDT Temperature - - Respiratory Rate - - Oxygen Saturation - - Inhaled Oxygen Concentration - - Weight 73 kg (161 lb) 11/26/2022 2:09 PM EDT Height 175.3 cm (5' 9 ) 11/26/2022 2:09 PM EDT Body Mass Index 23.78 11/26/2022 2:09 PM EDT Plan of Treatment Health Maintenance Due Date Last Done Comments DTaP,Tdap,and Td Vaccines (1 - Tdap) 1973 Pneumococcal Vaccine: 50+ Ye ars (1 of 1 - PCV) 2004 Zoster Vaccines (1 of 2) 2004 Abdominal Aortic Aneurysm (A AA) Screen 04/09/2019 Cholesterol Screening (Lipid Panel) 04/09/2019 Colorectal Cancer Screening: Colonoscopy 04/09/2019 Depression Screening 04/09/2019 Hepatitis C Screening 04/09/2019 Social Influencers of Health Screening 04/09/2019 Falls Risk Assessment 12/29/2019 Hypertension/CHF/CAD Annual BMP Blood Test 04/07/2023 COVID-19 Vaccine ( - 2023-2 5 season) 2023 Influenza Vaccine (#1) 2023 RSV Immunization Patients 60 + Years Old (1 - 1-dose 75+ series) 2029 HIB Vaccines Aged Out No longer eligi ble based on patient's age to complete this topic HPV Vaccines Aged Out No longer eligi ble based on patient's age to complete this topic Hepatitis A Vaccines Aged Out No long er eligible based on patient's age to complete this topic Hepatitis B Vaccines Aged Out No long er eligible based on patient's age to complete this topic IPV Vaccines Aged Out No longer eligi ble based on patient's age to complete this topic MMR Vaccines Aged Out No longer eligi ble based on patient's age to complete this topic Meningococcal ACWY Vaccine Aged Out N o longer eligible based on patient's age to complete this topic Meningococcal B Vacine Aged Out No lo nger eligible based on patient's age to complete this topic RSV Immunization Patients Un sho 20 months Aged Out No longer eligible b ased on patient's age to complete this topic Varicella Vaccines Aged Out No longer eligible based on patient's age to complete this topic Advance Directives Documents on File Type Date Recorded Patient Cost And Risk Analysis Manager Expl anation Health Care Decision (hx) 08/13/2021 AD FORTE DIRECTIVE Health Care Decision (hx) 08/13/2021 AD FORTE DIRECTIVE Health Care Decision (hx) 08/13/2021 AD FORTE DIRECTIVE Health Care Decision (hx) 08/13/2021 AD FORTE DIRECTIVE Health Care Decision (hx) 08/13/2021 AD FORTE [facility] Care Teams It Application Development Manager Relationship Specialty Start Date End Date Gold Daley MD [address] [facility] [place] [address] PCP - General 05/29/22
== END 2024-05-10 12:09 | disposition home or self-care (01) ==
LOC: HO.LAB 12:08
PROVIDERS: PCP Nurse Practitioner Gerontology; Visit Provider Internal Medicine Hypertension Specialist
DX: N18.4 Chronic kidney disease, stage 4 (severe) (principal); D63.1 Anemia in chronic kidney disease
CPT/HCPCS: 36415; 80048

== ENCOUNTER 2024-05-17 13:42 | Outpatient (AMB) | payer OTHER, SELFPAY ==
[2024-05-17 13:47] VITALS: BP 126/62; PULSE 60; O2SAT 93; BMI 24.5
--- NOTE | 2024-05-17 13:47 | HO.NEPHOV_ITS ---
Vital Signs 05/17/24 13:47 Height 5 ft 9 in Weight 166 lb BMI 24.5 BP 126/62 Blood Pressure Location Lt brachial Position Sitting Pulse 60 Pulse Source Pulse Oximeter Pulse Oximetry (%) 93 Oxygen Delivery Method Room Air Intake Visit Reasons: Anemia due to CKD/ LVM Fixing Machine Operator Required: No Accompanied by: Spouse Allergies No Known Allergies Allergy (Verified 05/17/24 13:49) Medication List - Last Reconciled 05/17/24 by Ruben Mroeno MD ascorbic acid (vitamin C) (Vitamin C) 500 mg PO DAILY B complex with C 20-folic acid 1 mg ([place] Caps) 1 cap PO DAILY carvedilol 12.5 mg PO BID fluticasone propionate 50 mcg/actuation 1 spray intranasal DAILY nifedipine ER 30 mg PO DAILY HPI Comments Details: 67 yr old man with advanced CKD and HTN is here for follow up He was seen in [facility] for renal insufficiency. Biopsy revealed severe arterial sclerosis. He required hemodialysis for few weeks. Urine output progressively increased and he was therefore taken off hemodialysis. He has been off hemodialysis for the last 3 months. He complains of fatigue. He is also feeling cold all the time. No urinary symptoms. No hematuria. No nausea or vomiting. No shortness of breath. He recently underwent herniorrhaphy which was uneventful. 03/30/23 Still feels weak;c/o fatigue ; Home BP readings are good 06/29/23 c/o Fatigue ;Appetite is fair ;Gained 8 lbs in 6 months 01/15/2024. Continues to complain of fatigue. He has gained few more lb. No nausea or vomiting. He has been followed by Rheumatology. [facility] Medical History Chronic renal disease, stage IV History of renal stone Arthritis Hx of acute renal failure HTN (hypertension) History of renal dialysis Surgical History Inguinal hernia (01/01/23) History of biopsy Hx of colonoscopy History of esophagogastroduodenoscopy (EGD) Hx of arthroscopy of knee History of excision of pilonidal cyst History of arthroscopic surgery of shoulder Social History Are you a primary student career development specialist to a significant other at home: No Do you presently have visiting nurse or other home services: No Alcohol intake: never Patient Tobacco Use Status: Never used Tobacco Current occupational status: employed 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 Vital Signs: Last Vital Signs Pulse 60 05/17/24 13:47 BP 126/62 05/17/24 13:47 Pulse Ox 93 05/17/24 13:47 Oxygen Delivery Method Room Air 05/17/24 13:47 BMI result Body Mass Index 24.5 Eyes General: appearance normal, both eyes and all related structures Visual Delgadillo: normal visual delgadillo by confrontation Neck Neck: Yes supple Resp Effort & Inspection: normal respiratory effort and respiratory effort not decreased Auscultation: clear to auscultation bilaterally Cardio Palpation: no palpable S3 Heart sounds: no rubs GI Inspection: Yes normal to inspection Palpation (GI): Soft to palpation Percussion: Yes normal to percussion Auscultation: normal bowel sounds General: Yes no CVA tenderness Back/Spine/Pelvis Back: no CVA tenderness Skin General skin exam: no petechiae and no purpura Neuro General: no focal motor deficits Motor exam (neuro): no asterixis Extrem General: No clubbing and No edema Results Reviewed Nephrology Results: Hgb 11.4 g/dl (14.0-18.0) L 01/20/24 WBC 10.3 X10*3/uL (4.8-10.8) 01/20/24 Plt Count 276 X10*3/uL (160-400) 01/20/24 Sodium 139 mmol/L (135-145) 05/10/24 Potassium 4.3 mmol/L (3.3-5.1) 05/10/24 Chloride 110 mmol/L (96-108) H 05/10/24 Carbon Dioxide 22 mmol/L (22-29) 05/10/24 BUN 33 mg/dL (9-16) H 05/10/24 Creatinine 2.24 mg/dL (0.5-1.4) H 05/10/24 Calcium 9.2 mg/dL (8.4-10.2) 05/10/24 Assessment & Plan Assessment & Plan (1) Chronic renal disease, stage IV: Code(s): N18.4 - Chronic kidney disease, stage 4 (severe) Category: Medical (2) HTN (hypertension): Code(s): I10 - Essential (primary) hypertension Category: Medical (3) Anemia due to chronic kidney disease: Code(s): N18.9 - Chronic kidney disease, unspecified; D63.1 - Anemia in chronic kidney disease Category: Medical Plan 67-year-old man with advanced kidney disease in the setting of hypertension. Biopsy revealed Nephrosclerosis Goal is to slow the progression of renal disease. Continue to avoid nephrotoxic agents including NSAIDs. 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 Hypertension blood pressure is well controlled home blood pressure readings are excellent. No hypotensive episodes. He should stay on low-sodium diet. Bp acceptable NO change in medications Anemia due to underlying erythropoietin deficiency in the setting of CKD. 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 Follow up with Rheumatology Orders: Orders Basic Metabolic Panel 4 Months I10 - Essential (primary) hypertension, N18.4 - Chronic kidney disease, stage 4 (severe) UA and rflx microscopic 4 Months N18.4 - Chronic kidney disease, stage 4 (severe) Complete Blood Count no Diff 4 Months I10 - Essential (primary) hypertension, N18.4 - Chronic kidney disease, stage 4 (severe) Total Protein Urine Random 4 Months N18.4 - Chronic kidney disease, stage 4 (severe) Creatinine Urine 4 Months N18.4 - Chronic kidney disease, stage 4 (severe) Scribe Plan - Not visible on output: Mary Coding Level of Care Code Est Pt Level 4 (62131) Diagnoses Chronic renal disease, stage IV N18.4 HTN (hypertension) I10 Anemia due to chronic kidney disease N18.9; D63.1
--- OUTSIDE RECORDS SUMMARY | 2024-05-17 16:41 | XMS_ITS | Continuity of Care Document ---
Author Name [facility] Organization [facility] Care Team Providers Care Electrical/Instrument Technician Name Role Phone [facility] Unavailable Unavailable Problems Combined list of problems from Department of [facility] and [facility] facilities. It does not include entries that were removed or entered in error. Problem Status Onset Date Problem Type Date of Resolution Comments Source Cyst - pilonidal Active Condition [place] Essential hypertension Active Condition [place] History of knee surgery Active Condition Jun 20, 2016 Entered By: JAYDON ARIAS Comment: R in early [place] History of shoulder surgery Active Condition Jun 20 Entered By: JAYDON ARIAS Comment: R in s [place] Impaired fasting glucose Active Condition [place] Left inguinal hernia Active Condition Feb 25, 2023 Entered By: JAYDON ARIAS Comment: repair 12/2022 [place] Pain of right shoulder joint Active Condition Feb 25, 2023 Entered By: JAYDON ARIAS Comment: right shoulder replacement 08/2021 [place] Postnasal drip Active Condition [facility] [place] Systemic sclerosis, diffuse Active Condition Mar 03, 2024 Entered By: ROSALINA JORDAN Comment: PFT's MAR 01: NL SpirometryDec 2023 Entered By: ROSALINA JORDAN Comment: Barium Swallow Planned APR 02 (but has no dysphagia yet)Mar 03, 2024 Entered By: ROSALINA JORDAN Comment: Sees Both Rheum and Nephro at [place] for the Diffuse SS : [place] Diagnosis: ICD-10-CM M34.9 Systemic sclerosis, unspecified Active Diagnosis [place] Diagnosis: ICD-10-CM I10 Essential (primary) hypertension Active Diagnosis [place] Medications Combined list of outpatient medications from Department of [facility] and [facility] facilities.Medications provided include 1) outpatient medications from [...] ONE HOUR BEFORE IF NEEDED ORAL 04/28/2023 [id number] SIERRA ARIAS 2023 2 [place] ASCORBIC ACID TAB TAKE BY MOUTH DAILY ORAL ACTIVE SIERRA ARIAS 2016 [place] CARVEDILOL 25MG TAB TAKE ONE TABLET BY MOUTH TWICE DAILY FOR HIGH BLOOD PRESSURE ORAL ACTIVE 12/25/2024 [id number] MAGALI APOLINARI O 2023 180 [place] CARVEDILOL 25MG TAB TAKE ONE TABLET BY MOUTH TWICE DAILY FOR HIGH BLOOD PRESSURE ORAL DISCONT INUED 12/25/2024 [id number] MAGALI APOLINARI O 2023 180 [place] CARVEDILOL 25MG TAB TAKE ONE TABLET BY MOUTH TWICE DAILY FOR HIGH BLOOD PRESSURE ORAL DISCONT INUED 02/26/2024 [id number] 4 SIERRA ARIAS 2022 180 [place] FLUTICASONE PROPIONATE 50MCG/SPRAY SOLN,NASAL, 16GM INSTILL 2 SPRAYS INTO EACH NOSTRIL ONCE DAILY NASAL ACTIVE SIERRA ARIAS 2022 [place] NIFEDIPINE (EQV-CC) 30MG TAB,SA TAKE ONE TABLET BY MOUTH TWICE DAILY FOR HIGH BLOOD PRESSURE DO NOT TAKE WITH GRAPEFRU IT JUICE ORAL ACTIVE 09/01/2024 [id number] ALIA DE LOS SANTOSARI O 2023 180 [place] NIFEDIPINE (EQV-CC) 30MG TAB,SA TAKE ONE TABLET BY MOUTH TWICE DAILY FOR HIGH BLOOD PRESSURE DO NOT TAKE WITH GRAPEFRU IT JUICE ORAL DISCONT INUED 02/26/2024 [id number] SIERRA ARIAS 2022 180 [place] OTHER CAP/TAB TAKE RENOCAP BY MOUTH ONCE DAILY ORAL ACTIVE SIERRA ARIAS 2022 [place] RENAL MULTIVIT W/1MG OR LESS FOLIC ACID TAB TAKE 1 TABLET BY MOUTH ONCE DAILY FOR VITAMIN SUPPLEME NTATION ORAL ACTIVE 03/04/2025 [id number] JAMES JORDAN SB 2024 90 [place] RENAL MULTIVIT W/1MG OR LESS FOLIC ACID TAB TAKE 1 TABLET BY MOUTH ONCE DAILY FOR VITAMIN SUPPLEME NTATION ORAL DISCONT INUED 03/16/2024 [id number] SIERRA ARIAS 2023 90 [place] Immunizations Combined list of available immunizations from the Department of Defense and Veterans Affairs facilities. Immunization Series Date Given Administered By Site Reaction Lot Number CVX Code Drug Leather Sponger Status Comments Source INFLUENZA, UNSPECIFIED FORMULATION 2020 [...] INFLUENZA, SEASONAL, INJECTABLE 2016 141 complet ed [facility] INFLUENZA, SEASONAL, INJECTABLE 2016 141 complet ed [facility] [place] FLU,3 YRS (HISTORICAL) 2015 88 complet ed [facility] [place] TDAP 2015 115 complet ed rec[facility] t 2015 [facility] [place] [...] Feb 25, 2023 03:45 PM Reporting Lab: [facility] [address] [address] Performing Lab: [facility]ITALZIA [facility]ALTH CLINICTRN [facility]PITALUSENY[facility] [address] [facility] [address] [place] LIPID PANEL FASTING TRIGLYCERI DE [MASS/VOLU ME] IN SERUM OR PLASMA 98 mg/dL 0 - 150 08/24 Specimen Type: SERUM No comment entered. Ordering Provider: LEYDI ARIAS IE Report Released Date/Time: Feb 25, 2023 03:45 PM Reporting Lab: [facility]OSPITALRTANNER MED[facility]AST ALABAMATRN [facility] [address] [facility] [address] Performing Lab: [facility] HOSPITALRL TRN [facility]OSPITALUSENY[facility] [address] [facility] [address] [place] LIPID PANEL FASTING CHOLESTERO L IN LDL [MASS/VOLU ME] IN SERUM OR PLASMA BY CALCULATIO N 154 mg/dL 0 - 129 08/24 H Specimen Type: SERUM No comment entered. Ordering Provider: LEYDI ARIAS IE Report Released Date/Time: Feb 25, 2023 03:45 PM Reporting Lab: [facility] HOSPITALRL [facility]ITALN [facility] [address] [facility] [address] Performing Lab: [facility]OSPITALRL [facility] HOSPITALN [facility] HOSPITALUSE[address] [address] [place] LIPID PANEL FASTING CHOLESTERO L.TOTAL/CH OLESTEROL IN HDL [MASS RATIO] IN SERUM OR PLASMA 6.1 08/24 Specimen Type: SERUM No comment entered. Ordering Provider: LEYDI ARIAS IE Report Released Date/Time: Feb 25, 2023 03:45 PM Reporting Lab: [facility]OSPITALRTANNER [facility] ALABAMATRN [facility] [address] [facility] [address] Performing Lab: [facility] HOSPITALRL TRN [facility]ITALUSENY[facility] [address] [facility] [address] [place] LIPID PANEL FASTING CHOLESTERO L IN HDL [MASS/VOLU ME] IN SERUM OR PLASMA 34 mg/dL 40 - 60 08/24 L Specimen Type: SERUM No comment entered. Ordering Provider: LEYDI ARIAS IE Report Released Date/Time: Feb 25, 2023 03:45 PM Reporting Lab: [facility]OSPITALRBAPTIST MEDICAL CENTER EASTN [facility] [address] [facility] [address] Performing Lab: [facility]OSPITALRBAPTIST MEDICAL CENTER EASTN [facility] [address] [facility] [address] [place] BASIC METABOLI C PANEL (fasting ) UREA NITROGEN [MASS/VOLU ME] IN SERUM OR PLASMA 40 mg/dL 7 - 25 08/24 H Specimen Type: SERUM No comment entered. Ordering Provider: LEYDI ARIAS IE Report Released Date/Time: Feb 25, 2023 03:45 PM Reporting Lab: [facility] [address] [facility] [address] Performing Lab: [facility]ERN [address] [address] [place] BASIC METABOLI C PANEL (fasting ) GLUCOSE [MASS/VOLU ME] IN SERUM OR PLASMA 101 mg/dL 65 - 100 08/24 H Specimen Type: SERUM No comment entered. Ordering Provider: LEYDI ARIAS IE Report Released Date/Time: Feb 25, 2023 03:45 PM Reporting Lab: [facility]ERN [address] [address] Performing Lab: [facility] HOSPITALRBAPTIST MEDICAL CENTER EASTN [address] [address] [place] BASIC METABOLI C PANEL (fasting ) SODIUM [MOLES/VOL UME] IN SERUM OR PLASMA 136 mmol/L 135 - 145 08/24 Specimen Type: SERUM No comment entered. Ordering Provider: LEYDI ARIAS IE Report Released Date/Time: Feb 25, 2023 03:45 PM Reporting Lab: [facility]ERN [address] [address] Performing Lab: [facility]OSPITALRBAPTIST MEDICAL CENTER EASTN [address] [address] [place] BASIC METABOLI C PANEL (fasting ) POTASSIUM [MOLES/VOL UME] IN SERUM OR PLASMA 4.3 mmol/L 3.5 - 5.0 08/24 Specimen Type: SERUM No comment entered. Ordering Provider: LEYDI ARIAS IE Report Released Date/Time: Feb 25, 2023 03:45 PM Reporting Lab: [facility] [address] [address] Performing Lab: [facility]ERN [facility] [address] [facility] [address] [place] BASIC METABOLI C PANEL (fasting ) CHLORIDE [MOLES/VOL UME] IN SERUM OR PLASMA 110 mmol/L 100 - 110 08/24 Specimen Type: SERUM No comment entered. Ordering Provider: LEYDI ARIAS IE Report Released Date/Time: Feb 25, 2023 03:45 PM Reporting Lab: [address] [address] Performing Lab: [facility] [address] [address] [place] BASIC METABOLI C PANEL (fasting ) CARBON DIOXIDE, TOTAL [MOLES/VOL UME] IN SERUM OR PLASMA 19 meq/L 20 - 30 08/24 L Specimen Type: SERUM No comment entered. Ordering Provider: LEYDI ARIAS IE Report Released Date/Time: Feb 25, 2023 03:45 PM Reporting Lab: [address] [address] Performing Lab: [facility]ERN [address] [address] [place] BASIC METABOLI C PANEL (fasting ) CREATININE [MASS/VOLU ME] IN SERUM OR PLASMA 2.54 mg/dL 0.50 - 1.40 08/24 H Specimen Type: SERUM No comment entered. Ordering Provider: LEYDI ARIAS IE Report Released Date/Time: Feb 25, 2023 03:45 PM Reporting Lab: [address] [address] Performing Lab: [address] [address] [place] BASIC METABOLI C PANEL (fasting ) GLOMERULAR FILTRATION RATE/1.73 SQ M.PREDICTE D [VOLUME RATE/AREA] IN SERUM, PLASMA OR BLOOD BY CREATININE -BASED FORMULA (CKD-EPI 2020) 27 mL/min 60 08/24 L Specimen Type: SERUM No comment entered. Ordering Provider: LEYDI ARIAS IE Report Released Date/Time: Feb 25, 2023 03:45 PM Reporting Lab: [facility] [place] [facility] [address] [facility] [address] Performing Lab: [place] [facility] [place] [facility] [address] [facility] [address] [place] LIVER FUNCTION PROTEIN [MASS/VOLU ME] IN SERUM OR PLASMA 7.2 g/dL 6.0 - 8.3 08/24 Specimen Type: SERUM No comment entered. Ordering Provider: LEYDI ARIAS IE Report Released Date/Time: Feb 25, 2023 03:45 PM Reporting Lab: [place] [facility] [place] [facility] [address] [facility] [address] Performing Lab: [facility] HOSPITALRL TRN [facility] HOSPITALUSE[address] [address] [place] LIVER FUNCTION ALBUMIN [MASS/VOLU ME] IN SERUM OR PLASMA 3.6 g/dL 3.5 - 5.0 08/24 Specimen Type: SERUM No comment entered. Ordering Provider: LEYDI ARIAS IE Report Released Date/Time: Feb 25, 2023 03:45 PM Reporting Lab: [place] [facility] TRN [facility] HOSPITALUSETS [facility] [address] [facility] [address] Performing Lab: [place] [facility] TRN [facility] HOSPITALUSETS [address] [address] [place] LIVER FUNCTION ALKALINE PHOSPHATAS E [ENZYMATIC ACTIVITY/V OLUME] IN SERUM OR PLASMA 66 U/L 40 - 150 08/24 Specimen Type: SERUM No comment entered. Ordering Provider: LEYDI ARIAS IE Report Released Date/Time: Feb 25, 2023 03:45 PM Reporting Lab: [place] [place] [address] [address] Performing Lab: [facility] HOSPITALRL TRN [facility]ITALUSE[address] [address] [place] L[place] FUNCTION ASPARTATE AMINOTRANS FERASE [ENZYMATIC ACTIVITY/V OLUME] IN SERUM OR PLASMA 17 U/L 5 - 34 08/24 Specimen Type: SERUM No comment entered. Ordering Provider: LEYDI ARIAS IE Report Released Date/Time: Feb 25, 2023 03:45 PM Reporting Lab: [place] [place] [address] [place] [address] Performing Lab: [facility] [address] [facility] [address] [place] LIVER FUNCTION ALANINE AMINOTRANS FERASE [ENZYMATIC ACTIVITY/V OLUME] IN SERUM OR PLASMA 11 U/L 08/24 Specimen Type: SERUM No comment entered. Ordering Provider: LEYDI ARIAS IE Report Released Date/Time: Feb 25, 2023 03:45 PM Reporting Lab: [address] [address] Performing Lab: [address] [address] [place] LIVER FUNCTION BILIRUBIN. TOTAL [MASS/VOLU ME] IN SERUM OR PLASMA 0.4 mg/dL 0.2 - 1.2 08/24 Specimen Type: SERUM No comment entered. Ordering Provider: LEYDI ARIAS IE Report Released Date/Time: Feb 25, 2023 03:45 PM Reporting Lab: [address] [address] Performing Lab: [address] [address] [place] HEMOGLOB IN A1C PANEL HEMOGLOBIN [...] Feb 25, 2023 03:45 PM Reporting Lab: [address] [address] Performing Lab: [address] [address] [place] TSH THYROTROPI N [UNITS/VOL UME] IN SERUM OR PLASMA 1.98 u[IU]/mL 0.35 - 5.00 08/24 Specimen Type: SERUM No comment entered. Ordering Provider: LEYDI ARIAS IE Report Released Date/Time: Feb 25, 2023 03:45 PM Reporting Lab: [facility]OSPITALRTANNER MEDICAL CENTER EAST ALABAMATRN [address] [address] Performing Lab: [facility] [address] [address] [place] CBC AND DIFF (AUTO) LEUKOCYTES [#/VOLUME] IN BLOOD BY AUTOMATED COUNT 10.43 10*3/uL 4.50 - 11.00 08/24 Specimen Type: BLOOD No comment entered. Ordering Provider: LEYDI RAIAS IE Report Released Date/Time: Feb 25, 2023 03:45 PM Reporting Lab: [facility] [address] [address] Performing Lab: [facility]OSPITALRBAPTIST MEDICAL CENTER EASTN [address] [address] [place] CBC AND DIFF (AUTO) ERYTHROCYT ES [#/VOLUME] IN BLOOD BY AUTOMATED COUNT 3.68 10*6/uL 4.23 - 5.66 08/24 L Specimen Type: BLOOD No comment entered. Ordering Provider: LEYDI ARIAS IE Report Released Date/Time: Feb 25, 2023 03:45 PM Reporting Lab: [facility]OSPITALRBAPTIST MEDICAL CENTER EASTN [address] [address] Performing Lab: [facility]PITALRBAPTIST [facility] EASTN [address] [address] [place] CBC AND DIFF (AUTO) HEMOGLOBIN [MASS/VOLU ME] IN BLOOD 10.7 g/dL 12.8 - 17 08/24 L Specimen Type: BLOOD No comment entered. Ordering Provider: LEYDI ARIAS IE Report Released Date/Time: Feb 25, 2023 03:45 PM Reporting Lab: [facility]ITALRTANNER MEDICAL CENTER EAST ALABAMATRN [address] [address] Performing Lab: [facility] [address] [address] [place] CBC AND DIFF (AUTO) HEMATOCRIT [VOLUME FRACTION] OF BLOOD BY AUTOMATED COUNT 33.6 39.2 - 50.4 08/24 L Specimen Type: BLOOD No comment entered. Ordering Provider: LEYDI ARIAS IE Report Released Date/Time: Feb 25, 2023 03:45 PM Reporting Lab: [facility] [address] [address] Performing Lab: [address] [address] [place] CBC AND DIFF (AUTO) MCV [ENTITIC VOLUME] BY AUTOMATED COUNT 91.3 fL 82 - 99 08/24 Specimen Type: BLOOD No comment entered. Ordering Provider: LEYDI ARIAS IE Report Released Date/Time: Feb 25, 2023 03:45 PM Reporting Lab: [address] [address] Performing Lab: [address] [address] [place] CBC AND DIFF (AUTO) MCHC [MASS/VOLU ME] BY AUTOMATED COUNT 31.8 g/dL 30.8 - 35.1 08/24 Specimen Type: BLOOD No comment entered. Ordering Provider: LEYDI ARIAS IE Report Released Date/Time: Feb 25, 2023 03:45 PM Reporting Lab: [address] [address] Performing Lab: [address] [address] [place] CBC AND DIFF (AUTO) PLATELETS [#/VOLUME] IN BLOOD BY AUTOMATED COUNT 287 10*3/uL 140 - 360 08/24 Specimen Type: BLOOD No comment entered. Ordering Provider: LEYDI ARIAS IE Report Released Date/Time: Feb 25, 2023 03:45 PM Reporting Lab: [facility] [address] [address] Performing Lab: [address] [address] [place] CBC AND DIFF (AUTO) ERYTHROCYT E DISTRIBUTI ON WIDTH [RATIO] BY AUTOMATED COUNT 14.6 12.0 - 16.0 08/24 Specimen Type: BLOOD No comment entered. Ordering Provider: LEYDI ARIAS IE Report Released Date/Time: Feb 25, 2023 03:45 PM Reporting Lab: [facility] HOSPITALRL [place] [address] [address] Performing Lab: [facility] HOSPITALRL WSTRN [facility] HOSPITALUSETS [address] [address] [place] CBC AND DIFF (AUTO) MONOCYTES [#/VOLUME] IN BLOOD BY AUTOMATED COUNT 0.80 10*3/uL 0.30 - 1.10 08/24 Specimen Type: BLOOD No comment entered. Ordering Provider: LEYDI ARIAS IE Report Released Date/Time: Feb 25, 2023 03:45 PM Reporting Lab: [facility] HOSPITALRL TRN [address] [address] Performing Lab: [facility] HOSPITALRL TRN [facility] HOSPITALUSETS [address] [address] [place] CBC AND DIFF (AUTO) MCH [ENTITIC MASS] BY AUTOMATED COUNT 29.1 pg 26.2 - 32.6 08/24 Specimen Type: BLOOD No comment entered. Ordering Provider: LEYDI ARIAS IE Report Released Date/Time: Feb 25, 2023 03:45 PM Reporting Lab: [facility]PITALRTANNER MEDICAL CENTER EAST ALABAMATRN [address] [address] Performing Lab: [facility]OSPITALRTANNER MEDICAL CENTER EAST ALABAMATRN [facility] HOSPITALUSE[address] [address] [place] CBC AND DIFF (AUTO) NEUTROPHIL S/100 LEUKOCYTES IN BLOOD BY AUTOMATED COUNT 76.3 43.7 - 75.8 08/24 H Specimen Type: BLOOD No comment entered. Ordering Provider: LEYDI ARIAS IE Report Released Date/Time: Feb 25, 2023 03:45 PM Reporting Lab: [facility] HOSPITALRL WSTRN [facility] HOSPITALUSETS [address] [address] Performing Lab: [facility] HOSPITALRL TRN [address] [address] [place] CBC AND DIFF (AUTO) LYMPHOCYTE S/100 LEUKOCYTES IN BLOOD BY AUTOMATED COUNT 8.7 14.0 - 42.3 08/24 L Specimen Type: BLOOD No comment entered. Ordering Provider: LEYDI ARIAS IE Report Released Date/Time: Feb 25, 2023 03:45 PM Reporting Lab: [facility] HOSPITALRL TRN [facility] [address] [facility] [address] Performing Lab: [facility] HOSPITALRBAPTIST MEDICAL CENTER EASTN [address] [address] [place] CBC AND DIFF (AUTO) MONOCYTES/ 100 LEUKOCYTES IN BLOOD BY AUTOMATED COUNT 7.7 5.1 - 13.7 08/24 Specimen Type: BLOOD No comment entered. Ordering Provider: LEYDI ARIAS IE Report Released Date/Time: Feb 25, 2023 03:45 PM Reporting Lab: [facility]OSPITALRBAPTIST MEDICAL [facility]ENTER EASTN [address] [address] Performing Lab: [facility] HOSPITALR[address] [address] [place] CBC AND DIFF (AUTO) EOSINOPHIL S/100 LEUKOCYTES IN BLOOD BY AUTOMATED COUNT 6.5 0.4 - 6.8 08/24 Specimen Type: BLOOD No comment entered. Ordering Provider: LEYDI ARIAS IE Report Released Date/Time: Feb 25, 2023 03:45 PM Reporting Lab: [facility]OSPITALRBAPTIST [facility] EASTN [address] [address] Performing Lab: [facility]PITALRBAPTIST [facility] EASTN [address] [address] [place] CBC AND DIFF (AUTO) BASOPHILS/ 100 LEUKOCYTES IN BLOOD BY AUTOMATED COUNT 0.5 0.1 - 2.0 08/24 Specimen Type: BLOOD No comment entered. Ordering Provider: LEYDI ARIAS IE Report Released Date/Time: Feb 25, 2023 03:45 PM Reporting Lab: [facility] HOSPITALRL TRN [address] [address] Performing Lab: [facility]OSPITALRBAPTIST [facility] EASTN [address] [address] [place] CBC AND DIFF (AUTO) NEUTROPHIL S [#/VOLUME] IN BLOOD BY AUTOMATED COUNT 7.96 10*3/uL 2.20 - 7.60 08/24 H Specimen Type: BLOOD No comment entered. Ordering Provider: LEYDI ARIAS IE Report Released Date/Time: Feb 25, 2023 03:45 PM Reporting Lab: [facility]ITALRTANNER [facility]ENTER EAST ALABAMATRN [address] [address] Performing Lab: [facility]PITALRBAPTIST [facility] EASTN [address] [address] [place] CBC AND DIFF (AUTO) LYMPHOCYTE S [#/VOLUME] IN BLOOD BY AUTOMATED COUNT 0.91 10*3/uL 1.00 - 3.20 08/24 L Specimen Type: BLOOD No comment entered. Ordering Provider: LEYDI ARIAS IE Report Released Date/Time: Feb 25, 2023 03:45 PM Reporting Lab: [facility]OSPITALRL [facility]ITALN [address] [address] Performing Lab: [facility] [address] [address] [place] CBC AND DIFF (AUTO) EOSINOPHIL S [#/VOLUME] IN BLOOD BY AUTOMATED COUNT 0.68 10*3/uL 0.03 - 0.44 08/24 H Specimen Type: BLOOD No comment entered. Ordering Provider: LEYDI ARIAS IE Report Released Date/Time: Feb 25, 2023 03:45 PM Reporting Lab: [facility]PITALRBAPT[facility] EASTN [address] [address] Performing Lab: [facility]ITALRBAPT[facility] EASTN [address] [address] [place] CBC AND DIFF (AUTO) BASOPHILS [#/VOLUME] IN BLOOD BY AUTOMATED COUNT 0.05 10*3/uL 0.01 - 0.13 08/24 Specimen Type: BLOOD No comment entered. Ordering Provider: LEYDI ARIAS IE Report Released Date/Time: Feb 25, 2023 03:45 PM Reporting Lab: [facility] HOSPITALRL TRN [address] [address] Performing Lab: [facility]PITALRBAPT[facility] EASTN [address] [address] [place] CBC AND DIFF (AUTO) IMMATURE GRANULOCYT ES/100 LEUKOCYTES IN BLOOD BY AUTOMATED COUNT 0.3 0.0 - 0.7 08/24 Specimen Type: BLOOD No comment entered. Ordering Provider: LEYDI ARIAS IE Report Released Date/Time: Feb 25, 2023 03:45 PM Reporting Lab: [facility] [address] [address] Performing Lab: [address] [address] [place] CBC AND DIFF (AUTO) IMMATURE GRANULOCYT ES [#/VOLUME] IN BLOOD 0.03 10*3/uL 0.00 - 0.06 08/24 Specimen Type: BLOOD No comment entered. Ordering Provider: LEYDI ARIAS IE Report Released Date/Time: Feb 25, 2023 03:45 PM Reporting Lab: [address] [address] Performing Lab: [address] [address] [place] CBC AND DIFF (AUTO) NRBC % 0.0 0.0 - 0.0 08/24 Specimen Type: BLOOD No comment entered. Ordering Provider: LEYDI ARIAS IE Report Released Date/Time: Feb 25, 2023 03:45 PM Reporting Lab: [address] [address] Performing Lab: [address] [address] [place] CBC AND DIFF (AUTO) NRBC, ABS 0.00 10*3/uL 0.00 - 0.00 08/24 Specimen Type: BLOOD No comment entered. Ordering Provider: LEYDI ARIAS IE Report Released Date/Time: Feb 25, 2023 03:45 PM Reporting Lab: [address] [address] Performing Lab: [address] [address] [place] PSA PROSTATE SPECIFIC AG [MASS/VOLU ME] IN SERUM OR PLASMA 1.68 ng/mL 0.00 - 4.00 08/24 Specimen Type: SERUM No comment entered. Ordering Provider: LEYDI ARIAS Report Released Date/Time: Feb 25, 2023 03:45 PM Reporting Lab: [facility]ITALUSETS [address] [address] Performing [facility]: [facility] [address] [address] [place] URINALYS IS COLOR OF URINE Light-Ye llow 08/24 Specimen Type: URINE Comment: If Glucose = >500 and Ketones are positive, please alert the Physician. Ordering Provider: LEYDI ARIAS Report Released Date/Time: Feb 25, 2023 03:45 PM Reporting Lab: [facility] [address] [address] Performing Lab: [address] [address] [place] URINALYS IS APPEARANCE OF URINE Clear 08/24 Specimen Type: URINE Comment: If Glucose = >500 and Ketones are positive, please alert the Physician. Ordering Provider: LEYDI ARIAS Report Released Date/Time: Feb 25, 2023 03:45 PM Reporting Lab: [facility] [address] [address] Performing Lab: [facility] [address] [place] URINALYS IS GLUCOSE [MASS/VOLU ME] IN URINE NEGATIVE mg/dL 08/24 Specimen Type: URINE Comment: If Glucose = >500 and Ketones are positive, please alert the Physician. Ordering Provider: LEYDI ARIAS IE Report Released Date/Time: Feb 25, 2023 03:45 PM Reporting Lab: [facility] [address] Performing Lab: [facility] [address] [place] URINALYS IS KETONES [MASS/VOLU ME] IN URINE BY TEST STRIP NEGATIVE mg/dL 08/24 Specimen Type: URINE Comment: If Glucose = >500 and Ketones are positive, please alert the Physician. Ordering Provider: LEYDI ARIAS Report Released Date/Time: Feb 25, 2023 03:45 PM Reporting Lab: [address] [address] Performing Lab: [address] [address] [place] URINALYS IS ERYTHROCYT ES [PRESENCE] IN URINE SEDIMENT BY LIGHT MICROSCOPY NEGATIVE mg/dL 08/24 Specimen Type: URINE Comment: If Glucose = >500 and Ketones are positive, please alert the Physician. Ordering Provider: LEYDI ARIAS Report Released Date/Time: Feb 25, 2023 03:45 PM Reporting Lab: [address] [address] Performing Lab: [address] [address] [place] URINALYS IS PROTEIN [MASS/VOLU ME] IN URINE BY TEST STRIP 10 mg/dL 08/24 Specimen Type: URINE Comment: If Glucose = >500 and Ketones are positive, please alert the Physician. Ordering Provider: LEYDI ARIAS Report Released Date/Time: Feb 25, 2023 03:45 PM Reporting Lab: [address] [address] Performing Lab: [address] [address] [place] URINALYS IS NITRITE [PRESENCE] IN URINE NEGATIVE mg/dL 08/24 Specimen Type: URINE Comment: If Glucose = >500 and Ketones are positive, please alert the Physician. Ordering Provider: LEYDI ARIAS Report Released Date/Time: Feb 25, 2023 03:45 PM Reporting Lab: [facility] [address] [address] Performing Lab: [address] [address] [place] URINALYS IS BILIRUBIN. TOTAL [PRESENCE] IN URINE NEGATIVE mg/dL 08/24 Specimen Type: URINE Comment: If Glucose = >500 and Ketones are positive, please alert the Physician. Ordering Provider: LEYDI ARIAS Report Released Date/Time: Feb 25, 2023 03:45 PM Reporting Lab: [address] [address] Performing Lab: [address] [address] [place]INAL[place] IS SPECIFIC GRAVITY OF URINE BY REFRACTOME TRY 1.016 1.016 - 1.022 08/24 Specimen Type: URINE Comment: If Glucose = >500 and Ketones are positive, please alert the Physician. Ordering Provider: LEYDI ARIAS IE Report Released Date/Time: Feb 25, 2023 03:45 PM Reporting Lab: [address] [address] Performing Lab: [address] [address] [place] URINALYS IS PH OF URINE BY TEST STRIP 5.5 5.0 - 9.0 08/24 Specimen Type: URINE Comment: If Glucose = >500 and Ketones are positive, please alert the Physician. Ordering Provider: LEYDI ARIAS Report Released Date/Time: Feb 25, 2023 03:45 PM Reporting Lab: [address] [address] Performing Lab: [address] [address] [place] URINALYS IS UROBILINOG EN [MASS/VOLU ME] IN URINE BY TEST STRIP <2.0mg/d L <2.0 - 2.0 08/24 Specimen Type: URINE Comment: If Glucose = >500 and Ketones are positive, please alert the Physician. Ordering Provider: LEYDI ARIAS IE Report Released Date/Time: Feb 25, 2023 03:45 PM Reporting Lab: [address] [address] Performing Lab: [place] [address] [address] [place] URINALYS IS LEUKOCYTE ESTERASE [PRESENCE] IN URINE BY TEST STRIP NEGATIVE 08/24 Specimen Type: URINE Comment: If Glucose = >500 and Ketones are positive, please alert the Physician. Ordering Provider: LEYDI ARIAS IE Report Released Date/Time: Feb 25, 2023 03:45 PM Reporting Lab: [address] [address] Performing Lab: [address] [address] [place] UREA NITROGEN UREA NITROGEN [MASS/VOLU ME] IN SERUM OR PLASMA 31 mg/dL 7 - 25 04/29 H Specimen Type: SERUM No comment entered. Ordering Provider: LEYDI ARIAS IE Report Released Date/Time: Apr 16, 2023 09:46 AM Reporting Lab: [address] [address] Performing Lab: [address] [address] [place] CREATINI NE (eGFR 2020) CREATININE [MASS/VOLU ME] IN SERUM OR PLASMA 2.69 mg/dL 0.50 - 1.40 04/29 H Specimen Type: SERUM No comment entered. Ordering Provider: LEYDI ARIAS IE Report Released Date/Time: Apr 16, 2023 09:46 AM Reporting Lab: [address] [address] Performing Lab: [address] [address] [place] CREATINI NE (eGFR 2020) GLOMERULAR FILTRATION RATE/1.73 SQ M.PREDICTE D [VOLUME RATE/AREA] IN SERUM, PLASMA OR BLOOD BY CREATININE -BASED FORMULA (CKD-EPI 2020) 25 mL/min 60 04/29 L Specimen Type: SERUM No comment entered. Ordering Provider: LEYDI ARIAS IE Report Released Date/Time: Apr 16, 2023 09:46 AM Reporting Lab: [address] [place] [address] Performing Lab: [facility] [address] [facility] [address] [place] Vital Signs Combined list of inpatient and outpatient Vital Signs from Department of Defense and Veterans Affairs, ranging from 12 months to all on record, depending upon the facility. Vital Sign Value Date Comments Source SYSTOLIC BLOOD PRESSURE 114 03/03/20 09:19:31 [place] DIASTOLIC BLOOD PRESSURE 74 024 09:19:31 [place] PULSE OXIMETRY 98 03/03/2024 09:19:31 [place] WEIGHT 165 03/03/2024 09:19:31 [place] BMI 24 kg/m2 03/03/2024 09:19:31 [place] TEMPERATURE 97.4 03/03/2024 09:19:31 [place] PULSE 77 03/03/2024 09:19:31 [place] RESPIRATION 18 03/03/2024 09:19:31 [place] SYSTOLIC BLOOD PRESSURE 127 09/01/19 13:14:26 [facility] DIASTOLIC BLOOD PRESSURE 71 024 13:14:26 [facility] [facility] PULSE OXIMETRY 100 09/01/2023 13:14:26 [...] [facility] [id number] 11/12 [facility] En[facility] [id number] 11/13 [facility] Encounter [id number] 12/25 [facility] Encounter [id number] 12/30 [facility] En[facility] [id number] 01/21 [facility] Encounter [id number] 01/21 [facility] Encounter [id number] 01/23 [facility] En[facility] [id number] 02/04 [facility] Encounter [id number] 02/16 [facility] Encounter [id number] 02/23 [facility] MOD 30-39 MIN [id number] Diagnos is: ICD-10- CM I10 Essenti al (primar y) hyperte SCOTT Monge 02/25 [facility] En[facility] [id number] 03/04 [facility] Encounter [id number] 03/26 [facility] Encounter [id number] 04/07 [facility] Encounter [id number] 04/07 [facility] Encounter [id number] 04/14 [facility] Encounter [id number] 04/16 [facility] Encounter [id number] 05/21 [facility] Out[facility] Encounter [id number] 06/09 [facility] Encounter [id number] 06/28 [facility] Out[facility] Encounter [id number] 06/30 [facility] Encounter [id number] 07/10 [facility] Encounter [id number] 08/11 [facility] [place] OFF[facility] O/P EST MOD 30 MIN [id number] Diagnos is: ICD-10- CM I10 Essenti al (primar y) hyperte nsion MAGALI,A POLINARIO 08/31 [place] [facility] Encounter [id number] 09/01 [facility] Encounter [id number] 09/07 [facility] Encounter [id number] 09/07 [facility] Encounter [id number] 09/20 [facility] Encounter [id number] 09/20 [facility] Encounter [id number] 09/27 [facility] Encounter [id number] 10/19 [facility] Encounter [id number] 10/26 [facility] Encounter [id number] 11/09 [facility] Encounter [id number] 11/16 [facility] Out[facility] Encounter [id number] 12/13 [facility] Out[facility] Encounter [id number] 12/24 [facility] Encounter [id number] 1.01/19 [facility] Out[facility] Encounter [id number] 01/24 [facility] Out[facility] Encounter [id number] 02/07 [facility] EVALUATION OF WHEEZING [id number] 1. 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, unspeci fiESTEVAN [place] 03/03 [facility] [place] Social History Combined list of available smoking, tobacco, and other social history from Department of Defense and Veterans Affairs facilities. Social History Type Response Date Comment Sourc e Tobacco smoking status NHIS GA-TOBACCO NEVER USED 09/01/2023 [facility] D History of tobacco use GA-TOBACCO NEVER USED 05/17/2021 [facility] [place] [facility] History of tobacco use LIFETIME NON-TOBACCO USER 06/15/2017 [place] History of tobacco use LIFETIME NON-TOBACCO USER 06/20/2016 [place] Plan of Care List of future care activities from Department of Veterans Affairs facilities. Additional future care activities may be listed in the Assessment and Plan section. Date/Time Care Activity Care Activity Detail Facili ty 05/17/2024 AMBULATORY - MEDICINE AMBULATORY - MEDICI [facility] [place] [facility]
--- OUTSIDE RECORDS SUMMARY | 2024-05-17 16:41 | XMS_ITS | Clinical Summary ---
Author Organization [facility] Address [address] [place] [address] Care Team Providers Care Systems Integration Analyst Name Role Phone Gold Daley MD Primary Care Provider [phone]- [phone] Surgical History Surgery Date Site/Laterality Comments SHOULDER SURGERY PROCEDURE: HISTORICAL SHOULDER SURGERY COLONOSCOPY 12/26/2010 PROCEDURE: HISTORICAL COLONOSCOPY ESOPHAGOGASTRODUODENOSCOPY 12/04/2006 PROCEDURE: SD ESOPHAGOGASTRODUODENOSCOPY TRANSORAL DIAGNOSTIC Medical History Medical History [...] Documents on File Type Date Recorded Patient Endocrinology Nurse Expl anation Health Care Decision (hx) 08/13/2021 AD FORTE DIRECTIVE Health Care Decision (hx) 08/13/2021 AD FORTE DIRECTIVE Health Care Decision (hx) 08/13/2021 AD FORTE DIRECTIVE Health Care Decision (hx) 08/13/2021 AD FORTE DIRECTIVE Health Care Decision (hx) 08/13/2021 AD FORTE [facility] Care Teams Systems Integration Analyst Relationship Specialty Start Date End Date Gold Daley MD [address] [place] [address] PCP - General 05/29/22
--- OUTSIDE RECORDS SUMMARY | 2024-05-17 16:41 | XMS_ITS | Clinical Summary ---
Author Organization [facility] Facility Address [address] [address] Care Team Providers Care Computer System Validation Specialist Name Role Phone Gold Daley MD Primary Care Provider [phone]- [phone] Allergies No known active allergies Medications carvedilol [...] patient's age to complete this topic Insurance [facility] [address] [place] [address] [facility] 1,2,3 (VACCN) Care Teams Computer System Validation Specialist Relationship Specialty Start Date End Date Gold Dalye MD [facility] [address] [place] [address] PCP - General Family Medicine 04/22/22
== END 2024-05-17 14:15 | disposition home or self-care (01) ==
LOC: HO.HKA 13:43
PROVIDERS: PCP Internal Medicine; Referring Provider Internal Medicine Hypertension Specialist; Visit Provider Internal Medicine Hypertension Specialist
DX: I12.9 Hypertensive chronic kidney disease with stage 1 through stage 4 chronic kidney disease, or unspecified chronic kidney disease (principal); N18.4 Chronic kidney disease, stage 4 (severe); N18.9 Chronic kidney disease, unspecified; D63.1 Anemia in chronic kidney disease
CPT/HCPCS: 99214

== ENCOUNTER → 2024-05-17 13:42 | Outpatient (BNVA) | payer OTHER, SELFPAY | PROVIDERS: PCP Internal Medicine; Visit Provider Internal Medicine Hypertension Specialist | DX: I12.9 Hypertensive chronic kidney disease with stage 1 through stage 4 chronic kidney disease, or unspecified chronic kidney disease (principal); N18.4 Chronic kidney disease, stage 4 (severe); D63.1 Anemia in chronic kidney disease | CPT/HCPCS: 99212 ==

== ENCOUNTER 2024-07-12 12:08 | Outpatient (REF) | payer OTHER, SELFPAY ==
[2024-07-12 12:18] LABS: MANUAL DIFF FLAG NO
--- OUTSIDE RECORDS SUMMARY | 2024-07-12 13:37 | XMS_ITS | Encounter Summary ---
Author Name [facility] [facility] [place] [facility] [place] [facility] [place] Address [address] [place] [address] Care Team Providers Care Manager Academic Name Role Phone CARLOS BOYCE Primary Care [...] FELICITY TY HEALT H Dec 08, 2019 [id number] [phone] JUANITO KRAUSE PATIENT [place] PREFERRED PROVIDER ORGANIZAT ION (PPO) FELICITY TY [place] [facility] Mar 09, 2021 [id number] 20 [id number] [phone] SHALONDA SnowERON SPOUSE [place] PRESCRIPT ION [id number] Mar 09, 2016 [id number] JUANITO KRAUSE PATIENT MEDICARE (WNR) MEDICARE (M) PART B Feb 06, 2023 PART B [id number] JUANITO KRAUSE PATIENT MEDICARE (WNR) MEDICARE (M) PART A Dec 08, 2019 PART A [id number] JUANITO KRAUSE PATIENT OPTUM RX PRESCRIPT ION FELICITY TY Mar 09, 2021 [facility] [id number] [phone] JUANITO KRAUSE PATIENT OPTUM RX PRESCRIPT ION FELICITY TY HEALT H [place] Dec 08, 2019 [facility] [id number] JUANITO KRAUSE PATIENT Selected Encounter This section includes the information on record at [place] for the Encounter. Date/Time Encounter Type Encounter Description Reason Provider Source Sep 01, 2023 01:00 PM OFFICE O/P EST MOD 30 MIN PRIMARY CARE/MEDICINE ICD-10-CM I10 Essential (primary) hypertension MAGALI,APOL INARIO I[facility] Encounter Template Text not used by [place] Assessments - Encounter Diagnoses This section includes the primary and secondary diagnoses documented for the Encounter. Date/Time Primary/Secondary Diagnosis Diagnosis Name Provider Source Nov 27, 2023 07:13 AM PRIMARY Essential (primary) hypertension MAGALI,NAYANA KARIMI [place] Nov 27, 2023 07:13 AM SECONDARY Abnormal weight loss MAGALI,NAYANA [facility] Nov 27, 2023 07:13 AM SECONDARY Anemia, unspecified [facility] Nov 27, 2023 07:13 AM SECONDARY Chronic kidney disease, unspecified MAGALI,[facility] Plan of Treatment: Future Appointments (+ 6 months) and Future Tests (+/- 45 days) The Plan of Treatment section includes future care activities for the patient from all [place] treatmentfacilities. This section includes future appointments and future orders which are active, pending or scheduled. Future Appointments This section includes appointments that were scheduled to occur 6 months from the date of the Encounter, up to a maximum of 20 appointments. The data comes from all [place] treatment facilities. Appointment Date/Time Appointment Type Appointme nt Facility Name Sep 08, 2023 11:00 AM [place] [facility] [place] [facility] Sep 28, 2023 03:30 PM [place] [facility] [place] [facility] Feb 08, 2024 12:30 PM [place] [facility] [place] [facility] Feb 10, 2024 11:30 AM AMBULATORY - MEDICINE [facility] Lab Results: +/- 30 days of the encounter This section includes the Chemistry and Hematology Lab Results on record with [place] for the patient. Radiology Reports and Pathology Reports are provided separately, in subsequent sections. Lab Results This section contains the Chemistry/Hematology Results that were resulted 30 days before or 30 daysafter the date of the Encounter. Date/Time Source Result Type Result - Unit Interpretation Reference Range Specimen Type Comment Aug 25, 2023 12:20 PM [place] BASIC METABOLIC PANEL (fasting) SERUM Specimen Type: SERUM No comment entered. Ordering Provider: JAYDON ARIAS Report Released Date/Time: Feb 25, 2023 03:45 PM Reporting Lab: [address] [address] Performing Lab: [address] [address] UREA NITROGEN 40 mg/dL H 7-25 GLUCOSE 101 mg/dL H 65-100 SODIUM 136 mmol/L 135-145 POTASSIUM 4.3 mmol/L 3.5-5.0 CHLORIDE 110 mmol/L 100-110 CO2 19 meq/L L 20-30 CREATININE, Serum 2.54 mg/dL H 0.50-1.40 eGFR(CKD-EPI 2020) 27 mL/min L >60 Aug 25, 2023 12:20 PM [place] LIPID PANEL FASTING SERUM Specimen Ty pe: SERUM No comment entered. Ordering Provider: JAYDON ARIAS Report Released Date/Time: Feb 25, 2023 03:45 PM Reporting Lab: [address] [address] Performing Lab: [address] [address] CHOLESTEROL 208 mg/dL H TRIGLYCERIDE 98 mg/dL 0-150 LDL calculated 154 mg/dL H 0-129 CHOL/HDL 6.1 HDL CHOLESTEROL 34 mg/dL L 40-60 Aug 25, 2023 12:20 PM [place] LIVER FUNCTION SERUM Specimen Type: SERUM No comment entered. Ordering Provider: JAYDON ARIAS Report Released Date/Time: Feb 25, 2023 03:45 PM Reporting Lab: [address] [address] [facility]: [facility] [address] [address] PROTEIN,TOTAL 7.2 g/dL 6.0-8.3 ALBUMIN 3.6 g/dL 3.5-5.0 ALKALINE PHOSPHATASE 66 U/L 40-150 AST 17 U/L 5-34 ALT 11 U/L BILIRUBIN, TOTAL 0.4 mg/dL 0.2-1.2 Aug 25, 2023 12:20 PM [place] HEMOGLOBIN A1C PANEL BLOOD Specimen T ype: BLOOD Comment: Values obtained from A1C measurements can vary. For atypical A1C assays, a reported value of 7.0 could actually be between 6.72 and 7.28 if measured by a reference method. A reported value of 9.0 could actually be between 8.73 and 9.27. Ref: http://www.ngsp.org/CAPdata.asp Ordering Provider: JAYDON ARIAS Report Released Date/Time: Feb 25, 2023 03:45 PM Reporting Lab: [facility] [address] [address] Performing Lab: [facility] [address] [address] HEMOGLOBIN A1C 5.1 4.0-5.6 Aug 25, 2023 12:20 PM [place] TSH SERUM Sp ecimen Type: SERUM No comment entered. Ordering Provider: JAYDON ARIAS Report Released Date/Time: Feb 25, 2023 03:45 PM Reporting Lab: [facility] [address] [address] Performing Lab: [facility] [address] [address] TSH 1.98 u[IU]/mL 0.35-5.00 Aug 25, 2023 12:20 PM [place] CBC AND DIFF (AUTO) BLOOD Specimen Ty pe: BLOOD No comment entered. Ordering Provider: JAYDON ARIAS Report Released Date/Time: Feb 25, 2023 03:45 PM Reporting Lab: [address] [address] Performing Lab: [address] [address] WBC 10.43 10*3/uL 4.50-11.00 RBC 3.68 10*6/uL [...] 0.3 0.0-0.7 IMMATURE GRAN, ABS 0.03 10*3/uL 0.00-0.0 6 NRBC % 0.0 0.0-0.0 NRBC, ABS 0.00 10*3/uL 0.00-0.00 Aug 25, 2023 12:20 PM [place] PSA SERUM Sp ecimen Type: SERUM No comment entered. Ordering Provider: JAYDON ARIAS Report Released Date/Time: Feb 25, 2023 03:45 PM Reporting Lab: [facility] [address] [address] Performing Lab: [address] [address] PSA 1.68 ng/mL 0.00-4.00 Aug 25, 2023 12:20 PM [place] URINALYSIS URINE S pecimen Type: URINE Comment: If Glucose = >500 and Ketones are positive, please alert the Physician. Ordering Provider: JAYDON ARIAS Report Released Date/Time: Feb 25, 2023 03:45 PM Reporting Lab: [address] [address] Performing Lab: [address] [address] UA COLOR Light-Yellow Yellow UA APPEARANCE Clear Clear UA GLUCOSE NEGATIVE mg/dL Negative UA KETONES NEGATIVE mg/dL Negative UA BLOOD NEGATIVE mg/dL Negative UA PROTEIN 10 mg/dL Negative UA NITRITE NEGATIVE mg/dL Negative UA BILIRUBIN NEGATIVE mg/dL Negative UA SPECIFIC GRAVITY 1.016 1.016-1.022 UA pH 5.5 5.0-9.0 UA UROBILINOGEN <2.0 mg/dL <2.0 UA LEUKOCYTE NEGATIVE Negative Social History: Smoking Status (Most current) and Tobacco Use (All prior to encounter date) This section includes the most current, and the historical, smoking and tobacco- related health factors from the [place] facility where the Encounter took place. Current Smoking Status This section includes the most current smoking, or tobacco-related health factor, from the [place] facility where the Encounter took place. Date/Time Current Smoking Status Comment Gisselle prieot Sep 01, 2023 01:00 PM VA-TOBACCO NEVER USED [place] Tobacco Use History This section includes a history of the smoking, or tobacco-related health factors, that were collected on or before the date of the Encounter. The data comes from the [place] facility where the Encounter took place. Date/Time Smoking Status/Tobacco Use Comment F acility Jun 15, 2017 01:14 PM LIFETIME NON-TOBACCO USER [place] Jun 20, 2016 10:56 AM LIFETIME NON-TOBACCO USER [place] Encounter Notes: All associated encounter notes This [...] advance directive on file at any facility, [place] or outside. S/he is not interested in completing one at this time. The patient received education about Advance Directives and written notification of his/her rights. Suicide Screen: C-SSRS Screening [place] Suicide Severity Rating Scale (C-SSRS) screener 1. [...] to other questions. 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 The [place]/caregiver was informed that we will continue to [...] Not worried about housing near future The [place] reports the following: Within the past 12 [...] above) is [place] copyright protected by Jerardo Bhagat MD, and the user has full rights to use it throughout the [place] system. PRIMARY SCREEN RESULT: The Primary Screen [...] LPN LPN Signed: 09/01/2023 13:17 MAIA RAZA [place] Sep 01, 2023 08:27 AM PHYSICIAN NOTE: [...] ASSESSMENT & PLAN: 67 year old MALE [facility] [place] presents for 6m follow-up with noted significant [...] PHYSICIAN Signed: 11/27/2023 07:13 [place]
--- OUTSIDE RECORDS SUMMARY | 2024-07-12 13:37 | XMS_ITS | Continuity of Care Document ---
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 It does not include entries that were removed or entered in error. Problem Status Onset Date Problem Type Date of Resolution Comments Source Cyst - pilonidal Active Condition [place] Essential hypertension Active Condition [place] History of knee surgery Active Condition Jun 20, 2016 Entered By: JAYDON ARIAS Comment: R in early [place] History of shoulder surgery Active Condition Jun 20 Entered By: JAYDON ARIAS Comment: R in s [place] Impaired fasting glucose Active Condition [place] Left inguinal hernia Active Condition Feb 25, 2023 Entered By: JAYDON ARIAS Comment: repair 12/2022 [place] Pain of right shoulder joint Active Condition Feb 25, 2023 Entered By: JAYDON ARIAS Comment: right shoulder replacement 08/2021 [place] Postnasal drip Active Condition [facility] [place] Systemic sclerosis, diffuse Active Condition Mar 03, 2024 Entered By: ROSALINA JORDAN Comment: PFT's MAR 01: NL SpirometryDec 2023 Entered By: ROSALINA JORDAN Comment: Barium Swallow Planned APR 02 (but has no dysphagia yet)Mar 03, 2024 Entered By: ROSALINA JORDAN Comment: Sees Both Rheum and Nephro at [place] for the Diffuse SS : [place] Diagnosis: ICD-10-CM M34.9 Systemic sclerosis, unspecified Active Diagnosis [place] Diagnosis: ICD-10-CM I10 Essential (primary) hypertension Active Diagnosis [place] Medications Combined list of outpatient medications from [facility].Medications provided include 1) outpatient medications from the last 15 months, and 2) patient-reported medications. Medication Details Route Status Patient Instructions Prescription Expires Prescription Number Last Dispense Date Ordering Provider Order Date Order Qty Source ASCORBIC ACID TAB TAKE BY MOUTH DAILY ORAL ACTIVE SIERRA ARIAS 2016 [facility] [place] CARVEDILOL 25MG TAB TAKE ONE TABLET BY MOUTH TWICE DAILY FOR HIGH BLOOD PRESSURE ORAL ACTIVE 12/25/2024 [id number] MAGALI, APOLINARI O 2023 180 [place] CARVEDILOL 25MG TAB TAKE ONE TABLET BY MOUTH TWICE DAILY FOR HIGH BLOOD PRESSURE ORAL DISCONT INUED 12/25/2024 [id number] MAGALI, APOLINARI O 2023 180 [place] CARVEDILOL 25MG TAB TAKE ONE TABLET BY MOUTH TWICE DAILY FOR HIGH BLOOD PRESSURE ORAL DISCONT INUED 02/26/2024 [id number] SIERRA ARIAS 2022 180 [place] FLUTICASONE PROPIONATE 50MCG/SPRAY SOLN,NASAL, 16GM INSTILL 2 SPRAYS INTO EACH NOSTRIL ONCE DAILY NASAL ACTIVE SIERRA ARIAS 2022 [place] NIFEDIPINE (EQV-CC) 30MG TAB,SA TAKE ONE TABLET BY MOUTH TWICE DAILY FOR HIGH BLOOD PRESSURE DO NOT TAKE WITH GRAPEFRU IT JUICE ORAL ACTIVE 09/01/2024 [id number] MAGALIELISABETHLINARI O 2023 180 [place] NIFEDIPINE (EQV-CC) 30MG TAB,SA TAKE ONE TABLET BY MOUTH TWICE DAILY FOR HIGH BLOOD PRESSURE DO NOT TAKE WITH GRAPEFRU IT JUICE ORAL DISCONT INUED 02/26/2024 [id number] SIERRA ARIAS 2022 180 [place] OTHER CAP/TAB TAKE RENOCAP BY MOUTH ONCE DAILY ORAL ACTIVE SIERRA ARIAS 2022 [place] RENAL MULTIVIT W/1MG OR LESS FOLIC ACID TAB TAKE 1 TABLET BY MOUTH ONCE DAILY FOR VITAMIN SUPPLEME NTATION ORAL ACTIVE 03/04/2025 [id number] JAMES JORDAN 2024 90 [place] RENAL MULTIVIT W/1MG OR LESS FOLIC ACID TAB TAKE 1 TABLET BY MOUTH ONCE DAILY FOR VITAMIN SUPPLEME NTATION ORAL DISCONT INUED 03/16/2024 [id number] SIERRA ARIAS 2023 90 [place] Immunizations Combined list of available immunizations from the Department of Defense and Veterans Affairs facilities. 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 Ordering Provider: LEYDI ARIAS IE Report Released Date/Time: Feb 25, 2023 03:45 PM Reporting Lab: [facility] [address] [facility] [address] Performing Lab: [facility] [address] [facility] [address] [place] LIPID PANEL FASTING CHOLESTERO L IN LDL [MASS/VOLU ME] IN SERUM OR PLASMA BY CALCULARADHA N 154 mg/dL 0 - 129 08/24 H Specimen Type: SERUM No comment entered. Ordering Provider: LEYDI ARIAS IE Report Released Date/Time: Feb 25, 2023 03:45 PM Reporting Lab: [facility] [address] [facility] [address] Performing Lab: [facility] [address] [address] [place] LIPID PANEL FASTING CHOLESTERO L.TOTAL/CH OLESTEROL IN HDL [MASS RATIO] IN SERUM OR PLASMA 6.1 08/24 Specimen Type: SERUM No comment entered. Ordering Provider: LEYDI ARIAS IE Report Released Date/Time: Feb 25, 2023 03:45 PM Reporting Lab: [facility] [address] [address] Performing Lab: [facility] [address] [address] [place] LIPID PANEL FASTING CHOLESTERO L IN HDL [MASS/VOLU ME] IN SERUM OR PLASMA 34 mg/dL 40 - 60 08/24 L Specimen Type: SERUM No comment entered. Ordering Provider: LEYDI ARIAS IE Report Released Date/Time: Feb 25, 2023 03:45 PM Reporting Lab: [facility] [address] [facility] [address] Performing Lab: [facility] [address] [address] [place] BASIC METABOLI C PANEL (fasting ) UREA NITROGEN [MASS/VOLU ME] IN SERUM OR PLASMA 40 mg/dL 7 - 25 08/24 H Specimen Type: SERUM No comment entered. Ordering Provider: LEYDI ARIAS IE Report Released Date/Time: Feb 25, 2023 03:45 PM Reporting Lab: [facility] [address] [address] Performing Lab: [facility] [address] [facility] [address] [place] BASIC METABOLI C PANEL (fasting ) GLUCOSE [MASS/VOLU ME] IN SERUM OR PLASMA 101 mg/dL 65 - 100 08/24 H Specimen Type: SERUM No comment entered. Ordering Provider: LEYDI ARIAS IE Report Released Date/Time: Feb 25, 2023 03:45 PM Reporting Lab: [address] [address] Performing Lab: [address] [address] [place] BASIC METABOLI C PANEL (fasting ) SODIUM [MOLES/VOL UME] IN SERUM OR PLASMA 136 mmol/L 135 - 145 08/24 Specimen Type: SERUM No comment entered. Ordering Provider: LEYDI ARIAS IE Report Released Date/Time: Feb 25, 2023 03:45 PM Reporting Lab: [address] [address] Performing Lab: [address] [address] [place] BASIC METABOLI C PANEL (fasting ) POTASSIUM [MOLES/VOL UME] IN SERUM OR PLASMA 4.3 mmol/L 3.5 - 5.0 08/24 Specimen Type: SERUM No comment entered. Ordering Provider: LEYDI ARIAS IE Report Released Date/Time: Feb 25, 2023 03:45 PM Reporting Lab: [address] [address] Performing Lab: [address] [address] [place] BASIC METABOLI C PANEL (fasting ) CHLORIDE [MOLES/VOL UME] IN SERUM OR PLASMA 110 mmol/L 100 - 110 08/24 Specimen Type: SERUM No comment entered. Ordering Provider: LEYDI ARIAS IE Report Released Date/Time: Feb 25, 2023 03:45 PM Reporting Lab: [address] [place] [address] Performing Lab: [facility] [address] [facility] [address] [place] BASIC METABOLI C PANEL (fasting ) CARBON DIOXIDE, TOTAL [MOLES/VOL UME] IN SERUM OR PLASMA 19 meq/L 20 - 30 08/24 L Specimen Type: SERUM No comment entered. Ordering Provider: LEYDI ARIAS IE Report Released Date/Time: Feb 25, 2023 03:45 PM Reporting Lab: [facility] [address] [address] Performing Lab: [address] [address] [place] BASIC METABOLI C PANEL (fasting ) CREATININE [MASS/VOLU ME] IN SERUM OR PLASMA 2.54 mg/dL 0.50 - 1.40 08/24 H Specimen Type: SERUM No comment entered. Ordering Provider: LEYDI ARIAS IE Report Released Date/Time: Feb 25, 2023 03:45 PM Reporting Lab: [facility] [address] [address] Performing Lab: [address] [address] [facility] BASIC METABOLI C PANEL (fasting ) GLOMERULAR FILTRATION RATE/1.73 SQ M.PREDICTE D [VOLUME RATE/AREA] IN SERUM, PLASMA OR BLOOD BY CREATININE -BASED FORMULA (CKD-EPI 2020) 27 mL/min 60 08/24 L Specimen Type: SERUM No comment entered. Ordering Provider: LEYDI ARIAS IE Report Released Date/Time: Feb 25, 2023 03:45 PM Reporting Lab: [address] [address] Performing Lab: [address] [address] [place] LIVER FUNCTION PROTEIN [MASS/VOLU ME] IN SERUM OR PLASMA 7.2 g/dL 6.0 - 8.3 08/24 Specimen Type: SERUM No comment entered. Ordering Provider: LEYDI ARIAS IE Report Released Date/Time: Feb 25, 2023 03:45 PM Reporting Lab: [facility] [address] [facility] [address] Performing Lab: [place] [facility] [address] [facility] [address] [place]IVER FUNCTION ALBUMIN [MASS/VOLU ME] IN SERUM OR PLASMA 3.6 g/dL 3.5 - 5.0 08/24 Specimen Type: SERUM No comment entered. Ordering Provider: LEYDI ARIAS IE Report Released Date/Time: Feb 25, 2023 03:45 PM Reporting Lab: [facility] [address] [address] Performing Lab: [place] [facility] [address] [facility] LIVER FUNCTION ALKALINE PHOSPHATAS E [ENZYMATIC ACTIVITY/V OLUME] IN SERUM OR PLASMA 66 U/L 40 - 150 08/24 Specimen Type: SERUM No comment entered. Ordering Provider: LEYDI ARIAS IE Report Released Date/Time: Feb 25, 2023 03:45 PM Reporting Lab: [place] [facility] [address] [address] Performing Lab: [place] [facility] [address] [address] [facility] LIVER FUNCTION ASPARTATE AMINOTRANS FERASE [ENZYMATIC ACTIVITY/V OLUME] IN SERUM OR PLASMA 17 U/L 5 - 34 08/24 Specimen Type: SERUM No comment entered. Ordering Provider: LEYDI ARIAS IE Report Released Date/Time: Feb 25, 2023 03:45 PM Reporting Lab: [place] [facility] [address] [address] Performing Lab: [place] [facility] [address] [address] [facility] LIVER FUNCTION ALANINE AMINOTRANS FERASE [ENZYMATIC ACTIVITY/V OLUME] IN SERUM OR PLASMA 11 U/L 08/24 Specimen Type: SERUM No comment entered. Ordering Provider: LEYDI ARIAS IE Report Released Date/Time: Feb 25, 2023 03:45 PM Reporting Lab: [facility] [address] [address] Performing Lab: [facility] [address] [place] LIVER FUNCTION BILIRUBIN. TOTAL [MASS/VOLU ME] IN SERUM OR PLASMA 0.4 mg/dL 0.2 - 1.2 08/24 Specimen Type: SERUM No comment entered. Ordering Provider: LEYDI ARIAS IE Report Released Date/Time: Feb 25, 2023 03:45 PM Reporting Lab: [facility] [address] [address] Performing Lab: [address] [address] [facility] HEMOGLOB IN A1C PANEL HEMOGLOBIN A1C/HEMOGL [...] Feb 25, 2023 03:45 PM Reporting Lab: [address] [address] Performing Lab: [facility] [address] [address] [place] CBC AND DIFF (AUTO) LEUKOCYTES [#/VOLUME] IN BLOOD BY AUTOMATED COUNT 10.43 10*3/uL 4.50 - 11.00 08/24 Specimen Type: BLOOD No comment entered. Ordering Provider: LEYDI ARIAS IE Report Released Date/Time: Feb 25, 2023 03:45 PM Reporting Lab: [address] [address] Performing Lab: [address] [address] [place] CBC AND DIFF (AUTO) ERYTHROCYT ES [#/VOLUME] IN BLOOD BY AUTOMATED COUNT 3.68 10*6/uL 4.23 - 5.66 08/24 L Specimen Type: BLOOD No comment entered. Ordering Provider: LEYDI ARIAS IE Report Released Date/Time: Feb 25, 2023 03:45 PM Reporting Lab: [facility] [address] [facility] [address] Performing Lab: [place] [facility] [address] [facility] [address] [place] CBC AND DIFF (AUTO) HEMOGLOBIN [MASS/VOLU ME] IN BLOOD 10.7 g/dL 12.8 - 17 08/24 L Specimen Type: BLOOD No comment entered. Ordering Provider: LEYDI ARIAS IE Report Released Date/Time: Feb 25, 2023 03:45 PM Reporting Lab: [facility] [address] [address] Performing Lab: [facility] [address] [facility] [address] [place] CBC AND DIFF (AUTO) HEMATOCRIT [VOLUME FRACTION] OF BLOOD BY AUTOMATED COUNT 33.6 39.2 - 50.4 08/24 L Specimen Type: BLOOD No comment entered. Ordering Provider: LEYDI ARIAS IE Report Released Date/Time: Feb 25, 2023 03:45 PM Reporting Lab: [facility] [address] [address] Performing Lab: [facility] [address] [facility] [address] [place] CBC AND DIFF (AUTO) MCV [ENTITIC VOLUME] BY AUTOMATED COUNT 91.3 fL 82 - 99 08/24 Specimen Type: BLOOD No comment entered. Ordering Provider: LEYDI ARIAS IE Report Released Date/Time: Feb 25, 2023 03:45 PM Reporting Lab: [facility] [address] [address] Performing Lab: [facility] [address] [place] CBC AND DIFF (AUTO) MCHC [MASS/VOLU ME] BY AUTOMATED COUNT 31.8 g/dL 30.8 - 35.1 08/24 Specimen Type: BLOOD No comment entered. Ordering Provider: LEYDI ARIAS IE Report Released Date/Time: Feb 25, 2023 03:45 PM Reporting Lab: [facility] [address] [address] Performing Lab: [facility] [address] [address] [place] CBC AND DIFF (AUTO) PLATELETS [#/VOLUME] IN BLOOD BY AUTOMATED COUNT 287 10*3/uL 140 - 360 08/24 Specimen Type: BLOOD No comment entered. Ordering Provider: LEYDI ARIAS IE Report Released Date/Time: Feb 25, 2023 03:45 PM Reporting Lab: [facility] [address] [address] Performing Lab: [facility] [address] [address] [place] CBC AND DIFF (AUTO) ERYTHROCYT E DISTRIBUTI ON WIDTH [RATIO] BY AUTOMATED COUNT 14.6 12.0 - 16.0 08/24 Specimen Type: BLOOD No comment entered. Ordering Provider: LEYDI ARIAS IE Report Released Date/Time: Feb 25, 2023 03:45 PM Reporting Lab: [facility] [address] [address] Performing Lab: [facility] [address] [address] [place] CBC AND DIFF (AUTO) MONOCYTES [#/VOLUME] IN BLOOD BY AUTOMATED COUNT 0.80 10*3/uL 0.30 - 1.10 08/24 Specimen Type: BLOOD No comment entered. Ordering Provider: LEYDI ARIAS IE Report Released Date/Time: Feb 25, 2023 03:45 PM Reporting Lab: [facility] [address] [address] Performing Lab: [facility] [address] [address] [place] CBC AND DIFF (AUTO) MCH [ENTITIC MASS] BY AUTOMATED COUNT 29.1 pg 26.2 - 32.6 08/24 Specimen Type: BLOOD No comment entered. Ordering Provider: LEYDI ARIAS IE Report Released Date/Time: Feb 25, 2023 03:45 PM Reporting Lab: [facility] [address] [address] Performing Lab: [place] [facility] [place] [facility] [address] [facility] [address] [place] CBC AND DIFF (AUTO) NEUTROPHIL S/100 LEUKOCYTES IN BLOOD BY AUTOMATED COUNT 76.3 43.7 - 75.8 08/24 H Specimen Type: BLOOD No comment entered. Ordering Provider: LEYDI ARIAS IE Report Released Date/Time: Feb 25, 2023 03:45 PM Reporting Lab: [facility] [address] [address] Performing Lab: [place] [facility] [address] [address] [place] CBC AND DIFF (AUTO) LYMPHOCYTE S/100 LEUKOCYTES IN BLOOD BY AUTOMATED COUNT 8.7 14.0 - 42.3 08/24 L Specimen Type: BLOOD No comment entered. Ordering Provider: LEYDI ARIAS IE Report Released Date/Time: Feb 25, 2023 03:45 PM Reporting Lab: [place] [facility] [address] [address] Performing Lab: [place] [place] [address] [address] [place] CBC AND DIFF (AUTO) MONOCYTES/ 100 LEUKOCYTES IN BLOOD BY AUTOMATED COUNT 7.7 5.1 - 13.7 08/24 Specimen Type: BLOOD No comment entered. Ordering Provider: LEYDI ARIAS IE Report Released Date/Time: Feb 25, 2023 03:45 PM Reporting Lab: [place] [address] [address] Performing Lab: [facility] [address] [place] CBC AND DIFF (AUTO) EOSINOPHIL S/100 LEUKOCYTES IN BLOOD BY AUTOMATED COUNT 6.5 0.4 - 6.8 08/24 Specimen Type: BLOOD No comment entered. Ordering Provider: LEYDI ARIAS IE Report Released Date/Time: Feb 25, 2023 03:45 PM Reporting Lab: [facility] [address] [facility] [address] Performing Lab: [facility]TRN [address] [address] [place] CBC AND DIFF (AUTO) BASOPHILS/ 100 LEUKOCYTES IN BLOOD BY AUTOMATED COUNT 0.5 0.1 - 2.0 08/24 Specimen Type: BLOOD No comment entered. Ordering Provider: LEYDI ARIAS IE Report Released Date/Time: Feb 25, 2023 03:45 PM Reporting Lab: [facility] [address] [address] Performing Lab: [facility] [address] [address] [place] CBC AND DIFF (AUTO) NEUTROPHIL S [#/VOLUME] IN BLOOD BY AUTOMATED COUNT 7.96 10*3/uL 2.20 - 7.60 08/24 H Specimen Type: BLOOD No comment entered. Ordering Provider: LEYDI ARIAS IE Report Released Date/Time: Feb 25, 2023 03:45 PM Reporting Lab: [facility] [address] [address] Performing Lab: [facility]TRN [facility] [address] [place] CBC AND DIFF (AUTO) LYMPHOCYTE S [#/VOLUME] IN BLOOD BY AUTOMATED COUNT 0.91 10*3/uL 1.00 - 3.20 08/24 L Specimen Type: BLOOD No comment entered. Ordering Provider: LEYDI ARIAS IE Report Released Date/Time: Feb 25, 2023 03:45 PM Reporting Lab: [facility] [address] Performing Lab: [facility]N [facility] [address] [place] CBC AND DIFF (AUTO) EOSINOPHIL S [#/VOLUME] IN BLOOD BY AUTOMATED COUNT 0.68 10*3/uL 0.03 - 0.44 08/24 H Specimen Type: BLOOD No comment entered. Ordering Provider: LEYDI ARIAS IE Report Released Date/Time: Feb 25, 2023 03:45 PM Reporting Lab: [facility] [address] [address] Performing Lab: [facility] [address] [address] [place] CBC AND DIFF (AUTO) BASOPHILS [#/VOLUME] IN BLOOD BY AUTOMATED COUNT 0.05 10*3/uL 0.01 - 0.13 08/24 Specimen Type: BLOOD No comment entered. Ordering Provider: LEYDI ARIAS IE Report Released Date/Time: Feb 25, 2023 03:45 PM Reporting Lab: [facility] [address] [address] Performing Lab: [facility] [address] [address] [place] CBC AND DIFF (AUTO) IMMATURE GRANULOCYT ES/100 LEUKOCYTES IN BLOOD BY AUTOMATED COUNT 0.3 0.0 - 0.7 08/24 Specimen Type: BLOOD No comment entered. Ordering Provider: LEYDI ARIAS IE Report Released Date/Time: Feb 25, 2023 03:45 PM Reporting Lab: [facility] [address] [address] Performing Lab: [facility] [address] [address] [place] CBC AND DIFF (AUTO) IMMATURE GRANULOCYT ES [#/VOLUME] IN BLOOD 0.03 10*3/uL 0.00 - 0.06 08/24 Specimen Type: BLOOD No comment entered. Ordering Provider: LEYDI ARIAS IE Report Released Date/Time: Feb 25, 2023 03:45 PM Reporting Lab: [facility] [address] [address] Performing Lab: [facility] [address] [address] [place] CBC AND DIFF (AUTO) NRBC % 0.0 0.0 - 0.0 08/24 Specimen Type: BLOOD No comment entered. Ordering Provider: LEYDI ARIAS IE Report Released Date/Time: Feb 25, 2023 03:45 PM Reporting Lab: [facility] [address] [address] Performing Lab: [facility] [address] [address] [place] CBC AND DIFF (AUTO) NRBC, ABS 0.00 10*3/uL 0.00 - 0.00 08/24 Specimen Type: BLOOD No comment entered. Ordering Provider: LEYDI ARIAS IE Report Released Date/Time: Feb 25, 2023 03:45 PM Reporting Lab: [facility] [address] Performing Lab: [facility] [address] [place] TSH THYROTROPI N [UNITS/VOL UME] IN SERUM OR PLASMA 1.98 u[IU]/mL 0.35 - 5.00 08/24 Specimen Type: SERUM No comment entered. Ordering Provider: LEYDI ARIAS IE Report Released Date/Time: Feb 25, 2023 03:45 PM Reporting Lab: [facility] [address] Performing Lab: [place] [facility] [address] [address] [place] PSA PROSTATE SPECIFIC AG [MASS/VOLU ME] IN SERUM OR PLASMA 1.68 ng/mL 0.00 - 4.00 08/24 Specimen Type: SERUM No comment entered. Ordering Provider: LEYDI ARIAS IE Report Released Date/Time: Feb 25, 2023 03:45 PM Reporting Lab: [place] [facility] [place] [address] [address] Performing Lab: [facility] [address] [place] URINALYS IS COLOR OF URINE Light-Ye llow 08/24 Specimen Type: URINE Comment: If Glucose = >500 and Ketones are positive, please alert the Physician. Ordering Provider: LEYDI ARIAS Report Released Date/Time: Feb 25, 2023 03:45 PM Reporting Lab: [facility] [address] [facility] [address] Performing Lab: [facility] [address] [place] URINALYS IS APPEARANCE OF URINE Clear 08/24 Specimen Type: URINE Comment: If Glucose = >500 and Ketones are positive, please alert the Physician. Ordering Provider: LEYDI ARIAS Report Released Date/Time: Feb 25, 2023 03:45 PM Reporting Lab: [facility] [address] [address] Performing Lab: [address] [address] [place] URIN[place] IS GLUCOSE [MASS/VOLU ME] IN URINE NEGATIVE mg/dL 08/24 Specimen Type: URINE Comment: If Glucose = >500 and Ketones are positive, please alert the Physician. Ordering Provider: LEYDI ARIAS Report Released Date/Time: Feb 25, 2023 03:45 PM Reporting Lab: [facility] [address] [address] Performing Lab: [facility] [address] [place] URIN[place] IS KETONES [MASS/VOLU ME] IN URINE BY TEST STRIP NEGATIVE mg/dL 08/24 Specimen Type: URINE Comment: If Glucose = >500 and Ketones are positive, please alert the Physician. Ordering Provider: LEYDI ARIAS Report Released Date/Time: Feb 25, 2023 03:45 PM Reporting Lab: [facility] [address] Performing Lab: [facility] [address] [place] URINALYS IS ERYTHROCYT ES [PRESENCE] IN URINE SEDIMENT BY LIGHT MICROSCOPY NEGATIVE mg/dL 08/24 Specimen Type: URINE Comment: If Glucose = >500 and Ketones are positive, please alert the Physician. Ordering Provider: LEYDI ARIAS Report Released Date/Time: Feb 25, 2023 03:45 PM Reporting Lab: [address] [address] Performing Lab: [address] [address] [place] URINALYS IS PROTEIN [MASS/VOLU ME] IN URINE BY TEST STRIP 10 mg/dL 08/24 Specimen Type: URINE Comment: If Glucose = >500 and Ketones are positive, please alert the Physician. Ordering Provider: LEYDI ARIAS Report Released Date/Time: Feb 25, 2023 03:45 PM Reporting Lab: [address] [address] Performing Lab: [address] [address] [place] URINALYS IS NITRITE [PRESENCE] IN URINE NEGATIVE mg/dL 08/24 Specimen Type: URINE Comment: If Glucose = >500 and Ketones are positive, please alert the Physician. Ordering Provider: LEYDI ARIAS Report Released Date/Time: Feb 25, 2023 03:45 PM Reporting Lab: [address] [address] Performing Lab: [address] [address] [place] URINALYS IS BILIRUBIN. TOTAL [PRESENCE] IN URINE NEGATIVE mg/dL 08/24 Specimen Type: URINE Comment: If Glucose = >500 and Ketones are positive, please alert the Physician. Ordering Provider: LEYDI ARIAS Report Released Date/Time: Feb 25, 2023 03:45 PM Reporting Lab: [address] [address] Performing Lab: [address] [address] [place] URINALYS IS SPECIFIC GRAVITY OF URINE BY REFRACTOME TRY 1.016 1.016 - 1.022 08/24 Specimen Type: URINE Comment: If Glucose = >500 and Ketones are positive, please alert the Physician. Ordering Provider: LEYDI ARIAS Report Released Date/Time: Feb 25, 2023 03:45 PM Reporting Lab: [address] [address] Performing Lab: [address] [address] [place] URINALYS IS PH OF URINE BY TEST STRIP 5.5 5.0 - 9.0 08/24 Specimen Type: URINE Comment: If Glucose = >500 and Ketones are positive, please alert the Physician. Ordering Provider: LEYDI ARIAS IE Report Released Date/Time: Feb 25, 2023 03:45 PM Reporting Lab: [address] [address] Performing Lab: [address] [address] [place] URINALYS IS UROBILINOG EN [MASS/VOLU ME] IN URINE BY TEST STRIP <2.0mg/d L <2.0 - 2.0 08/24 Specimen Type: URINE Comment: If Glucose = >500 and Ketones are positive, please alert the Physician. Ordering Provider: LEYDI ARIAS Report Released Date/Time: Feb 25, 2023 03:45 PM Reporting Lab: [address] [address] Performing Lab: [address] [address] [place] URINALYS IS LEUKOCYTE ESTERASE [PRESENCE] IN URINE BY TEST STRIP NEGATIVE 08/24 Specimen Type: URINE Comment: If Glucose = >500 and Ketones are positive, please alert the Physician. Ordering Provider: LEYDI ARIAS IE Report Released Date/Time: Feb 25, 2023 03:45 PM Reporting Lab: [address] [address] Performing Lab: [address] [address] [place] UREA NITROGEN UREA NITROGEN [MASS/VOLU ME] IN SERUM OR PLASMA 31 mg/dL 7 - 25 04/29 H Specimen Type: SERUM No comment entered. Ordering Provider: LEYDI ARIAS IE Report Released Date/Time: Apr 16, 2023 09:46 AM Reporting Lab: [address] [address] Performing Lab: [address] [address] [place] CREATINI NE (eGFR 2020) CREATININE [MASS/VOLU ME] IN SERUM OR PLASMA 2.69 mg/dL 0.50 - 1.40 04/29 H Specimen Type: SERUM No comment entered. Ordering Provider: LEYDI ARIAS IE Report Released Date/Time: Apr 16, 2023 09:46 AM Reporting Lab: [address] [address] Performing Lab: [address] [address] [place] CREATINI NE (eGFR 2020) GLOMERULAR FILTRATION RATE/1.73 SQ M.PREDICTE D [VOLUME RATE/AREA] IN SERUM, PLASMA OR BLOOD BY CREATININE -BASED FORMULA (CKD-EPI 2020) 25 mL/min 60 04/29 L Specimen Type: SERUM No comment entered. Ordering Provider: LEYDI ARIAS IE Report Released Date/Time: Apr 16, 2023 09:46 AM Reporting Lab: [address] [address] Performing Lab: [address] [address] [place] Vital Signs Combined list of inpatient and outpatient Vital Signs from Department of Defense and Veterans Affairs, ranging from 12 months to all on record, depending upon the facility. Vital Sign Value Date Comments Source SYSTOLIC BLOOD PRESSURE 114 03/03/20 24 09:19:31 [facility] DIASTOLIC BLOOD PRESSURE 74 024 09:19:31 [facility] PULSE OXIMETRY 98 03/03/2024 09:19:31 [facility] WEIGHT 165 03/03/2024 09:19:31 [facility] BMI 24 kg/m2 03/03/2024 09:19:31 [facility] TEMPERATURE 97.4 03/03/2024 09:19:31 [facility] PULSE 77 03/03/2024 09:19:31 [facility] RESPIRATION 18 03/03/2024 09:19:31 [facility] SYSTOLIC BLOOD PRESSURE 127 09/01/19 13:14:26 [facility] DIASTOLIC BLOOD PRESSURE 71 024 13:14:26 [facility] PULSE OXIMETRY 100 09/01/2023 13:14:26 [facility] [id number] 01/21 [facility] [id number] 01/21 [facility]counter [id number] 01/23 [facility] Encounter [id number] 02/04 [facility] Encounter [id number] 02/16 [facility] Encounter [id number] 02/23 [facility]-39 MIN [id number] Diagnos is: ICD-10- CM I10 Essenti al (primar y) hyperte nsion HUGO,ANNMA JENAE 02/25 [place] [facility] Out[facility] Encounter [id number] 03/04 [facility] Encounter [id number] 03/26 [facility] Encounter [id number] 04/07 [facility] Encounter [id number] 04/07 [facility] Encounter [id number] 04/14 [facility] Encounter [id number] 04/16 [facility] Encounter [id number] 05/21 [facility] Encounter [id number] 06/09 [facility] Encounter [id number] 06/28 [facility] Out[facility] Encounter [id number] 06/30 [facility] Encounter [id number] 07/10 [facility] Encounter [id number] 08/11 [facility] OFFICE O/P EST MOD 30 MIN [id number] Diagnos is: ICD-10- CM I10 Essenti al (primar y) hyperte nsion MAGALI,A POLINARIO 08/31 [place] [facility] Out[facility] Encounter [id number] 09/01 [facility] Encounter [id number] 09/07 [facility] Out[facility] Encounter [id number] 09/07 [facility] Out[facility] Encounter [id number] 09/20 [facility] Encounter [id number] 09/20 [facility] Out[facility] Encounter [id number] 09/27 [facility] Out[facility] Encounter [id number] 10/19 [facility] Out[facility] Encounter [id number] 10/26 [facility] Out[facility] Encounter [id number] 11/09 [facility] Out[facility] Encounter [id number] 11/16 [facility] Out[facility] Encounter [id number] 12/13 [facility] Out[facility] Encounter [id number] 12/24 [facility] Encounter [id number] 01/19 [facility] Out[facility] Encounter [id number] 01/24 [facility] Out[facility] Encounter [id number] 02/07 [facility] EVALUATION OF WHEEZING [id number]. 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, unspeci fied CARI DUGAN 02/07 [facility] PULM FUNCTION TEST [place] GAS [id number] 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, unspeci fied Edwige HYMAN MD 02/09 [facility] Outpatient Encounter [id number] Rashmi SWANSON 02/15 [facility] Outpatient Encounter [id number] 02/24 [facility] Outpatient Encounter [id number] 02/24 [facility] OFFICE O/P EST LOW 20 MIN [id number] 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, unspeci fied ESTEVAN JORDAN 03/03 [place] [facility] Outpatient Encounter [id number] 05/10 [facility] Outpatient Encounter [id number] 05/17 [facility] Outpatient Encounter [id number] 05/23 [facility] Social History Combined list of available smoking, tobacco, and other social history from Department of Defense and Veterans Affairs facilities. Social History Type Response Date Comment Sourc e Tobacco smoking status [place] [facility] of tobacco use [facility]-TOBACCO NEVER USED 05/17/2021 [facility] History of tobacco use LIFETIME NON-TOBACCO USER 06/15/2017 [facility] History of tobacco use LIFETIME NON-TOBACCO USER 06/20/2016 [facility]
--- OUTSIDE RECORDS SUMMARY | 2024-07-12 13:37 | XMS_ITS | Encounter Summary ---
Author Name [facility] [place] [facility] [place] [facility] [place] Address [address] [place] [address] Care Team Providers Care Cytology Teacher Name Role Phone CARLOS BOYCE Primary Care [...] FELICITY TY HEALT H Dec 08, 2019 [id number] 20 [id number] JUANITO KRAUSE PATIENT BCBS [place] ([place] C[place]) PREFERRED PROVIDER ORGANIZAT ION (PPO) FELICITY TY [place] RA Mar 09, 2021 [id number] [phone] SHALONDA SnowERON SPOUSE [place] PRESCRIPT ION [id number] Mar 09, 2016 [id number] JUANITO KRAUSE PATIENT MEDICARE (WNR) MEDICARE (M) PART B Feb 06, 2023 PART B [id number] JUANITO KRAUSE PATIENT MEDICARE (WNR) MEDICARE (M) PART A Dec 08, 2019 PART A [id number] JUANITO KRAUSE PATIENT OPTUM RX PRESCRIPT ION FELICITY TY Mar 09, 2021 [facility] [id number] JUANITO KRAUSE PATIENT OPTUM RX PRESCRIPT ION FELICITY TY HEALT H [place] Dec 08, 2019 [facility] [id number] JUANITO KRAUSE PATIENT Selected Encounter This section includes the information on record at [place] for the Encounter. Date/Time Encounter Type Encounter Description Reason Provider Source Mar 03, 2024 01:30 PM OFFICE O/P EST LOW 20 MIN PRIMARY CARE/MEDICINE ICD-10-CM M34.9 Systemic sclerosis, unspecified ROSALINA JORDAN Encounter Template Text not used by [place] Assessments - Encounter Diagnoses This section includes the primary and secondary diagnoses documented for the Encounter. Date/Time Primary/Secondary Diagnosis Diagnosis Name Provider Source Mar 03, 2024 01:54 PM PRIMARY Systemic sclerosis, unspecified ROSALINA JORDAN Plan of Treatment: Future Appointments (+ 6 months) and Future Tests (+/- 45 days) The Plan of Treatment section includes future care activities for the patient from all [place] treatmentfacilities. This section includes future appointments and future orders which are active, pending or scheduled. Future Appointments This section includes appointments that were scheduled to occur 6 months from the date of the Encounter, up to a maximum of 20 appointments. The data comes from all [place] treatment facilities. Appointment Date/Time Appointment Type Appointme nt Facility Name May 10, 2024 08:00 AM [facility] May 17, 2024 01:45 PM [facility] Active, Pending, and Scheduled Orders This section includes a listing of several types of active, pending, and scheduled orders, including clinic medications orders, diagnostic test orders, procedure orders and consult orders; where the start date of the order is 45 days before the date of the Encounter or 45 days after the date of theEncounter. The data comes from all [place] treatment facilities. Test Date/Time Test Type Test Details Facility Name Mar 03, 2024 01:48 PM Consult Order [facility]-RHEUMATOLOGY Cons Personnel Specialist's [facility] Vital Signs: All taken on the encounter date This section contains inpatient and outpatient Vital Signs collected on the date of the Encounter. Date/Time Temperature Pulse Blood Pressure Respiratory Rate SP02 Pain Height Weight Body Mass Index Source Mar 03, 2024 09:19 AM 97.4 77 114/74 18 98 165 24 [facility] [place] Social History: Smoking Status (Most current) and Tobacco Use (All prior to encounter date) This section includes the most current, and the historical, smoking and tobacco- related health factors from the [place] facility where the Encounter took place. Current Smoking Status This section includes the most current smoking, or tobacco-related health factor, from the [place] facility where the Encounter took place. Date/Time Current Smoking Status Comment Facil ity Sep 01, 2023 01:00 PM VA-TOBACCO NEVER USED [facility] Tobacco Use History This section includes a history of the smoking, or tobacco-related health factors, that were collected on or before the date of the Encounter. The data comes from the [place] facility where the Encounter took place. Date/Time Smoking Status/Tobacco Use Comment F acility Jun 15, 2017 01:14 PM LIFETIME NON-TOBACCO USER [facility] Jun 20, 2016 10:56 AM LIFETIME NON-TOBACCO USER [facility] Encounter Notes: All associated encounter notes This section contains the clinical notes associated to the Encounter. Date/Time Encounter Note(s) Provider Source Mar 03, 2024 01:48 PM PHYSICIAN ASSISTAN T NOTE: LOCAL TITLE: [place] NOTE STANDARD TITLE: PHYSICIAN SPECIAL WARFARE OPERATOR NOTE DATE OF NOTE: MAR 03, 2024@13:48 [...] of active outpatient prescriptions dispensed from this [place] (local) and dispensed from another [place] or [facility] facility (remote) as well as inpatient orders [...] provider. /brody/ ROSALINA JORDAN PA-C STAFF PHYSICIAN SPECIAL WARFARE OPERATOR Signed: 03/03/2024 13:54 ROSALINA JORDAN Mar 03, [...]
--- OUTSIDE RECORDS SUMMARY | 2024-07-12 13:37 | XMS_ITS | Clinical Summary ---
Author Organization [facility] Facility Address [address] [address] Care Team Providers Care Stadium Manager Name Role Phone Gold Daley MD Primary Care Provider [phone]- [phone] Allergies No known active allergies Medications carvedilol [...] Obstructive sleep apnea syndrome 02/15/2007 09/26/2022 Immunizations Immunization Administration Dates Next Due Influenza Whole 12/07/2018 [...] Due Date Last Done Comments Pneumococcal Vaccine: 50+ Years (1 of 2 - PCV) 1973 Colorectal Cancer Screening: Annual FOBT 12/29/2003 Colorectal Cancer Screening: Colonoscopy 12/29/2003 Colorectal Cancer Screening: Sigmoidoscopy 12/29/2003 Influenza Vaccine (Season Ended) 2024 12/03/2021, 12/12/2020, 11/07/2020, Additional history exists Hepatitis B Vaccine Aged Out No longe r eligible based on patient's age to complete this topic Insurance [place] [employer] [address] (VACCN) [place] [address] [facility] [employer] 1,2,3 (VACCN) Care Teams Stadium Manager Relationship Specialty Start Date End Date Gold Daley MD [address] [place] [address] PCP - General Family Medicine 04/22/22
--- OUTSIDE RECORDS SUMMARY | 2024-07-12 13:37 | XMS_ITS | Clinical Summary ---
Author Organization [facility] Address [address] [place] [address] Care Team Providers Care Drying Machine Back Tender Name Role Phone Gold Daley MD Primary Care Provider [phone]- [phone] Surgical History Surgery Date Site/Laterality Comments SHOULDER SURGERY PROCEDURE: HISTORICAL SHOULDER SURGERY COLONOSCOPY 12/26/2010 PROCEDURE: HISTORICAL COLONOSCOPY ESOPHAGOGASTRODUODENOSCOPY 12/04/2006 PROCEDURE: IA ESOPHAGOGASTRODUODENOSCOPY TRANSORAL DIAGNOSTIC Medical History Medical History [...] - 2023-2 5 season) 2023 Influenza Vaccine (Season Ended) 2024 RSV Immunization Adult Patie nts (1 - 1-dose 75+ series) 2029 HIB [...] age to complete this topic Meningococcal B Vaccine Aged Out No l onger eligible based on patient's age to complete this topic RSV Immunization Patients Un sho 20 months Aged Out No longer eligible b ased on patient's age to complete this topic Varicella Vaccines Aged Out No longer eligible based on patient's age to complete this topic Advance Directives Documents on File Type Date Recorded Patient Triage Technician Expl anation Health Care Decision (hx) 08/13/2021 AD FORTE DIRECTIVE Health Care Decision (hx) 08/13/2021 AD FORTE DIRECTIVE Health Care Decision (hx) 08/13/2021 AD FORTE DIRECTIVE Health Care Decision (hx) 08/13/2021 AD FORTE DIRECTIVE Health Care Decision (hx) 08/13/2021 AD FORTE DIRECTIVE Care Teams Drying Machine Back Tender Relationship Specialty Start Date End Date Gold Daley MD [address] [place] [address] PCP - General 05/29/22
--- OUTSIDE RECORDS SUMMARY | 2024-07-12 13:37 | XMS_ITS | Encounter Summary ---
Author Name [facility] [place] [facility] [place] [facility] [place] Address [address] [place] [id number] Care Team Providers Care Hydrological Technical Officer Name Role Phone CARLOS BOYCE Primary Care [...] FELICITY TY HEALT H Dec 08, 2019 [id number] 20 [id number] JUANITO KRAUSE PATIENT BCBS [place] (BLUE CARD) PREFERRED PROVIDER ORGANIZAT ION (PPO) FELICITY TY [place] RA Mar 09, 2021 [id number] 20 [id number] [phone] SHALONDA SnowERON SPOUSE CAREMARK PRESCRIPT ION [id number] Mar 09, 2016 [id number] [phone] JUANITO KRAUSE PATIENT MEDICARE (WNR) MEDICARE (M) PART B Feb 06, 2023 PART B [id number] JUANITO KRAUSE PATIENT MEDICARE (WNR) MEDICARE (M) PART A Dec 08, 2019 PART A [id number] [facility] JUANITO KRAUSE PATIENT OPTUM RX PRESCRIPT ION FELICITY TY Mar 09, 2021 [facility] [id number] JUANITO KRAUSE PATIENT OPTUM RX PRESCRIPT ION FELICITY TY HEALT H CORPO Dec 08, 2019 [facility] [id number] JUANITO KRAUSE PATIENT Selected Encounter This section includes the information on record at [place] for the Encounter. Date/Time Encounter Type Encounter Description Reason Provider Source Feb 16, 2024 02:33 PM Outpatient Encounter ADMIN PAT ACTIVTIES (KRISTOPHER) NENITA SWANSON Encounter Template Text not used by [place] Plan of Treatment: Future Appointments (+ 6 months) and Future Tests (+/- 45 days) The Plan of Treatment section includes future care activities for the patient [facility] [place] [facility] This section includes future appointments and future orders which are active, pending or scheduled. Future Appointments This section includes appointments that were scheduled to occur 6 months from the date of the Encounter, up to a maximum of 20 appointments. The data comes from all [facility] facilities. Appointment Date/Time Appointment Type Appointme nt Facility Name Mar 03, 2024 01:30 PM AMBULATORY - MEDICINE [facility] May 10, 2024 08:00 AM AMBULATORY - MEDICINE [facility] May 17, 2024 01:45 PM AMBULATORY - MEDICINE [facility] Active, Pending, and Scheduled Orders This section includes a listing of several types of active, pending, and scheduled orders, including clinic medications orders, diagnostic test orders, procedure orders and consult orders; where the start date of the order is 45 days before the date of the Encounter or 45 days after the date of theEncounter. The data comes from all [facility] facilities. Test Date/Time Test Type Test Details Facility Name Mar 03, 2024 01:48 PM Consult Order COMMUNITY CARE-RHEUMATOLOGY Cons Professor Of Early Childhood Education's [facility] Social History: Smoking Status (Most current) and Tobacco Use (All prior to encounter date) This section includes the most current, and the historical, smoking and tobacco- related health factors from the [place] facility where the Encounter took place. Current Smoking Status This section includes the most current smoking, or tobacco-related health factor, from the [place] facility where the Encounter took place. Date/Time [...] ENTRY DATE: FEB 20, 2024@15:18:59 AUTHOR: MARIJA CONLEYIGNER: URGENCY: STATUS: COMPLETED Forwarding request for PFT results performed on 02/08/2024 to pcp for review and follow up /brody/ IVONNE ZUNIGA RN-BC REGISTERED NURSE Signed: 02/20/2024 15:20 Receipt Acknowledged By: 03/11/2024 09:36 /brody/ KARIE DE LOS SANTOS MD PHYSICIAN === --- Original Document --- 02/16/24 CCC: SCHEDULING ADMINISTRATION: Patient Demographics Patient Name: JUANITO LANGE Patient Primary Phone: [phone] Patient Primary Address: [address] [place] [address] Patient : 1955 Patient Age: 68 Call Back Number: Caller/Recipient Relation to Patient: Self Caller Name: JUANITO LANGE Administrative Administrative Note Reason: Lab / Imaging Results Administrative Note Comments: . PATIENT CALLED FOR THE FOLLOWING: (1) RESULTS REQUEST: * PULMONARY FUNCTIONS TESTING (2) RESCHEDULE: * Mar 04, 2024@13:30 CWM/SO/PACT 9 CANCELLED BY CLINIC CCC MANAGER AVIATION RESTRICTED FROM SCHEDULING PCP/AMGALI PATIENT PHONE: . IMPORTANT: This note was created by [facility] Clinical Contact Center staff. Please do not alert the staff member by adding them as a signer for future communications. Alerts are not monitored by this user. /brody/ NENITA SWANSON VISN 1 [facility] Signed: 02/16/2024 14:33 Receipt Acknowledged By: 02/16/2024 14:48 /brody/ SAMUEL REDD 02/22/2024 13:52 /es/ MAIA RAZA LPN LPN 02/20/2024 15:18 /es/ MARIJA CONLEY BSN RN-BC REGISTERED NURSE for GUME CASTANEDA 02/16/2024 ADDENDUM STATUS: COMPLETED Picc Nurse spoke to and scheduled appt on 03/03/24 @ 01:30 pm w/SO Pact 3 provider. /brody/ SAMUEL REDD Signed: 02/16/2024 14:48 MARIJA CONLEY [place] [facility] [place] [facility] Feb 16, 2024 02:33 PM ADMINISTRATIVE NOT E: LOCAL TITLE: CCC: SCHEDULING ADMINISTRATION STANDARD TITLE: ADMINISTRATIVE NOTE DATE OF NOTE: FEB 16, 2024@14:33:29 ENTRY DATE: FEB 16, 2024@14:33:29 AUTHOR: NENITA SWANSON COSIGNER: URGENCY: STATUS: COMPLETED CCC: SCHEDULING ADMINISTRATION Has ADDENDA Patient Demographics Patient Name: JUANITO DENSONAL Patient Primary Phone: [phone] Patient Primary Address: [address] [place] [address] Patient : 1955 Patient Age: 68 Call Back Number: Caller/Recipient Relation to Patient: Self Caller Name: JUANITO DENSONAL Administrative Administrative Note Reason: Lab / Imaging Results Administrative Note Comments: . PATIENT CALLED FOR THE FOLLOWING: (1) RESULTS REQUEST: * PULMONARY FUNCTIONS TESTING (2) RESCHEDULE: * Mar 04, 2024@13:30 CWM/SO/PACT 9 CANCELLED BY CLINIC CCC MANAGER AVIATION RESTRICTED FROM SCHEDULING PCP/MAGALI PATIENT PHONE: . IMPORTANT: This note was created by [facility] Clinical Contact Center staff. Please [...] for GUME CASTANEDA 02/16/2024 ADDENDUM STATUS: COMPLETED Picc Nurse spoke to and scheduled appt on 03/03/24 @ 01:30 pm w/SO Pact 3 provider. /brody/ SAMUEL REDD Signed: 02/16/2024 14:48 02/20/2024 ADDENDUM STATUS: COMPLETED Forwarding request for PFT results performed on 02/08/2024 to pcp for review and follow up /IVONNE Herrmann RN-BC REGISTERED NURSE Signed: 02/20/2024 15:20 Receipt Acknowledged By: * AWAITING SIGNATURE * KARIE DE LOS SANTOS [facility]
--- OUTSIDE RECORDS SUMMARY | 2024-07-12 13:37 | XMS_ITS | Encounter Summary ---
Author Name [facility] [place] [facility] [place] [facility] [place] Address [address] [place] [address] Care Team Providers Care Strip Roller Name Role Phone CARLOS BOYCE Primary Care [...] FELICITY TY HEALT H Dec 08, 2019 [id number] 20 [id number] [phone] JUANITO KRAUSE PATIENT BCBS [place] ([place] C[place]) PREFERRED PROVIDER ORGANIZAT ION (PPO) FELICITY TY [place] RA Mar 09, 2021 [id number] 20 [id number] [phone] SHALONDA SnowERON SPOUSE [place] PRESCRIPT ION [id number] 4 Mar 09, 2016 [id number] JUANITO KRAUSE PATIENT MEDICARE (WNR) MEDICARE (M) PART B Feb 06, 2023 PART B [id number] JUANITO KRAUSE PATIENT MEDICARE (WNR) MEDICARE (M) PART A Dec 08, 2019 PART A [id number] [facility] JUANITO KRAUSE PATIENT OPTUM RX PRESCRIPT ION FELICITY TY Mar 09, 2021 [facility] [id number] [phone] JUANITO KRAUSE PATIENT OPTUM RX PRESCRIPT ION FELICITY TY HEALT H [place] Dec 08, 2019 [facility] [id number] JUANITO KRAUSE PATIENT Selected Encounter This section includes the information on record at [place] for the Encounter. Date/Time Encounter Type Encounter Description Reason Provider Source Feb 10, 2024 11:30 AM PULM FUNCTION TEST BY GAS PULMONARY FUNCTION ICD-10-CM M34.9 Systemic sclerosis, unspecified EMETERIO HYMAN MD [facility] Encounter Template Text not used by [place] Assessments - Encounter Diagnoses This section includes the primary and secondary diagnoses documented for the Encounter. Date/Time Primary/Secondary Diagnosis Diagnosis Name Provider Source Feb 13, 2024 12:50 AM PRIMARY Systemic sclerosis, unspecified EMETERIO HYMAN MD [facility] Plan of Treatment: Future Appointments (+ 6 months) and Future Tests (+/- 45 days) The Plan of Treatment section includes future care activities for the patient from all [place] treatmentfacilities. This section includes future appointments and future orders which are active, pending or scheduled. Future Appointments This section includes appointments that were scheduled to occur 6 months from the date of the Encounter, up to a maximum of 20 appointments. The data comes from all [place] treatment facilities. Appointment Date/Time Appointment Type Appointme nt Facility Name Mar 03, 2024 01:30 PM AMBULATORY - MEDICINE [facility] May 10, 2024 08:00 AM [facility] [place] [facility] [place] [facility] May 17, 2024 01:45 PM AMBULATORY - MEDICINE [facility] [place] [place] [facility] Active, Pending, and Scheduled Orders This section includes a listing of several types of active, pending, and scheduled orders, including clinic medications orders, diagnostic test orders, procedure orders and consult orders; where the start date of the order is 45 days before the date of the Encounter or 45 days after the date of theEncounter. The data comes from all [place] treatment facilities. Test Date/Time Test Type Test Details Facility Name Mar 03, 2024 01:48 PM Consult Order COMMUNITY CARE-RHEUMATOLOGY Cons Anesthesiology Resident's Choice [facility] Encounter Notes: All associated encounter notes This section contains the clinical notes associated to the Encounter. Date/Time Encounter Note(s) Provider Source Feb 13, 2024 12:49 AM PULMONARY DIAGNOST IC STUDY REPORT: LOCAL TITLE: CONSULT /[place] PFT STANDARD TITLE: PULMONARY DIAGNOSTIC STUDY REPORT DATE OF NOTE: FEB 13, 2024@00:49 ENTRY DATE: FEB 13, 2024@00:49:56 AUTHOR: EMETERIO HYMAN MD EXP COSIGNER: URGENCY: STATUS: COMPLETED Pulmonary Function Test interpretation report completed. See [facility] CPRS for report. /es/ EMETERIO HYMAN MD PULMONARY/CRITICAL CARE SECTION Signed: 02/13/2024 00:50 EMETERIO HYMAN MD [facility]
[2024-07-12 14:09] LABS: Basophils Absolute Auto 0.1 X10*3/uL (0.0-0.2); Basophils Percent Auto 0.8 % (0-2); Eosinophils Absolute Auto 0.8 X10*3/uL (0.0-0.4); Eosinophils Percent Auto 8.5 % (0-4); Hematocrit 35.5 % (42.0-52.0); Hemoglobin 11.5 g/dl (14.0-18.0); Imm Gran Abs Auto 0.03 X10*3/uL (0.00-0.03); Imm Gran Pct Auto 0.3 % (0.0-0.4); Lymphocytes Absolute Auto 1.1 X10*3/uL (1.2-4.9); Lymphocytes Percent Auto 12.7 % (20-40); Mean Corpuscular HGB Conc 32.4 g/dl (31.0-36.0); Mean Corpuscular Hemoglobin 28.8 pg (27.0-33.0); Mean Corpuscular Volume 88.8 fL (80.0-98.0); Mean Platelet Volume 10.1 fL (9.4-12.4); Monocytes Absolute Auto 0.8 X10*3/uL (0.1-1.2); Monocytes Percent Auto 8.7 % (2-11); Neutrophils Absolute Auto 6.2 x10*3/uL (2.0-8.3); Platelet Count 276 X10*3/uL (160-400); Red Cell Distribution Width 15.9 % (11.0-16.0)
[2024-07-12 14:50] LABS: Erythrocyte Sedimentation Rate 38 MM/HR (0-15)
[2024-07-12 18:21] LABS: Alanine Aminotransferase 10 U/L (0-40); Albumin Level 3.8 g/dL (3.5-5.0); Alkaline Phosphatase 70 U/L (39-117); Anion Gap 11 (12-20); Aspartate Amino Transferase 20 U/L (5-37); Bilirubin Total 0.4 mg/dL (0.0-1.0); Blood Urea Nitrogen 37 mg/dL (9-16); C Reactive Protein 0.39 mg/dL (< or = 0.50); Calcium 8.8 mg/dL (8.4-10.2); Carbon Dioxide 21 mmol/L (22-29); Chloride 110 mmol/L (96-108); Estimated Glomerular Filt Rate 32; Glucose Random 92 mg/dL (60-115); Potassium 4.4 mmol/L (3.3-5.1); Sodium 138 mmol/L (135-145); Total Protein 7.6 g/dL (6.5-8.0)
== END 2024-07-12 12:09 | disposition home or self-care (01) ==
LOC: HO.LAB 12:08
PROVIDERS: Visit Provider Student in an Organized Health Care Education/Training Program
DX: M34.9 Systemic sclerosis, unspecified (principal)
CPT/HCPCS: 36415; 80053; 82550; 85025; 85652; 86140

== ENCOUNTER 2024-07-15 14:12 | Outpatient (AMB) | payer OTHER, SELFPAY ==
--- OUTSIDE RECORDS SUMMARY | 2024-07-15 14:13 | XMS_ITS | Continuity of Care Document ---
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 It does not include entries that were removed or entered in error. Problem Status Onset Date Problem Type Date of Resolution Comments Source Cyst - pilonidal Active Condition [place] Essential hypertension Active Condition [place] History of knee surgery Active Condition Jun 20, 2016 Entered By: JAYDON ARIAS Comment: R in early [place] History of shoulder surgery Active Condition Jun 20 Entered By: JAYDON ARIAS Comment: R in s [place] Impaired fasting glucose Active Condition [place] Left inguinal hernia Active Condition Feb 25, 2023 Entered By: JAYDON ARIAS Comment: repair 12/2022 [place] Pain of right shoulder joint Active Condition Feb 25, 2023 Entered By: JAYDON ARIAS Comment: right shoulder replacement 08/2021 [place] Postnasal drip Active Condition [facility] [place] Systemic sclerosis, diffuse Active Condition Mar 03, 2024 Entered By: ROSALINA JORDAN Comment: PFT's MAR 01: NL SpirometryDec 2023 Entered By: ROSALINA JORDAN Comment: Barium Swallow Planned APR 02 (but has no dysphagia yet)Mar 03, 2024 Entered By: ROSALINA JORDAN Comment: Sees Both Rheum and Nephro at [place] for the Diffuse SS : [place] Diagnosis: ICD-10-CM M34.9 Systemic sclerosis, unspecified Active Diagnosis [place] Diagnosis: ICD-10-CM I10 Essential (primary) hypertension Active Diagnosis [place] Medications Combined list of outpatient medications from Department of [facility] and [facility] facilities.Medications provided include 1) outpatient medications from the last 15 months, and 2) patient-reported medications. Medication Details Route Status Patient Instructions Prescription Expires Prescription Number Last Dispense Date Ordering Provider Order Date Order Qty Source ASCORBIC ACID TAB TAKE BY MOUTH DAILY ORAL ACTIVE SIERRA ARIAS 2016 [facility] CARVEDILOL 25MG TAB TAKE ONE TABLET BY MOUTH TWICE DAILY FOR HIGH BLOOD PRESSURE ORAL ACTIVE 12/25/2024 [id number] MAGALI, APOLINARI O 2023 180 [place] CARVEDILOL 25MG TAB TAKE ONE TABLET BY MOUTH TWICE DAILY FOR HIGH BLOOD PRESSURE ORAL DISCONT INUED 12/25/2024 [id number] MAGALI, APOLINARI O 2023 180 [place] CARVEDILOL 25MG TAB TAKE ONE TABLET BY MOUTH TWICE DAILY FOR HIGH BLOOD PRESSURE ORAL DISCONT INUED 02/26/2024 [id number] SIERRA ARIAS 2022 180 [place] FLUTICASONE PROPIONATE 50MCG/SPRAY SOLN,NASAL, 16GM INSTILL 2 SPRAYS INTO EACH NOSTRIL ONCE DAILY NASAL ACTIVE SIERRA ARIAS 2022 [place] NIFEDIPINE (EQV-CC) 30MG TAB,SA TAKE ONE TABLET BY MOUTH TWICE DAILY FOR HIGH BLOOD PRESSURE DO NOT TAKE WITH GRAPEFRU IT JUICE ORAL ACTIVE 09/01/2024 [id number] 5 MAGALIELISABETHLINARI O 2023 180 [place] NIFEDIPINE (EQV-CC) 30MG TAB,SA TAKE ONE TABLET BY MOUTH TWICE DAILY FOR HIGH BLOOD PRESSURE DO NOT TAKE WITH GRAPEFRU IT JUICE ORAL DISCONT INUED 02/26/2024 [id number] SIERRA ARIAS 2022 180 [place] OTHER CAP/TAB TAKE RENOCAP BY MOUTH ONCE DAILY ORAL ACTIVE SIERRA ARIAS 2022 [place] RENAL MULTIVIT W/1MG OR LESS FOLIC ACID TAB TAKE 1 TABLET BY MOUTH ONCE DAILY FOR VITAMIN SUPPLEME NTATION ORAL ACTIVE 03/04/2025 [id number] JAMES JORDAN 2024 90 [place] RENAL MULTIVIT W/1MG OR LESS FOLIC ACID TAB TAKE 1 TABLET BY MOUTH ONCE DAILY FOR VITAMIN SUPPLEME NTATION ORAL DISCONT INUED 03/16/2024 [id number] SIERRA ARIAS 2023 90 [place] Immunizations Combined list of available immunizations from the Department of Defense and Veterans Affairs facilities. 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 Ordering Provider: LEYDI ARIAS IE Report Released Date/Time: Feb 25, 2023 03:45 PM Reporting Lab: [facility] [address] [facility] [address] Performing Lab: [facility] [address] [facility] [address] [place] LIPID PANEL FASTING CHOLESTERO L IN LDL [MASS/VOLU ME] IN SERUM OR PLASMA BY CALCULARADHA N 154 mg/dL 0 - 129 08/24 H Specimen Type: SERUM No comment entered. Ordering Provider: LEYDI ARIAS IE Report Released Date/Time: Feb 25, 2023 03:45 PM Reporting Lab: [facility] [address] [facility] [address] Performing Lab: [facility] [address] [address] [place] LIPID PANEL FASTING CHOLESTERO L.TOTAL/CH OLESTEROL IN HDL [MASS RATIO] IN SERUM OR PLASMA 6.1 08/24 Specimen Type: SERUM No comment entered. Ordering Provider: LEYDI ARIAS IE Report Released Date/Time: Feb 25, 2023 03:45 PM Reporting Lab: [facility] [address] [address] Performing Lab: [facility] [address] [address] [place] LIPID PANEL FASTING CHOLESTERO L IN HDL [MASS/VOLU ME] IN SERUM OR PLASMA 34 mg/dL 40 - 60 08/24 L Specimen Type: SERUM No comment entered. Ordering Provider: LEYDI ARIAS IE Report Released Date/Time: Feb 25, 2023 03:45 PM Reporting Lab: [facility] [address] [facility] [address] Performing Lab: [facility] [address] [address] [place] BASIC METABOLI C PANEL (fasting ) UREA NITROGEN [MASS/VOLU ME] IN SERUM OR PLASMA 40 mg/dL 7 - 25 08/24 H Specimen Type: SERUM No comment entered. Ordering Provider: LEYDI ARIAS IE Report Released Date/Time: Feb 25, 2023 03:45 PM Reporting Lab: [facility] [address] [address] Performing Lab: [facility] [address] [facility] [address] [place] BASIC METABOLI C PANEL (fasting ) GLUCOSE [MASS/VOLU ME] IN SERUM OR PLASMA 101 mg/dL 65 - 100 08/24 H Specimen Type: SERUM No comment entered. Ordering Provider: LEYDI ARIAS IE Report Released Date/Time: Feb 25, 2023 03:45 PM Reporting Lab: [address] [address] Performing Lab: [address] [address] [place] BASIC METABOLI C PANEL (fasting ) SODIUM [MOLES/VOL UME] IN SERUM OR PLASMA 136 mmol/L 135 - 145 08/24 Specimen Type: SERUM No comment entered. Ordering Provider: LEYDI ARIAS IE Report Released Date/Time: Feb 25, 2023 03:45 PM Reporting Lab: [address] [address] Performing Lab: [address] [address] [place] BASIC METABOLI C PANEL (fasting ) POTASSIUM [MOLES/VOL UME] IN SERUM OR PLASMA 4.3 mmol/L 3.5 - 5.0 08/24 Specimen Type: SERUM No comment entered. Ordering Provider: LEYDI ARIAS IE Report Released Date/Time: Feb 25, 2023 03:45 PM Reporting Lab: [address] [address] Performing Lab: [address] [address] [place] BASIC METABOLI C PANEL (fasting ) CHLORIDE [MOLES/VOL UME] IN SERUM OR PLASMA 110 mmol/L 100 - 110 08/24 Specimen Type: SERUM No comment entered. Ordering Provider: LEYDI ARIAS IE Report Released Date/Time: Feb 25, 2023 03:45 PM Reporting Lab: [address] [place] [address] Performing Lab: [facility] [address] [facility] [address] [place] BASIC METABOLI C PANEL (fasting ) CARBON DIOXIDE, TOTAL [MOLES/VOL UME] IN SERUM OR PLASMA 19 meq/L 20 - 30 08/24 L Specimen Type: SERUM No comment entered. Ordering Provider: LEYDI ARIAS IE Report Released Date/Time: Feb 25, 2023 03:45 PM Reporting Lab: [facility] [address] [address] Performing Lab: [address] [address] [place] BASIC METABOLI C PANEL (fasting ) CREATININE [MASS/VOLU ME] IN SERUM OR PLASMA 2.54 mg/dL 0.50 - 1.40 08/24 H Specimen Type: SERUM No comment entered. Ordering Provider: LEYDI RAIAS IE Report Released Date/Time: Feb 25, 2023 03:45 PM Reporting Lab: [facility] [address] [address] Performing Lab: [address] [address] [facility] BASIC METABOLI C PANEL (fasting ) GLOMERULAR FILTRATION RATE/1.73 SQ M.PREDICTE D [VOLUME RATE/AREA] IN SERUM, PLASMA OR BLOOD BY CREATININE -BASED FORMULA (CKD-EPI 2020) 27 mL/min 60 08/24 L Specimen Type: SERUM No comment entered. Ordering Provider: LEYDI ARIAS IE Report Released Date/Time: Feb 25, 2023 03:45 PM Reporting Lab: [address] [address] Performing Lab: [address] [address] [place] LIVER FUNCTION PROTEIN [MASS/VOLU ME] IN SERUM OR PLASMA 7.2 g/dL 6.0 - 8.3 08/24 Specimen Type: SERUM No comment entered. Ordering Provider: LEYDI ARIAS IE Report Released Date/Time: Feb 25, 2023 03:45 PM Reporting Lab: [facility] [address] [facility] [address] Performing Lab: [facility] [address] [facility] [address] [place]IVER FUNCTION ALBUMIN [MASS/VOLU ME] IN SERUM OR PLASMA 3.6 g/dL 3.5 - 5.0 08/24 Specimen Type: SERUM No comment entered. Ordering Provider: LEYDI ARIAS IE Report Released Date/Time: Feb 25, 2023 03:45 PM Reporting Lab: [facility] [address] [address] Performing Lab: [facility] [address] [facility] LIVER FUNCTION ALKALINE PHOSPHATAS E [ENZYMATIC ACTIVITY/V OLUME] IN SERUM OR PLASMA 66 U/L 40 - 150 08/24 Specimen Type: SERUM No comment entered. Ordering Provider: LEYDI ARIAS IE Report Released Date/Time: Feb 25, 2023 03:45 PM Reporting Lab: [facility] [address] [address] Performing Lab: [facility] [address] [address] [facility] LIVER FUNCTION ASPARTATE AMINOTRANS FERASE [ENZYMATIC ACTIVITY/V OLUME] IN SERUM OR PLASMA 17 U/L 5 - 34 08/24 Specimen Type: SERUM No comment entered. Ordering Provider: LEYDI ARIAS IE Report Released Date/Time: Feb 25, 2023 03:45 PM Reporting Lab: [facility] [address] [address] Performing Lab: [facility] [address] [address] [facility] LIVER FUNCTION ALANINE AMINOTRANS FERASE [ENZYMATIC ACTIVITY/V OLUME] IN SERUM OR PLASMA 11 U/L 08/24 Specimen Type: SERUM No comment entered. Ordering Provider: LEYDI ARIAS IE Report Released Date/Time: Feb 25, 2023 03:45 PM Reporting Lab: [facility] [address] [address] Performing Lab: [facility] [address] [place] LIVER FUNCTION BILIRUBIN. TOTAL [MASS/VOLU ME] IN SERUM OR PLASMA 0.4 mg/dL 0.2 - 1.2 08/24 Specimen Type: SERUM No comment entered. Ordering Provider: LEYDI ARIAS IE Report Released Date/Time: Feb 25, 2023 03:45 PM Reporting Lab: [facility] [address] [address] Performing Lab: [address] [address] [facility] HEMOGLOB IN A1C PANEL HEMOGLOBIN [...] 25, 2023 03:45 PM Reporting Lab: [address] [address] Performing Lab: [facility] [address] [address] [place] CBC AND DIFF (AUTO) LEUKOCYTES [#/VOLUME] IN BLOOD BY AUTOMATED COUNT 10.43 10*3/uL 4.50 - 11.00 08/24 Specimen Type: BLOOD No comment entered. Ordering Provider: LEYDI ARIAS IE Report Released Date/Time: Feb 25, 2023 03:45 PM Reporting Lab: [address] [address] Performing Lab: [address] [address] [place] CBC AND DIFF (AUTO) ERYTHROCYT ES [#/VOLUME] IN BLOOD BY AUTOMATED COUNT 3.68 10*6/uL 4.23 - 5.66 08/24 L Specimen Type: BLOOD No comment entered. Ordering Provider: LEYDI ARIAS IE Report Released Date/Time: Feb 25, 2023 03:45 PM Reporting Lab: [facility] [address] [facility] [address] Performing Lab: [facility] [address] [facility] [address] [place] CBC AND DIFF (AUTO) HEMOGLOBIN [MASS/VOLU ME] IN BLOOD 10.7 g/dL 12.8 - 17 08/24 L Specimen Type: BLOOD No comment entered. Ordering Provider: LEYDI ARIAS IE Report Released Date/Time: Feb 25, 2023 03:45 PM Reporting Lab: [facility] [address] [address] Performing Lab: [facility] [address] [facility] [address] [place] CBC AND DIFF (AUTO) HEMATOCRIT [VOLUME FRACTION] OF BLOOD BY AUTOMATED COUNT 33.6 39.2 - 50.4 08/24 L Specimen Type: BLOOD No comment entered. Ordering Provider: LEYDI ARIAS IE Report Released Date/Time: Feb 25, 2023 03:45 PM Reporting Lab: [facility] [address] [address] Performing Lab: [facility] [address] [facility] [address] [place] CBC AND DIFF (AUTO) MCV [ENTITIC VOLUME] BY AUTOMATED COUNT 91.3 fL 82 - 99 08/24 Specimen Type: BLOOD No comment entered. Ordering Provider: LEYDI ARIAS IE Report Released Date/Time: Feb 25, 2023 03:45 PM Reporting Lab: [facility] [address] [address] Performing Lab: [facility] [address] [place] CBC AND DIFF (AUTO) MCHC [MASS/VOLU ME] BY AUTOMATED COUNT 31.8 g/dL 30.8 - 35.1 08/24 Specimen Type: BLOOD No comment entered. Ordering Provider: LEYDI ARIAS IE Report Released Date/Time: Feb 25, 2023 03:45 PM Reporting Lab: [facility] [address] [address] Performing Lab: [facility] [address] [address] [place] CBC AND DIFF (AUTO) PLATELETS [#/VOLUME] IN BLOOD BY AUTOMATED COUNT 287 10*3/uL 140 - 360 08/24 Specimen Type: BLOOD No comment entered. Ordering Provider: LEYDI ARIAS IE Report Released Date/Time: Feb 25, 2023 03:45 PM Reporting Lab: [facility] [address] [address] Performing Lab: [facility] [address] [address] [place] CBC AND DIFF (AUTO) ERYTHROCYT E DISTRIBUTI ON WIDTH [RATIO] BY AUTOMATED COUNT 14.6 12.0 - 16.0 08/24 Specimen Type: BLOOD No comment entered. Ordering Provider: LEYDI ARIAS IE Report Released Date/Time: Feb 25, 2023 03:45 PM Reporting Lab: [facility] [address] [address] Performing Lab: [facility] [address] [address] [place] CBC AND DIFF (AUTO) MONOCYTES [#/VOLUME] IN BLOOD BY AUTOMATED COUNT 0.80 10*3/uL 0.30 - 1.10 08/24 Specimen Type: BLOOD No comment entered. Ordering Provider: LEYDI ARIAS IE Report Released Date/Time: Feb 25, 2023 03:45 PM Reporting Lab: [facility] [address] [address] Performing Lab: [facility] [address] [address] [place] CBC AND DIFF (AUTO) MCH [ENTITIC MASS] BY AUTOMATED COUNT 29.1 pg 26.2 - 32.6 08/24 Specimen Type: BLOOD No comment entered. Ordering Provider: LEYDI ARIAS IE Report Released Date/Time: Feb 25, 2023 03:45 PM Reporting Lab: [facility] [address] [address] Performing Lab: [facility] [place] [facility] [address] [facility] [address] [place] CBC AND DIFF (AUTO) NEUTROPHIL S/100 LEUKOCYTES IN BLOOD BY AUTOMATED COUNT 76.3 43.7 - 75.8 08/24 H Specimen Type: BLOOD No comment entered. Ordering Provider: LEYDI ARIAS IE Report Released Date/Time: Feb 25, 2023 03:45 PM Reporting Lab: [facility] [address] [address] Performing Lab: [facility] [address] [address] [place] CBC AND DIFF (AUTO) LYMPHOCYTE S/100 LEUKOCYTES IN BLOOD BY AUTOMATED COUNT 8.7 14.0 - 42.3 08/24 L Specimen Type: BLOOD No comment entered. Ordering Provider: LEYDI ARIAS IE Report Released Date/Time: Feb 25, 2023 03:45 PM Reporting Lab: [facility] TRN [address] [address] Performing Lab: [facility] [place] [place] [address] [address] [place] CBC AND DIFF (AUTO) MONOCYTES/ 100 LEUKOCYTES IN BLOOD BY AUTOMATED COUNT 7.7 5.1 - 13.7 08/24 Specimen Type: BLOOD No comment entered. Ordering Provider: LEYDI ARIAS IE Report Released Date/Time: Feb 25, 2023 03:45 PM Reporting Lab: [place] [facility] [place] [address] [address] Performing Lab: [facility] [address] [place] CBC AND DIFF (AUTO) EOSINOPHIL S/100 LEUKOCYTES IN BLOOD BY AUTOMATED COUNT 6.5 0.4 - 6.8 08/24 Specimen Type: BLOOD No comment entered. Ordering Provider: LEYDI ARIAS IE Report Released Date/Time: Feb 25, 2023 03:45 PM Reporting Lab: [facility]TR[facility] [address] [facility] [address] Performing Lab: [facility]ITALRUN[facility]PITALTRN [address] [address] [place] CBC AND DIFF (AUTO) BASOPHILS/ 100 LEUKOCYTES IN BLOOD BY AUTOMATED COUNT 0.5 0.1 - 2.0 08/24 Specimen Type: BLOOD No comment entered. Ordering Provider: LEYDI ARIAS IE Report Released Date/Time: Feb 25, 2023 03:45 PM Reporting Lab: [facility] [address] [address] Performing Lab: [facility] [address] [address] [place] CBC AND DIFF (AUTO) NEUTROPHIL S [#/VOLUME] IN BLOOD BY AUTOMATED COUNT 7.96 10*3/uL 2.20 - 7.60 08/24 H Specimen Type: BLOOD No comment entered. Ordering Provider: LEYDI ARIAS IE Report Released Date/Time: Feb 25, 2023 03:45 PM Reporting Lab: [facility] [address] [address] Performing Lab: [facility]ITALRUN[facility]PITALTRN [facility] [address] [place] CBC AND DIFF (AUTO) LYMPHOCYTE S [#/VOLUME] IN BLOOD BY AUTOMATED COUNT 0.91 10*3/uL 1.00 - 3.20 08/24 L Specimen Type: BLOOD No comment entered. Ordering Provider: LEYDI ARIAS IE Report Released Date/Time: Feb 25, 2023 03:45 PM Reporting Lab: [facility]ITALTR[facility] [address] Performing Lab: [facility] [address] [place] CBC AND DIFF (AUTO) EOSINOPHIL S [#/VOLUME] IN BLOOD BY AUTOMATED COUNT 0.68 10*3/uL 0.03 - 0.44 08/24 H Specimen Type: BLOOD No comment entered. Ordering Provider: LEYDI ARIAS IE Report Released Date/Time: Feb 25, 2023 03:45 PM Reporting Lab: [facility] [address] [address] Performing Lab: [facility] [address] [address] [place] CBC AND DIFF (AUTO) BASOPHILS [#/VOLUME] IN BLOOD BY AUTOMATED COUNT 0.05 10*3/uL 0.01 - 0.13 08/24 Specimen Type: BLOOD No comment entered. Ordering Provider: LEYDI ARIAS IE Report Released Date/Time: Feb 25, 2023 03:45 PM Reporting Lab: [facility] [address] [address] Performing Lab: [facility] [address] [address] [place] CBC AND DIFF (AUTO) IMMATURE GRANULOCYT ES/100 LEUKOCYTES IN BLOOD BY AUTOMATED COUNT 0.3 0.0 - 0.7 08/24 Specimen Type: BLOOD No comment entered. Ordering Provider: LEYDI ARIAS IE Report Released Date/Time: Feb 25, 2023 03:45 PM Reporting Lab: [facility] [address] [address] Performing Lab: [facility] [address] [address] [place] CBC AND DIFF (AUTO) IMMATURE GRANULOCYT ES [#/VOLUME] IN BLOOD 0.03 10*3/uL 0.00 - 0.06 08/24 Specimen Type: BLOOD No comment entered. Ordering Provider: LEYDI ARIAS IE Report Released Date/Time: Feb 25, 2023 03:45 PM Reporting Lab: [facility] [address] [address] Performing Lab: [facility] [address] [address] [place] CBC AND DIFF (AUTO) NRBC % 0.0 0.0 - 0.0 08/24 Specimen Type: BLOOD No comment entered. Ordering Provider: LEYDI ARIAS IE Report Released Date/Time: Feb 25, 2023 03:45 PM Reporting Lab: [facility] [address] [address] Performing Lab: [facility] [address] [address] [place] CBC AND DIFF (AUTO) NRBC, ABS 0.00 10*3/uL 0.00 - 0.00 08/24 Specimen Type: BLOOD No comment entered. Ordering Provider: LEYDI ARIAS IE Report Released Date/Time: Feb 25, 2023 03:45 PM Reporting Lab: [facility] [address] Performing Lab: [facility] [address] [place] TSH THYROTROPI N [UNITS/VOL UME] IN SERUM OR PLASMA 1.98 u[IU]/mL 0.35 - 5.00 08/24 Specimen Type: SERUM No comment entered. Ordering Provider: LEYDI ARIAS IE Report Released Date/Time: Feb 25, 2023 03:45 PM Reporting Lab: [facility] [address] Performing Lab: [facility] [address] [address] [place] PSA PROSTATE SPECIFIC AG [MASS/VOLU ME] IN SERUM OR PLASMA 1.68 ng/mL 0.00 - 4.00 08/24 Specimen Type: SERUM No comment entered. Ordering Provider: LEYDI ARIAS IE Report Released Date/Time: Feb 25, 2023 03:45 PM Reporting Lab: [facility] [place] [address] [address] Performing Lab: [facility] [address] [place] URINALYS IS COLOR OF URINE Light-Ye llow 08/24 Specimen Type: URINE Comment: If Glucose = >500 and Ketones are positive, please alert the Physician. Ordering Provider: LEYDI ARIAS Report Released Date/Time: Feb 25, 2023 03:45 PM Reporting Lab: [facility] [address] [facility] [address] Performing Lab: [facility] [address] [place] URINALYS IS APPEARANCE OF URINE Clear 08/24 Specimen Type: URINE Comment: If Glucose = >500 and Ketones are positive, please alert the Physician. Ordering Provider: LEYDI ARIAS Report Released Date/Time: Feb 25, 2023 03:45 PM Reporting Lab: [facility] [address] [address] Performing Lab: [address] [address] [place] URINALYS IS GLUCOSE [MASS/VOLU ME] IN URINE NEGATIVE mg/dL 08/24 Specimen Type: URINE Comment: If Glucose = >500 and Ketones are positive, please alert the Physician. Ordering Provider: LEYDI ARIAS Report Released Date/Time: Feb 25, 2023 03:45 PM Reporting [facility]: [facility] [address] [address] Performing Lab: [facility] [address] [place] URINALYS IS KETONES [MASS/VOLU ME] IN URINE BY TEST STRIP NEGATIVE mg/dL 08/24 Specimen Type: URINE Comment: If Glucose = >500 and Ketones are positive, please alert the Physician. Ordering Provider: LEYDI ARIAS Report Released Date/Time: Feb 25, 2023 03:45 PM Reporting Lab: [facility] [address] [address] [facility]: [facility] [address] [place] URINALYS IS ERYTHROCYT ES [PRESENCE] IN URINE SEDIMENT BY LIGHT MICROSCOPY NEGATIVE mg/dL 08/24 Specimen Type: URINE Comment: If Glucose = >500 and Ketones are positive, please alert the Physician. Ordering Provider: LEYDI ARIAS Report Released Date/Time: Feb 25, 2023 03:45 PM Reporting Lab: [address] [address] Performing Lab: [address] [address] [place] URINALYS IS PROTEIN [MASS/VOLU ME] IN URINE BY TEST STRIP 10 mg/dL 08/24 Specimen Type: URINE Comment: If Glucose = >500 and Ketones are positive, please alert the Physician. Ordering Provider: LEYDI ARIAS Report Released Date/Time: Feb 25, 2023 03:45 PM Reporting Lab: [address] [address] Performing Lab: [address] [address] [place] URINALYS IS NITRITE [PRESENCE] IN URINE NEGATIVE mg/dL 08/24 Specimen Type: URINE Comment: If Glucose = >500 and Ketones are positive, please alert the Physician. Ordering Provider: LEYDI ARIAS Report Released Date/Time: Feb 25, 2023 03:45 PM Reporting Lab: [address] [address] Performing Lab: [address] [address] [place] URINALYS IS BILIRUBIN. TOTAL [PRESENCE] IN URINE NEGATIVE mg/dL 08/24 Specimen Type: URINE Comment: If Glucose = >500 and Ketones are positive, please alert the Physician. Ordering Provider: LEYDI ARIAS Report Released Date/Time: Feb 25, 2023 03:45 PM Reporting Lab: [address] [address] Performing Lab: [address] [address] [place] URINALYS IS SPECIFIC GRAVITY OF URINE BY REFRACTOME TRY 1.016 1.016 - 1.022 08/24 Specimen Type: URINE Comment: If Glucose = >500 and Ketones are positive, please alert the Physician. Ordering Provider: LEYDI ARIAS Report Released Date/Time: Feb 25, 2023 03:45 PM Reporting Lab: [address] [address] Performing Lab: [address] [address] [place] URINALYS IS PH OF URINE BY TEST STRIP 5.5 5.0 - 9.0 08/24 Specimen Type: URINE Comment: If Glucose = >500 and Ketones are positive, please alert the Physician. Ordering Provider: LEYDI ARIAS IE Report Released Date/Time: Feb 25, 2023 03:45 PM Reporting Lab: [address] [address] Performing Lab: [address] [address] [place] URINALYS IS UROBILINOG EN [MASS/VOLU ME] IN URINE BY TEST STRIP <2.0mg/d L <2.0 - 2.0 08/24 Specimen Type: URINE Comment: If Glucose = >500 and Ketones are positive, please alert the Physician. Ordering Provider: LEYDI ARIAS Report Released Date/Time: Feb 25, 2023 03:45 PM Reporting Lab: [address] [address] Performing Lab: [address] [address] [place]INAL[place] IS LEUKOCYTE ESTERASE [PRESENCE] IN URINE BY TEST STRIP NEGATIVE 08/24 Specimen Type: URINE Comment: If Glucose = >500 and Ketones are positive, please alert the Physician. Ordering Provider: LEYDI ARIAS IE Report Released Date/Time: Feb 25, 2023 03:45 PM Reporting Lab: [address] [address] Performing Lab: [address] [address] [place] UREA NITROGEN UREA NITROGEN [MASS/VOLU ME] IN SERUM OR PLASMA 31 mg/dL 7 - 25 04/29 H Specimen Type: SERUM No comment entered. Ordering Provider: LEYDI ARIAS IE Report Released Date/Time: Apr 16, 2023 09:46 AM Reporting Lab: [address] [address] Performing Lab: [address] [address] [place] CREATINI NE (eGFR 2020) CREATININE [MASS/VOLU ME] IN SERUM OR PLASMA 2.69 mg/dL 0.50 - 1.40 04/29 H Specimen Type: SERUM No comment entered. Ordering Provider: LEYDI ARIAS IE Report Released Date/Time: Apr 16, 2023 09:46 AM Reporting Lab: [address] [address] Performing Lab: [address] [address] [place] CREATINI NE (eGFR 2020) GLOMERULAR FILTRATION RATE/1.73 SQ M.PREDICTE D [VOLUME RATE/AREA] IN SERUM, PLASMA OR BLOOD BY CREATININE -BASED FORMULA (CKD-EPI 2020) 25 mL/min 60 04/29 L Specimen Type: SERUM No comment entered. Ordering Provider: LEYDI ARIAS IE Report Released Date/Time: Apr 16, 2023 09:46 AM Reporting Lab: [address] [address] Performing Lab: [address] [address] [place] Vital Signs Combined list of inpatient and outpatient Vital Signs from Department of Defense and Veterans Affairs, ranging from 12 months to all on record, depending upon the facility. Vital Sign Value Date Comments Source SYSTOLIC BLOOD PRESSURE 114 03/03/20 24 09:19:31 [facility] DIASTOLIC BLOOD PRESSURE 74 024 09:19:31 [facility] PULSE OXIMETRY 98 03/03/2024 09:19:31 [facility] WEIGHT 165 03/03/2024 09:19:31 [facility] BMI 24 kg/m2 03/03/2024 09:19:31 [facility] TEMPERATURE 97.4 03/03/2024 09:19:31 [facility] PULSE 77 03/03/2024 09:19:31 [facility] RESPIRATION 18 03/03/2024 09:19:31 [facility] SYSTOLIC BLOOD PRESSURE 127 09/01/19 [facility]14:26 [facility] [id number] 01/21 [facility] En[facility] [id number] 01/21 [facility] En[facility] [id number] 01/23 [facility] Encounter [id number] 02/04 [facility] Encounter [id number] 02/16 [facility] En[facility] [id number] 02/23 [facility]39 MIN [id number] Diagnos is: ICD-10- CM I10 Essenti al (primar y) hyperte nsion HUGO,ANNMA JENAE 02/25 [place] [facility] Encounter [id number] 03/04 [facility] En[facility] [id number] 03/26 [facility] En[facility] [id number] 04/07 [facility] [id number] 04/07 [facility] Encounter [id number] 04/14 [facility] [id number] 04/16 [facility] Encounter [id number] 05/21 [facility] En[facility] [id number] 06/09 [facility]counter [id number] 06/28 [facility] Encounter [id number] 06/30 [facility] En[facility] [id number] 07/10 [facility] Encounter [id number] 08/11 [facility] OFFICE O/P EST MOD 30 MIN [id number] Diagnos is: ICD-10- CM I10 Essenti al (primar y) hyperte nsion MAGALI,A POLINARIO 08/31 [place] [facility] Encounter [id number] 09/01 [facility] En[facility] [id number] 09/07 [facility] Encounter [id number] 09/07 [facility] Encounter [id number] 09/20 [facility] Encounter [id number] 09/20 [facility] Encounter [id number] 09/27 [facility]counter [id number] 10/19 [facility] Encounter [id number] 10/26 [facility] Out[facility] Encounter [id number] 11/09 [facility] Out[facility] Encounter [id number] 11/16 [facility] Encounter [id number] 12/13 [facility] En[facility] [id number] 12/24 [facility] Encounter [id number] 01/19 [facility] Encounter [id number] 01/24 [facility] Out[facility] Encounter [id number] 02/07 [facility] EVALUATION OF WHEEZING [id number] 1. 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, unspeci fied CARI DUGAN 02/07 [facility] [place] [id number] 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, unspeci fied Edwige HYMAN MD 02/09 [facility] Out[facility] Encounter [id number] Rashmi SWANSON 02/15 [facility] Out[facility] Encounter [id number] 02/24 [facility] Outpatient Encounter [id number] 02/24 [facility] OFFICE O/P EST LOW 20 MIN [id number] 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, unspeci fied ESTEVAN JORDAN 03/03 [place] [facility] Out[facility] Encounter [id number] 05/10 [facility] Out[facility] Encounter [id number] 05/17 [facility] Out[facility] Encounter [id number] 05/23 [facility] Social History Combined list of available smoking, tobacco, and other social history from Department of Defense and Veterans Affairs facilities. Social History Type Response Date Comment Sourc e Tobacco smoking status NMIS [facility] History of tobacco use VA-TOBACCO NEVER USED 05/17/2021 [facility] History of tobacco use LIFETIME NON-TOBACCO USER 06/15/2017 [facility] History of tobacco use LIFETIME NON-TOBACCO USER 06/20/2016 [facility]
--- OUTSIDE RECORDS SUMMARY | 2024-07-15 14:13 | XMS_ITS | Clinical Summary ---
Author Organization [facility] Address [address] [address] Care Team Providers Care Field Sales Agent Name Role Phone Gold Daley MD Primary Care Provider [phone] Allergies No known active allergies Medications carvedilol [...] patient's age to complete this topic Insurance [facility] [employer] [address] (VACCN) [place] [address] [facility] [employer] 1,2,3 (VACCN) Care Teams Field Sales Agent Relationship Specialty Start Date End Date Gold Daley MD [address] [place] [address] PCP - General Family Medicine 04/22/22
[2024-07-15 14:14] VITALS: BP 120/68; PULSE 57; O2SAT 95; BMI 24.4
--- NOTE | 2024-07-15 14:14 | MHC.OFFVIS ---
Vital Signs 07/15/24 14:14 Height 5 ft 9 in Weight 165 lb BMI 24.4 BP 120/68 Blood Pressure Location Lt brachial Position Sitting Pulse 57 Pulse Source Pulse Oximeter Pulse Oximetry (%) 95 Oxygen Delivery Method Room Air Intake Visit Reasons: [facility] Intake Note: Patient presents for follow up on diffuse scleroderma. Patient states he's losing a lot of weight over the last 2 years. 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 Dent. At that time she was following up for a diffuse systemic sclerosis. Reports continued intermittent muscle and joint aches and intermittent itching of the skin especially on his forehead. He was complaining of dysphagia and so barium swallow was ordered Patient did not have the barium swallow. States that he feels that he eats and drinks okay. States that he does not enjoy eating anymore but continues to eat Continues to have RP but manages this conservatively Gets flat telangiectasias all over his body No AM stiffness Rheumatologic History: Initial history: This is a 67-year-old male who presents for evaluation of a positive AARON. Patient states that in April of 2022 he developed abrupt onset of difficulty breathing, he went to the emergency room, his blood pressure was significantly elevated. He was started on hemodialysis inpatient. He continued on hemodialysis for 4 more months. Prior to that episode he was losing weight. Was not feeling well, feeling cold all the time, bluish discoloration of his fingertips, skin changes especially of his thighs. Intermittent acid reflux. States that he has lost around 50 lb in the last 18 months or so. Mostly due to lack of appetite. He has generalized fatigue. Patient is unaware of any family history of an autoimmune rheumatic disease. Denies any history of DVT/PE Current Rheumatology Medication(s): [facility] Medical History Chronic renal disease, stage IV History of renal stone Arthritis Hx of acute renal failure HTN (hypertension) History of renal dialysis Surgical History Inguinal hernia (01/01/23) History of biopsy Hx of colonoscopy History of esophagogastroduodenoscopy (EGD) Hx of arthroscopy of knee History of excision of pilonidal cyst History of arthroscopic surgery of shoulder Social History Are you a primary resident care technician to a significant other at home: No Do you presently have visiting nurse or other home services: No Alcohol intake: never Patient Tobacco Use Status: Never used Tobacco Current occupational status: employed 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 Review of Systems Const Details: Review of Systems Constitutional: Denies fever, chills, weight loss ENT: Denies vision changes, eye pain or eye redness, dental caries, dry mouth GI: Denies nausea, vomiting, diarrhea, abdominal pain, change in BM Pulm: Denies SOB, CURRY, hemoptysis, wheezing Cards: Denies chest pain, palpitations Skin: Denies nail changes, photosensitivity, MARINE ENGINE DRIVER: Denies headaches, weakness, paresthesias, recurrent falls MSK: as per HPI All other systems reviewed and are unremarkable except noted above Physical Exam Vital Signs: Last Vital Signs BP 120/68 07/15/24 14:14 BMI result Body Mass Index 24.4 Vital signs reviewed Physical Examination CONSTITUITIONAL Patient alert and cooperative. Well appearing and in no apparent painful distress HEENT Conjunctiva and sclera clear. ?Pupils equal round and reactive to light. ?No lymphadenopathy. ? CHEST/RESPIRATORY SYSTEM Normal respiratory effort and able to speak in complete sentences. ?Clear to auscultation bilaterally. ?No crackles, rales, rhonchi, wheezes heard. CARDIAC SYSTEM Regular rate and rhythm. ?S1 and S2 heard no murmurs. ?Radial pulses intact bilaterally MSK Hands: ?Able to make a fist. No synovitis noted to the MCPs, PIPs or DIPs. ?No tenderness to palpation of these joints. No deformities noted. ? Wrists: ?Full range of motion at the wrists without pain. ?No tenderness to palpation or synovitis noted to the wrists. Elbows: Full range of motion without pain. No tenderness, weakness, swelling, increased warmth or erythema. Shoulders: Decreased active ROM to the right shoulder 2/2 previous surgeries Knees: ?Full range of motion. ?No tenderness, swelling, increased warmth or erythema.?No effusion or crepitations Ankles: Full range of motion. ?No tenderness, swelling, increased warmth or erythema.? Feet: ?Negative squeeze test. ?No tenderness to palpation or swelling of the MTPs. Tender points:?No tenderness to palpation of the bilateral trapezius, supraspinatus, greater trochanters, anterior costochondral junctions, bilateral gluteal areas, bilateral suboccipital muscle insertions SKIN Flat telangiectasias on his face No skin tightening modified rodnan skin score 0 Results Reviewed Results Reviewed: Laboratory Tests 07/12/24 12:16 WBC 9.0 RBC 4.00 L Hgb 11.5 L Hct 35.5 L Plt Count 276 ESR 38 H Sodium 138 Potassium 4.4 Chloride 110 H Carbon Dioxide 21 L BUN 37 H Creatinine 2.06 H Estimated GFR 32 AST 20 ALT 10 C-Reactive Protein 0.39 Laboratory Tests 09/08/23 12:23 AARON Screen POSITIVE A AARON Titer 1:1280 H AARON Pattern Nuclear, Nucleolar A JAMES-1 Antibody <11 EJ Antibody <11 OJ Antibody <11 Mi-2-Alpha Ab <11 Mi-2-Beta Ab <11 NXP-2 Ab <11 PL-7 Antibody <11 PL-12 Antibody <11 SRP Ab <11 MDA5 Ab <11 Myos P155/140 TIF1-g Ab <11 SS-A/Ro Antibody <1.0 NEG SS-B/La Antibody <1.0 NEG Sm (Fortune) Antibody <1.0 NEG U1 snRNA A Antibody <11 U1 snRNA C Antibody <11 U1 snRNA 70kD Antibody <11 SM/DINING ROOM HOST/HOSTESS IgG Antibody <1.0 NEG Scl-70 Scleroderma Ab 101 H FVC FEV1 FEV1/FVC TLC DLCO 03/29/24 3.82 3.10 81 6.06 16 103% 109% 92% 66% CT Chest 11/17/2023 FINDINGS: GAUGER CHIEF DELIVERY: Unremarkable LUNGS: Lungs are well expanded with linear bronchiectasis seen in the right lower lobe and multiple punctate calcified granulomas in the right lower lobe subpleural as well as left lower lobe of the lesser degree but there is single larger granuloma seen in the left lower lobe, measured 0.7 cm. There are increased interstitial markings more prominent in the right lower lobe subpleural metastases in bilaterally there are no lung nodules identified. MEDIASTINUM: Thyroid gland is unremarkable. There is mediastinal lymphadenopathy with pretracheal lymph nodes measured between 2.7 and 2.1 cm . There is no hilar lymphadenopathy CORONARY AR or pericardial effusion seen. DAHIANA CALCIFICATION: Mild coronary artery calcifications present PLEURA: There is no pleural effusion. No pleural mass or thickening. AXILLA: No lymphadenopathy. UPPER ABDOMEN: Unremarkable. OSSEOUS STRUCTURES: Mild changes of degenerative spondylosis in thoracic spine IMPRESSION: 1. Mild interstitial lung disease with linear bronchiectasis in the right lower lobe and multiple calcified granulomas seen bilaterally. 2. Mediastinal lymphadenopathy. ECHO 11/2023 Conclusions: - The left ventricular systolic function is normal. The calculated ejection fraction is 63% by biplane method. - Moderate biatrial enlargement. - No obvious valvular pathology seen on this study. Findings Left Ventricle Normal left ventricular cavity size. There is mildly increased left ventricular wall thickness. The left ventricular systolic function is normal. The calculated ejection fraction is 63% by biplane method. There is no evidence of regional wall motion abnormalities. Diastolic function is normal for age. Right Ventricle Mildly increased right ventricular cavity size. There is normal right ventricular systolic function. Atria Moderate biatrial enlargement. Aortic Valve There is a normal trileaflet aortic valve. There is mild calcification of the aortic valve. There is no aortic valve stenosis. Trace to mild aortic regurgitation. Mitral Valve The mitral valve appears normal. There is trace mitral valve regurgitation. There is no mitral valve stenosis. Pulmonic Valve The pulmonic valve is likely normal. Tricuspid Valve There is mild tricuspid valve regurgitation. There is no evidence of pulmonary hypertension. Great Vessels The asc aorta is normal in size. Venous The inferior vena cava is normal in size and collapses greater than 50% with inspiration. Pericardium/Pleural There is no evidence of pericardial effusion. Assessment & Plan Assessment & Plan (1) Diffuse scleroderma: Comment: onset 2022 (weight loss, scleroderma renal crisis ,Raynaud's, skin thickening , possible GERD, telangiectasias +++Scl 70) Code(s): M34.9 - Systemic sclerosis, unspecified Category: Medical Plan: #Systemic sclerosis sine scleroderma Patient is a 68-year-old male with systemic sclerosis sine scleroderma here today for follow up. Immunosuppression in systemic sclerosis is typically reserved for those with progressive skin thickening, progressive ILD, inflammatory myopathy or inflammatory arthritis. At this time patient does not have any indication for immunosuppression. We will continue conservative management of his Raynaud's with his nifedipine. Continue with yearly monitoring of his lungs and echo for the 1st 5 years of his disease (up until 2027) Plan - No immunosuppression at this time - Yearly CT, PFTs and ECHO until 2028 - RTC 6 months - Labs before visit: CBC, CMP, ESR, CRP - CT chest and ECHO prior to visit also Plan I spent 30 minutes reviewing the record and labs, taking a history, examining the patient, discussing the treatment plan, ordering diagnostic work up and documenting in the medical record Orders: Orders CT chest wo con - High Res 6 Months M34.9 - Systemic sclerosis, unspecified CA echo transthoracic complete 6 Months M34.9 - Systemic sclerosis, unspecified Complete Blood Count Auto Diff 6 Months M34.9 - Systemic sclerosis, unspecified Comprehensive Met. Panel 6 Months M34.9 - Systemic sclerosis, unspecified C Reactive Protein 6 Months M34.9 - Systemic sclerosis, unspecified Erythrocyte Sedimentation Rate 6 Months M34.9 - Systemic sclerosis, unspecified Coding Level of Care Code Est Pt Level 4 (92474) Complex EM visit Add On G2211 Diagnoses Diffuse scleroderma M34.9
== END 2024-07-15 14:49 | disposition home or self-care (01) ==
LOC: HO.RHE 14:12
PROVIDERS: PCP Internal Medicine; Visit Provider Student in an Organized Health Care Education/Training Program
DX: M34.9 Systemic sclerosis, unspecified (principal)
CPT/HCPCS: 99214; G2211

== ENCOUNTER → 2024-07-15 14:12 | Outpatient (BNVA) | payer OTHER, SELFPAY | PROVIDERS: PCP Internal Medicine; Visit Provider Student in an Organized Health Care Education/Training Program | DX: M34.9 Systemic sclerosis, unspecified (principal) | CPT/HCPCS: 99212 ==

== ENCOUNTER 2024-09-02 13:56 | Outpatient (REF) | payer OTHER, SELFPAY ==
--- OUTSIDE RECORDS SUMMARY | 2024-09-02 09:25 | XMS_ITS | Continuity of Care Document ---
Author Name [facility] Organization [facility] Care Team Providers Care Slimer Name Role Phone [facility] Unavailable Unavailable Problems Combined list of problems from Department of [facility] and Veterans Affairs facilities. It does not include entries that were removed or entered in error. Problem Status Onset Date Problem Type Date of Resolution Comments Source Cyst - pilonidal Active Condition [place] Essential hypertension Active Condition [place] History of knee surgery Active Condition Jun 20, 2016 Entered By: JAYDON ARIAS Comment: R in early [place] History of shoulder surgery Active Condition Jun 20 Entered By: JAYDON ARIAS Comment: R in s [place] Impaired fasting glucose Active Condition [place] Left inguinal hernia Active Condition Feb 25, 2023 Entered By: JAYDON ARIAS Comment: repair 12/2022 [place] Pain of right shoulder joint Active Condition Feb 25, 2023 Entered By: JAYDON ARIAS Comment: right shoulder replacement 08/2021 [place] Postnasal drip Active Condition [facility] [place] Systemic sclerosis, diffuse Active Condition Mar 03, 2024 Entered By: ROSALINA JORDAN Comment: PFT's MAR 01: [place] SpirometryDec 2023 Entered By: ROSALINA JORDAN Comment: Barium Swallow Planned APR 02 (but has no dysphagia yet)Mar 03, 2024 Entered By: ROSALINA JORDAN Comment: Sees Both Rheum and Nephro at [place] for the Diffuse SS : [place] Diagnosis: ICD-10-CM M34.9 Systemic sclerosis, unspecified Active Diagnosis [place] Diagnosis: ICD-10-CM I10 Essential (primary) hypertension Active Diagnosis [place] Medications Combined list of outpatient medications from Department of [facility] and [facility] facilities.Medications provided include 1) outpatient medications from the last 15 months, and 2) patient-reported medications. Medication Details Route Status Patient Instructions Prescription Expires Prescription Number Last Dispense Date Ordering Provider Order Date Order Qty Source ASCORBIC ACID TAB TAKE BY MOUTH DAILY ORAL ACTIVE SIERAR ARIAS 2016 [facility] [place] CARVEDILOL 25MG TAB TAKE ONE TABLET BY MOUTH TWICE DAILY FOR HIGH BLOOD PRESSURE ORAL ACTIVE 12/25/2024 [id number] MAGALI, APOLINARI O 2023 180 [place] CARVEDILOL 25MG TAB TAKE ONE TABLET BY MOUTH TWICE DAILY FOR HIGH BLOOD PRESSURE ORAL DISCONT INUED 12/25/2024 [id number] MAGALI, APOLINARI O 2023 180 [place] CARVEDILOL 25MG TAB TAKE ONE TABLET BY MOUTH TWICE DAILY FOR HIGH BLOOD PRESSURE ORAL DISCONT INUED 02/26/2024 [id number] SIERRA ARIAS 2022 180 [place] FLUTICASONE PROPIONATE 50MCG/SPRAY SOLN,NASAL, 16GM INSTILL 2 SPRAYS INTO EACH NOSTRIL ONCE DAILY NASAL ACTIVE SIERRA ARIAS 2022 [place] NIFEDIPINE (EQV-CC) 30MG TAB,SA TAKE ONE TABLET BY MOUTH TWICE DAILY FOR HIGH BLOOD PRESSURE DO NOT TAKE WITH GRAPEFRU IT JUICE ORAL ACTIVE 09/01/2024 [id number] 5 MAGALI APOLINARI O 2023 180 [place] NIFEDIPINE (EQV-CC) 30MG TAB,SA TAKE ONE TABLET BY MOUTH TWICE DAILY FOR HIGH BLOOD PRESSURE DO NOT TAKE WITH GRAPEFRU IT JUICE ORAL DISCONT INUED 02/26/2024 [id number] SIERRA ARIAS 2022 180 [place] OTHER CAP/TAB TAKE RENOCAP BY MOUTH ONCE DAILY ORAL ACTIVE SIERRA ARIAS 2022 [place] RENAL MULTIVIT W/1MG OR LESS FOLIC ACID TAB TAKE 1 TABLET BY MOUTH ONCE DAILY FOR VITAMIN SUPPLEME NTATION ORAL ACTIVE 03/04/2025 [id number] JAMES JORDAN 2024 90 [place] RENAL MULTIVIT W/1MG OR LESS FOLIC ACID TAB TAKE 1 TABLET BY MOUTH ONCE DAILY FOR VITAMIN SUPPLEME NTATION ORAL DISCONT INUED 03/16/2024 [id number] SIERRA ARIAS 2023 90 [place] Immunizations Combined list of available immunizations from the Department of Defense and Veterans Affairs facilities. Immunization Series Date Given Administered By Site Reaction Lot Number CVX Code Drug Design Cell Engineer Status Comments Source INFLUENZA, UNSPECIFIED FORMULATION 2020 [...] INFLUENZA, SEASONAL, INJECTABLE 2016 141 complet ed [facility] [place] [facility] INFLUENZA, [...] Feb 25, 2023 03:45 PM Reporting Lab: [facility] [place] [facility] [address] [facility] [address] Performing Lab: [facility] [address] [facility] [address] [facility] BASIC METABOLI C PANEL (fasting ) GLUCOSE [MASS/VOLU ME] IN SERUM OR PLASMA 101 mg/dL 65 - 100 08/24 H Specimen Type: SERUM No comment entered. Ordering Provider: LEYDI ARIAS IE Report Released Date/Time: Feb 25, 2023 03:45 PM Reporting Lab: [facility] [address] [facility] [address] Performing Lab: [facility] [address] [facility] [address] [place] BASIC METABOLI C PANEL (fasting ) SODIUM [MOLES/VOL UME] IN SERUM OR PLASMA 136 mmol/L 135 - 145 08/24 Specimen Type: SERUM No comment entered. Ordering Provider: LEYDI ARIAS IE Report Released Date/Time: Feb 25, 2023 03:45 PM Reporting Lab: [facility] [address] [facility] [address] Performing Lab: [facility] [address] [address] [place] BASIC METABOLI C PANEL (fasting ) POTASSIUM [MOLES/VOL UME] IN SERUM OR PLASMA 4.3 mmol/L 3.5 - 5.0 08/24 Specimen Type: SERUM No comment entered. Ordering Provider: LEYDI ARIAS IE Report Released Date/Time: Feb 25, 2023 03:45 PM Reporting Lab: [facility] [address] [facility] [address] Performing Lab: [facility] [address] [facility] [address] [email or web address] BASIC METABOLI C PANEL (fasting ) CHLORIDE [MOLES/VOL UME] IN SERUM OR PLASMA 110 mmol/L 100 - 110 08/24 Specimen Type: SERUM No comment entered. Ordering Provider: LEYDI ARIAS IE Report Released Date/Time: Feb 25, 2023 03:45 PM Reporting Lab: [facility] [address] [facility] [address] Performing Lab: [facility] [address] [facility] [address] [place] BASIC METABOLI C PANEL (fasting ) CARBON DIOXIDE, TOTAL [MOLES/VOL UME] IN SERUM OR PLASMA 19 meq/L 20 - 30 08/24 L Specimen Type: SERUM No comment entered. Ordering Provider: LEYDI ARIAS IE Report Released Date/Time: Feb 25, 2023 03:45 PM Reporting Lab: [facility] [address] [facility] [address] Performing Lab: [facility] TRN [facility] [address] [facility] [address] [place] BASIC METABOLI C PANEL (fasting ) CREATININE [MASS/VOLU ME] IN SERUM OR PLASMA 2.54 mg/dL 0.50 - 1.40 08/24 H Specimen Type: SERUM No comment entered. Ordering Provider: LEYDI ARIAS IE Report Released Date/Time: Feb 25, 2023 03:45 PM Reporting Lab: [facility] [address] [facility] [address] Performing Lab: [facility] [address] [address] [place] BASIC METABOLI C PANEL (fasting ) GLOMERULAR FILTRATION RATE/1.73 SQ M.PREDICTE D [VOLUME RATE/AREA] IN SERUM, PLASMA OR BLOOD BY CREATININE -BASED FORMULA (CKD-EPI 2020) 27 mL/min 60 08/24 L Specimen Type: SERUM No comment entered. Ordering Provider: LEYDI ARIAS IE Report Released Date/Time: Feb 25, 2023 03:45 PM Reporting Lab: [facility] TRN [address] [address] Performing Lab: [facility] [address] [address] [place] LIPID PANEL FASTING CHOLESTERO L [MASS/VOLU ME] IN SERUM OR PLASMA 208 mg/dL 08/24 H Specimen Type: SERUM No comment entered. Ordering Provider: LEYDI ARIAS IE Report Released Date/Time: Feb 25, 2023 03:45 PM Reporting Lab: [facility] [address] Performing Lab: [facility] [address] [address] [place] LIPID PANEL FASTING TRIGLYCERI DE [MASS/VOLU ME] IN SERUM OR PLASMA 98 mg/dL 0 - 150 08/24 Specimen Type: SERUM No comment entered. Ordering Provider: LEYDI ARIAS IE Report Released Date/Time: Feb 25, 2023 03:45 PM Reporting Lab: [facility] [address] [facility] [address] Performing Lab: [place] [facility] TRN [facility] [address] [address] [place] LIPID PANEL FASTING CHOLESTERO L IN LDL [MASS/VOLU ME] IN SERUM OR PLASMA BY CALCULARANJITO N 154 mg/dL 0 - 129 08/24 H Specimen Type: SERUM No comment entered. Ordering Provider: LEYDI ARIAS IE Report Released Date/Time: Feb 25, 2023 03:45 PM Reporting Lab: [facility] TR[facility] [address] [address] Performing Lab: [facility] [address] [place] LIPID PANEL FASTING CHOLESTERO L.TOTAL/CH OLESTEROL IN HDL [MASS RATIO] IN SERUM OR PLASMA 6.1 08/24 Specimen Type: SERUM No comment entered. Ordering Provider: LEYDI ARIAS IE Report Released Date/Time: Feb 25, 2023 03:45 PM Reporting Lab: [facility] [address] Performing Lab: [facility] [address] [address] [place] LIPID PANEL FASTING CHOLESTERO L IN HDL [MASS/VOLU ME] IN SERUM OR PLASMA 34 mg/dL 40 - 60 08/24 L Specimen Type: SERUM No comment entered. Ordering Provider: LEYDI ARIAS IE Report Released Date/Time: Feb 25, 2023 03:45 PM Reporting Lab: [facility] [address] [address] Performing Lab: [facility] [address] [place] LIVER FUNCTION PROTEIN [MASS/VOLU ME] IN SERUM OR PLASMA 7.2 g/dL 6.0 - 8.3 08/24 Specimen Type: SERUM No comment entered. Ordering Provider: LEYDI ARIAS IE Report Released Date/Time: Feb 25, 2023 03:45 PM Reporting Lab: [place] [facility] [address] [facility] [address] Performing Lab: [place] [facility] [address] [facility] [address] [place]IVER FUNCTION ALBUMIN [MASS/VOLU ME] IN SERUM OR PLASMA 3.6 g/dL 3.5 - 5.0 08/24 Specimen Type: SERUM No comment entered. Ordering Provider: LEYDI ARIAS IE Report Released Date/Time: Feb 25, 2023 03:45 PM Reporting Lab: [facility] [address] [address] Performing Lab: [place] [facility] [facility] [address] [facility] LIVER FUNCTION ALKALINE PHOSPHATAS E [ENZYMATIC ACTIVITY/V OLUME] IN SERUM OR PLASMA 66 U/L 40 - 150 08/24 Specimen Type: SERUM No comment entered. Ordering Provider: LEYDI ARIAS IE Report Released Date/Time: Feb 25, 2023 03:45 PM Reporting Lab: [place] [facility] [address] [address] Performing Lab: [place] [facility] [address] [address] [facility] LIVER FUNCTION ASPARTATE AMINOTRANS FERASE [ENZYMATIC ACTIVITY/V OLUME] IN SERUM OR PLASMA 17 U/L 5 - 34 08/24 Specimen Type: SERUM No comment entered. Ordering Provider: LEYDI ARIAS IE Report Released Date/Time: Feb 25, 2023 03:45 PM Reporting Lab: [place] [facility] [address] [address] Performing Lab: [place] [facility] [address] [address] [facility] LIVER FUNCTION ALANINE AMINOTRANS FERASE [ENZYMATIC ACTIVITY/V OLUME] IN SERUM OR PLASMA 11 U/L 08/24 Specimen Type: SERUM No comment entered. Ordering Provider: LEYDI ARIAS IE Report Released Date/Time: Feb 25, 2023 03:45 PM Reporting Lab: [place] [facility] [address] [address] Performing Lab: [facility] [address] [email or web address] LIVER FUNCTION BILIRUBIN. TOTAL [MASS/VOLU ME] IN SERUM OR PLASMA 0.4 mg/dL 0.2 - 1.2 08/24 Specimen Type: SERUM No comment entered. Ordering Provider: LEYDI ARIAS IE Report Released Date/Time: Feb 25, 2023 03:45 PM Reporting Lab: [facility] [address] [address] Performing Lab: [address] [address] [facility] LD HEMOGLOB IN A1C PANEL HEMOGLOBIN A1C/HEMOGL [...] Feb 25, 2023 03:45 PM Reporting Lab: [address] [address] Performing Lab: [facility] [address] [address] [email or web address] CBC AND DIFF (AUTO) LEUKOCYTES [#/VOLUME] IN BLOOD BY AUTOMATED COUNT 10.43 10*3/uL 4.50 - 11.00 08/24 Specimen Type: BLOOD No comment entered. Ordering Provider: LEYDI ARIAS IE Report Released Date/Time: Feb 25, 2023 03:45 PM Reporting Lab: [address] [address] Performing Lab: [address] [address] [place] CBC AND DIFF (AUTO) ERYTHROCYT ES [#/VOLUME] IN BLOOD BY AUTOMATED COUNT 3.68 10*6/uL 4.23 - 5.66 08/24 L Specimen Type: BLOOD No comment entered. Ordering Provider: LEYDI ARIAS IE Report Released Date/Time: Feb 25, 2023 03:45 PM Reporting Lab: [facility] [address] [facility] [address] Performing Lab: [place] [facility] [address] [facility] [address] [place] CBC AND DIFF (AUTO) HEMOGLOBIN [MASS/VOLU ME] IN BLOOD 10.7 g/dL 12.8 - 17 08/24 L Specimen Type: BLOOD No comment entered. Ordering Provider: LEYDI ARIAS IE Report Released Date/Time: Feb 25, 2023 03:45 PM Reporting Lab: [facility] [address] [address] Performing Lab: [facility] [address] [facility] [address] [place] CBC AND DIFF (AUTO) HEMATOCRIT [VOLUME FRACTION] OF BLOOD BY AUTOMATED COUNT 33.6 39.2 - 50.4 08/24 L Specimen Type: BLOOD No comment entered. Ordering Provider: LEYDI ARIAS IE Report Released Date/Time: Feb 25, 2023 03:45 PM Reporting Lab: [facility] [address] [address] Performing Lab: [facility] [address] [facility] [address] [place] CBC AND DIFF (AUTO) MCV [ENTITIC VOLUME] BY AUTOMATED COUNT 91.3 fL 82 - 99 08/24 Specimen Type: BLOOD No comment entered. Ordering Provider: LEYDI ARIAS IE Report Released Date/Time: Feb 25, 2023 03:45 PM Reporting Lab: [facility] [address] [address] Performing Lab: [facility] [address] [place] CBC AND DIFF (AUTO) MCHC [MASS/VOLU ME] BY AUTOMATED COUNT 31.8 g/dL 30.8 - 35.1 08/24 Specimen Type: BLOOD No comment entered. Ordering Provider: LEYDI ARIAS IE Report Released Date/Time: Feb 25, 2023 03:45 PM Reporting Lab: [facility] [address] [address] Performing Lab: [facility] [address] [address] [place] CBC AND DIFF (AUTO) PLATELETS [#/VOLUME] IN BLOOD BY AUTOMATED COUNT 287 10*3/uL 140 - 360 08/24 Specimen Type: BLOOD No comment entered. Ordering Provider: LEYDI ARIAS IE Report Released Date/Time: Feb 25, 2023 03:45 PM Reporting Lab: [facility] [address] [address] Performing Lab: [facility] [address] [address] [place] CBC AND DIFF (AUTO) ERYTHROCYT E DISTRIBUTI ON WIDTH [RATIO] BY AUTOMATED COUNT 14.6 12.0 - 16.0 08/24 Specimen Type: BLOOD No comment entered. Ordering Provider: LEYDI ARIAS IE Report Released Date/Time: Feb 25, 2023 03:45 PM Reporting Lab: [facility] [address] [address] Performing Lab: [facility] [address] [address] [place] CBC AND DIFF (AUTO) MONOCYTES [#/VOLUME] IN BLOOD BY AUTOMATED COUNT 0.80 10*3/uL 0.30 - 1.10 08/24 Specimen Type: BLOOD No comment entered. Ordering Provider: LEYDI ARIAS IE Report Released Date/Time: Feb 25, 2023 03:45 PM Reporting Lab: [facility] [address] [address] Performing Lab: [facility] [address] [address] [place] CBC AND DIFF (AUTO) MCH [ENTITIC MASS] BY AUTOMATED COUNT 29.1 pg 26.2 - 32.6 08/24 Specimen Type: BLOOD No comment entered. Ordering Provider: LEYDI ARIAS IE Report Released Date/Time: Feb 25, 2023 03:45 PM Reporting Lab: [place] [facility] [address] [address] Performing Lab: [place] [facility] [place] [facility] [address] [facility] [address] [place] CBC AND DIFF (AUTO) NEUTROPHIL S/100 LEUKOCYTES IN BLOOD BY AUTOMATED COUNT 76.3 43.7 - 75.8 08/24 H Specimen Type: BLOOD No comment entered. Ordering Provider: LEYDI ARIAS IE Report Released Date/Time: Feb 25, 2023 03:45 PM Reporting Lab: [facility] [address] [address] Performing Lab: [place] [facility] [address] [address] [place] CBC AND DIFF (AUTO) LYMPHOCYTE S/100 LEUKOCYTES IN BLOOD BY AUTOMATED COUNT 8.7 14.0 - 42.3 08/24 L Specimen Type: BLOOD No comment entered. Ordering Provider: LEYDI ARIAS IE Report Released Date/Time: Feb 25, 2023 03:45 PM Reporting Lab: [place] [facility] [address] [address] Performing Lab: [place] [facility] [place] [address] [address] [place] CBC AND DIFF (AUTO) MONOCYTES/ 100 LEUKOCYTES IN BLOOD BY AUTOMATED COUNT 7.7 5.1 - 13.7 08/24 Specimen Type: BLOOD No comment entered. Ordering Provider: LEYDI ARIAS IE Report Released Date/Time: Feb 25, 2023 03:45 PM Reporting Lab: [place] [place] [address] [address] Performing Lab: [facility] [address] [place] CBC AND DIFF (AUTO) EOSINOPHIL S/100 LEUKOCYTES IN BLOOD BY AUTOMATED COUNT 6.5 0.4 - 6.8 08/24 Specimen Type: BLOOD No comment entered. Ordering Provider: LEYDI ARIAS IE Report Released Date/Time: Feb 25, 2023 03:45 PM Reporting Lab: [facility] [address] [facility] [address] Performing Lab: [facility] [address] [address] [place] CBC AND DIFF (AUTO) BASOPHILS/ 100 LEUKOCYTES IN BLOOD BY AUTOMATED COUNT 0.5 0.1 - 2.0 08/24 Specimen Type: BLOOD No comment entered. Ordering Provider: LEYDI ARIAS IE Report Released Date/Time: Feb 25, 2023 03:45 PM Reporting Lab: [facility] [address] [address] Performing Lab: [facility] [address] [address] [place] CBC AND DIFF (AUTO) NEUTROPHIL S [#/VOLUME] IN BLOOD BY AUTOMATED COUNT 7.96 10*3/uL 2.20 - 7.60 08/24 H Specimen Type: BLOOD No comment entered. Ordering Provider: LEYDI ARIAS IE Report Released Date/Time: Feb 25, 2023 03:45 PM Reporting Lab: [facility] [address] [address] Performing Lab: [facility] [address] [place] CBC AND DIFF (AUTO) LYMPHOCYTE S [#/VOLUME] IN BLOOD BY AUTOMATED COUNT 0.91 10*3/uL 1.00 - 3.20 08/24 L Specimen Type: BLOOD No comment entered. Ordering Provider: LEYDI ARIAS IE Report Released Date/Time: Feb 25, 2023 03:45 PM Reporting Lab: [facility] [address] Performing Lab: [facility] [address] [place] CBC AND DIFF (AUTO) EOSINOPHIL S [#/VOLUME] IN BLOOD BY AUTOMATED COUNT 0.68 10*3/uL 0.03 - 0.44 08/24 H Specimen Type: BLOOD No comment entered. Ordering Provider: LEYDI ARIAS IE Report Released Date/Time: Feb 25, 2023 03:45 PM Reporting Lab: [facility] [address] [address] Performing Lab: [facility] [address] [address] [place] CBC AND DIFF (AUTO) BASOPHILS [#/VOLUME] IN BLOOD BY AUTOMATED COUNT 0.05 10*3/uL 0.01 - 0.13 08/24 Specimen Type: BLOOD No comment entered. Ordering Provider: LEYDI AIRAS IE Report Released Date/Time: Feb 25, 2023 03:45 PM Reporting Lab: [facility] [address] [address] Performing Lab: [facility] [address] [address] [place] CBC AND DIFF (AUTO) IMMATURE GRANULOCYT ES/100 LEUKOCYTES IN BLOOD BY AUTOMATED COUNT 0.3 0.0 - 0.7 08/24 Specimen Type: BLOOD No comment entered. Ordering Provider: LEYDI ARIAS IE Report Released Date/Time: Feb 25, 2023 03:45 PM Reporting Lab: [facility] [address] [address] Performing Lab: [facility] [address] [address] [place] CBC AND DIFF (AUTO) IMMATURE GRANULOCYT ES [#/VOLUME] IN BLOOD 0.03 10*3/uL 0.00 - 0.06 08/24 Specimen Type: BLOOD No comment entered. Ordering Provider: LEYDI ARIAS IE Report Released Date/Time: Feb 25, 2023 03:45 PM Reporting Lab: [facility] [address] [address] Performing Lab: [facility] [address] [address] [place] CBC AND DIFF (AUTO) NRBC % 0.0 0.0 - 0.0 08/24 Specimen Type: BLOOD No comment entered. Ordering Provider: LEYDI ARIAS IE Report Released Date/Time: Feb 25, 2023 03:45 PM Reporting Lab: [place] [facility] [address] [address] Performing Lab: [place] [facility] [address] [address] [place] CBC AND DIFF (AUTO) NRBC, ABS 0.00 10*3/uL 0.00 - 0.00 08/24 Specimen Type: BLOOD No comment entered. Ordering Provider: LEYDI ARIAS IE Report Released Date/Time: Feb 25, 2023 03:45 PM Reporting Lab: [facility] [address] Performing Lab: [facility] [address] [place] TSH THYROTROPI N [UNITS/VOL UME] IN SERUM OR PLASMA 1.98 u[IU]/mL 0.35 - 5.00 08/24 Specimen Type: SERUM No comment entered. Ordering Provider: LEYDI ARIAS IE Report Released Date/Time: Feb 25, 2023 03:45 PM Reporting Lab: [facility] [address] Performing Lab: [place] [facility] [address] [address] [place] PSA PROSTATE SPECIFIC AG [MASS/VOLU ME] IN SERUM OR PLASMA 1.68 ng/mL 0.00 - 4.00 08/24 Specimen Type: SERUM No comment entered. Ordering Provider: LEYDI ARIAS IE Report Released Date/Time: Feb 25, 2023 03:45 PM Reporting Lab: [place] [facility] [address] [address] Performing Lab: [facility] [address] [place] URINALYS IS COLOR OF URINE Light-Ye llow 08/24 Specimen Type: URINE Comment: If Glucose = >500 and Ketones are positive, please alert the Physician. Ordering Provider: LEYDI ARIAS Report Released Date/Time: Feb 25, 2023 03:45 PM Reporting [facility]: [facility] [address] [place] [facility] [address] Performing Lab: [facility] [address] [place] URINALYS IS APPEARANCE OF URINE Clear 08/24 Specimen Type: URINE Comment: If Glucose = >500 and Ketones are positive, please alert the Physician. Ordering Provider: LEYDI ARIAS Report Released Date/Time: Feb 25, 2023 03:45 PM Reporting Lab: [facility] [address] [address] Performing Lab: [address] [address] [place] URINALYS IS GLUCOSE [MASS/VOLU ME] IN URINE NEGATIVE mg/dL 08/24 Specimen Type: URINE Comment: If Glucose = >500 and Ketones are positive, please alert the Physician. Ordering Provider: LEYDI ARIAS Report Released Date/Time: Feb 25, 2023 03:45 PM Reporting Lab: [facility] [address] [address] Performing Lab: [facility] [address] [place] URINALYS IS KETONES [MASS/VOLU ME] IN URINE BY TEST STRIP NEGATIVE mg/dL 08/24 Specimen Type: URINE Comment: If Glucose = >500 and Ketones are positive, please alert the Physician. Ordering Provider: LEYDI ARIAS Report Released Date/Time: Feb 25, 2023 03:45 PM Reporting Lab: [facility] [address] Performing [facility]: [facility] [address] [place] URINALYS IS ERYTHROCYT ES [PRESENCE] IN URINE SEDIMENT BY LIGHT MICROSCOPY NEGATIVE mg/dL 08/24 Specimen Type: URINE Comment: If Glucose = >500 and Ketones are positive, please alert the Physician. Ordering Provider: LEYDI ARIAS Report Released Date/Time: Feb 25, 2023 03:45 PM Reporting Lab: [address] [address] Performing Lab: [address] [address] [place] URINALYS IS PROTEIN [MASS/VOLU ME] IN URINE BY TEST STRIP 10 mg/dL 08/24 Specimen Type: URINE Comment: If Glucose = >500 and Ketones are positive, please alert the Physician. Ordering Provider: LEYDI ARIAS Report Released Date/Time: Feb 25, 2023 03:45 PM Reporting Lab: [address] [address] Performing Lab: [address] [address] [place] URINALYS IS NITRITE [PRESENCE] IN URINE NEGATIVE mg/dL 08/24 Specimen Type: URINE Comment: If Glucose = >500 and Ketones are positive, please alert the Physician. Ordering Provider: LEYDI ARIAS Report Released Date/Time: Feb 25, 2023 03:45 PM Reporting Lab: [address] [address] Performing Lab: [address] [address] [place] URINALYS IS BILIRUBIN. TOTAL [PRESENCE] IN URINE NEGATIVE mg/dL 08/24 Specimen Type: URINE Comment: If Glucose = >500 and Ketones are positive, please alert the Physician. Ordering Provider: LEYDI ARIAS Report Released Date/Time: Feb 25, 2023 03:45 PM Reporting Lab: [address] [address] Performing Lab: [address] [address] [place] URINALYS IS SPECIFIC GRAVITY OF URINE BY REFRACTOME TRY 1.016 1.016 - 1.022 08/24 Specimen Type: URINE Comment: If Glucose = >500 and Ketones are positive, please alert the Physician. Ordering Provider: LEYDI ARIAS Report Released Date/Time: Feb 25, 2023 03:45 PM Reporting Lab: [address] [address] Performing Lab: [address] [address] [place] URIN[place] PH OF URINE BY TEST STRIP 5.5 5.0 - 9.0 08/24 Specimen Type: URINE Comment: If Glucose = >500 and Ketones are positive, please alert the Physician. Ordering Provider: LEYDI ARIAS IE Report Released Date/Time: Feb 25, 2023 03:45 PM Reporting Lab: [address] [address] Performing Lab: [address] [address] [place] URINALYS IS UROBILINOG EN [MASS/VOLU ME] IN URINE BY TEST STRIP <2.0mg/d L <2.0 - 2.0 08/24 Specimen Type: URINE Comment: If Glucose = >500 and Ketones are positive, please alert the Physician. Ordering Provider: LEYDI ARIAS Report Released Date/Time: Feb 25, 2023 03:45 PM Reporting Lab: [address] [address] Performing Lab: [address] [address] [place]INALYS IS LEUKOCYTE ESTERASE [PRESENCE] IN URINE BY TEST STRIP NEGATIVE 08/24 Specimen Type: URINE Comment: If Glucose = >500 and Ketones are positive, please alert the Physician. Ordering Provider: LEYDI ARIAS IE Report Released Date/Time: Feb 25, 2023 03:45 PM Reporting Lab: [address] [address] Performing Lab: [address] [address] [place] UREA NITROGEN UREA NITROGEN [MASS/VOLU ME] IN SERUM OR PLASMA 31 mg/dL 7 - 25 04/29 H Specimen Type: SERUM No comment entered. Ordering Provider: LEYDI ARIAS IE Report Released Date/Time: Apr 16, 2023 09:46 AM Reporting Lab: [address] [address] Performing Lab: [address] [address] [place] CREATINI NE (eGFR 2020) CREATININE [MASS/VOLU ME] IN SERUM OR PLASMA 2.69 mg/dL 0.50 - 1.40 04/29 H Specimen Type: SERUM No comment entered. Ordering Provider: LEYDI ARIAS IE Report Released Date/Time: Apr 16, 2023 09:46 AM Reporting Lab: [address] [address] Performing Lab: [address] [address] [place] CREATINI NE (eGFR 2020) GLOMERULAR FILTRATION RATE/1.73 SQ M.PREDICTE D [VOLUME RATE/AREA] IN SERUM, PLASMA OR BLOOD BY CREATININE -BASED FORMULA (CKD-EPI 2020) 25 mL/min 60 04/29 L Specimen Type: SERUM No comment entered. Ordering Provider: LEYDI ARIAS IE Report Released Date/Time: Apr 16, 2023 09:46 AM Reporting Lab: [address] [address] Performing Lab: [address] [address] [place] Vital Signs Combined list of inpatient and outpatient Vital Signs from Department of Defense and Veterans Affairs, ranging from 12 months to all on record, depending upon the facility. Vital Sign Value Date Comments Source SYSTOLIC BLOOD PRESSURE 114 03/03/2024 09:19:31 [facility] DIASTOLIC BLOOD PRESSURE 74 03/03/2024 09:19:31 [facility] PULSE OXIMETRY 98 03/03/2024 09:19:31 S GAIL WEIGHT 165 03/03/2024 09:19:31 [facility] BMI 24 kg/m2 03/03/2024 09:19:31 [facility] TEMPERATURE 97.4 03/03/2024 09:19:31 [facility] PULSE 77 03/03/2024 09:19:31 AISLIN[facility] RESPIRATION 18 03/03/2024 09:19:31 [facility] Encounters Combined list of: 1) Encounters from [...] [facility] [id number] 03/04 [facility] [id number] 03/26 [facility] [id number] 04/07 [facility] [id number] 04/07 [facility] [id number] 04/14 [facility] [id number] 04/16 [facility] [id number] 05/21 [facility] [id number] 06/09 [facility] En[facility] [id number] 06/28 [facility] En[facility] [id number] 06/30 [facility] En[facility] [id number] 07/10 [facility] En[facility] [id number] 08/11 [facility] [place] [facility] O/P EST MOD 30 MIN [id number] 1BY. 17 Diagnos is: ICD-10- CM I10 Essenti al (primar y) hyperte nsion MAGALI,A POLINARIO 08/31 [place] [facility] En[facility] [id number] 09/01 [facility] [id number] 09/07 [facility] En[facility] [id number] 09/07 [facility] [id number] 09/20 [facility] En[facility] [id number] 09/20 [facility] En[facility] [id number] 09/27 [facility] En[facility] [id number] 10/19 [facility] [id number] 10/26 [facility] En[facility] [id number] 11/09 [facility] Encounter [id number] 11/16 [facility] En[facility] [id number] 12/13 [facility] En[facility] [id number] 12/24 [facility] [id number] 1.01/19 [facility] [id number] 01/24 [facility] En[facility] [id number] 02/07 [facility] EVALUATION OF WHEEZING [id number] 1. 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, unspeci fied JARMOLOWIC Z,CARI 02/07 [facility] [place]ULM [place] [id number] 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, unspeci Edwige Rooney MD 02/09 [facility] Out[facility] Encounter [id number] Rashmi SWANSON 02/15 [facility] En[facility] [id number] 02/24 [facility] Encounter [id number] 02/24 [facility] [place] OFFICE O/P EST LOW 20 MIN [id number] 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, unspeci ESTEVAN Conroy 03/03 [facility] Out[facility] En[facility] [id number] 05/10 [facility] En[facility] [id number] 05/17 [facility] [id number] 05/23 [facility] En[facility] [id number] 07/15 [facility] Encounter [id number] 08/22 [facility] [place] [facility] Outpatient Encounter [id number] 08[facility]23 [facility] [place] Social History Combined list of available smoking, tobacco, and other social history from Department of Defense and Veterans Affairs facilities. Social History Type Response Date Comment Sour e Tobacco smoking status NHIS [facility]-TOBACCO NEVER USED 09/01/2023 [facility] History of tobacco use [place]-TOBAC[place] NEVER USED 05/17[place]2021 [place] [facility] [place] [facility] History of tobacco use LIFETIME NON-TOBACCO USER 06/15/2017 [facility] History of tobacco use LIFETIME NON-TOBACCO USER 06/20/2016 [facility] Plan of Care List of future care activities from Department of Veterans Affairs facilities. Additional future care activities may be listed in the Assessment and Plan section. Date/Time Care Activity Care Activity Detail Facili ty 11/03/2024 AMBULATORY - MEDICINE [facility]
[2024-09-02 14:44] LABS: Appearance Urine Clear; Color Urine Yellow; Glucose Urine UA Negative (Negative); Leukocyte Esterase Urine Negative (Negative); Nitrite Urine Negative (Negative); PH 5.5 (5.0-9.0); Specific Gravity - Urine 1.015 (1.005-1.025); UMIC TRIGGER UA YES; Urine Blood Negative (Negative); Urine Ketones Negative (Negative); Urine Protein 30 (1+) mg/dL (Neg-Trace)
[2024-09-02 14:46] LABS: Bacteria Urine None Seen (None Seen); Hyaline Casts Urine 0-2 /LPF (0-2); RBC Urine 0-2 /HPF (0-2); Squamous Epithelial Cell Urine 0-2 /HPF (0-2); WBC Urine 0-5 /HPF (0-5)
[2024-09-02 14:49] LABS: Hematocrit 34.6 % (42.0-52.0); Hemoglobin 10.9 g/dl (14.0-18.0); Mean Corpuscular HGB Conc 31.5 g/dl (31.0-36.0); Mean Corpuscular Hemoglobin 27.9 pg (27.0-33.0); Mean Corpuscular Volume 88.7 fL (80.0-98.0); Mean Platelet Volume 10.1 fL (9.4-12.4); Platelet Count 292 X10*3/uL (160-400); Red Cell Distribution Width 16.1 % (11.0-16.0); White Blood Count 10.2 X10*3/uL (4.8-10.8)
[2024-09-02 15:04] LABS: Anion Gap 12 (12-20); Blood Urea Nitrogen 35 mg/dL (9-16); Calcium 8.9 mg/dL (8.4-10.2); Carbon Dioxide 20 mmol/L (22-29); Chloride 108 mmol/L (96-108); Estimated Glomerular Filt Rate 28; Glucose Random 107 mg/dL (60-115); Potassium 4.5 mmol/L (3.3-5.1); Sodium 135 mmol/L (135-145)
[2024-09-02 15:20] LABS: Total Protein Urine Random 23 mg/dL (<12)
== END 2024-09-02 13:57 | disposition home or self-care (01) ==
LOC: HO.LAB 13:56
PROVIDERS: PCP Obstetrics & Gynecology; Visit Provider Internal Medicine Hypertension Specialist
DX: I12.9 Hypertensive chronic kidney disease with stage 1 through stage 4 chronic kidney disease, or unspecified chronic kidney disease (principal); N18.4 Chronic kidney disease, stage 4 (severe)
CPT/HCPCS: 36415; 80048; 81001; 82570; 84156; 85027

== ENCOUNTER 2024-09-08 14:35 | Outpatient (AMB) | payer OTHER, SELFPAY ==
--- OUTSIDE RECORDS SUMMARY | 2024-09-08 09:37 | XMS_ITS | Continuity of Care Document ---
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 It does not include entries that were removed or entered in error. Problem Status Onset Date Problem Type Date of Resolution Comments Source Cyst - pilonidal Active Condition [place] Essential hypertension Active Condition LANE History of knee surgery Active Condition Jun 20, 2016 Entered By: JAYDON ARIAS Comment: R in early LANE History of shoulder surgery Active Condition Jun 20 Entered By: JAYDON ARIAS Comment: R in s LANE Impaired fasting glucose Active Condition LANE Left inguinal hernia Active Condition Feb 25, 2023 Entered By: JAYDON ARIAS Comment: repair 12/2022 LANE Pain of right shoulder joint Active Condition Feb 25, 2023 Entered By: JAYDON ARIAS Comment: right shoulder replacement 08/2021 L[address] Postnasal drip Active Condition [facility] [place] Systemic sclerosis, diffuse Active Condition Mar 03, 2024 Entered By: ROSALINA JORDAN Comment: PFT's MAR 01: NL SpirometryDec 2023 Entered By: ROSALINA JORDAN Comment: Barium Swallow Planned APR 02 (but has no dysphagia yet)Mar 03, 2024 Entered By: ROSALINA JORDAN Comment: Sees Both Rheum and Nephro at [facility] for the Diffuse SS : LANE Diagnosis: ICD-10-CM M34.9 Systemic sclerosis, unspecified Active Diagnosis LANE Diagnosis: ICD-10-CM I10 Essential (primary) hypertension Active Diagnosis LANE Medications Combined list of outpatient medications from Department of [facility] and [facility] facilities.Medications provided include 1) outpatient medications from the last 15 months, and 2) patient-reported medications. Medication Details Route Status Patient Instructions Prescription Expires Prescription Number Last Dispense Date Ordering Provider Order Date Order Qty Source ASCORBIC ACID TAB TAKE BY MOUTH DAILY ORAL ACTIVE SIERRA ARIAS 2016 [facility] [place] CARVEDILOL 25MG TAB TAKE ONE TABLET BY MOUTH TWICE DAILY FOR HIGH BLOOD PRESSURE ORAL ACTIVE 12/25/2024 [id number] MAGALI APOLINARI O 2023 180 [place] CARVEDILOL 25MG TAB TAKE ONE TABLET BY MOUTH TWICE DAILY FOR HIGH BLOOD PRESSURE ORAL DISCONT INUED 12/25/2024 [id number] MAGALI, APOLINARI O 2023 180 [place] CARVEDILOL 25MG TAB TAKE ONE TABLET BY MOUTH TWICE DAILY FOR HIGH BLOOD PRESSURE ORAL DISCONT INUED 02/26/2024 [id number] SIERRA ARIAS 2022 180 [place] FLUTICASONE PROPIONATE 50MCG/SPRAY SOLN,NASAL, 16GM INSTILL 2 SPRAYS INTO EACH NOSTRIL ONCE DAILY NASAL ACTIVE SIERRA ARIAS 2022 [place] NIFEDIPINE (EQV-CC) 30MG TAB,SA TAKE ONE TABLET BY MOUTH TWICE DAILY FOR HIGH BLOOD PRESSURE DO NOT TAKE WITH GRAPEFRU IT JUICE ORAL DISCONT INUED 02/26/2024 [id number] SIERRA ARIAS 2022 180 [place] NIFEDIPINE (EQV-CC) 30MG TAB,SA TAKE ONE TABLET BY MOUTH TWICE DAILY FOR HIGH BLOOD PRESSURE DO NOT TAKE WITH GRAPEFRU IT JUICE ORAL 09/01/2024 [id number] MAGALIALIA QUINONESARI O 2023 180 [place] OTHER CAP/TAB TAKE RENOCAP BY MOUTH ONCE DAILY ORAL ACTIVE SIERRA ARIAS 2022 [place] RENAL MULTIVIT W/1MG OR LESS FOLIC ACID TAB TAKE 1 TABLET BY MOUTH ONCE DAILY FOR VITAMIN SUPPLEME NTATION ORAL ACTIVE 03/04/2025 [id number] JAMES JORDAN 2024 90 [place] RENAL MULTIVIT W/1MG OR LESS FOLIC ACID TAB TAKE 1 TABLET BY MOUTH ONCE DAILY FOR VITAMIN SUPPLEME NTATION ORAL DISCONT INUED 03/16/2024 [id number] SIERRA ARIAS 2023 90 [place] Immunizations Combined list of available immunizations from the Department of Defense and Veterans Affairs facilities. Immunization Series Date Given Administered By Site Reaction Lot Number CVX Code Drug Sales Marketing Status Comments Source INFLUENZA, UNSPECIFIED FORMULATION 2020 [...] INFLUENZA, SEASONAL, INJECTABLE [address] [facility] [place] [facility] INFLUENZA, SEASONAL, [...] Feb 25, 2023 03:45 PM Reporting Lab: [facility] [place] [facility] [address] [facility] [address] Performing Lab: [facility] [address] [facility] [address] [facility] BASIC METABOLI C PANEL (fasting ) GLUCOSE [MASS/VOLU ME] IN SERUM OR PLASMA 101 mg/dL 65 - 100 08/24 H Specimen Type: SERUM No comment entered. Ordering Provider: LEYDI ARIAS IE Report Released Date/Time: Feb 25, 2023 03:45 PM Reporting Lab: [facility] [address] [facility] [address] Performing Lab: [facility] [address] [facility] [address] [place] BASIC METABOLI C PANEL (fasting ) SODIUM [MOLES/VOL UME] IN SERUM OR PLASMA 136 mmol/L 135 - 145 08/24 Specimen Type: SERUM No comment entered. Ordering Provider: LEYDI ARIAS IE Report Released Date/Time: Feb 25, 2023 03:45 PM Reporting Lab: [facility] [address] [facility] [address] Performing Lab: [facility] [address] [address] [place] BASIC METABOLI C PANEL (fasting ) POTASSIUM [MOLES/VOL UME] IN SERUM OR PLASMA 4.3 mmol/L 3.5 - 5.0 08/24 Specimen Type: SERUM No comment entered. Ordering Provider: LEYDI ARIAS IE Report Released Date/Time: Feb 25, 2023 03:45 PM Reporting Lab: [facility] [address] [facility] [address] Performing Lab: [facility]PITALRBRYAN [facility]ITALN [address] [address] [place] BASIC METABOLI C PANEL (fasting ) CHLORIDE [MOLES/VOL UME] IN SERUM OR PLASMA 110 mmol/L 100 - 110 08/24 Specimen Type: SERUM No comment entered. Ordering Provider: LEYDI ARIAS IE Report Released Date/Time: Feb 25, 2023 03:45 PM Reporting Lab: [facility] [address] [facility] [address] Performing Lab: [facility] [address] [address] [place] BASIC METABOLI C PANEL (fasting ) CARBON DIOXIDE, TOTAL [MOLES/VOL UME] IN SERUM OR PLASMA 19 meq/L 20 - 30 08/24 L Specimen Type: SERUM No comment entered. Ordering Provider: LEYDI ARIAS IE Report Released Date/Time: Feb 25, 2023 03:45 PM Reporting Lab: [facility]ITALRL [facility] [address] [facility] [address] Performing Lab: [facility]ITALRL TRN [facility] [address] [facility] [address] [place] BASIC METABOLI C PANEL (fasting ) CREATININE [MASS/VOLU ME] IN SERUM OR PLASMA 2.54 mg/dL 0.50 - 1.40 08/24 H Specimen Type: SERUM No comment entered. Ordering Provider: LEYDI ARIAS IE Report Released Date/Time: Feb 25, 2023 03:45 PM Reporting Lab: [facility]ITALRL TRN [facility] [address] [facility] [address] Performing Lab: [facility]ITALRL TRN [facility]USE[address] [address] [place] BASIC METABOLI C PANEL (fasting ) GLOMERULAR FILTRATION RATE/1.73 SQ M.PREDICTE D [VOLUME RATE/AREA] IN SERUM, PLASMA OR BLOOD BY CREATININE -BASED FORMULA (CKD-EPI 2020) 27 mL/min 60 08/24 L Specimen Type: SERUM No comment entered. Ordering Provider: LEYDI ARIAS IE Report Released Date/Time: Feb 25, 2023 03:45 PM Reporting Lab: [facility]PITALRL TRN [facility] [address] [facility] [address] Performing Lab: [facility]ITALRL TRN [facility]USE[address] [address] [place] LIPID PANEL FASTING CHOLESTERO L [MASS/VOLU ME] IN SERUM OR PLASMA 208 mg/dL 08/24 H Specimen Type: SERUM No comment entered. Ordering Provider: LEYDI ARIAS IE Report Released Date/Time: Feb 25, 2023 03:45 PM Reporting Lab: [facility]ITALRL TRN [facility] [address] [facility] [address] Performing Lab: [facility]OSPITALRBRYAN [facility]ITALN [facility]USE[address] [address] [place] LIPID PANEL FASTING TRIGLYCERI DE [MASS/VOLU ME] IN SERUM OR PLASMA 98 mg/dL 0 - 150 08/24 Specimen Type: SERUM No comment entered. Ordering Provider: LEYDI ARIAS IE Report Released Date/Time: Feb 25, 2023 03:45 PM Reporting Lab: [place] [facility] [address] [address] Performing Lab: [place] [facility] [address] [address] [place] LIPID PANEL FASTING CHOLESTERO L IN LDL [MASS/VOLU ME] IN SERUM OR PLASMA BY CALCULARANJITO N 154 mg/dL 0 - 129 08/24 H Specimen Type: SERUM No comment entered. Ordering Provider: LEYDI ARIAS IE Report Released Date/Time: Feb 25, 2023 03:45 PM Reporting Lab: [facility]ITALRL TRN [facility] [address]USE[address] [address] Performing Lab: [facility]ITALRL TRN [facility]ITALUSETS [address] [address] [place] LIPID PANEL FASTING CHOLESTERO L.TOTAL/CH OLESTEROL IN HDL [MASS RATIO] IN SERUM OR PLASMA 6.1 08/24 Specimen Type: SERUM No comment entered. Ordering Provider: LEYDI ARIAS IE Report Released Date/Time: Feb 25, 2023 03:45 PM Reporting Lab: [facility]ITALRL TRN [facility]ITALUSETS [address] [address] Performing Lab: [facility]ITALRL TRN [facility]ITALUSETS [address] [address] [place] LIPID PANEL FASTING CHOLESTERO L IN HDL [MASS/VOLU ME] IN SERUM OR PLASMA 34 mg/dL 40 - 60 08/24 L Specimen Type: SERUM No comment entered. Ordering Provider: LEYDI ARIAS IE Report Released Date/Time: Feb 25, 2023 03:45 PM Reporting Lab: [facility]ITALRL TRN [facility]ITALUSETS [address] [address] Performing Lab: [facility] HOSPITALRJACK HUGHST[facility] HOSPITALTRN [facility]ITALUSE[address] [address] [place] LIVER FUNCTION PROTEIN [MASS/VOLU ME] IN SERUM OR PLASMA 7.2 g/dL 6.0 - 8.3 08/24 Specimen Type: SERUM No comment entered. Ordering Provider: LEYDI ARIAS IE Report Released Date/Time: Feb 25, 2023 03:45 PM Reporting Lab: [place] [facility] [address] [facility] [address] Performing Lab: [place] CN[facility]L [facility] [address] [facility] [address] [facility] [place] LIVER FUNCTION ALBUMIN [MASS/VOLU ME] IN SERUM OR PLASMA 3.6 g/dL 3.5 - 5.0 08/24 Specimen Type: SERUM No comment entered. Ordering Provider: LEYDI ARIAS IE Report Released Date/Time: Feb 25, 2023 03:45 PM Reporting Lab: [place] [facility]ITAL[facility] [address] [address] Performing Lab: [place] [facility] [address] [address] [place] FUN[place] ALKALINE PHOSPHATAS E [ENZYMATIC ACTIVITY/V OLUME] IN SERUM OR PLASMA 66 U/L 40 - 150 08/24 Specimen Type: SERUM No comment entered. Ordering Provider: LEYDI ARIAS IE Report Released Date/Time: Feb 25, 2023 03:45 PM Reporting Lab: [place] [facility] [address] [address] Performing Lab: [facility] [address] [address] [facility] [place] FUNCTION ASPARTATE AMINOTRANS FERASE [ENZYMATIC ACTIVITY/V OLUME] IN SERUM OR PLASMA 17 U/L 5 - 34 08/24 Specimen Type: SERUM No comment entered. Ordering Provider: LEYDI ARIAS IE Report Released Date/Time: Feb 25, 2023 03:45 PM Reporting Lab: [place] [facility] [address] [address] Performing Lab: [place] [facility] [address] [address] [place] LIVER FUNCTION ALANINE AMINOTRANS FERASE [ENZYMATIC ACTIVITY/V OLUME] IN SERUM OR PLASMA 11 U/L 08/24 Specimen Type: SERUM No comment entered. Ordering Provider: LEYDI ARIAS IE Report Released Date/Time: Feb 25, 2023 03:45 PM Reporting Lab: [place] [place] [address] [address] Performing Lab: [place] [address] [address] [facility] [place] LIVER FUNCTION BILIRUBIN. TOTAL [MASS/VOLU ME] IN SERUM OR PLASMA 0.4 mg/dL 0.2 - 1.2 08/24 Specimen Type: SERUM No comment entered. Ordering Provider: LEYDI ARIAS IE Report Released Date/Time: Feb 25, 2023 03:45 PM Reporting Lab: [place] [address] [address] Performing Lab: [place] CNTRBRYAN [facility]PITALN [facility]ITALUSE[address] [address] [facility] [place] HEMOGLOB IN A1C PANEL HEMOGLOBIN A1C/HEMOGL [...] Feb 25, 2023 03:45 PM Reporting Lab: [facility]OSPITALRJACK HUGH[facility] HOSPITALTRN [address] [address] Performing Lab: [facility]OSPITALRJACK HUGH[facility] HOSPITALTRN [facility]ITALUSE[address] [address] [place] TSH THYROTROPI N [UNITS/VOL UME] IN SERUM OR PLASMA 1.98 u[IU]/mL 0.35 - 5.00 08/24 Specimen Type: SERUM No comment entered. Ordering Provider: LEYDI ARIAS IE Report Released Date/Time: Feb 25, 2023 03:45 PM Reporting Lab: [facility]OSPITALRJACK HUGH[facility] HOSPITALTRN [address] [address] Performing Lab: [facility] HOSPITALRBRYAN [facility]ITALN [facility]ITALUSE[address] [address] [place] CBC AND DIFF (AUTO) LEUKOCYTES [#/VOLUME] IN BLOOD BY AUTOMATED COUNT 10.43 10*3/uL 4.50 - 11.00 08/24 Specimen Type: BLOOD No comment entered. Ordering Provider: LEYDI ARIAS IE Report Released Date/Time: Feb 25, 2023 03:45 PM Reporting Lab: [place] [address] [address] Performing Lab: [place] CNTRL W[facility]N [facility] [address] [address] [place] CBC AND DIFF (AUTO) ERYTHROCYT ES [#/VOLUME] IN BLOOD BY AUTOMATED COUNT 3.68 10*6/uL 4.23 - 5.66 08/24 L Specimen Type: BLOOD No comment entered. Ordering Provider: LEYDI ARIAS IE Report Released Date/Time: Feb 25, 2023 03:45 PM Reporting Lab: [facility]OSPITALRL WSTRN [facility] [address] [address] Performing Lab: [place] [place] [address] [address] [place] CBC AND DIFF (AUTO) HEMOGLOBIN [MASS/VOLU ME] IN BLOOD 10.7 g/dL 12.8 - 17 08/24 L Specimen Type: BLOOD No comment entered. Ordering Provider: LEYDI ARIAS IE Report Released Date/Time: Feb 25, 2023 03:45 PM Reporting Lab: [facility]OSPITALRL [place]N [place] [address] [address] Performing Lab: [place] [facility] [place] [address] [address] [place] CBC AND DIFF (AUTO) HEMATOCRIT [VOLUME FRACTION] OF BLOOD BY AUTOMATED COUNT 33.6 39.2 - 50.4 08/24 L Specimen Type: BLOOD No comment entered. Ordering Provider: LEYDI ARIAS IE Report Released Date/Time: Feb 25, 2023 03:45 PM Reporting Lab: [facility]OSPITALRL [facility]N [place] [address] [address] Performing Lab: [place] CNTRL W[facility]N [facility] [address] [address] [place] CBC AND DIFF (AUTO) MCV [ENTITIC VOLUME] BY AUTOMATED COUNT 91.3 fL 82 - 99 08/24 Specimen Type: BLOOD No comment entered. Ordering Provider: LEYDI ARIAS IE Report Released Date/Time: Feb 25, 2023 03:45 PM Reporting Lab: [facility] [address] [facility] [address] Performing Lab: [facility] HOSPITALRBRYAN [facility] HOSPITALN [address] [address] [place] CBC AND DIFF (AUTO) MCHC [MASS/VOLU ME] BY AUTOMATED COUNT 31.8 g/dL 30.8 - 35.1 08/24 Specimen Type: BLOOD No comment entered. Ordering Provider: LEYDI ARIAS IE Report Released Date/Time: Feb 25, 2023 03:45 PM Reporting Lab: [facility]N [address] [address] Performing Lab: [facility] HOSPITALRBRYAN [facility]OSPITALN [address] [address] [place] CBC AND DIFF (AUTO) PLATELETS [#/VOLUME] IN BLOOD BY AUTOMATED COUNT 287 10*3/uL 140 - 360 08/24 Specimen Type: BLOOD No comment entered. Ordering Provider: LEYDI ARIAS IE Report Released Date/Time: Feb 25, 2023 03:45 PM Reporting Lab: [facility]N [address] [address] Performing Lab: [facility] HOSPITALRBRYAN [facility]OSPITALN [address] [address] [place] CBC AND DIFF (AUTO) ERYTHROCYT E DISTRIBUTI ON WIDTH [RATIO] BY AUTOMATED COUNT 14.6 12.0 - 16.0 08/24 Specimen Type: BLOOD No comment entered. Ordering Provider: LEYDI ARIAS IE Report Released Date/Time: Feb 25, 2023 03:45 PM Reporting Lab: [facility] HOSPITALRBRYAN [facility]OSPITALN [address] [address] Performing Lab: [facility] [address] [address] [place] CBC AND DIFF (AUTO) MONOCYTES [#/VOLUME] IN BLOOD BY AUTOMATED COUNT 0.80 10*3/uL 0.30 - 1.10 08/24 Specimen Type: BLOOD No comment entered. Ordering Provider: LEYDI ARIAS IE Report Released Date/Time: Feb 25, 2023 03:45 PM Reporting Lab: [place] [facility] [place] [address] [address] Performing Lab: [place] [facility] [place] [address] [address] [place] CBC AND DIFF (AUTO) MCH [ENTITIC MASS] BY AUTOMATED COUNT 29.1 pg 26.2 - 32.6 08/24 Specimen Type: BLOOD No comment entered. Ordering Provider: LEYDI ARIAS IE Report Released Date/Time: Feb 25, 2023 03:45 PM Reporting Lab: [facility]ITALR [place] [address] [address] Performing Lab: [place] [facility] [place] [address] [address] [place] CBC AND DIFF (AUTO) NEUTROPHIL S/100 LEUKOCYTES IN BLOOD BY AUTOMATED COUNT 76.3 43.7 - 75.8 08/24 H Specimen Type: BLOOD No comment entered. Ordering Provider: LEYDI ARIAS IE Report Released Date/Time: Feb 25, 2023 03:45 PM Reporting Lab: [facility]ITALRL [place]N [place] [address] [address] Performing Lab: [place] [facility] [place] [address] [address] [place] CBC AND DIFF (AUTO) LYMPHOCYTE S/100 LEUKOCYTES IN BLOOD BY AUTOMATED COUNT 8.7 14.0 - 42.3 08/24 L Specimen Type: BLOOD No comment entered. Ordering Provider: LEYDI ARIAS IE Report Released Date/Time: Feb 25, 2023 03:45 PM Reporting Lab: [place] [facility] [place] [address] [address] Performing Lab: [facility]ITALR [place] [address] [address] [place] CBC AND DIFF (AUTO) MONOCYTES/ 100 LEUKOCYTES IN BLOOD BY AUTOMATED COUNT 7.7 5.1 - 13.7 08/24 Specimen Type: BLOOD No comment entered. Ordering Provider: LEYDI ARIAS IE Report Released Date/Time: Feb 25, 2023 03:45 PM Reporting Lab: [place] [facility] [address] [facility] [address] Performing Lab: [place] CNTRL W[facility]N [facility] [address] [facility] [address] [place] CBC AND DIFF (AUTO) EOSINOPHIL S/100 LEUKOCYTES IN BLOOD BY AUTOMATED COUNT 6.5 0.4 - 6.8 08/24 Specimen Type: BLOOD No comment entered. Ordering Provider: LEYDI ARIAS IE Report Released Date/Time: Feb 25, 2023 03:45 PM Reporting Lab: [facility] HOSPITALRL TRN [address] [address] Performing Lab: [facility] [address] [address] [place] CBC AND DIFF (AUTO) BASOPHILS/ 100 LEUKOCYTES IN BLOOD BY AUTOMATED COUNT 0.5 0.1 - 2.0 08/24 Specimen Type: BLOOD No comment entered. Ordering Provider: LEYDI ARIAS IE Report Released Date/Time: Feb 25, 2023 03:45 PM Reporting Lab: [facility]ITALRL WSTRN [facility] [address] [address] Performing Lab: [facility]L [facility] [address] [address] [place] CBC AND DIFF (AUTO) NEUTROPHIL S [#/VOLUME] IN BLOOD BY AUTOMATED COUNT 7.96 10*3/uL 2.20 - 7.60 08/24 H Specimen Type: BLOOD No comment entered. Ordering Provider: LEYDI ARIAS IE Report Released Date/Time: Feb 25, 2023 03:45 PM Reporting Lab: [place] [facility] [address] [facility] [address] Performing Lab: [facility]OSPITALRL TRN [facility]ITALUSETS [address] [address] [place] CBC AND DIFF (AUTO) LYMPHOCYTE S [#/VOLUME] IN BLOOD BY AUTOMATED COUNT 0.91 10*3/uL 1.00 - 3.20 08/24 L Specimen Type: BLOOD No comment entered. Ordering Provider: LEYDI ARIAS IE Report Released Date/Time: Feb 25, 2023 03:45 PM Reporting Lab: [facility] [address] [address] Performing Lab: [facility]N [address] [address] [place] CBC AND DIFF (AUTO) EOSINOPHIL S [#/VOLUME] IN BLOOD BY AUTOMATED COUNT 0.68 10*3/uL 0.03 - 0.44 08/24 H Specimen Type: BLOOD No comment entered. Ordering Provider: LEYDI ARIAS IE Report Released Date/Time: Feb 25, 2023 03:45 PM Reporting Lab: [facility] [address] [address] Performing Lab: [facility]N [address] [address] [place] CBC AND DIFF (AUTO) BASOPHILS [#/VOLUME] IN BLOOD BY AUTOMATED COUNT 0.05 10*3/uL 0.01 - 0.13 08/24 Specimen Type: BLOOD No comment entered. Ordering Provider: LEYDI ARIAS IE Report Released Date/Time: Feb 25, 2023 03:45 PM Reporting Lab: [facility]N [address] [address] Performing Lab: [facility]N [facility]ITALUSE[address] [address] [place] CBC AND DIFF (AUTO) IMMATURE GRANULOCYT ES/100 LEUKOCYTES IN BLOOD BY AUTOMATED COUNT 0.3 0.0 - 0.7 08/24 Specimen Type: BLOOD No comment entered. Ordering Provider: LEYDI ARIAS IE Report Released Date/Time: Feb 25, 2023 03:45 PM Reporting Lab: [facility]N [address] [address] Performing Lab: [facility]N [address] [address] [place] CBC AND DIFF (AUTO) IMMATURE GRANULOCYT ES [#/VOLUME] IN BLOOD 0.03 10*3/uL 0.00 - 0.06 08/24 Specimen Type: BLOOD No comment entered. Ordering Provider: LEYDI ARIAS IE Report Released Date/Time: Feb 25, 2023 03:45 PM Reporting Lab: [facility]N [address] [address] Performing Lab: [facility]N [address] [address] [place] CBC AND DIFF (AUTO) NRBC % 0.0 0.0 - 0.0 08/24 Specimen Type: BLOOD No comment entered. Ordering Provider: LEYDI ARIAS IE Report Released Date/Time: Feb 25, 2023 03:45 PM Reporting Lab: [address] [address] Performing Lab: [facility] [address] [address] [place] CBC AND DIFF (AUTO) NRBC, ABS 0.00 10*3/uL 0.00 - 0.00 08/24 Specimen Type: BLOOD No comment entered. Ordering Provider: LEYDI ARIAS IE Report Released Date/Time: Feb 25, 2023 03:45 PM Reporting Lab: [address] [address] Performing Lab: [facility] [address] [address] [place] PSA PROSTATE SPECIFIC AG [MASS/VOLU ME] IN SERUM OR PLASMA 1.68 ng/mL 0.00 - 4.00 08/24 Specimen Type: SERUM No comment entered. Ordering Provider: LEYDI ARIAS IE Report Released Date/Time: Feb 25, 2023 03:45 PM Reporting Lab: [facility] [address] [address] Performing Lab: [address] [address] [place] URINALYS IS COLOR OF URINE Light-Ye llow 08/24 Specimen Type: URINE Comment: If Glucose = >500 and Ketones are positive, please alert the Physician. Ordering Provider: LEYDI ARIAS Report Released Date/Time: Feb 25, 2023 03:45 PM Reporting Lab: [facility] [address] [address] [facility]forming [facility] [address] [place] URINALYS IS APPEARANCE OF URINE Clear 08/24 Specimen Type: URINE Comment: If Glucose = >500 and Ketones are positive, please alert the Physician. Ordering Provider: LEYDI ARIAS Report Released Date/Time: Feb 25, 2023 03:45 PM Reporting Lab: [facility] [address] [address] Performing Lab: [address] [address] [place] URINALYS IS GLUCOSE [MASS/VOLU ME] IN URINE NEGATIVE mg/dL 08/24 Specimen Type: URINE Comment: If Glucose = >500 and Ketones are positive, please alert the Physician. Ordering Provider: LEYDI ARIAS Report Released Date/Time: Feb 25, 2023 03:45 PM Reporting Lab: [facility] [address] [address] Performing Lab: [facility] [address] [place] URINALYS IS KETONES [MASS/VOLU ME] IN URINE BY TEST STRIP NEGATIVE mg/dL 08/24 Specimen Type: URINE Comment: If Glucose = >500 and Ketones are positive, please alert the Physician. Ordering Provider: LEYDI ARIAS Report Released Date/Time: Feb 25, 2023 03:45 PM Reporting Lab: [facility] [address] Performing Lab: [facility] [address] [place] URINALYS IS ERYTHROCYT ES [PRESENCE] IN URINE SEDIMENT BY LIGHT MICROSCOPY NEGATIVE mg/dL 08/24 Specimen Type: URINE Comment: If Glucose = >500 and Ketones are positive, please alert the Physician. Ordering Provider: LEYDI ARIAS Report Released Date/Time: Feb 25, 2023 03:45 PM Reporting Lab: [address] [address] Performing Lab: [facility] [address] [facility] [address] [place] URINALYS IS PROTEIN [MASS/VOLU ME] IN URINE BY TEST STRIP 10 mg/dL 08/24 Specimen Type: URINE Comment: If Glucose = >500 and Ketones are positive, please alert the Physician. Ordering Provider: LEYDI ARIAS Report Released Date/Time: Feb 25, 2023 03:45 PM Reporting Lab: [address] [address] Performing Lab: [facility] [address] [facility] [address] [place] URINALYS IS NITRITE [PRESENCE] IN URINE NEGATIVE mg/dL 08/24 Specimen Type: URINE Comment: If Glucose = >500 and Ketones are positive, please alert the Physician. Ordering Provider: LEYDI ARIAS Report Released Date/Time: Feb 25, 2023 03:45 PM Reporting Lab: [address] [address] Performing Lab: [facility] [address] [facility] [address] [place] URINALYS IS BILIRUBIN. TOTAL [PRESENCE] IN URINE NEGATIVE mg/dL 08/24 Specimen Type: URINE Comment: If Glucose = >500 and Ketones are positive, please alert the Physician. Ordering Provider: LEYDI ARIAS Report Released Date/Time: Feb 25, 2023 03:45 PM Reporting Lab: [address] [address] Performing Lab: [address] [address] [place] URINALYS IS SPECIFIC GRAVITY OF URINE BY REFRACTOME TRY 1.016 1.016 - 1.022 08/24 Specimen Type: URINE Comment: If Glucose = >500 and Ketones are positive, please alert the Physician. Ordering Provider: LEYDI ARIAS Report Released Date/Time: Feb 25, 2023 03:45 PM Reporting Lab: [address] [address] Performing Lab: [address] [place], [place] [address] URINALYS IS PH OF URINE BY TEST STRIP 5.5 5.0 - 9.0 08/24 Specimen Type: URINE Comment: If Glucose = >500 and Ketones are positive, please alert the Physician. Ordering Provider: LEYDI ARIAS IE Report Released Date/Time: Feb 25, 2023 03:45 PM Reporting Lab: [address] [address] Performing Lab: [address] [address] [place] URINALYS IS UROBILINOG EN [MASS/VOLU ME] IN URINE BY TEST STRIP <2.0mg/d L <2.0 - 2.0 08/24 Specimen Type: URINE Comment: If Glucose = >500 and Ketones are positive, please alert the Physician. Ordering Provider: LEYDI ARIAS IE Report Released Date/Time: Feb 25, 2023 03:45 PM Reporting Lab: [address] [address] Performing Lab: [address] [address] [place] URINALYS IS LEUKOCYTE ESTERASE [PRESENCE] IN URINE BY TEST STRIP NEGATIVE 08/24 Specimen Type: URINE Comment: If Glucose = >500 and Ketones are positive, please alert the Physician. Ordering Provider: LEYDI ARIAS IE Report Released Date/Time: Feb 25, 2023 03:45 PM Reporting Lab: [address] [place] [address] Performing Lab: [facility] [address] [facility] [address] [place] UREA NITROGEN UREA NITROGEN [MASS/VOLU ME] IN SERUM OR PLASMA 31 mg/dL 7 - 25 04/29 H Specimen Type: SERUM No comment entered. Ordering Provider: LEYDI ARIAS IE Report Released Date/Time: Apr 16, 2023 09:46 AM Reporting Lab: [address] [address] Performing Lab: [address] [address] [place] CREATINI NE (eGFR 2020) CREATININE [MASS/VOLU ME] IN SERUM OR PLASMA 2.69 mg/dL 0.50 - 1.40 04/29 H Specimen Type: SERUM No comment entered. Ordering Provider: LEYDI ARIAS IE Report Released Date/Time: Apr 16, 2023 09:46 AM Reporting Lab: [address] [address] Performing Lab: [address] [address] [place] CREATINI NE (eGFR 2020) GLOMERULAR FILTRATION RATE/1.73 SQ M.PREDICTE D [VOLUME RATE/AREA] IN SERUM, PLASMA OR BLOOD BY CREATININE -BASED FORMULA (CKD-EPI 2020) 25 mL/min 60 04/29 L Specimen Type: SERUM No comment entered. Ordering Provider: LEYDI ARIAS IE Report Released Date/Time: Apr 16, 2023 09:46 AM Reporting Lab: [address] [address] Performing Lab: [address] [address] [place] Vital Signs Combined list of inpatient and outpatient Vital Signs from Department of Defense and Veterans Affairs, ranging from 12 months to all on record, depending upon the facility. Vital Sign Value Date Comments Source SYSTOLIC BLOOD PRESSURE 114 03/03/2024 09:19:31 L[address] DIASTOLIC BLOOD PRESSURE 74 03/03/2024 09:19:[address] PULSE OXIMETRY 98 03/03/2024 09:19:31 Jarred REYNOLDS WEIGHT 165 03/03/2024 09:19:31 AISLINN WATSON BMI 24 kg/m2 03/03/2024 09:19:31 AISLINN WATSON TEMPERATURE 97.4 03/03/2024 09:19:31 JERMAINE REGAN PULSE 77 03/03/2024 09:19:31 AISLINN WATSON RESPIRATION 18 03/03/2024 09:19:31 SPRI SHEREEN Encounters Combined list of: 1) Encounters from Department of Veterans Affairs facilities going backup to the last 18 months, not all VA inpatient encounters are included; 2) Encounters from the Department of [facility] facilities going backup to 280 months. Location Location Details Encounter Type Encounter Number Reason For Visit Attending Provider ADM Date DC Date Status Disposition Source [facility] Encounter [id number] 03/26 [facility]counter [id number] 04/07 [facility]counter [id number] 04/07 [facility] Encounter [id number] 04/14 [facility]counter [id number] 04/16 [facility] Encounter [id number] 05/21 [facility] Encounter [id number] 06/09 [facility] Encounter [id number] 06/28 [facility] Encounter [id number] 06/30 [facility] Encounter [id number] 07/10 [facility] Out[facility] Encounter [id number] 08/11 [facility] OFFICE O/P EST MOD 30 MIN [id number] Diagnos is: ICD-10- CM I10 Essenti al (primar y) hyperte nsion MAGALI,A POLINARIO 08/31 [place] [facility] En[facility] [id number] 09/01 [facility] Encounter [id number] 09/07 [facility] Encounter [id number] 09/07 [facility] Encounter [id number] 09/20 [facility] En[facility] [id number] 09/20 [facility] Encounter [id number] 09/27 [facility] Out[facility] Encounter [id number] 10/19 [facility] Encounter [id number] 10/26 [facility] Out[facility] Encounter [id number] 11/09 [facility] Out[facility] Encounter [id number] 11/16 [facility] Out[facility] Encounter [id number] 12/13 [facility] Encounter [id number] 12/24 [facility] Encounter [id number] 1.01/19 [facility]counter [id number] 01/24 [facility] Out[facility] Encounter [id number] 02/07 [facility] EVALUATION OF WHEEZING [id number]. 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, unspeci fied JARMOLOWIC Z,CARI 02/07 [facility] PULM FUNCTION TEST BY MARLYS [id number] 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, unspeci fiEdwige Ayala MD 02/09 [facility] Out[facility] Encounter [id number] Rashmi SWANSON 02/15 [facility] Encounter [id number] 02/24 [facility] Out[facility] Encounter [id number] 02/24 [facility] OFFICE O/P EST LOW 20 MIN [id number] 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, unspeci ESTEVAN Conroy 03/03 [facility] Out[facility] En[facility] [id number] 05/10 [facility] Out[facility] Encounter [id number] 05/17 [facility] Out[facility] Encounter [id number] 05/23 [facility] Out[facility] Encounter [id number] 07/15 [facility] Out[facility] Encounter [id number] 08/22 [facility] Out[facility] Encounter [id number] 08/23 [facility] [place] [facility] Social History Combined list of available smoking, tobacco, and other social history from Department of Defense and Veterans Affairs facilities. Social History Type Response Date Comment Sourc e Tobacco smoking status NHIS VA-TOBACCO NEVER USED 09/01/2023 [facility] D History of tobacco use DC-TOBACCO NEVER USED 05/17/[address] [facility] History of tobacco use LIFETIME NON-TOBACCO USER 06/15/2017 L[address] History of tobacco use LIFETIME NON-TOBACCO USER 06/20/2016 L[address] Plan of Care List of future care activities from Department of Veterans Affairs facilities. Additional future care activities may be listed in the Assessment and Plan section. Date/Time Care Activity Care Activity Detail Facili ty 11/03/2024 AMBULATORY - MEDICINE AMBULAT[facility] - [facility]I [facility]
--- NOTE | 2024-09-08 14:36 | HO.NEPHOV_ITS ---
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 for renal insufficiency. Biopsy revealed severe arterial sclerosis. He required hemodialysis for few weeks. Urine output progressively increased and he was therefore taken off hemodialysis. He has been off hemodialysis for the last 3 months. He complains of fatigue. He is also feeling cold all the time. No urinary symptoms. No hematuria. No nausea or vomiting. No shortness of breath. He recently underwent herniorrhaphy which was uneventful. 03/30/23 Still feels weak;c/o fatigue ; Home BP readings are good 06/29/23 c/o Fatigue ;Appetite is fair ;Gained 8 lbs in 6 months 01/15/2024. Continues to complain of fatigue. He has gained few more lb. No nausea or vomiting. He has been followed by Rheumatology. 09/08/24 The patient is a 68-year-old male With SCLERODERMA and chronic kidney disease 4 Has dyspnea on exertion The patient's kidney function has been stable, with creatinine levels holding at 2.31 mg/dL as of September 02, compared to 2.5 mg/dL last year. The glomerular filtration rate (GFR) has fluctuated between 26 and 30, with a noted increase to 28 from last January. The patient previously required dialysis when kidney function was below 10%. The patient reports pulmonary symptoms, including shortness of breath and fatigue, which have been attributed to a rheumatological condition. 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 The patient experiences burning sensatio ns in the legs and fatigue, which may be related to anemia and the underlying rheumatological condition. The patient has a history of scleroderma, with recent concerns about pulmonary involvement. A CT scan and echocardiogram have been ordered to monitor the condition, with plans for annual pulmonary function tests and echocardiograms until 2028. [facility] Medical History Chronic renal disease, stage IV History of renal stone Arthritis Hx of acute renal failure HTN (hypertension) History of renal dialysis Surgical History Inguinal hernia (01/01/23) History of biopsy Hx of colonoscopy History of esophagogastroduodenoscopy (EGD) Hx of arthroscopy of knee History of excision of pilonidal cyst History of arthroscopic surgery of shoulder Social History Are you a primary cardiac care unit nurse to a significant other at home: No Do you presently have visiting nurse or other home services: No Alcohol intake: never Patient Tobacco Use Status: Never used Tobacco Current occupational status: employed 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 Vital Signs: Last Vital Signs Pulse 56 09/08/24 14:37 BP 130/60 09/08/24 14:37 Pulse Ox 96 09/08/24 14:37 Oxygen Delivery Method Room Air 09/08/24 14:37 BMI result Body Mass Index 24.7 Eyes General: appearance normal, both eyes and all related structures Visual Delgadillo: normal visual delgadillo by confrontation Neck Neck: Yes supple Resp Effort & Inspection: normal respiratory effort Auscultation: other (coarse crackles- scattered) Cardio Palpation: no palpable S3 Heart sounds: no rubs GI Inspection: Yes normal to inspection Palpation (GI): Soft to palpation Percussion: Yes normal to percussion Auscultation: normal bowel sounds General: Yes no CVA tenderness Back/Spine/Pelvis Back: no CVA tenderness Skin General skin exam: no petechiae and no purpura Neuro General: no focal motor deficits Motor exam (neuro): no asterixis Extrem General: No clubbing and No edema Results Reviewed Nephrology Results: Hgb, (14.0-18.0) 10.9 g/dl L 06/27/25 WBC, (4.8-10.8) 10.2 X10*3/uL 09/02/24 Plt Count, (160-400) 292 X10*3/uL 09/02/24 Sodium, (135-145) 135 mmol/L 09/02/24 Potassium, (3.3-5.1) 4.5 mmol/L 09/02/24 Chloride, (96-108) 108 mmol/L 09/02/24 Carbon Dioxide, (22-29) 20 mmol/L L 09/02/24 BUN, (9-16) 35 mg/dL H 09/02/24 Creatinine, (0.5-1.4) 2.31 mg/dL H 09/02/24 Calcium, (8.4-10.2) 8.9 mg/dL 09/02/24 Urine Protein, (Neg-Trace) 30 (1+) mg/dL H 09/02/24 Urine Creatinine 98.70 mg/dL 09/02/24 Assessment & Plan Assessment & Plan (1) Diffuse scleroderma: Comment: onset 2022 (weight loss, scleroderma renal crisis ,Raynaud's, skin thickening , possible GERD, telangiectasias +++Scl 70) Code(s): M34.9 - Systemic sclerosis, unspecified Category: Medical Plan: Follow with Rhem (2) Interstitial lung disease: Code(s): J84.9 - Interstitial pulmonary disease, unspecified Category: Medical Plan: Refer to Pulmonary (3) Chronic renal disease, stage IV: Code(s): N18.4 - Chronic kidney disease, stage 4 (severe) Category: Medical Plan: Stable No s/s of uremia Has edema Will Add LAsix 40 mg QD and reassess respiratory status Orders: Orders Basic Metabolic Panel 3 Weeks N18.4 - Chronic kidney disease, stage 4 (severe) Basic Metabolic Panel 3 Months N18.4 - Chronic kidney disease, stage 4 (severe) Referrals Pulmonology Referral J84.9 - Interstitial pulmonary disease, unspecified, M34.9 - Systemic sclerosis, unspecified Cardiology Referral M34.9 - Systemic sclerosis, unspecified, R06.00 - Dyspnea, unspecified Medications: New furosemide (Lasix) 40 mg PO DAILY 30 tabs 1RF Coding Level of Care Code Est Pt Level 4 (55780) Diagnoses Diffuse scleroderma M34.9 Interstitial lung disease J84.9 Chronic renal disease, stage IV N18.4
[2024-09-08 14:37] VITALS: BP 130/60; PULSE 56; O2SAT 96; BMI 24.7
--- OUTSIDE RECORDS SUMMARY | 2024-09-08 14:38 | XMS_ITS | Clinical Summary ---
Author Organization [facility]ly [facility] Facility Address [address] [address] Care Team Providers Care Vp Packaging Name Role Phone Gold Daley MD Primary Care Provider +1- [phone] Allergies No known active allergies Medications carvedilol [...] patient's age to complete this topic Insurance [facility] Regions 1,2,[address] (VACCN) [place] [address] [facility] Regions 1,2,3 (VACCN) Care Teams Vp Packaging Relationship Specialty Start Date End Date Gold Daley MD [facility] [address] [place] [address] PCP - General Family Medicine 04/22/22
--- OUTSIDE RECORDS SUMMARY | 2024-09-08 14:38 | XMS_ITS | Clinical Summary ---
Author Organization [facility] Address [address] [place] [address] Care Team Providers Care Musical Performer Name Role Phone Gold Daley MD Primary Care Provider +1- [phone] Surgical History Surgery Date Site/Laterality Comments SHOULDER SURGERY PROCEDURE: HISTORICAL SHOULDER SURGERY COLONOSCOPY 12/26/2010 PROCEDURE: HISTORICAL COLONOSCOPY ESOPHAGOGASTRODUODENOSCOPY 12/04/2006 PROCEDURE: [place] ESOPHAGOGASTRODUODENOSCOPY TRANSORAL DIAGNOSTIC Medical History Medical History [...] 2023-2 5 season) 2023 Influenza Vaccine (#1) 2024 RSV Immunization Adult Patie nts (1 [...] Documents on File Type Date Recorded Patient Pumper Hand Expl anation Health Care Decision (hx) 08/13/2021 AD FORTE DIRECTIVE Health Care Decision (hx) 08/13/2021 AD FORTE DIRECTIVE Health Care Decision (hx) 08/13/2021 AD FORTE DIRECTIVE Health Care Decision (hx) 08/13/2021 AD FORTE DIRECTIVE Health Care Decision (hx) 08/13/2021 AD FORTE DIRECTIVE Care Teams Musical Performer Relationship Specialty Start Date End Date Gold Daley MD [address] [place] [address] PCP - General 05/29/22
== END 2024-09-08 14:58 | disposition home or self-care (01) ==
LOC: HO.HKA 14:36
PROVIDERS: PCP Internal Medicine; Visit Provider Internal Medicine Hypertension Specialist
DX: M34.9 Systemic sclerosis, unspecified (principal); J84.9 Interstitial pulmonary disease, unspecified; N18.4 Chronic kidney disease, stage 4 (severe)
CPT/HCPCS: 99214

== ENCOUNTER → 2024-09-08 14:35 | Outpatient (BNVA) | payer OTHER, SELFPAY | PROVIDERS: PCP Internal Medicine; Visit Provider Internal Medicine Hypertension Specialist | DX: N18.4 Chronic kidney disease, stage 4 (severe) (principal); M34.9 Systemic sclerosis, unspecified; J84.9 Interstitial pulmonary disease, unspecified | CPT/HCPCS: 99212 ==

== ENCOUNTER 2024-09-23 15:42 | Outpatient (REF) | payer OTHER, SELFPAY ==
--- OUTSIDE RECORDS SUMMARY | 2024-09-23 10:44 | XMS_ITS | Continuity of Care Document ---
Author Name [facility] Organization [facility] Care Team Providers Care Estate Planning Director Name Role Phone [facility] Unavailable Unavailable Problems Combined list of problems from Department of [facility] and [facility] facilities. It does not include entries that were removed or entered in error. Problem Status Onset Date Problem Type Date of Resolution Comments Source Cyst - pilonidal Active Condition [place] Essential hypertension Active Condition [place] History of knee surgery Active Condition Jun 20, 2016 Entered By: JAYDON ARIAS Comment: R in early [place] History of shoulder surgery Active Condition Jun 20 Entered By: JAYDON ARIAS Comment: R in s [place] Impaired fasting glucose Active Condition [place] Left inguinal hernia Active Condition Feb 25, 2023 Entered By: JAYDON ARIAS Comment: repair 12/2022 [place] Pain of right shoulder joint Active Condition Feb 25, 2023 Entered By: JAYDON ARIAS Comment: right shoulder replacement 08/2021 [place] Postnasal drip Active Condition [facility] [place] Systemic sclerosis, diffuse Active Condition Mar 03, 2024 Entered By: ROSALINA JORDAN Comment: PFT's MAR 01: [place] SpirometryDec 2023 Entered By: ROSALINA JORDAN Comment: Barium Swallow Planned APR 02 (but has no dysphagia yet)Mar 03, 2024 Entered By: ROSALINA JORDAN Comment: Sees Both Rheum and Nephro at [place] for the Diffuse SS : [place] Diagnosis: ICD-10-CM M34.9 Systemic sclerosis, unspecified Active Diagnosis [place] Diagnosis: ICD-10-CM I10 Essential (primary) hypertension Active Diagnosis [place] Medications Combined list of outpatient medications from Department of [facility] and [facility] facilities.Medications provided include 1) outpatient medications from the last 15 months, and 2) patient-reported medications. Medication Details Route Status Patient Instructions Prescription Expires Prescription Number Last Dispense Date Ordering Provider Order Date Order Qty Source ASCORBIC ACID TAB TAKE BY MOUTH DAILY ORAL ACTIVE SIERRA ARIAS 2016 [facility] [place] CARVEDILOL 25MG TAB TAKE ONE TABLET BY MOUTH TWICE DAILY FOR HIGH BLOOD PRESSURE ORAL ACTIVE 12/25/2024 [id number] MAGALI, APOLINARI O 2023 180 [place] CARVEDILOL 25MG TAB TAKE ONE TABLET BY MOUTH TWICE DAILY FOR HIGH BLOOD PRESSURE ORAL DISCONT INUED 12/25/2024 [id number] MAGALI, APOLINARI O 2023 180 [place] CARVEDILOL 25MG TAB TAKE ONE TABLET BY MOUTH TWICE DAILY FOR HIGH BLOOD PRESSURE ORAL DISCONT INUED 02/26/2024 [id number] SIERRA ARIAS 2022 180 [place] FLUTICASONE PROPIONATE 50MCG/SPRAY SOLN,NASAL, 16GM INSTILL 2 SPRAYS INTO EACH NOSTRIL ONCE DAILY NASAL ACTIVE SIERRA ARIAS 2022 [place] FUROSEMIDE 40MG TAB TAKE ONE TABLET BY MOUTH ONCE DAILY TO REMOVE FLUID/CO NTROL BLOOD PRESSURE ORAL ACTIVE 11/07/2024 [id number] Nuria ALVES 2024 60 [place] NIFEDIPINE (EQV-CC) 30MG TAB,SA TAKE ONE TABLET BY MOUTH TWICE DAILY FOR HIGH BLOOD PRESSURE DO NOT TAKE WITH GRAPEFRU IT JUICE ORAL DISCONT INUED 02/26/2024 [id number] SIERRA ARIAS 2022 180 [place] NIFEDIPINE (EQV-CC) 30MG TAB,SA TAKE ONE TABLET BY MOUTH TWICE DAILY FOR HIGH BLOOD PRESSURE DO NOT TAKE WITH GRAPEFRU IT JUICE ORAL 09/01/2024 [id number] MAGALIELISABETH QUINONESLINARI O 2023 180 [place] OTHER CAP/TAB TAKE RENOCAP BY MOUTH ONCE DAILY ORAL ACTIVE SIERRA ARIAS 2022 [place] RENAL MULTIVIT W/1MG OR LESS FOLIC ACID TAB TAKE 1 TABLET BY MOUTH ONCE DAILY FOR VITAMIN SUPPLEME NTATION ORAL ACTIVE 03/04/2025 [id number] JAMES JORDAN 2024 90 [place] RENAL MULTIVIT W/1MG OR LESS FOLIC ACID TAB TAKE 1 TABLET BY MOUTH ONCE DAILY FOR VITAMIN SUPPLEME NTATION ORAL DISCONT INUED 03/16/2024 [id number] SIERAR ARIAS 2023 90 [facility] [place] Immunizations Combined list of available immunizations from the Department of Defense and Veterans Affairs facilities. 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 LIPID PANEL FASTING TRIGLYCERI DE [MASS/VOLU ME] IN SERUM OR PLASMA 98 mg/dL 0 - 150 08/24 Specimen Type: SERUM No comment entered. Ordering Provider: LEYDI ARIAS IE Report Released Date/Time: Feb 25, 2023 03:45 PM Reporting Lab: [facility] [address] [address] Performing Lab: [facility] [address] [address] [place] LIPID PANEL FASTING CHOLESTERO L IN LDL [MASS/VOLU ME] IN SERUM OR PLASMA BY CALCULARANJITO N 154 mg/dL 0 - 129 08/24 H Specimen Type: SERUM No comment entered. Ordering Provider: LEYDI ARIAS IE Report Released Date/Time: Feb 25, 2023 03:45 PM Reporting Lab: [facility] [address] [address] Performing Lab: [facility]ERN [address] [address] [place] LIPID PANEL FASTING CHOLESTERO L.TOTAL/CH OLESTEROL IN HDL [MASS RATIO] IN SERUM OR PLASMA 6.1 08/24 Specimen Type: SERUM No comment entered. Ordering Provider: LEYDI ARIAS IE Report Released Date/Time: Feb 25, 2023 03:45 PM Reporting Lab: [facility] [address] [address] Performing Lab: [facility] [address] [address] [place] LIPID PANEL FASTING CHOLESTERO L IN HDL [MASS/VOLU ME] IN SERUM OR PLASMA 34 mg/dL 40 - 60 08/24 L Specimen Type: SERUM No comment entered. Ordering Provider: LEYDI ARIAS IE Report Released Date/Time: Feb 25, 2023 03:45 PM Reporting Lab: [facility] [address] [address] Performing Lab: [facility] [address] [place] BASIC METABOLI C PANEL (fasting ) UREA NITROGEN [MASS/VOLU ME] IN SERUM OR PLASMA 40 mg/dL 7 - 25 08/24 H Specimen Type: SERUM No comment entered. Ordering Provider: LEYDI ARIAS IE Report Released Date/Time: Feb 25, 2023 03:45 PM Reporting Lab: [facility] [address] [address] Performing Lab: [facility] [address] [address] [place] BASIC METABOLI C PANEL (fasting ) GLUCOSE [MASS/VOLU ME] IN SERUM OR PLASMA 101 mg/dL 65 - 100 08/24 H Specimen Type: SERUM No comment entered. Ordering Provider: LEYDI ARIAS IE Report Released Date/Time: Feb 25, 2023 03:45 PM Reporting Lab: [facility] [address] [address] Performing Lab: [facility] [address] [address] [place] BASIC METABOLI C PANEL (fasting ) SODIUM [MOLES/VOL UME] IN SERUM OR PLASMA 136 mmol/L 135 - 145 08/24 Specimen Type: SERUM No comment entered. Ordering Provider: LEYDI ARIAS IE Report Released Date/Time: Feb 25, 2023 03:45 PM Reporting Lab: [facility] [address] [address] Performing Lab: [facility] [address] [address] [place] BASIC METABOLI C PANEL (fasting ) POTASSIUM [MOLES/VOL UME] IN SERUM OR PLASMA 4.3 mmol/L 3.5 - 5.0 08/24 Specimen Type: SERUM No comment entered. Ordering Provider: LEYDI ARIAS IE Report Released Date/Time: Feb 25, 2023 03:45 PM Reporting Lab: [facility]TRN [facility]ITALUSEAMSTERD[facility] [address] [address] Performing Lab: [facility]ERN [facility]ITALUSE[address] [address] [place] BASIC METABOLI C PANEL (fasting ) CHLORIDE [MOLES/VOL UME] IN SERUM OR PLASMA 110 mmol/L 100 - 110 08/24 Specimen Type: SERUM No comment entered. Ordering Provider: LEYDI ARIAS IE Report Released Date/Time: Feb 25, 2023 03:45 PM Reporting Lab: [facility]TR[facility] [address] Performing Lab: [facility]ITALUSE[address] [address] [place] BASIC METABOLI C PANEL (fasting ) CARBON DIOXIDE, TOTAL [MOLES/VOL UME] IN SERUM OR PLASMA 19 meq/L 20 - 30 08/24 L Specimen Type: SERUM No comment entered. Ordering Provider: LEYDI ARIAS IE Report Released Date/Time: Feb 25, 2023 03:45 PM Reporting Lab: [facility]TRN [address] [address] Performing Lab: [facility] [address] [address] [place] BASIC METABOLI C PANEL (fasting ) CREATININE [MASS/VOLU ME] IN SERUM OR PLASMA 2.54 mg/dL 0.50 - 1.40 08/24 H Specimen Type: SERUM No comment entered. Ordering Provider: LEYDI ARIAS IE Report Released Date/Time: Feb 25, 2023 03:45 PM Reporting Lab: [facility] [address] [address] Performing Lab: [facility]USE[address] [address] [place] BASIC METABOLI C PANEL (fasting ) GLOMERULAR FILTRATION RATE/1.73 SQ M.PREDICTE D [VOLUME RATE/AREA] IN SERUM, PLASMA OR BLOOD BY CREATININE -BASED FORMULA (CKD-EPI 2020) 27 mL/min 60 08/24 L Specimen Type: SERUM No comment entered. Ordering Provider: LEYDI ARIAS IE Report Released Date/Time: Feb 25, 2023 03:45 PM Reporting Lab: [facility] [address] Performing Lab: [facility]ITALUSE[address] [address] [place] LIVER FUNCTION PROTEIN [MASS/VOLU ME] IN SERUM OR PLASMA 7.2 g/dL 6.0 - 8.3 08/24 Specimen Type: SERUM No comment entered. Ordering Provider: LEYDI ARIAS IE Report Released Date/Time: Feb 25, 2023 03:45 PM Reporting Lab: [facility]ITALUSETS [facility] [address] [address] Performing Lab: [facility]ITALUSEAMSTERD[facility] [address] [address] [facility] LIVER FUNCTION ALBUMIN [MASS/VOLU ME] IN SERUM OR PLASMA 3.6 g/dL 3.5 - 5.0 08/24 Specimen Type: SERUM No comment entered. Ordering Provider: LEYDI ARIAS IE Report Released Date/Time: Feb 25, 2023 03:45 PM Reporting Lab: [facility] [address] [address] Performing Lab: [facility]ITALUSEAMSTERD[facility] [address] [address] [facility] LIVER FUNCTION ALKALINE PHOSPHATAS E [ENZYMATIC ACTIVITY/V OLUME] IN SERUM OR PLASMA 66 U/L 40 - 150 08/24 Specimen Type: SERUM No comment entered. Ordering Provider: LEYDI ARIAS IE Report Released Date/Time: Feb 25, 2023 03:45 PM Reporting Lab: [facility]TRN [facility] [address] [address] Performing Lab: [facility]PITALUSEAMSTERD[facility] [address] [address] [facility] LIVER FUNCTION ASPARTATE AMINOTRANS FERASE [ENZYMATIC ACTIVITY/V OLUME] IN SERUM OR PLASMA 17 U/L 5 - 34 08/24 Specimen Type: SERUM No comment entered. Ordering Provider: LEYDI ARIAS IE Report Released Date/Time: Feb 25, 2023 03:45 PM Reporting Lab: [facility]ITALUSEAMSTERD[facility] [address] [address] Performing Lab: [facility]THTRN [facility]ITALUSEAMSTERD[facility] [address] [address] [place]IVER FUNCTION ALANINE AMINOTRANS FERASE [ENZYMATIC ACTIVITY/V OLUME] IN SERUM OR PLASMA 11 U/L 08/24 Specimen Type: SERUM No comment entered. Ordering Provider: LEYDI ARIAS IE Report Released Date/Time: Feb 25, 2023 03:45 PM Reporting Lab: [address] [address] Performing Lab: [address] [address] [place] LIVER FUNCTION BILIRUBIN. TOTAL [MASS/VOLU ME] IN SERUM OR PLASMA 0.4 mg/dL 0.2 - 1.2 08/24 Specimen Type: SERUM No comment entered. Ordering Provider: LEYDI ARIAS IE Report Released Date/Time: Feb 25, 2023 03:45 PM Reporting Lab: [address] [address] Performing Lab: [address] [address] [place] HEMOGLOB IN A1C PANEL HEMOGLOBIN A1C/HEMOGL [...] Feb 25, 2023 03:45 PM Reporting Lab: [address] [address] Performing Lab: [address] [address] [place] TSH THYROTROPI N [UNITS/VOL UME] IN SERUM OR PLASMA 1.98 u[IU]/mL 0.35 - 5.00 08/24 Specimen Type: SERUM No comment entered. Ordering Provider: LEYDI ARIAS IE Report Released Date/Time: Feb 25, 2023 03:45 PM Reporting Lab: [facility]TRN [facility]OSPITALUSETS [address] [address] Performing Lab: [facility]THTRN [facility]ITALUSE[address] [address] [place] CBC AND DIFF (AUTO) LEUKOCYTES [#/VOLUME] IN BLOOD BY AUTOMATED COUNT 10.43 10*3/uL 4.50 - 11.00 08/24 Specimen Type: BLOOD No comment entered. Ordering Provider: LEYDI ARIAS IE Report Released Date/Time: Feb 25, 2023 03:45 PM Reporting Lab: [facility] SOUTHTRN [address] [address] Performing Lab: [facility] CENTERN [address] [address] [place] CBC AND DIFF (AUTO) ERYTHROCYT ES [#/VOLUME] IN BLOOD BY AUTOMATED COUNT 3.68 10*6/uL 4.23 - 5.66 08/24 L Specimen Type: BLOOD No comment entered. Ordering Provider: LEYDI ARIAS IE Report Released Date/Time: Feb 25, 2023 03:45 PM Reporting Lab: [facility] SOUTHTRN [address] [address] Performing Lab: [facility]THTRN [facility]ITALUSETS [address] [address] [place] CBC AND DIFF (AUTO) HEMOGLOBIN [MASS/VOLU ME] IN BLOOD 10.7 g/dL 12.8 - 17 08/24 L Specimen Type: BLOOD No comment entered. Ordering Provider: LEYDI ARIAS IE Report Released Date/Time: Feb 25, 2023 03:45 PM Reporting Lab: [facility]TRN [facility]USE[address] [address] Performing Lab: [facility]ERN [facility]ITALUSE[address] [address] [place] CBC AND DIFF (AUTO) HEMATOCRIT [VOLUME FRACTION] OF BLOOD BY AUTOMATED COUNT 33.6 39.2 - 50.4 08/24 L Specimen Type: BLOOD No comment entered. Ordering Provider: LEYDI ARIAS IE Report Released Date/Time: Feb 25, 2023 03:45 PM Reporting Lab: [facility] [address] [address] Performing Lab: [facility] [address] [address] [place] CBC AND DIFF (AUTO) MCV [ENTITIC VOLUME] BY AUTOMATED COUNT 91.3 fL 82 - 99 08/24 Specimen Type: BLOOD No comment entered. Ordering Provider: LEYDI ARIAS IE Report Released Date/Time: Feb 25, 2023 03:45 PM Reporting Lab: [facility] [address] [address] Performing Lab: [facility]ERN [address] [address] [place] CBC AND DIFF (AUTO) MCHC [MASS/VOLU ME] BY AUTOMATED COUNT 31.8 g/dL 30.8 - 35.1 08/24 Specimen Type: BLOOD No comment entered. Ordering Provider: LEYDI ARIAS IE Report Released Date/Time: Feb 25, 2023 03:45 PM Reporting Lab: [facility] [address] [address] Performing Lab: [facility]ERN [address] [address] [place] CBC AND DIFF (AUTO) PLATELETS [#/VOLUME] IN BLOOD BY AUTOMATED COUNT 287 10*3/uL 140 - 360 08/24 Specimen Type: BLOOD No comment entered. Ordering Provider: LEYDI ARIAS IE Report Released Date/Time: Feb 25, 2023 03:45 PM Reporting Lab: [facility] [address] [address] Performing Lab: [facility] [address] [address] [place] CBC AND DIFF (AUTO) ERYTHROCYT E DISTRIBUTI ON WIDTH [RATIO] BY AUTOMATED COUNT 14.6 12.0 - 16.0 08/24 Specimen Type: BLOOD No comment entered. Ordering Provider: LEYDI ARIAS IE Report Released Date/Time: Feb 25, 2023 03:45 PM Reporting Lab: [place] [facility] [place] [facility] [address] [address] Performing Lab: [place] [facility] [place] [address] [address] [place] CBC AND DIFF (AUTO) MONOCYTES [#/VOLUME] IN BLOOD BY AUTOMATED COUNT 0.80 10*3/uL 0.30 - 1.10 08/24 Specimen Type: BLOOD No comment entered. Ordering Provider: LEYDI ARIAS IE Report Released Date/Time: Feb 25, 2023 03:45 PM Reporting Lab: [place] [facility] [place] [address] [address] Performing Lab: [place] [facility] [address] [address] [place] CBC AND DIFF (AUTO) MCH [ENTITIC MASS] BY AUTOMATED COUNT 29.1 pg 26.2 - 32.6 08/24 Specimen Type: BLOOD No comment entered. Ordering Provider: LEYDI ARIAS IE Report Released Date/Time: Feb 25, 2023 03:45 PM Reporting Lab: [facility]ITALUSETS [address] [address] Performing Lab: [place] [address] [address] [place] CBC AND DIFF (AUTO) NEUTROPHIL S/100 LEUKOCYTES IN BLOOD BY AUTOMATED COUNT 76.3 43.7 - 75.8 08/24 H Specimen Type: BLOOD No comment entered. Ordering Provider: LEYDI ARIAS IE Report Released Date/Time: Feb 25, 2023 03:45 PM Reporting Lab: [place] [place] [address] [address] Performing Lab: [place] [facility] [place] [address] [address] [place] CBC AND DIFF (AUTO) LYMPHOCYTE S/100 LEUKOCYTES IN BLOOD BY AUTOMATED COUNT 8.7 14.0 - 42.3 08/24 L Specimen Type: BLOOD No comment entered. Ordering Provider: LEYDI ARIAS IE Report Released Date/Time: Feb 25, 2023 03:45 PM Reporting Lab: [facility] [place] [facility] [address] [address] Performing Lab: [place] [facility] [place] [facility] [address] [address] [place] CBC AND DIFF (AUTO) MONOCYTES/ 100 LEUKOCYTES IN BLOOD BY AUTOMATED COUNT 7.7 5.1 - 13.7 08/24 Specimen Type: BLOOD No comment entered. Ordering Provider: LEYDI ARIAS IE Report Released Date/Time: Feb 25, 2023 03:45 PM Reporting Lab: [facility] [address] [address] Performing Lab: [place] [facility] [address] [address] [place] CBC AND DIFF (AUTO) EOSINOPHIL S/100 LEUKOCYTES IN BLOOD BY AUTOMATED COUNT 6.5 0.4 - 6.8 08/24 Specimen Type: BLOOD No comment entered. Ordering Provider: LEYDI ARIAS IE Report Released Date/Time: Feb 25, 2023 03:45 PM Reporting Lab: [place] [facility] [place] [address] [address] Performing Lab: [place] [facility] [place] [address] [address] [place] CBC AND DIFF (AUTO) BASOPHILS/ 100 LEUKOCYTES IN BLOOD BY AUTOMATED COUNT 0.5 0.1 - 2.0 08/24 Specimen Type: BLOOD No comment entered. Ordering Provider: LEYDI ARIAS IE Report Released Date/Time: Feb 25, 2023 03:45 PM Reporting Lab: [place] [facility] [place] [facility] [address] [address] Performing Lab: [place] [facility] [address] [address] [place] CBC AND DIFF (AUTO) NEUTROPHIL S [#/VOLUME] IN BLOOD BY AUTOMATED COUNT 7.96 10*3/uL 2.20 - 7.60 08/24 H Specimen Type: BLOOD No comment entered. Ordering Provider: LEYDI ARIAS IE Report Released Date/Time: Feb 25, 2023 03:45 PM Reporting Lab: [facility] [address] [address] Performing Lab: [facility]USE[address] [address] [place] CBC AND DIFF (AUTO) LYMPHOCYTE S [#/VOLUME] IN BLOOD BY AUTOMATED COUNT 0.91 10*3/uL 1.00 - 3.20 08/24 L Specimen Type: BLOOD No comment entered. Ordering Provider: LEYDI ARIAS IE Report Released Date/Time: Feb 25, 2023 03:45 PM Reporting Lab: [facility] [address] [address] Performing Lab: [facility] [address] [address] [place] CBC AND DIFF (AUTO) EOSINOPHIL S [#/VOLUME] IN BLOOD BY AUTOMATED COUNT 0.68 10*3/uL 0.03 - 0.44 08/24 H Specimen Type: BLOOD No comment entered. Ordering Provider: LEYDI ARIAS IE Report Released Date/Time: Feb 25, 2023 03:45 PM Reporting Lab: [facility] [address] [address] Performing Lab: [facility] [address] [address] [place] CBC AND DIFF (AUTO) BASOPHILS [#/VOLUME] IN BLOOD BY AUTOMATED COUNT 0.05 10*3/uL 0.01 - 0.13 08/24 Specimen Type: BLOOD No comment entered. Ordering Provider: LEYDI ARIAS IE Report Released Date/Time: Feb 25, 2023 03:45 PM Reporting Lab: [facility]TRN [address] [address] Performing Lab: [facility] [address] [address] [place] CBC AND DIFF (AUTO) IMMATURE GRANULOCYT ES/100 LEUKOCYTES IN BLOOD BY AUTOMATED COUNT 0.3 0.0 - 0.7 08/24 Specimen Type: BLOOD No comment entered. Ordering Provider: LEYDI ARIAS IE Report Released Date/Time: Feb 25, 2023 03:45 PM Reporting Lab: [facility] [address] [address] Performing Lab: [facility] [address] [place] CBC AND DIFF (AUTO) IMMATURE GRANULOCYT ES [#/VOLUME] IN BLOOD 0.03 10*3/uL 0.00 - 0.06 08/24 Specimen Type: BLOOD No comment entered. Ordering Provider: LEYDI ARIAS IE Report Released Date/Time: Feb 25, 2023 03:45 PM Reporting Lab: [facility] SOUTHTRN [address] [address] Performing Lab: [facility] [address] [address] [place] CBC AND DIFF (AUTO) NRBC % 0.0 0.0 - 0.0 08/24 Specimen Type: BLOOD No comment entered. Ordering Provider: LEYDI ARIAS IE Report Released Date/Time: Feb 25, 2023 03:45 PM Reporting Lab: [facility] [address] [address] Performing Lab: [facility] [address] [place] CBC AND DIFF (AUTO) NRBC, ABS 0.00 10*3/uL 0.00 - 0.00 08/24 Specimen Type: BLOOD No comment entered. Ordering Provider: LEYDI ARIAS IE Report Released Date/Time: Feb 25, 2023 03:45 PM Reporting Lab: [facility] [address] [address] Performing Lab: [facility] [address] [place] PSA PROSTATE SPECIFIC AG [MASS/VOLU ME] IN SERUM OR PLASMA 1.68 ng/mL 0.00 - 4.00 08/24 Specimen Type: SERUM No comment entered. Ordering Provider: LEYDI ARIAS IE Report Released Date/Time: Feb 25, 2023 03:45 PM Reporting Lab: [facility] [address] [address] Performing [facility]: [facility] [address] [place] URINALYS IS COLOR OF URINE Light-Ye llow 08/24 Specimen Type: URINE Comment: If Glucose = >500 and Ketones are positive, please alert the Physician. Ordering Provider: LEYDI ARIAS Report Released Date/Time: Feb 25, 2023 03:45 PM Reporting Lab: [facility] [address] [address] Performing Lab: [address] [address] [place] URINALYS IS APPEARANCE OF URINE Clear 08/24 Specimen Type: URINE Comment: If Glucose = >500 and Ketones are positive, please alert the Physician. Ordering Provider: LEYDI ARIAS Report Released Date/Time: Feb 25, 2023 03:45 PM Reporting Lab: [facility] [address] [address] Performing Lab: [facility] [address] [address] [place] URINALYS IS GLUCOSE [MASS/VOLU ME] IN URINE NEGATIVE mg/dL 08/24 Specimen Type: URINE Comment: If Glucose = >500 and Ketones are positive, please alert the Physician. Ordering Provider: LEYDI ARIAS Report Released Date/Time: Feb 25, 2023 03:45 PM Reporting Lab: [facility] [address] [address] Performing Lab: [facility] [address] [address] [place] URINALYS IS KETONES [MASS/VOLU ME] IN URINE BY TEST STRIP NEGATIVE mg/dL 08/24 Specimen Type: URINE Comment: If Glucose = >500 and Ketones are positive, please alert the Physician. Ordering Provider: LEYDI ARIAS IE Report Released Date/Time: Feb 25, 2023 03:45 PM Reporting Lab: [facility] [address] [address] Performing Lab: [address] [address] [place] URINALYS IS ERYTHROCYT ES [PRESENCE] IN URINE SEDIMENT BY LIGHT MICROSCOPY NEGATIVE mg/dL 08/24 Specimen Type: URINE Comment: If Glucose = >500 and Ketones are positive, please alert the Physician. Ordering Provider: LEYDI ARIAS IE Report Released Date/Time: Feb 25, 2023 03:45 PM Reporting Lab: [address] [address] Performing Lab: [address] [address] [place] URINALYS IS PROTEIN [MASS/VOLU ME] IN URINE BY TEST STRIP 10 mg/dL 08/24 Specimen Type: URINE Comment: If Glucose = >500 and Ketones are positive, please alert the Physician. Ordering Provider: LEYDI ARIAS IE Report Released Date/Time: Feb 25, 2023 03:45 PM Reporting Lab: [address] [address] Performing Lab: [address] [address] [place] URINALYS IS NITRITE [PRESENCE] IN URINE NEGATIVE mg/dL 08/24 Specimen Type: URINE Comment: If Glucose = >500 and Ketones are positive, please alert the Physician. Ordering Provider: LEYDI ARIAS IE Report Released Date/Time: Feb 25, 2023 03:45 PM Reporting Lab: [address] [address] Performing Lab: [address] [address] [place] URINALYS IS BILIRUBIN. TOTAL [PRESENCE] IN URINE NEGATIVE mg/dL 08/24 Specimen Type: URINE Comment: If Glucose = >500 and Ketones are positive, please alert the Physician. Ordering Provider: LEYDI ARIAS IE Report Released Date/Time: Feb 25, 2023 03:45 PM Reporting Lab: [address] [address] Performing Lab: [address] [address] [place] URINALYS IS SPECIFIC GRAVITY OF URINE BY REFRACTOME TRY 1.016 1.016 - 1.022 08/24 Specimen Type: URINE Comment: If Glucose = >500 and Ketones are positive, please alert the Physician. Ordering Provider: LEYDI ARIAS IE Report Released Date/Time: Feb 25, 2023 03:45 PM Reporting Lab: [address] [address] Performing Lab: [address] [address] [place] URINALYS IS PH OF URINE BY TEST STRIP 5.5 5.0 - 9.0 08/24 Specimen Type: URINE Comment: If Glucose = >500 and Ketones are positive, please alert the Physician. Ordering Provider: LEYDI ARIAS IE Report Released Date/Time: Feb 25, 2023 03:45 PM Reporting Lab: [address] [address] Performing Lab: [address] [address] [place] URINALYS IS UROBILINOG EN [MASS/VOLU ME] IN URINE BY TEST STRIP <2.0mg/d L <2.0 - 2.0 08/24 Specimen Type: URINE Comment: If Glucose = >500 and Ketones are positive, please alert the Physician. Ordering Provider: LEYDI ARIAS IE Report Released Date/Time: Feb 25, 2023 03:45 PM Reporting Lab: [address] [address] Performing Lab: [address] [address] [place] URINALYS IS LEUKOCYTE ESTERASE [PRESENCE] IN URINE BY TEST STRIP NEGATIVE 08/24 Specimen Type: URINE Comment: If Glucose = >500 and Ketones are positive, please alert the Physician. Ordering Provider: LEYDI ARIAS IE Report Released Date/Time: Feb 25, 2023 03:45 PM Reporting Lab: [address] [address] Performing Lab: [address] [address] [place] UREA NITROGEN UREA NITROGEN [MASS/VOLU ME] IN SERUM OR PLASMA 31 mg/dL 7 - 25 04/29 H Specimen Type: SERUM No comment entered. Ordering Provider: LEYDI ARIAS IE Report Released Date/Time: Apr 16, 2023 09:46 AM Reporting Lab: [address] [address] Performing Lab: [address] [address] [place] CREATINI NE (eGFR 2020) CREATININE [MASS/VOLU ME] IN SERUM OR PLASMA 2.69 mg/dL 0.50 - 1.40 04/29 H Specimen Type: SERUM No comment entered. Ordering Provider: LEYDI ARIAS IE Report Released Date/Time: Apr 16, 2023 09:46 AM Reporting Lab: [address] [address] Performing Lab: [address] [address] [place] CREATINI NE (eGFR 2020) GLOMERULAR FILTRATION RATE/1.73 SQ M.PREDICTE D [VOLUME RATE/AREA] IN SERUM, PLASMA OR BLOOD BY CREATININE -BASED FORMULA (CKD-EPI 2020) 25 mL/min 60 04/29 L Specimen Type: SERUM No comment entered. Ordering Provider: LEYDI ARIAS IE Report Released Date/Time: Apr 16, 2023 09:46 AM Reporting Lab: [address] [address] Performing Lab: [address] [address] [place] Vital Signs Combined list of inpatient and outpatient Vital Signs from Department of Defense and Veterans Affairs, ranging from 12 months to all on record, depending upon the facility. Vital Sign Value Date Comments Source SYSTOLIC BLOOD PRESSURE 114 03/03/2024 09:19:31 [place] DIASTOLIC BLOOD PRESSURE 74 03/03/2024 09:19:31 [place] PULSE OXIMETRY 98 03/03/2024 09:19:31 S [place] WEIGHT 165 03/03/2024 09:19:31 [place] BMI 24 kg/m2 03/03/2024 09:19:31 [place] TEMPERATURE 97.4 03/03/2024 09:19:31 [place] PULSE 77 03/03/2024 09:19:31 [place] RESPIRATION 18 03/03/2024 09:19:31 [place] Encounters Combined list of: 1) Encounters from Department of Veterans Affairs facilities going backup to the last 18 months, not all VA inpatient encounters are included; 2) Encounters from the Department of [facility] facilities going backup to 280 months. Location Location Details Encounter Type Encounter Number Reason For Visit Attending Provider ADM Date DC Date Status Disposition Source [facility] Out[facility]counter [id number] 03/26 [facility]counter [id number] 04/07 [facility]counter [id number] 04/07 [facility] Out[facility] Encounter [id number] 04/14 [facility] Out[facility]counter [id number] 04/16 [facility]counter [id number] 05/21 [facility] Encounter [id number] 06/09 [facility] Encounter [id number] 06/28 [facility] Encounter [id number] 06/30 [facility] Encounter [id number] 07/10 [facility] Encounter [id number] 08/11 [facility] O/P EST MOD 30 MIN [id number] Diagnos is: ICD-10- CM I10 Essenti al (primar y) hyperte nsion MAGALI,A POLISUDHAKARIO 08/[place] [facility] Encounter [id number] 09/01 [facility] Encounter [id number] 09/07 [facility] Out[facility] Encounter [id number] 09/07 [facility] Encounter [id number] 09/20 [facility]counter [id number] 09/20 [facility]counter [id number] 09/27 [facility] Out[facility] Encounter [id number] 10/19 [facility]counter [id number] 10/26 [facility] Out[facility] Encounter [id number] 11/09 [facility] Encounter [id number] 11/16 [facility] Out[facility] Encounter [id number] 12/13 [facility] Encounter [id number] 12/24 [facility] Out[facility] Encounter [id number] 01/19 [facility] Out[facility]counter [id number] 01/24 [facility] Out[facility] Encounter [id number] 02/07 [facility] EVALUATION OF WHEEZING [id number]. 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, unspeci fied CARI DUGAN 02/07 [facility] [place] [id number] 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, unspeci fied Edwige HYMAN MD 02/09 [facility] Out[facility] En[facility] [id number] 1. [id number] SWANSON 02/15 [facility] Out[facility] Encounter [id number] 02/24 [facility] Out[facility] Encounter [id number] 02/24 [facility] O/P EST LOW 20 MIN [id number] 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, unspeci fied ESTEVAN JORDAN 03/03 [facility] Out[facility] Encounter [id number] 05/10 [facility] Out[facility] Encounter [id number] 05/17 [facility] Out[facility] Encounter [id number] 05/23 [facility] Out[facility] Encounter [id number] 07/15 [facility] Outpatient Encounter [id number] 08/22 [facility] Outpatient Encounter [id number] 08/23 [facility] Outpatient Encounter [id number] 09/08 [facility] Outpatient Encounter [id number] 09/20 [facility] Social History Combined list of available smoking, tobacco, and other social history from Department of Defense and Veterans Affairs facilities. Social History Type Response Date Comment Sourc e Tobacco smoking status HIIS HI-TOBACCO NEVER USED 09/01/2023 [facility] D History of tobacco use HI-TOBACCO NEVER USED 05/17/2021 [facility] History of tobacco use LIFETIME NON-TOBACCO USER 06/15/2017 [facility] History of tobacco use LIFETIME NON-TOBACCO USER 06/20/2016 [facility] Plan of Care List of future care activities from Department of Veterans Affairs facilities. Additional future care activities may be listed in the Assessment and Plan section. Date/Time Care Activity Care Activity Detail Facili ty 11/03/2024 AMBULATORY - MEDICINE AMBULATORY - MEDICI [facility] [facility]
--- OUTSIDE RECORDS SUMMARY | 2024-09-23 15:45 | XMS_ITS | Clinical Summary ---
Author Organization [facility] Address [address] [place] [address] Phone Care Team Providers Care Rn Radiology Name Role Phone Unavailable Primary Care Provider Unavailabl e Social History Tobacco Use Types Packs/Day Years Used Date Smoking Tobacco: Never Assessed Education Answer Date Recorded Are you interested in more education? Not on paxton e 07/05/2022 Are you concerned about learning? Not on file 07/05/2022 No 07/05/2022 No 07/05/2022 Digital Access Answer Date Recorded No 08/05/2022 No 08/05/2022 Reliable internet access at home? Not on file 08/05/2022 Device with a working camera? Not on file Sex and Gender Information Value Date Recorded Sex Assigned at Not on file Legal Sex Male 1:51 PM EST Gender Identity Not on file Sexual Orientation Not on file Plan of Treatment Not on file Medical Devices Not on file Additional Source Comments The information contained in this document represents components of the legal health record. It is not the complete legal health record.[facility]
--- OUTSIDE RECORDS SUMMARY | 2024-09-23 15:45 | XMS_ITS | Clinical Summary ---
Author Organization [facility] Address [address] [address] Care Team Providers Care Animal Killer Name Role Phone Gold Daley MD Primary Care Provider +1- [phone] Allergies No known active allergies Medications carvedilol [...] Cancer Screening: Sigmoidoscopy 12/29/2003 Influenza Vaccine (#1) 2024 2, 12/12/2020, 11/07/2020, Additional history exists Hepatitis B Vaccine Aged Out No longe r eligible based on patient's age to complete this topic Insurance [facility] Reg[employer] [address]AC[address]) [place] [address] [facility] Regions 1,2,3 (VACCN) Care Teams Animal Killer Relationship Specialty Start Date End Date Gold Daley MD [facility] [address] [place] [address] PCP - General Family Medicine 04/22/22
--- OUTSIDE RECORDS SUMMARY | 2024-09-23 15:45 | XMS_ITS | Clinical Summary ---
Author Organization [facility] Address [address] [place] [address] Care Team Providers Care Marksmanship Instructor Name Role Phone Gold Daley MD Primary Care Provider +1- [phone] Surgical History Surgery Date Site/Laterality Comments SHOULDER SURGERY PROCEDURE: HISTORICAL SHOULDER SURGERY COLONOSCOPY 12/26/2010 PROCEDURE: HISTORICAL COLONOSCOPY ESOPHAGOGASTRODUODENOSCOPY 12/04/2006 PROCEDURE: [place] ESOPHAGOGASTRODUODENOSCOPY TRANSORAL DIAGNOSTIC Medical History Medical History [...] Documents on File Type Date Recorded Patient Group Teacher Expl anation Health Care Decision (hx) 08/13/2021 AD FORTE DIRECTIVE Health Care Decision (hx) 08/13/2021 AD FORTE DIRECTIVE Health Care Decision (hx) 08/13/2021 AD FORTE DIRECTIVE Health Care Decision (hx) 08/13/2021 AD FORTE DIRECTIVE Health Care Decision (hx) 08/13/2021 AD FORTE DIRECTIVE Care Teams Marksmanship Instructor Relationship Specialty Start Date End Date Gold Daley MD [address] [place] [address] PCP - General 05/29/22
[2024-09-23 16:22] LABS: Appearance Urine Clear; Glucose Urine UA Negative (Negative); PH 5.5 (5.0-9.0); Specific Gravity - Urine 1.015 (1.005-1.025); UMIC TRIGGER UA YES
[2024-09-23 16:31] LABS: Anion Gap 13 (12-20); Blood Urea Nitrogen 48 mg/dL (9-16); Calcium 9.1 mg/dL (8.4-10.2); Carbon Dioxide 24 mmol/L (22-29); Chloride 107 mmol/L (96-108); Estimated Glomerular Filt Rate 25; Potassium 3.8 mmol/L (3.3-5.1); Sodium 140 mmol/L (135-145)
== END 2024-09-23 15:43 | disposition home or self-care (01) ==
LOC: HO.LAB 15:42
PROVIDERS: PCP Family Medicine; Visit Provider Internal Medicine Hypertension Specialist
DX: N18.4 Chronic kidney disease, stage 4 (severe) (principal)
CPT/HCPCS: 36415; 80048; 81001

== ENCOUNTER 2024-11-29 13:30 | Outpatient (AMB) | payer OTHER, SELFPAY ==
[2024-11-29 13:33] VITALS: BP 126/62; PULSE 62; O2SAT 97; BMI 24.6
--- NOTE | 2024-11-29 13:33 | A.OFFVIS_ITS ---
Vital Signs 11/29/24 13:33 Height 5 ft 9 in Weight 166 lb 7.184 oz BMI 24.6 BP 126/62 Blood Pressure Location Lt brachial Position Sitting Pulse 62 Pulse Source Pulse Oximeter Pulse Oximetry (%) 97 Oxygen Delivery Method Room Air Intake Visit Reasons: Interstitial pulmonary disease/Systemic sclerosis Dispatcher Radio Required: No Accompanied by: Self / Same As Patient Allergies No Known Allergies Allergy (Verified 11/29/24 13:36) HPI Comments Details: The patient is here for pulmonary evaluation. The patient is a 68-year-old gentleman who was diagnosed with systemic scleroderma back in 2022. He is followed closely by Rheumatology and also with Nephrology for his chronic kidney disease. He does describe dyspnea on exertion. Clji-[id number] severity. Sometimes he feels very fatigued after doing any minimal activities of daily living. Denies any coughing or any chest congestion. Denies any difficulty swallowing. He did undergo an echocardiogram in 2023 which I personally reviewed demonstrating no evidence of any pulmonary hypertension it apparently following closely with [facility]iology had an echo there that per his report it was okay. He did undergo a CT scan of the chest that I personally reviewed [facility] 2023 demonstrating some interstitial lung disease his right lung more than his left in the periphery concerning for some pneumonitis and also pulmonary nodules which most likely is all related to the connective tissue disease. Another CT scan was requested for January. I will see if we can do that sooner and also will be able to get PFTs today to assess his lung capacity. A my examination the patient does have some fine rales consistent with pulmonary fibrosis. My suspicion is that the interstitial lung disease has been progressing now to demonstrate evidence of pulmonary fibrosis based on my exam. Based on the pulmonary manifestations the patient will benefit from starting immunomodulator are immunosuppressive therapy for the ongoing scleroderma. Once we have the CAT scan in the PFTs will pass that information over to Dermatology to see if he can be started on therapy. During the visit we did go for brief walking oximetry the patient actually did good maintaining a pulse ox 99% in his so stay. No significant dyspnea noted on the walk study. [facility] Medical History (Updated 11/29/24 @ 21:19 by Pepito Carter MD) Chronic restrictive lung disease Chronic renal disease, stage IV History of renal stone Arthritis Hx of acute renal failure HTN (hypertension) History of renal dialysis Surgical History Inguinal hernia (01/01/23) History of biopsy Hx of colonoscopy History of esophagogastroduodenoscopy (EGD) Hx of arthroscopy of knee History of excision of pilonidal cyst History of arthroscopic surgery of shoulder Social History Are you a primary doggy daycare activities director to a significant other at home: No Do you presently have visiting nurse or other home services: No Alcohol intake: never Patient Tobacco Use Status: Never used Tobacco Current occupational status: employed 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 Review of Systems Const Reports fatigue Eyes Reports no additional complaints ENT Denies dysphagia Card Denies chest pain and Reports dyspnea on exertion Resp Reports cough, Reports dyspnea on exertion and Denies wheezing GI Denies dysphagia Musc Reports myalgias and Reports joint swelling Skin/Breast Reports change in pigmentation Neuro Reports no additional complaints Endo Reports fatigue Tony/Lymph Reports no additional complaints Aller/Immun Denies wheezing Physical Exam Vital Signs: Last Vital Signs Pulse 62 11/29/24 13:33 BP 126/62 11/29/24 13:33 Pulse Ox 97 11/29/24 13:33 Oxygen Delivery Method Room Air 11/29/24 13:33 BMI result Body Mass Index 24.6 Const General: comfortable Orientation/consciousness: patient oriented x3 HEENT Head: Yes normocephalic Neck Neck: Yes supple Chest Chest palpation & inspection: normal inspection of the chest Resp Effort & Inspection: normal respiratory effort Auscultation: rales bilateral at the base and diminished lung sounds Cardio Heart sounds: S1 normal heart sound present and S2 normal heart sound present GI Palpation (GI): Soft to palpation Skin Lesions: lesion noted (telangiectasias ) Neuro General: patient oriented x3 Extrem General: No clubbing, No cyanosis and Yes edema Assessment & Plan Assessment & Plan (1) Diffuse scleroderma: Comment: onset 2022 (weight loss, scleroderma renal crisis ,Raynaud's, skin thickening , possible GERD, telangiectasias +++Scl 70) Code(s): M34.9 - Systemic sclerosis, unspecified Category: Medical (2) Interstitial lung disease: Comment: Scleroderma-Associated Interstitial Lung Disease Code(s): J84.9 - Interstitial pulmonary disease, unspecified Category: Medical (3) Dyspnea: Code(s): R06.00 - Dyspnea, unspecified Category: Medical Qualifiers: Dyspnea type: dyspnea on exertion Qualified Code(s): R06.09 - Other forms of dyspnea (4) Chronic restrictive lung disease: Code(s): J98.4 - Other disorders of lung Category: Medical Plan Would recommend immunomodulator / immunosuppressive therapy based on the ILD disease May benefit from OFEV for Scleroderma-Associated Interstitial Lung Disease CT chest at a sooner time PFTs F/U 6-8 weeks Coding Level of Care Code New Pt Level 5 (07687) Diagnoses Diffuse scleroderma M34.9 Interstitial lung disease J84.9 Dyspnea on exertion R06.09 Dyspnea type: dyspnea on exertion Chronic restrictive lung disease J98.4 Time Spent (min) 60
--- OUTSIDE RECORDS SUMMARY | 2024-11-29 16:35 | XMS_ITS | Clinical Summary ---
Author Organization [facility] Address [address] [place] [address] Phone Care Team Providers Care Batch Dumper Name Role Phone Gold Daley MD Primary Care Provider +1- [phone] Allergies No known active allergies Medications NIFEdipine (ADALAT CC) 30 mg 24 hr tablet Take 1 tablet (30 mg total) by mouth 2 (two) times a day. Do not crush, chew, or split. Active carvediloL (COREG) 25 mg tablet Take 1 tablet (25 mg total) by mouth 2 (two) times a day with meals. 09/28/2022 Active B complex-vitamin C-folic acid (NEPHROCAPS) 1 mg capsule Take 1 capsule by mouth 1 (one) time each day. Active ascorbic acid (VITAMIN C) 1,000 mg tablet Take 1 tablet (1,000 mg total) by mouth 1 (one) time each day. Active Active Problems Problem Noted Date Diagnosed Date Carotid bruit 11/26/2022 Assessment & Plan (10/11/2024 9:18 AM EDT): Patient had a carotid duplex completed in 2022 which did not show any evidence of carotid artery stenosis. Hypercholesterolemia 05/29/2022 Hypertension 05/29/2022 Assessment & Plan (10/11/2024 10:38 AM EDT): Patient has history of hypertension and is being monitored by nephrology on a regular basis due to his chronic kidney disease. His last creatinine was 2.54. His blood pressure today is 120/70. He is on carvedilol and nifedipine. I do not recommend any changes to his medical therapies. Encounters Date Type Department Care Team Description 11/10/2024 Telephone [facility] [address] [place] [address] Provider, Not In System 11/01/[address] [facility] [address] [facility] [facility] [address] [place] [address] Provider, Not In System 10/28/[address] [facility] [address] [facility] [address] [place] [address] Jossy Luna NP 10/19/2024 9:00 AM EDT Ancillary Procedure [facility] [address] [place] [phone] Primary hypertension; Chest pain, unspecified type; Dyspnea, unspecified type 10/14/[address] [facility] [address] [facility] [address] [place] [address] Gold Daley MD 10/11/2024 8:40 AM EDT Office Visit [facility] [address] [place] [address] Jossy Luna NP Primary hypertension (Primary Dx); Bilateral carotid bruits; Chest pain, unspecified type; Dyspnea, unspecified type 10/11/[address] [facility] [address] [facility] [facility] [address] [place] [address] Jossy Luna NP 10/05/[address] [facility] [address] [place] [address] Asad Mccoy MD from Last 3 Months Surgical History Surgery Date Site/Laterality Comments SHOULDER SURGERY PROCEDURE: HISTORICAL SHOULDER SURGERY COLONOSCOPY 12/26/2010 PROCEDURE: HISTORICAL COLONOSCOPY ESOPHAGOGASTRODUODENOSCOPY 12/04/2006 PROCEDURE: [place] ESOPHAGOGASTRODUODENOSCOPY TRANSORAL DIAGNOSTIC Medical History Medical History [...] Sign Reading Time Taken Comments Blood Pressure 130/70 10/19/2024 9:27 AM EDT Pulse 60 10/11/2024 8:45 AM EDT Temperature - - Respiratory Rate - - Oxygen Saturation 95% 10/11/2024 8:45 AM EDT Inhaled Oxygen Concentration - - Weight 73.9 kg (163 lb) 10/19/2024 9:27 AM EDT Height 175.3 cm (5' 9 ) 10/19/2024 9:27 AM EDT Body Mass Index 24.07 10/19/2024 9:27 AM EDT Plan of Treatment Upcoming Encounters Date Type Department Care Team (Late st Contact Info) Description 12/16/2024 11:30 AM EDT Office Visit [facility] [address] [place] [phone] Jossy Luna NP [address] [place] [address] [address] [place] [phone] Health Maintenance Due Date Last Done Comments Pneumococcal Vaccine: 50+ Years (1 of 1 - PCV) 2004 Zoster Vaccines (1 of 2) 2004 Cholesterol Screening (Lipid Panel) 04/09/2019 Colorectal Cancer Screening: Colonoscopy 04/09/2019 Hepatitis C Screening 04/09/2019 Medicare Annual Wellness Visit 04/09/2019 Social Influencers of Health Screening 04/09/2019 Falls Risk Assessment 12/29/2019 Hypertension/CHF/CAD Annual BMP Blood Test 04/07/2023 Depression Screening 03/09/2024 COVID-19 Vaccine ( season) 2024 09/26/2021, 02/15/2021, 04/11/2020, Additional history exists Influenza Vaccine (#1) 2024 2, 12/12/2020, 11/07/2020, Additional history exists DTaP,Tdap,and Td Vaccines (3 - Td or Tdap) 03/09/2025 03/09/2015, 10/23/2010 RSV Immunization Adult Patients (1 - 1-dose 75+ series) 2029 HIB [...] to complete this topic RSV Immunization Patients Under 20 months Aged Out No longer eligible based on patient's age to complete this topic Varicella Vaccines Aged Out No longer eligible based on patient's age to complete this topic Procedures Procedure Name Priority Date/Time Associated Diagnosis Comments TRANSTHORACIC ECHOCARDIOGRAM (TTE) COMPLETE Routine 10/19/2024 9:05 AM EDT Primary hypertension Chest pain, unspecified type Dyspnea, unspecified type ECG 12-LEAD Routine 10/11/2024 10:38 AM EDT Primary hypertension from Last 3 Months Results * (ABNORMAL) TRANSTHORACIC ECHOCARDIOGRAM (TTE) COMPLETE (10/19/2024 9:05 AM EDT) Left Atrium Minor Armstrong 6.9 cm CV PACS Left Atrium Major Armstrong 6.2 cm CV PACS LA Area Sys (A2C) 27 cm2 CV PACS LA Area Sys (A4C) 24 cm2 CV PACS LA Volume (BP) 84 mL CV PACS RA Area 22.8 cm2 CV PACS RA 2D Volume 72 mL CV PACS AV Regurgitation PHT 508 ms CV PACS AR Max Velocity 3.9 m/s CV PACS AV Peak Gradient 60 mmHg CV PACS Aortic Sinus Valsalva 3.8 cm CV PACS Ascending Aorta 4.1 cm CV PACS IVC Proximal 1.0 cm CV PACS IVC Proximal 0.3 cm CV PACS IVSD 1.1(A) 0.6 - 1.0 cm CV PACS LVIDD 5.5 4.2 - 5.8 cm CV PACS LVIDS 3.4 2.5 - 4.0 cm CV PACS LVOT Diameter 2.6 cm CV PACS LVOT Mean Tyron 0.8 m/s CV PACS LVOT Mean Grad 3 mmHg CV PACS LVOT Peak VTI 27.5 cm CV PACS LVOT Peak Tyron 1.2 m/s CV PACS LVOT Peak Gradient 6 mmHg CV PACS LVPWD 1.2(A) 0.6 - 1.0 cm CV PACS MV E' Tissue Velocity Lateral 7 cm/s CV PACS MV E' Tissue Velocity Septal 6 cm/s CV PACS LVOT Area 5.3 cm2 CV PACS LVOT Stroke Volume 146 mL CV PACS MR PISA Max Velocity 0.0 m/s CV PACS MR Peak Gradient 62 mmHg CV PACS E Wave Deceleration Time 285(A) 119 - 242 ms CV PACS MV Peak A Tyron 0.80 m/s CV PACS MV Peak E Tyron 0.80 m/s CV PACS PV Acceleration Time 148 ms CV PACS PV Acceleration Time 148 ms CV PACS RV Diastolic Basal Dimension 3.9 2.5 - 4.1 cm CV PACS RV S' 13 cm/s CV PACS TAPSE 30 mm CV PACS TR Peak Velocity 2.70 m/s CV PACS TR Peak Gradient 28 mmHg CV PACS E/E' Ratio Septal 13 CV PACS E/E' Ratio Averaged 12 CV PACS Relative Wall Thickness ratio 0.43(A) 0.24 - 0.42 CV PACS FS 38 % CV PACS LV Mass 2D 253(A) 96 - 200 g CV PACS LVOT flow 425 mL/s CV PACS E/A Ratio 1.0 0.8 - 2.0 CV PACS E/E' Ratio Lateral 11 CV PACS BSA 1.9 m2 CV PACS LA Volume Index (BP) 44 mL/m2 CV PACS LVIDD Index 2.91 cm/m2 CV PACS LVIDS Index 1.80 cm/m2 CV PACS LV Mass Index 2D 136(A) 50 - 102 g/m2 CV PACS LVOT Stroke Index 0 mL/m2 CV PACS RA 2D Volume Index 38(A) 18 - 32 mL/m2 CV PACS Ascending Aorta Index 2.17 cm/m2 CV PACS Right Ventricular Peak Systolic Pressure 32 mmHg CV PACS Est. RA Pressure 3 mmHg CV PACS RV Free Wall Peak S' 13 cm/s CV PACS RA Major Armstrong 5.8 cm CV PACS RA Major Armstrong Index 3.1(A) 2.1 - 2.7 cm/m2 CV PACS MV PHT 83 ms CV PACS Inferior Vena Cava Diameter At Inspiration 0.3 cm CV PACS IVC Inspiration Index 0.16 cm/m2 CV PACS Inferior Vena Cava Diameter At Expiration 1.0 cm CV PACS IVC Expiration Index 0.53 cm/m2 CV PACS Anatomical Region Laterality Modality Ultrasound Narrative 10/28/2024 1:53 PM EDT Left ventricle cavity size is normal. There is mild, concentric left ventricular hypertrophy. There is normal left ventricular regional wall motion. Left ventricular systolic function is in the normal range with an ejection fraction of 55 to 60%. Right ventricle cavity is upper normal. Right ventricular systolic function is normal. There is no hemodynamically significant valve disease. Mild valvular abnormalities as below. The ascending aorta is mildly dilated (4.1 cm) for age and body surface area. There is normal pulmonary artery systolic pressure. Biatrial enlargement as below. Compared to prior echocardiogram report from 04/17/2022, ejection fraction has improved slightly. The ascending aorta has grown slightly from 4 cm to 4.1 cm. All other findings are roughly unchanged. Left Ventricle Left ventricle cavity size is normal. There is mild concentric hypertrophy. Systolic function is normal with an ejection fraction of 55-60%. There is normal peak global longitudinal strain at -22.8%. There are no regional LV wall motion abnormalities. Indeterminate diastolic function. Left atrial pressure is inconclusive. Right Ventricle Right ventricle cavity appears upper normal. Systolic function is normal. Left Atrium Left atrium cavity is moderately dilated. Right Atrium Right atrium cavity is mildly dilated. IVC/SVC Inferior vena cava structure is normal. RA pressures is estimated to be 3 mmHg (IVC diameter <21 mm and decreases >50% during inspiration). Mitral Valve The leaflets are mildly thickened. There is mild annular calcification. There is mild regurgitation. There is no significant stenosis noted. Tricuspid Valve Tricuspid valve structure is normal. There is mild regurgitation with a central jet. There is no significant tricuspid valve stenosis. The right ventricular systolic pressure is normal. The RVSP is estimated at 32 mmHg. Aortic Valve The aortic valve is trileaflet. The leaflets are not thickened and exhibit normal excursion. There is trace regurgitation. There is no evidence of aortic valve stenosis. Pulmonic Valve The pulmonic valve was not well visualized. No significant pulmonic valve regurgitation. No significant pulmonary valve stenosis noted. Ascending Aorta The ascending aorta is dilated (4.1 cm) for age and body surface area. The ascending aorta is normal in size. Pericardium Pericardium appears normal. There is no pericardial effusion. Study Details Overall the study quality was adequate. Jossy Luna NP CV ECHO PROCEDURES Final Res ult * ECG 12 lead (10/11/2024 10:38 AM EDT) Pathologist [facility] Ventricular Rate ECG 60 BPM GEMUSE Atrial Rate 60 BPM GEMUSE P-R Interval 244 ms GEMUSE QRS Duration 108 ms GEMUSE Q-T Interval 430 ms GEMUSE QTc 430 ms GEMUSE P Wave Armstrong 30 degrees GEMUSE R Armstrong -66 degrees GEMUSE T Armstrong 2 degrees GEMUSE ECG Interpretation Sinus rhythm with 1st degree A-V block Left anterior fascicular block Abnormal ECG When compared with ECG of 19-APR-2022 17:22, [place] interval has increased Nonspecific T wave abnormality no longer evident in Lateral leads Confirmed by Christopher MCCOY JAMES ([id number]) on 10/12/2024 5:30:40 PM GEMUSE 10/11/2024 8:56 AM EDT 10/12/2024 5:30 PM EDT us Asad Mccoy MD ECG ORDERABLES Edited Result - Final GEMUSE from Last 3 Months Insurance MEDICARE [facility] Advance Directives Documents on File Type Date Recorded Patient Lead Software Development Engineer Expl anation Health Care Decision (hx) 08/13/2021 AD FORTE DIRECTIVE Health Care Decision (hx) 08/13/2021 AD FORTE DIRECTIVE Health Care Decision (hx) 08/13/2021 AD FORTE DIRECTIVE Health Care Decision (hx) 08/13/2021 AD FORTE DIRECTIVE Health Care Decision (hx) 08/13/2021 AD FORTE DIRECTIVE Care Teams Batch Dumper Relationship Specialty Start Date End Date Gold Daley MD [facility] [address] [place] [id number] PCP - General 05/29/22
--- OUTSIDE RECORDS SUMMARY | 2024-11-29 16:35 | XMS_ITS | Clinical Summary ---
Author Organization [facility] Facility Address [address] [address] Care Team Providers Care Compounding Assistant Name Role Phone Gold Daley MD Primary Care Provider +1- [phone] Allergies No known active allergies Medications carvedilol [...] patient's age to complete this topic Insurance [facility] Regions [address]VAC[address] [place] [address] [facility] Regions 1,2,3 (VACCN) Care Teams Compounding Assistant Relationship Specialty Start Date End Date Gold Daley MD [facility] [address] [place] [address] PCP - General Family Medicine 04/22/22
--- OUTSIDE RECORDS SUMMARY | 2024-11-29 16:35 | XMS_ITS | Clinical Summary ---
Author Organization [facility] Address [address] [place] [address] Phone Care Team Providers Care Content Editor Name Role Phone Unavailable Primary Care Provider [...] It is not the complete legal health record.[facility]
--- OUTSIDE RECORDS SUMMARY | 2024-11-29 16:35 | XMS_ITS | Encounter Summary ---
Author Organization [facility] Address [address] [place] [address] Care Team Providers Care Survey Researcher Name Role Phone Gold Daley MD Primary Care Provider +1- [phone] Reason for Visit * Reason Onset Date Comments Medical Records 11/01/2024 Encounter Details Date Type Department Care Team (Late Contact Info) Description 11/01/2024 Telephone [facility] [address] [place] [address] Provider, Not In System Social History Tobacco Use Types Packs/Day Years Used Date Smoking Tobacco: Never Smokeless Tobacco: Never Alcohol Use Standard Drinks/Week Comments Not Currently 0 (1 standard drink = 0.6 oz pur e alcohol) Sex and Gender Information Value Date Recorded Sex Assigned at Not on file Legal Sex Male 3:44 PM EST Gender Identity Not on file Sexual Orientation Not on file documented as of this encounter Progress Notes * Martha Duarte - 11/25/2024 9:51 AM EDT Faxed recent office note to Frederic at [phone] on 11/01/2024 documented in this encounter Plan of Treatment Upcoming Encounters Date Type Department Care Team (Late st Contact Info) Description 12/16/2024 11:30 AM EDT Office Visit [facility] Cardiology [facility] [address] [place] [address] Jossy Luna, CURTIS [address] [place] [address] [address] [place] [id number] documented as of this encounter Visit Diagnoses Not on filedocumented in this encounter Care Teams Survey Researcher Relationship Specialty Start Date End Date Gold Daley MD [address] [place] [address] PCP - General 05/29/22 documented as of this encounter
== END 2024-11-29 14:00 | disposition home or self-care (01) ==
LOC: HO.HPS 13:31
PROVIDERS: PCP Internal Medicine; Referring Provider Internal Medicine Hypertension Specialist; Visit Provider Hospitalist
DX: M34.9 Systemic sclerosis, unspecified (principal); J84.9 Interstitial pulmonary disease, unspecified; R06.09 Other forms of dyspnea; J98.4 Other disorders of lung
CPT/HCPCS: 99205

== ENCOUNTER 2024-11-29 14:03 | Outpatient (REF) | payer OTHER, SELFPAY ==
--- NOTE | 2024-11-29 | PFT_ITS ---
Flows: FEV1: 101 % of predicted at 3.24 L FVC: 91 % of predicted at 3.85 L FEV1/FVC: 84 % Bronchodilator response: Absent Volumes: Total lung capacity: 77 % of predicted at 5.52 L Residual volume: 63 % of predicted at 1.59 L Slow vital capacity: 85 % of predicted at 3.93 L Expiratory reserve volume: 79 % of predicted at 0.98 L Diffusion capacity: Moderately decreased Impression: Mild restrictive ventilatory defect with no bronchodilator response. Combination of restrictive ventilatory defect with decreased diffusion capacity suggests underlying pulmonary parenchymal disease. Clinical correlation is advised. MTDD
[2024-11-29 14:45] VITALS: PULSE 57; O2SAT 99
== END 2024-11-29 14:04 | disposition home or self-care (01) ==
LOC: HO.RESP 14:03
PROVIDERS: PCP Family Medicine; Visit Provider Hospitalist
DX: M34.9 Systemic sclerosis, unspecified (principal)
CPT/HCPCS: 94010; 94640; 94727; 94729; 99202

== ENCOUNTER 2024-12-05 14:56 | Outpatient (REF) | payer OTHER, SELFPAY ==
[2024-12-05 16:52] LABS: Anion Gap 12 (12-20); Blood Urea Nitrogen 34 mg/dL (9-16); Calcium 8.6 mg/dL (8.4-10.2); Carbon Dioxide 23 mmol/L (22-29); Chloride 110 mmol/L (96-108); Estimated Glomerular Filt Rate 32; Potassium 4.5 mmol/L (3.3-5.1); Sodium 140 mmol/L (135-145)
--- OUTSIDE RECORDS SUMMARY | 2024-12-05 17:00 | XMS_ITS | Clinical Summary ---
Author Organization [facility] Facility Address [address] [address] Care Team Providers Care Human Factors Engineer Name Role Phone Gold Daley MD Primary Care Provider +1- [phone] Allergies No known active allergies Medications carvedilol [...] patient's age to complete this topic Insurance [facility] Regions 1,[address] (VAC[address]) [place] [address] [facility] Regions 1,2,3 (VACCN) Care Teams Human Factors Engineer Relationship Specialty Start Date End Date Gold Daley MD [facility] [address] [place] [address] PCP - General Family Medicine 04/22/22
--- OUTSIDE RECORDS SUMMARY | 2024-12-05 17:00 | XMS_ITS | Clinical Summary ---
Author Organization [facility] Address [address] [place] [address] Phone Care Team Providers Care Marketing Program Coordinator Name Role Phone Gold Daley MD Primary Care Provider +1- [phone] Allergies No known active allergies Medications NIFEdipine [...] Type Department Care Team Description 11/10/2024 Telephone [facility] [address] [place] [address] Provider, Not In System 11/01/[address] [facility] [address] [facility] [address] [place] [address] Provider, Not In System 10/28/[address] [facility] [address] [facility] [address] [place] [address] Jossy Luna NP 10/19/2024 9:00 AM EDT Ancillary Procedure [facility] [address] [place] [phone] Primary hypertension; Chest pain, unspecified type; Dyspnea, unspecified type 10/14/[address] [facility] [address] [facility] [address] [place] [address] Gold Daley MD 10/11/2024 8:40 AM EDT Office Visit [facility] [address] [place] [address] Jossy Luna NP Primary hypertension (Primary Dx); Bilateral carotid bruits; Chest pain, unspecified type; Dyspnea, unspecified type 10/11/[address] [facility] [address] [facility] [address] [place] [address] Jossy Luna NP 10/05/[address] [facility] [address] [place] [address] Asad Mccoy MD from Last 3 Months Surgical History Surgery Date Site/Laterality Comments SHOULDER SURGERY PROCEDURE: HISTORICAL SHOULDER SURGERY COLONOSCOPY 12/26/2010 PROCEDURE: HISTORICAL COLONOSCOPY ESOPHAGOGASTRODUODENOSCOPY 12/04/2006 PROCEDURE: [place] ESOPHAGOGASTRODUODENOSCOPY TRANSORAL DIAGNOSTIC Medical History Medical History [...] 10/19/2024 9:27 AM EDT Plan of Treatment Health Maintenance Due [...] (10/19/2024 9:05 AM EDT) Left Atrium Minor [place] 6.9 cm CV PACS Left Atrium Major [place] 6.2 cm CV PACS LA Area Sys [...] S' 13 cm/s CV PACS RA Major [place] 5.8 cm CV PACS RA Major [place] Index 3.1(A) 2.1 - 2.7 cm/m2 CV [...] the study quality was adequate. Jossy Luna CUT OFF MAN CV ECHO PROCEDURES Final Res ult * ECG 12 lead (10/11/2024 10:38 AM EDT) Ventricular Rate ECG 60 BPM GEMUSE Atrial Rate 60 BPM GEMUSE P-R Interval 244 ms GEMUSE QRS Duration 108 ms GEMUSE Q-T Interval 430 ms GEMUSE QTc 430 ms GEMUSE P Wave Hav[place] 30 degrees GEMUSE R Havre -66 degrees GEMUSE T [place] 2 degrees GEMUSE ECG Interpretation Sinus rhythm with 1st degree A-V block Left anterior fascicular block Abnormal ECG When compared with ECG of 19-APR-2022 17:22, [place] interval has increased Nonspecific T wave abnormality no longer evident in Lateral leads Confirmed by Christopher MCCOY JAMES ([id number]) on 10/12/2024 5:30:40 PM GEMUSE 10/11/2024 8:56 AM EDT 10/12/2024 5:30 PM EDT us Asad Mccoy MD ECG ORDERABLES Edited Result - Final GEMUSE from Last 3 Months Insurance MEDICARE [facility] Advance Directives Documents on File Type Date Recorded Patient Optimization Specialist Expl anation Health Care Decision (hx) 08/13/2021 AD FORTE DIRECTIVE Health Care Decision (hx) 08/13/2021 AD FORTE DIRECTIVE Health Care Decision (hx) 08/13/2021 AD FORTE DIRECTIVE Health Care Decision (hx) 08/13/2021 AD FORTE DIRECTIVE Health Care Decision (hx) 08/13/2021 AD FORTE DIRECTIVE Care Teams Marketing Program Coordinator Relationship Specialty Start Date End Date Gold Daley MD [facility] [address] [place] [address] PCP - General 05/29/22
--- OUTSIDE RECORDS SUMMARY | 2024-12-05 17:00 | XMS_ITS | Clinical Summary ---
Author Organization [facility] Address [address] [place] [phone] Phone Care Team Providers Care Insurance Claim Approver Name Role Phone Unavailable Primary Care Provider [...] It is not the complete legal health record.[facility]
== END 2024-12-05 14:57 | disposition home or self-care (01) ==
LOC: HO.LAB 14:56
PROVIDERS: PCP Family Medicine; Visit Provider Internal Medicine Hypertension Specialist
DX: N18.4 Chronic kidney disease, stage 4 (severe) (principal)
CPT/HCPCS: 36415; 80048

== ENCOUNTER 2024-12-08 14:35 | Outpatient (AMB) | payer OTHER, SELFPAY ==
[2024-12-08 14:38] VITALS: BP 124/66; BMI 24.4
--- NOTE | 2024-12-08 14:38 | HO.NEPHOV_ITS ---
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 Biopsy revealed severe arterial sclerosis. He required hemodialysis for few weeks. Urine output progressively increased and he was therefore taken off hemodialysis. He has been off hemodialysis for the last 3 months. He complains of fatigue. He is also feeling cold all the time. No urinary symptoms. No hematuria. No nausea or vomiting. No shortness of breath. He recently underwent herniorrhaphy which was uneventful. 03/30/23 Still feels weak;c/o fatigue ; Home BP readings are good 06/29/23 c/o Fatigue ;Appetite is fair ;Gained 8 lbs in 6 months 01/15/2024. Continues to complain of fatigue. He has gained few more lb. No nausea or vomiting. He has been followed by Rheumatology. 09/08/24 The patient is a 68-year-old male With SCLERODERMA and chronic kidney disease 4 Has dyspnea on exertion The patient's kidney function has been stable, with creatinine levels holding at 2.31 mg/dL as of September 02, compared to 2.5 mg/dL last year. The glomerular filtration rate (GFR) has fluctuated between 26 and 30, with a noted increase to 28 from last January. The patient previously required dialysis when kidney function was below 10%. The patient reports pulmonary symptoms, including shortness of breath and fatigue, which have been attributed to a rheumatological condition. There is a history of pulmonary function tests conducted approximately a year ago, but no recent follow-up with a strategy analyst. The patient experiences burning sensations in the legs and fatigue, which may be related to anemia and the underlying rheumatological condition. The patient has a history of scleroderma, with recent concerns about pulmonary involvement. A CT scan and echocardiogram have been ordered to monitor the condition, with plans for annual pulmonary function tests and echocardiograms until 2028. 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 - Chronic Kidney Disease: Kidney function improved to 32%, discontinued dialysis in August 2022. Seen by Pulmonary and diagnosed with interstitial lung disease. Awaiting rheumatology follow-up - Scleroderma: Systemic involvement, CT scan scheduled for lung assessment. - Hypertension: Controlled with nifedipine and carvedilol, edema present. [facility] Medical History (Updated 11/29/24 @ 21:19 by Pepito Carter MD) Chronic restrictive lung disease Chronic renal disease, stage IV History of renal stone Arthritis Hx of acute renal failure HTN (hypertension) History of renal dialysis Surgical History Inguinal hernia (01/01/23) History of biopsy Hx of colonoscopy History of esophagogastroduodenoscopy (EGD) Hx of arthroscopy of knee History of excision of pilonidal cyst History of arthroscopic surgery of shoulder Social History Are you a primary clinical manager home care to a significant other at home: No Do you presently have visiting nurse or other home services: No Alcohol intake: never Patient Tobacco Use Status: Never used Tobacco Current occupational status: employed Current occupation: [employer] - Right Handed Physical Exam Vital Signs: Last Vital Signs BP 124/66 12/08/24 14:38 BMI result Body Mass Index 24.4 Comfortable Neck supple no JVD. Lungs entry equal no rales. Heart S1-S2 heard no gallop or rub. Abdomen soft nontender. Neuro alert awake oriented. No asterixis. Extremities no edema. Eyes General: appearance normal, both eyes and all related structures Visual Delgadillo: normal visual delgadillo by confrontation Neck Neck: Yes supple Resp Effort & Inspection: normal respiratory effort Auscultation: other (coarse crackles- scattered) Cardio Palpation: no palpable S3 Heart sounds: no rubs GI Inspection: Yes normal to inspection Palpation (GI): Soft to palpation Percussion: Yes normal to percussion Auscultation: normal bowel sounds General: Yes no CVA tenderness Back/Spine/Pelvis Back: no CVA tenderness Skin General skin exam: no petechiae and no purpura Neuro General: no focal motor deficits Motor exam (neuro): no asterixis Extrem General: No clubbing and No edema Results Reviewed Nephrology Results: Hgb, (14.0-18.0) 10.9 g/dl L 09/02/24 WBC, (4.8-10.8) 10.2 X10*3/uL 09/02/24 Plt Count, (160-400) 292 X10*3/uL 09/02/24 Sodium, (135-145) 140 mmol/L 12/05/24 Potassium, (3.3-5.1) 4.5 mmol/L 12/05/24 Chloride, (96-108) 110 mmol/L H 12/05/24 Carbon Dioxide, (22-29) 23 mmol/L 12/05/24 BUN, (9-16) 34 mg/dL H 12/05/24 Creatinine, (0.5-1.4) 2.08 mg/dL H 12/05/24 Calcium, (8.4-10.2) 8.6 mg/dL 12/05/24 Urine Protein, (Neg-Trace) 30 (1+) mg/dL H 09/23/24 Urine Creatinine 98.70 mg/dL 09/02/24 Assessment & Plan Assessment & Plan (1) Diffuse scleroderma: Comment: onset 2022 (weight loss, scleroderma renal crisis ,Raynaud's, skin thickening , possible GERD, telangiectasias +++Scl 70) Code(s): M34.9 - Systemic sclerosis, unspecified Category: Medical Plan: Follow with Rhem (2) Interstitial lung disease: Comment: Scleroderma-Associated Interstitial Lung Disease Code(s): J84.9 - Interstitial pulmonary disease, unspecified Category: Medical Plan: Pulmonary workup in progress. Waiting to see welt sole layer for possible treatment regarding ILD (3) Chronic renal disease, stage IV: Code(s): N18.4 - Chronic kidney disease, stage 4 (severe) Category: Medical Plan: Stable No s/s of uremia Has edema Most likely due to the use of nifedipine. At present he is asymptomatic. Can use Lasix 40 mg p.r.n. if needed. Orders: Orders Basic Metabolic Panel 4 Months N18.4 - Chronic kidney disease, stage 4 (severe) Complete Blood Count Auto Diff 4 Months N18.4 - Chronic kidney disease, stage 4 (severe) Creatinine Urine 4 Months N18.4 - Chronic kidney disease, stage 4 (severe) Total Protein Urine Random 4 Months N18.4 - Chronic kidney disease, stage 4 (severe) UA and rflx microscopic 4 Months N18.4 - Chronic kidney disease, stage 4 (severe) Medications: Changed From furosemide (Lasix) 40 mg PO DAILY 30 tabs 1RF To furosemide (Lasix) 40 mg PO DAILY PRN Coding Level of Care Code Est Pt Level 4 (77558) Diagnoses Diffuse scleroderma M34.9 Interstitial lung disease J84.9 Chronic renal disease, stage IV N18.4
--- OUTSIDE RECORDS SUMMARY | 2024-12-08 16:12 | XMS_ITS | Clinical Summary ---
Author Organization [facility] Facility Address [address] [address] Care Team Providers Care Teacher'S Assistant Name Role Phone Gold Daley MD Primary Care Provider +1- [phone] Allergies No known active allergies Medications carvedilol [...] patient's age to complete this topic Insurance [facility] Regions 1,2,3 (VACCN) [place] [address] [facility] Regions 1,2,3 (VACCN) Care Teams Teacher'S Assistant Relationship Specialty Start Date End Date Gold Daley MD [facility] [address] [place] [address] PCP - General Family Medicine 04/22/22
--- OUTSIDE RECORDS SUMMARY | 2024-12-08 16:12 | XMS_ITS | Clinical Summary ---
Author Organization [facility] Address [address] [place] [address] Phone Care Team Providers Care Ring Striker Name Role Phone Gold Daley MD Primary Care Provider +1- [phone] Allergies No known active allergies Medications NIFEdipine [...] Type Department Care Team Description 11/10/2024 Telephone [facility] [address] [place] [address] Provider, Not In System 11/01/2024 Telephone [facility] Dr [address] [facility] [address] [place] [address] Provider, Not In System 10/28/2024 Telephone [facility] [address] [facility] [address] [place] [address] Jossy Luna NP 10/19/2024 9:00 AM EDT Ancillary Procedure [facility] [address] [place] [phone] Primary hypertension; Chest pain, unspecified type; Dyspnea, unspecified type 10/14/2024 Telephone [facility] [address] [facility] [address] [place] [address] Gold Daley MD 10/11/2024 8:40 AM EDT Office Visit [facility] [address] [place] [address] Jossy Luna NP Primary hypertension (Primary Dx); Bilateral carotid bruits; Chest pain, unspecified type; Dyspnea, unspecified type 10/11/2024 Telephone [facility] [address] [facility] [address] [place] [address] Jossy Luna NP 10/05/2024 Telephone [facility] [address] [place] [address] Asad Mccoy MD from Last 3 Months Surgical History Surgery Date Site/Laterality Comments SHOULDER SURGERY PROCEDURE: HISTORICAL SHOULDER SURGERY COLONOSCOPY 12/26/2010 PROCEDURE: HISTORICAL COLONOSCOPY ESOPHAGOGASTRODUODENOSCOPY 12/04/2006 PROCEDURE: [place] ESOPHAGOGASTRODUODENOSCOPY TRANSORAL DIAGNOSTIC Medical History Medical History [...] (10/19/2024 9:05 AM EDT) Left Atrium Minor [place] 6.9 cm CV PACS Left Atrium Major [place] 6.2 cm CV PACS LA Area Sys [...] S' 13 cm/s CV PACS RA Major [place] 5.8 cm CV PACS RA Major [place] Index 3.1(A) 2.1 - 2.7 cm/m2 CV [...] the study quality was adequate. Jossy Luna LOAN DOCUMENTATION SPECIALIST CV ECHO PROCEDURES Final Res ult * ECG 12 lead (10/11/2024 10:38 AM EDT) Ventricular Rate ECG 60 BPM GEMUSE Atrial Rate 60 BPM GEMUSE P-R Interval 244 ms GEMUSE QRS Duration 108 ms GEMUSE Q-T Interval 430 ms GEMUSE QTc 430 ms GEMUSE P Wave [place] 30 degrees GEMUSE R [place] -66 degrees GEMUSE T [place] 2 degrees GEMUSE ECG Interpretation Sinus rhythm with 1st degree A-V block Left anterior fascicular block Abnormal ECG When compared with ECG of 19-APR-2022 17:22, [place] interval has increased Nonspecific T wave abnormality no longer evident in Lateral leads Confirmed by Christopher MCCOY JAMES ([id number]) on 10/12/2024 5:30:40 PM GEMUSE 10/11/2024 8:56 AM EDT 10/12/2024 5:30 PM EDT us Asad Mccoy MD ECG ORDERABLES Edited Result - Final GEMUSE from Last 3 Months Insurance MEDICARE [facility] Advance Directives Documents on File Type Date Recorded 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
--- OUTSIDE RECORDS SUMMARY | 2024-12-08 16:12 | XMS_ITS | Clinical Summary ---
Author Organization [facility] Address [address] [place] [address] Phone Care Team Providers Care Color Buffer Name Role Phone Unavailable Primary Care Provider [...] It is not the complete legal health record.[facility]
== END 2024-12-08 15:07 | disposition home or self-care (01) ==
LOC: HO.HKA 14:36
PROVIDERS: PCP Internal Medicine; Visit Provider Internal Medicine Hypertension Specialist
DX: M34.9 Systemic sclerosis, unspecified (principal); J84.9 Interstitial pulmonary disease, unspecified; N18.4 Chronic kidney disease, stage 4 (severe)
CPT/HCPCS: 99214

== ENCOUNTER → 2024-12-08 14:35 | Outpatient (BNVA) | payer OTHER, SELFPAY | PROVIDERS: PCP Internal Medicine; Visit Provider Internal Medicine Hypertension Specialist | DX: N18.4 Chronic kidney disease, stage 4 (severe) (principal); M34.9 Systemic sclerosis, unspecified; J84.9 Interstitial pulmonary disease, unspecified | CPT/HCPCS: 99212 ==

== ENCOUNTER 2024-12-10 10:23 | Outpatient (REF) | payer OTHER, SELFPAY ==
--- NOTE | ~2024-12-10 | CT_ITS ---
EXAMINATION: CT CHEST HIGH RESOLUTION WITHOUT IV CONTRAST INDICATION: M34.9 - Systemic sclerosis, unspecified COMPARISON: Comparison is made with the prior examination dated 11/17/2023. TECHNIQUE: Helical CT scan of the chest was performed without intravenous contrast. In addition, high resolution 1.5 mm thick images were obtained in full inspiration. Coronal and sagittal reformatted images were generated and reviewed. This CT exam was performed with one or more of the following dose reduction techniques: automated exposure control, adjustment of the mA and/or kV according to patient size, use of iterative reconstruction technique. DLP: 188 mGy-cm CHEST: THYROID: The thyroid is unremarkable. LUNGS: Again seen are scattered calcified granulomas in both lungs. No noncalcified pulmonary nodules are identified. There is bronchiectasis in both lower lobes, right greater than left without significant change. There are increased interstitial markings predominantly in the lower lung zones with subpleural sparing. These findings are unchanged from the prior study. No significant honeycombing. MEDIASTINUM: Again seen is mediastinal lymphadenopathy. Superior paratracheal nodes measure up to 1.7 cm. AP window lymph nodes measure up to 2.3 x 1.2 cm. A paracarinal lymph node measures 2.6 cm. Subcarinal lymph nodes measure up to 1.8 cm. CODY: Evaluation of the hilar regions is limited by lack of intravenous contrast material. CARDIOVASCULATURE: The heart is enlarged. There is no pericardial effusion. The thoracic aorta is normal in caliber. DEGREE OF CORONARY CALCIFICATION: moderate PLEURA: There is no pleural effusion. No pneumothorax. MAIN AIRWAYS: The mainstem bronchi and proximal branches are patent. AXILLA: There is no axillary lymphadenopathy. BONES AND SOFT TISSUES: Unremarkable UPPER ABDOMEN: The visualized portions of the liver, spleen, and adrenals have an unremarkable unenhanced appearance. CT/CT chest wo con - High Res IMPRESSION: Stable appearance. Bilateral lower lobe bronchiectasis, right greater than left. Increased interstitial markings in the lower lung zones with subpleural sparing. No significant honeycombing. Electronically signed by: Stanford Camacho MD 12/12/2024 07:54 AM EDT
--- OUTSIDE RECORDS SUMMARY | 2024-12-10 10:26 | XMS_ITS | Clinical Summary ---
Author Organization [facility] Address [address] [place] [address] Phone Care Team Providers Care Celery Packer Name Role Phone Unavailable Primary Care Provider [...] It is not the complete legal health record.[facility]
--- OUTSIDE RECORDS SUMMARY | 2024-12-10 10:26 | XMS_ITS | Clinical Summary ---
Author Organization [facility] Facility Address [address] [address] Care Team Providers Care Groundskeeper Name Role Phone Gold Daley MD Primary Care Provider +1- [phone] Allergies No known active allergies Medications carvedilol [...] patient's age to complete this topic Insurance [facility] Regions 1,2,3 (VACCN) [place] [address] [facility] Regions 1,2,3 (VACCN) Care Teams Groundskeeper Relationship Specialty Start Date End Date Gold Daley MD [facility] [address] [place] [address] PCP - General Family Medicine 04/22/22
--- OUTSIDE RECORDS SUMMARY | 2024-12-10 10:26 | XMS_ITS | Clinical Summary ---
Author Organization [facility] Address [address] [address] Phone Care Team Providers Care Central Sterile Tech Name Role Phone Gold Daley MD Primary Care Provider +1- [phone] Allergies No known active allergies Medications NIFEdipine [...] Type Department Care Team Description 11/10/2024 Telephone [facility] [address] [place] [address] Provider, Not In System 11/01/2024 Telephone [facility] Dr [address] [facility] Center [address] [place] [address] Provider, Not In System 10/28/2024 Telephone [facility] Dr [address] [facility] [address] [place] [address] Jossy Luna NP 10/19/2024 9:00 AM EDT Ancillary Procedure [facility] - [address] [place] [phone] Primary hypertension; Chest pain, unspecified type; Dyspnea, unspecified type 10/14/2024 Telephone [facility] [address] [facility] [address] [place] [address] Gold Daley MD 10/11/2024 8:40 AM EDT Office Visit [facility] [address] [place] [address] Jossy Luna NP Primary hypertension (Primary Dx); Bilateral carotid bruits; Chest pain, unspecified type; Dyspnea, unspecified type 10/11/2024 Telephone [facility] Dr [address] [facility] [address] [place] [address] Jossy Luna NP 10/05/2024 Telephone [facility] [address] [place] [address] Asad Mccoy MD from Last 3 Months Surgical History Surgery Date Site/Laterality Comments SHOULDER SURGERY PROCEDURE: HISTORICAL SHOULDER SURGERY COLONOSCOPY 12/26/2010 PROCEDURE: HISTORICAL COLONOSCOPY ESOPHAGOGASTRODUODENOSCOPY 12/04/2006 PROCEDURE: [place] ESOPHAGOGASTRODUODENOSCOPY TRANSORAL DIAGNOSTIC Medical History Medical History [...] Health Maintenance Due Date Last Done Comments Colorectal Cancer Screening: Colonoscopy 1954 Pneumococcal Vaccine: 50+ Years (1 of 1 - PCV) 2004 Zoster Vaccines (1 of 2) 2004 Cholesterol Screening (Lipid Panel) 04/09/2019 Hepatitis C Screening 04/09/2019 Medicare Annual [...] (10/19/2024 9:05 AM EDT) Left Atrium Minor [place] 6.9 cm CV PACS Left Atrium Major [place] 6.2 cm CV PACS LA Area Sys [...] S' 13 cm/s CV PACS RA Major [place] 5.8 cm CV PACS RA Major [place] Index 3.1(A) 2.1 - 2.7 cm/m2 CV [...] the study quality was adequate. Jossy Luna LUMBER SORTER CV ECHO PROCEDURES Final Res ult * ECG 12 lead (10/11/2024 10:38 AM EDT) Ventricular Rate ECG 60 BPM GEMUSE Atrial Rate 60 BPM GEMUSE P-R Interval 244 ms GEMUSE QRS Duration 108 ms GEMUSE Q-T Interval 430 ms GEMUSE QTc 430 ms GEMUSE P Wave [place] 30 degrees GEMUSE R [place] -66 degrees GEMUSE T [place] 2 degrees GEMUSE ECG Interpretation Sinus rhythm with 1st degree A-V block Left anterior fascicular block Abnormal ECG When compared with ECG of 19-APR-2022 17:22, [place] interval has increased Nonspecific T wave abnormality no longer evident in Lateral leads Confirmed by Christopher MCCOY JAMES ([id number]) on 10/12/2024 5:30:40 PM GEMUSE 10/11/2024 8:56 AM EDT 10/12/2024 5:30 PM EDT us Asad Mccoy MD ECG ORDERABLES Edited Result - Final GEMUSE from Last 3 Months Insurance MEDICARE [facility] Advance Directives Documents on File Type Date Recorded 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
== END 2024-12-10 10:24 | disposition home or self-care (01) ==
LOC: HO.CT 10:23
PROVIDERS: PCP Family Medicine; Visit Provider Student in an Organized Health Care Education/Training Program
DX: M34.9 Systemic sclerosis, unspecified (principal)
CPT/HCPCS: 71250

== ENCOUNTER → 2024-12-10 10:25 | Outpatient (BNV) | payer OTHER, SELFPAY | PROVIDERS: PCP Family Medicine; Visit Provider Radiology Diagnostic Radiology | DX: J47.9 Bronchiectasis, uncomplicated (principal); J84.9 Interstitial pulmonary disease, unspecified | CPT/HCPCS: 71250 ==

== ENCOUNTER 2025-01-16 15:51 | Outpatient (REF) | payer OTHER, SELFPAY ==
[2025-01-16 16:08] LABS: MANUAL DIFF FLAG NO
[2025-01-16 17:07] LABS: Hematocrit 35.2 % (42.0-52.0); Hemoglobin 11.0 g/dl (14.0-18.0); Imm Gran Abs Auto 0.03 X10*3/uL (0.00-0.03); Imm Gran Pct Auto 0.3 % (0.0-0.4); Lymphocytes Absolute Auto 1.0 X10*3/uL (1.2-4.9); Mean Corpuscular HGB Conc 31.3 g/dl (31.0-36.0); Mean Corpuscular Hemoglobin 27.8 pg (27.0-33.0); Mean Corpuscular Volume 89.1 fL (80.0-98.0); NRBC Abs Auto 0.000 X10*3/uL (0.0-0.012); NRBC Pct Auto 0.0 /100WBC (0.0-0.2); Platelet Count 284 X10*3/uL (160-400); Red Blood Count 3.95 X10*6/uL (4.60-5.80); White Blood Count 9.6 X10*3/uL (4.8-10.8)
[2025-01-16 17:35] LABS: Alanine Aminotransferase 10 U/L (0-40); Albumin Level 3.9 g/dL (3.5-5.0); Alkaline Phosphatase 68 U/L (39-117); Anion Gap 13 (12-20); Aspartate Amino Transferase 21 U/L (5-37); Blood Urea Nitrogen 38 mg/dL (9-16); Calcium 9.0 mg/dL (8.4-10.2); Carbon Dioxide 23 mmol/L (22-29); Chloride 109 mmol/L (96-108); Estimated Glomerular Filt Rate 31; Potassium 4.6 mmol/L (3.3-5.1); Sodium 140 mmol/L (135-145); Total Protein 7.6 g/dL (6.5-8.0)
--- OUTSIDE RECORDS SUMMARY | 2025-01-16 17:48 | XMS_ITS | Clinical Summary ---
Author Organization [facility] Address [address] [place] [address] Phone Care Team Providers Care Assembly And Packing Supervisor Name Role Phone Gold Daley MD Primary Care Provider +1- [phone] Allergies No known active allergies Medications NIFEdipine [...] Type Department Care Team Description 11/10/2024 Telephone [facility] Cardiology [facility] [address] [place] [address] Provider, Not In System 11/01/2024 Telephone [facility] [address] [place] [address] Provider, Not In System 10/28/2024 Telephone [facility] [address] [place] [address] Jossy Luna NP 10/19/2024 9:00 AM EDT Ancillary Procedure [facility] Cardiology [facility] - [address] [place] [phone] Primary hypertension; Chest pain, unspecified type; Dyspnea, unspecified type from Last 3 Months Surgical History Surgery Date Site/Laterality Comments SHOULDER SURGERY PROCEDURE: HISTORICAL SHOULDER SURGERY COLONOSCOPY 12/26/2010 PROCEDURE: HISTORICAL COLONOSCOPY ESOPHAGOGASTRODUODENOSCOPY 12/04/2006 PROCEDURE: [place] ESOPHAGOGASTRODUODENOSCOPY TRANSORAL DIAGNOSTIC Medical History Medical History [...] Chest pain, unspecified type Dyspnea, unspecified type from Last 3 Months Results * (ABNORMAL) TRANSTHORACIC ECHOCARDIOGRAM (TTE) COMPLETE (10/19/2024 9:05 AM EDT) Left Atrium Minor [place] 6.9 cm CV PACS Left Atrium Major [place] 6.2 cm CV PACS LA Area Sys [...] S' 13 cm/s CV PACS RA Major [place] 5.8 cm CV PACS RA Major [place] Index 3.1(A) 2.1 - 2.7 cm/m2 CV [...] Details Overall the study quality was adequate. 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
--- OUTSIDE RECORDS SUMMARY | 2025-01-16 17:48 | XMS_ITS | Clinical Summary ---
Author Organization [facility] Address [address] [place] [address] Phone Care Team Providers Care Radiator Repairer Name Role Phone Unavailable Primary Care Provider [...] It is not the complete legal health record.[facility]
--- OUTSIDE RECORDS SUMMARY | 2025-01-16 17:48 | XMS_ITS | Clinical Summary ---
Author Organization [facility] Facility Address [address] [address] Care Team Providers Care Alligator Shear Operator Name Role Phone Gold Daley MD Primary Care Provider +1- [phone] Allergies No known active allergies Medications carvedilol [...] patient's age to complete this topic Insurance [facility] Regions 1,2,3 (VACCN) [place] [address] [facility] Regions 1,2,3 (VACCN) Care Teams Alligator Shear Operator Relationship Specialty Start Date End Date Gold Daley MD [facility] [address] [place] [address] PCP - General Family Medicine 04/22/22
== END 2025-01-16 15:52 | disposition home or self-care (01) ==
LOC: HO.LAB 15:51
PROVIDERS: PCP Family Medicine; Visit Provider Student in an Organized Health Care Education/Training Program
DX: M34.9 Systemic sclerosis, unspecified (principal)
CPT/HCPCS: 36415; 80053; 85025; 85652; 86140

== ENCOUNTER 2025-01-19 15:27 | Outpatient (AMB) | payer OTHER, SELFPAY ==
--- NOTE | 2025-01-19 15:28 | A.OFFVIS_ITS ---
Vital Signs 01/19/25 15:36 Height 5 ft 9 in Weight 168 lb 3.403 oz BMI 24.8 BP 124/72 Blood Pressure Location Rt brachial Position Sitting Pulse 50 Pulse Source Pulse Oximeter Pulse Oximetry (%) 98 Oxygen Delivery Method Room Air Intake Visit Reasons: 3 months f/u Intake Note: Patient presents for diffuse scleroderma follow up. Allergies No Known Allergies Allergy (Verified 01/19/25 15:35) HPI Comments Details: Patient is a 69-year-old male with hypertension, systemic sclerosis sine scleroderma complicated by interstitial lung disease, chronic renal disease stage IV, and polyarticular osteoarthritis Interval History: Patient last seen 07/15/24 with me - Not on any DMARDs - He was complaining of dysphagia and so barium swallow was ordered - Patient did not have the barium swallow. States that he feels that he eats and drinks okay. States that he does not enjoy eating anymore but continues to eat - Continues to have RP but manages this conservatively - Gets flat telangiectasias all over his body - No AM stiffness - No indication for DMARDs Today - Not on DMARDs - Followed up with pulm. Concerned about worsening disease - Patient does note SOB - Stiffness bilaterally knees - Denies skin tightness - Raynaud's Rheumatologic History: Scleroderma Initial history: This is a 67-year-old male who presents for evaluation of a positive AARON. Patient states that in April of 2022 he developed abrupt onset of difficulty breathing, he went to the emergency room, his blood pressure was significantly elevated. He was started on hemodialysis inpatient. He continued on hemodialysis for 4 more months. Prior to that episode he was losing weight. Was not feeling well, feeling cold all the time, bluish discoloration of his fingertips, skin changes especially of his thighs. Intermittent acid reflux. States that he has lost around 50 lb in the last 18 months or so. Mostly due to lack of appetite. He has generalized fatigue. Patient is unaware of any family history of an autoimmune rheumatic disease. Denies any history of DVT/PE Current Rheumatology Medication(s): [facility] Medical History (Updated 01/19/25 @ 16:39 by Becca Chapman MD) Chronic restrictive lung disease Chronic renal disease, stage IV History of renal stone Arthritis Hx of acute renal failure HTN (hypertension) History of renal dialysis Surgical History Inguinal hernia (01/01/23) History of biopsy Hx of colonoscopy History of esophagogastroduodenoscopy (EGD) Hx of arthroscopy of knee History of excision of pilonidal cyst History of arthroscopic surgery of shoulder Social History Are you a primary adult live in caregiver to a significant other at home: No Do you presently have visiting nurse or other home services: No Alcohol intake: never Patient Tobacco Use Status: Never used Tobacco Current occupational status: employed 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 Review of Systems Narrative Review of Systems Constitutional: Denies fever, chills, weight loss ENT: Denies vision changes, eye pain or eye redness, dental caries, dry mouth GI: Denies nausea, vomiting, diarrhea, abdominal pain, change in BM Cards: Denies chest pain, palpitations Skin: Denies rash, nail changes, photosensitivity, ACTIVITIES COORDINATOR: Denies headaches, weakness, paresthesias, recurrent falls MSK: as per HPI All other systems reviewed and are unremarkable except noted above Physical Exam Exam Exam: Vital signs reviewed Physical Examination CONSTITUITIONAL Patient alert and cooperative. Well appearing and in no apparent painful distress Vital signs reviewed Physical Examination CONSTITUITIONAL Patient alert and cooperative. Well appearing and in no apparent painful distress HEENT Conjunctiva and sclera clear. No lymphadenopathy. CHEST/RESPIRATORY SYSTEM Normal respiratory effort and able to speak in complete sentences. Clear to auscultation bilaterally. Basilar crackles heard bilaterally CARDIAC SYSTEM Regular rate and rhythm. S1 and S2 heard no murmurs. Radial pulses intact bilaterally MSK Hands * Right Hand: Able to make a fist. No swelling or tenderness to palpation of the MCPs, PIPs or DIPs. * Left Hand: Able to make a fist. No swelling or tenderness to palpation of the MCPs, PIPs or DIPs. * Herbedens nodes noted bilaterally Wrists * Right Wrist: Full ROM to flexion and extension. No swelling or TTP * Left Wrist: Full ROM to flexion and extension. No swelling or TTP Elbows * Right Elbow: Full ROM. No swelling or TTP. No TTP of the medial epicondyle. No TTP of the lateral epicondyle * Left Elbow: Full ROM. No swelling or TTP. No TTP of the medial epicondyle. No TTP of the lateral epicondyle Shoulders * Right shoulder: Full ROM. No swelling noted. No TTP of the AC joint. No TTP of the subacromial bursa. No TTP of the posterior shoulder * Left shoulder: Full ROM. No swelling noted. No TTP of the AC joint. No TTP of the subacromial bursa. No TTP of the posterior shoulder Knees * Right knee: No swelling noted. No TTP of the knee joint line. No TTP of pes anserine bursa * Left knee: No swelling noted. No TTP of the knee joint line. No TTP of pes anserine bursa. * Crepitations felt bilaterally Ankles * Right ankle: Good ankle dorsiflexion and plantar flexion. No swelling. No TTP of the ankle joint * Left ankle: Good ankle dorsiflexion and plantar flexion. No swelling. No TTP of the ankle joint Feet * Right foot: Negative squeeze test * Left foot: Negative squeeze test Tender points? * No tenderness to palpation of the bilateral trapezius, supraspinatus, anterior costochondral junctions, bilateral suboccipital muscle insertions SKIN Telangiectasias Right Left Face 0 Anterior chest 0 Abdomen 0 Upper Abdomen 0 Forearm 0 0 Hand 2 2 Fingers 2 2 Thigh 0 0 Leg 2 2 Total/51 12 Vital Signs: Last Vital Signs Pulse 50 01/19/25 15:36 BP 124/72 01/19/25 15:36 Pulse Ox 98 01/19/25 15:36 Oxygen Delivery Method Room Air 01/19/25 15:36 BMI result Body Mass Index 24.8 Results Reviewed Results Reviewed: Laboratory Tests 07/12/24 12:16 WBC 9.0 RBC 4.00 L Hgb 11.5 L Hct 35.5 L Plt Count 276 ESR 38 H Sodium 138 Potassium 4.4 Chloride 110 H Carbon Dioxide 21 L BUN 37 H Creatinine 2.06 H Estimated GFR 32 AST 20 ALT 10 C-Reactive Protein 0.39 Laboratory Tests 09/08/23 12:23 AARON Screen POSITIVE A AARON Titer 1:1280 H AARON Pattern Nuclear, Nucleolar A JAMES-1 Antibody <11 EJ Antibody <11 OJ Antibody <11 Mi-2-Alpha Ab <11 Mi-2-Beta Ab <11 NXP-2 Ab <11 PL-7 Antibody <11 PL-12 Antibody <11 SRP Ab <11 MDA5 Ab <11 Myos P155/140 TIF1-g Ab <11 SS-A/Ro Antibody <1.0 NEG SS-B/La Antibody <1.0 NEG Sm (Fortune) Antibody <1.0 NEG U1 snRNA A Antibody <11 U1 snRNA C Antibody <11 U1 snRNA 70kD Antibody <11 SM/MARKETING SUPPORT ASSISTANT IgG Antibody <1.0 NEG Scl-70 Scleroderma Ab 101 H FVC FEV1 FEV1/FVC TLC DLCO 03/29/24 3.82 3.10 81 6.06 16 103% 109% 92% 66% CT Chest 12/2024 CHEST: THYROID: The thyroid is unremarkable. LUNGS: Again seen are scattered calcified granulomas in both lungs. No noncalcified pulmonary nodules are identified. There is bronchiectasis in both lower lobes, right greater than left without significant change. There are increased interstitial markings predominantly in the lower lung zones with subpleural sparing. These findings are unchanged from the prior study. No significant honeycombing. MEDIASTINUM: Again seen is mediastinal lymphadenopathy. Superior paratracheal nodes measure up to 1.7 cm. AP window lymph nodes measure up to 2.3 x 1.2 cm. A paracarinal lymph node measures 2.6 cm. Subcarinal lymph nodes measure up to 1.8 cm. CODY: Evaluation of the hilar regions is limited by lack of intravenous contrast material. CARDIOVASCULATURE: The heart is enlarged. There is no pericardial effusion. The thoracic aorta is normal in caliber. DEGREE OF CORONARY CALCIFICATION: moderate PLEURA: There is no pleural effusion. No pneumothorax. MAIN AIRWAYS: The mainstem bronchi and proximal branches are patent. AXILLA: There is no axillary lymphadenopathy. BONES AND SOFT TISSUES: Unremarkable UPPER ABDOMEN: The visualized portions of the liver, spleen, and adrenals have an unremarkable unenhanced appearance. IMPRESSION: Stable appearance. Bilateral lower lobe bronchiectasis, right greater than left. Increased interstitial markings in the lower lung zones with subpleural sparing. No significant honeycombing. ECHO 11/2023 Conclusions: - The left ventricular systolic function is normal. The calculated ejection fraction is 63% by biplane method. - Moderate biatrial enlargement. - No obvious valvular pathology seen on this study. Findings Left Ventricle Normal left ventricular cavity size. There is mildly increased left ventricular wall thickness. The left ventricular systolic function is normal. The calculated ejection fraction is 63% by biplane method. There is no evidence of regional wall motion abnormalities. Diastolic function is normal for age. Right Ventricle Mildly increased right ventricular cavity size. There is normal right ventricular systolic function. Atria Moderate biatrial enlargement. Aortic Valve There is a normal trileaflet aortic valve. There is mild calcification of the aortic valve. There is no aortic valve stenosis. Trace to mild aortic regurgitation. Mitral Valve The mitral valve appears normal. There is trace mitral valve regurgitation. There is no mitral valve stenosis. Pulmonic Valve The pulmonic valve is likely normal. Tricuspid Valve There is mild tricuspid valve regurgitation. There is no evidence of pulmonary hypertension. Great Vessels The asc aorta is normal in size. Venous The inferior vena cava is normal in size and collapses greater than 50% with inspiration. Pericardium/Pleural There is no evidence of pericardial effusion. Assessment & Plan Assessment & Plan (1) Diffuse scleroderma: Comment: onset 2022 (weight loss, scleroderma renal crisis ,Raynaud's, skin thickening , possible GERD, telangiectasias +++Scl 70) Code(s): M34.9 - Systemic sclerosis, unspecified Category: Medical Plan: #Systemic sclerosis sine scleroderma Patient is a 69-year-old male with systemic sclerosis sine scleroderma here today for follow up. Immunosuppression in systemic sclerosis is typically reserved for those with progressive skin thickening, progressive ILD, inflammatory myopathy or inflammatory arthritis. Given the concern for worsening ILD from pulm recommending MMF Discussed with patient but he wants to wait until he sees pulm to get confirmation of worsening disease to start treatment We will continue conservative management of his Raynaud's with his nifedipine. Plan - MMF 500mg bid initially then 1000mg bid once tolerated. Will start after confirmation from pulm - RTC 3 months - Labs before visit: CBC, CMP, ESR, CRP Plan I spent 30 minutes reviewing the record and labs, taking a history, examining the patient, discussing the treatment plan, ordering diagnostic work up and documenting in the medical record Coding Level of Care Code Est Pt Level 4 (76899) Complex EM visit Add On G2211 Diagnoses Diffuse scleroderma M34.9
[2025-01-19 15:36] VITALS: BP 124/72; PULSE 50; O2SAT 98; BMI 24.8
--- OUTSIDE RECORDS SUMMARY | 2025-01-19 18:31 | XMS_ITS | Clinical Summary ---
Author Organization [facility] Facility Address [address] [address] Care Team Providers Care Server Assistant Name Role Phone Gold Daley MD Primary Care Provider [phone]- [phone] Allergies No known active allergies Medications carvedilol [...] complete this topic Insurance [facility] Regions [address]VACCN) [place] [address] [facility] Regions 1,2,3 (VACCN) Care Teams Server Assistant Relationship Specialty Start Date End Date Gold Daley MD [facility] [address] [place] [address] PCP - General Family Medicine 04/22/22
--- OUTSIDE RECORDS SUMMARY | 2025-01-19 18:31 | XMS_ITS | Clinical Summary ---
Author Organization [facility] Address [address] [place] [address] Phone Care Team Providers Care Molybdenum Steamer Operator Name Role Phone Gold Daley MD Primary Care Provider +1- [phone] Allergies No known active allergies Medications NIFEdipine [...] Type Department Care Team Description 11/10/2024 Telephone [facility] Cardiology [facility] [address] [place] [address] Provider, Not In System 11/01/2024 Telephone [facility] [address] [place] [address] Provider, Not In System 10/28/2024 Telephone [facility] [address] [place] [address] Jossy Luna NP 10/19/2024 9:00 AM EDT Ancillary Procedure [facility] Cardiology [facility] [address] [place] [id number] Primary hypertension; Chest pain, unspecified type; Dyspnea, unspecified type from Last 3 Months Surgical History Surgery Date Site/Laterality Comments SHOULDER SURGERY PROCEDURE: HISTORICAL SHOULDER SURGERY COLONOSCOPY 12/26/2010 PROCEDURE: HISTORICAL COLONOSCOPY ESOPHAGOGASTRODUODENOSCOPY 12/04/2006 PROCEDURE: [place] ESOPHAGOGASTRODUODENOSCOPY TRANSORAL DIAGNOSTIC Medical History Medical History [...] (10/19/2024 9:05 AM EDT) Left [facility] [place] 6.9 cm CV PACS Left [facility] [place] 6.2 cm CV PACS LA Area Sys [...] S' 13 cm/s CV PACS RA Major [place] 5.8 cm CV PACS RA Major [place] Index 3.1(A) 2.1 - 2.7 cm/m2 CV [...] ult from Last 3 Months Insurance MEDICARE [facility] Advance Directives Documents on File Type Date Recorded Patient Collision Technician Expl anation Health Care Decision (hx) 08/13/2021 AD FORTE DIRECTIVE Health Care Decision (hx) 08/13/2021 AD FORTE DIRECTIVE Health Care Decision (hx) 08/13/2021 AD FORTE DIRECTIVE Health Care Decision (hx) 08/13/2021 AD FORTE DIRECTIVE Health Care Decision (hx) 08/13/2021 AD FORTE DIRECTIVE Care Teams Molybdenum Steamer Operator Relationship Specialty Start Date End Date Gold Daley MD [facility] [address] [facility] [address] [place] [address] PCP - General 05/29/22
--- OUTSIDE RECORDS SUMMARY | 2025-01-19 18:31 | XMS_ITS | Clinical Summary ---
Author Organization [facility] Address [address] [place] [address] Phone Care Team Providers Care Electron Beam Machine Welder Setter Name Role Phone Unavailable Primary Care Provider [...] It is not the complete legal health record.[facility]
== END 2025-01-19 16:17 | disposition home or self-care (01) ==
PROVIDERS: PCP Family Medicine; Visit Provider Student in an Organized Health Care Education/Training Program
DX: M34.9 Systemic sclerosis, unspecified (principal)
CPT/HCPCS: 99214; G2211

== ENCOUNTER → 2025-01-19 15:27 | Outpatient (BNVA) | payer OTHER, SELFPAY | PROVIDERS: PCP Family Medicine; Visit Provider Student in an Organized Health Care Education/Training Program | DX: M34.9 Systemic sclerosis, unspecified (principal) | CPT/HCPCS: 99212 ==

== ENCOUNTER 2025-02-17 15:45 | Outpatient (AMB) | payer OTHER, SELFPAY ==
[2025-02-17 15:48] VITALS: BP 130/60; PULSE 58; O2SAT 98; BMI 24.3
--- NOTE | 2025-02-17 15:48 | A.OFFVIS_ITS ---
Vital Signs 02/17/25 15:48 Height 5 ft 9 in Weight 164 lb 3.91 oz BMI 24.3 BP 130/60 Blood Pressure Location Lt brachial Position Sitting Pulse 58 Pulse Source Pulse Oximeter Pulse Oximetry (%) 98 Oxygen Delivery Method Room Air Intake Visit Reasons: Interstitial pulmonary disease/Systemic sclerosis Circulation Clerk Required: No Accompanied by: Self / Same As Patient Allergies No Known Allergies Allergy (Verified 02/17/25 15:50) HPI Comments Details: The patient is a 69-year-old gentleman who was diagnosed with systemic scleroderma back in 2022. He is followed closely by Rheumatology and also with Nephrology for his chronic kidney disease. He does describe dyspnea on exertion. Whcr-aw-lhojreno severity. Sometimes he feels very fatigued after doing any minimal activities of daily living. Denies any coughing or any chest congestion. Denies any difficulty swallowing. He did undergo an echocardiogram in 2023 which I personally reviewed demonstrating no evidence of any pulmonary hypertension it apparently following closely with [facility] Cardiology had an echo there that per his report it was okay. He did undergo a CT scan of the chest that I personally reviewed [facility] 2023 demonstrating some interstitial lung disease his right lung more than his left in the periphery concerning for some pneumonitis and also pulmonary nodules which most likely is all related to the connective tissue disease. Another CT scan was requested for January. I will see if we can do that sooner and also will be able to get PFTs today to assess his lung capacity. A my examination the patient does have some fine rales consistent with pulmonary fibrosis. My suspicion is that the interstitial lung disease has been progressing now to demonstrate evidence of pulmonary fibrosis based on my exam. Based on the pulmonary manifestations the patient will benefit from starting immunomodulator are immunosuppressive therapy for the ongoing scleroderma. Once we have the CAT scan in the PFTs will pass that information over to Dermatology to see if he can be started on therapy. During the visit we did go for brief walking oximetry the patient actually did good maintaining a pulse ox 99% in his so stay. No significant dyspnea noted on the walk study. 02/17/2025 the patient is here for pulmonary follow-up visit. Overall the patient has been doing fairly okay he does have this dry cough that bothers him. Txki-cp-qjgtopup severity. Feels like it is a postnasal drip. He does take fluticasone nasal spray but has not not been very helpful. The patient denies any significant shortness of breath with activity. He did have a pulmonary function study demonstrating a restrictive ventilatory defect consistent with the interstitial lung disease and also had a repeat CT scan. I did review the CT scan with him and compared to the CAT scan from 2023. There appears to be some progression of the interstitial lung disease and pulmonary fibrosis. Therefore, we talked about different options. One option is to start immunomodulator therapy in other options to start an antifibrotic agent. Ofev is a possibility although he is concerned about the potential GI side effects. Therefore, it is reasonable to place him on CellCept at this time 500 mg b.i.d. to try to decrease the inflammatory changes in therefore improve his chances of any worsening disease. The patient will undergo blood work sometime in March to make sure that he is tolerating the medicine and then when he returns will continue to talk about the need for antifibrotic agents. For the postnasal drip she can try some ipratropium nasal spray as needed and some Bentson 8. [facility] all [facility]. Any issues he can always call otherwise will follow-up sometime in for 5 months to assess his progress. [facility] Medical History (Updated 01/19/25 @ 16:39 by Becca Chapman MD) Chronic restrictive lung disease Chronic renal disease, stage IV History of renal stone Arthritis Hx of acute renal failure HTN (hypertension) History of renal dialysis Surgical History Inguinal hernia (01/01/23) History of biopsy Hx of colonoscopy History of esophagogastroduodenoscopy (EGD) Hx of arthroscopy of knee History of excision of pilonidal cyst History of arthroscopic surgery of shoulder Social History Are you a primary child care attendant to a significant other at home: No Do you presently have visiting nurse or other home services: No Alcohol intake: never Patient Tobacco Use Status: Never used Tobacco Current occupational status: employed 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 Review of Systems Const Reports fatigue Eyes Reports no additional complaints ENT Denies dysphagia Card Denies chest pain and Reports dyspnea on exertion Resp Reports cough, Reports dyspnea on exertion and Denies wheezing GI Denies dysphagia Musc Reports myalgias and Reports joint swelling Skin/Breast Reports change in pigmentation Neuro Reports no additional complaints Endo Reports fatigue Tony/Lymph Reports no additional complaints Aller/Immun Denies wheezing Physical Exam Vital Signs: Last Vital Signs Pulse 58 02/17/25 15:48 BP 130/60 02/17/25 15:48 Pulse Ox 98 02/17/25 15:48 Oxygen Delivery Method Room Air 02/17/25 15:48 BMI result Body Mass Index 24.3 Const General: comfortable Orientation/consciousness: patient oriented x3 HEENT Head: Yes normocephalic Neck Neck: Yes supple Chest Chest palpation & inspection: normal inspection of the chest Resp Effort & Inspection: normal respiratory effort Auscultation: rales bilateral at the base and diminished lung sounds Cardio Heart sounds: S1 normal heart sound present and S2 normal heart sound present GI Palpation (GI): Soft to palpation Skin Lesions: lesion noted (telangiectasias ) Neuro General: patient oriented x3 Extrem General: No clubbing, No cyanosis and Yes edema Assessment & Plan Assessment & Plan (1) Diffuse scleroderma: Comment: onset 2022 (weight loss, scleroderma renal crisis ,Raynaud's, skin thickening , possible GERD, telangiectasias +++Scl 70) Code(s): M34.9 - Systemic sclerosis, unspecified Category: Medical (2) Interstitial lung disease: Comment: Scleroderma-Associated Interstitial Lung Disease Code(s): J84.9 - Interstitial pulmonary disease, unspecified Category: Medical (3) Dyspnea: Code(s): R06.00 - Dyspnea, unspecified Category: Medical Qualifiers: Dyspnea type: dyspnea on exertion Qualified Code(s): R06.09 - Other forms of dyspnea (4) Chronic restrictive lung disease: Code(s): J98.4 - Other disorders of lung Category: Medical Plan start Cellcept 500mg BID, check labs May benefit from OFEV for Scleroderma-Associated Interstitial Lung Disease F/U 2-3 months Medications: New benzonatate 200 mg PO BID 30 days PRN 60 caps 6RF cough mycophenolate mofetil 500 mg PO BID 30 days 60 tabs 5RF ipratropium bromide administer into each nostril 2 sprays intranasal TID PRN 15 mL 6RF allergy symptoms mycophenolate mofetil 500 mg PO BID 60 tabs 5RF 30 days ipratropium bromide administer into each nostril 2 sprays intranasal TID PRN 15 mL 6RF allergy symptoms benzonatate 200 mg PO BID PRN 60 caps 6RF cough 30 days Coding Level of Care Code Add On Preventative Visit Only Diagnoses Diffuse scleroderma M34.9 Interstitial lung disease J84.9 Dyspnea on exertion R06.09 Dyspnea type: dyspnea on exertion Chronic restrictive lung disease J98.4 Time Spent (min) 20
--- OUTSIDE RECORDS SUMMARY | 2025-02-17 20:28 | XMS_ITS | Clinical Summary ---
Author Organization [facility] [employer] [facility] Address [address] [place] [address] Phone Care Team Providers Care Eligibility Consultant Name Role Phone Gold Daley MD Primary Care Provider +1- [phone] Allergies No known active allergies Medications NIFEdipine [...] recommend any changes to his medical therapies. Surgical History Surgery Date Site/Laterality Comments SHOULDER SURGERY PROCEDURE: HISTORICAL SHOULDER SURGERY COLONOSCOPY 12/26/2010 PROCEDURE: HISTORICAL COLONOSCOPY ESOPHAGOGASTRODUODENOSCOPY 12/04/2006 PROCEDURE: [place] ESOPHAGOGASTRODUODENOSCOPY TRANSORAL DIAGNOSTIC Medical History Medical History [...] patient's age to complete this topic Insurance MEDICARE [place] Advance Directives Documents on File Type Date Recorded Patient Cardiology Manager Expl anation Health Care Decision (hx) 08/13/2021 AD FORTE DIRECTIVE Health Care Decision (hx) 08/13/2021 AD FORTE DIRECTIVE Health Care Decision (hx) 08/13/2021 AD FORTE DIRECTIVE Health Care Decision (hx) 08/13/2021 AD FORTE DIRECTIVE Health Care Decision (hx) 08/13/2021 AD FORTE DIRECTIVE Care Teams Eligibility Consultant Relationship Specialty Start Date End Date Gold Daley MD [facility] [address] [place] [id number] PCP - General 05/29/22
--- OUTSIDE RECORDS SUMMARY | 2025-02-17 20:28 | XMS_ITS | Clinical Summary ---
Author Organization [facility] Address [address] [place] [address] Phone Care Team Providers Care Quality Assurance Clerk Name Role Phone Unavailable Primary Care Provider [...] It is not the complete legal health record.[facility]
== END 2025-02-17 16:11 | disposition home or self-care (01) ==
LOC: HO.HPS 15:46
PROVIDERS: PCP Internal Medicine; Visit Provider Hospitalist
DX: M34.9 Systemic sclerosis, unspecified (principal); J84.9 Interstitial pulmonary disease, unspecified; R06.09 Other forms of dyspnea; J98.4 Other disorders of lung
CPT/HCPCS: 99214; G2211

== ENCOUNTER → 2025-02-17 15:45 | Outpatient (BNVA) | payer OTHER, SELFPAY | PROVIDERS: PCP Internal Medicine; Visit Provider Hospitalist | DX: M34.9 Systemic sclerosis, unspecified (principal); R06.09 Other forms of dyspnea; J98.4 Other disorders of lung; J84.9 Interstitial pulmonary disease, unspecified; J84.10 Pulmonary fibrosis, unspecified | CPT/HCPCS: 99212 ==

== ENCOUNTER 2025-03-03 14:36 | Emergency (ER) | payer OTHER, SELFPAY ==
--- NOTE | ~2025-03-03 | XR_ITS ---
EXAMINATION: XR CHEST 1 VIEW HISTORY: cough, sob COMPARISON: Correlation is made with chest CT dated 12/10/2024. FINDINGS: A single AP portable view of the chest performed at 3:16 PM is submitted. There is diffuse increased density throughout the right hemithorax and at the left lung base. It is difficult to exclude acute pneumonia superimposed on the patient's known interstitial lung disease. There is no pleural effusion or pneumothorax. The heart is enlarged. There is degenerative disc disease of the spine. The patient is status post right reverse total shoulder arthroplasty. XR/XR chest 1V IMPRESSION: Diffuse increased density throughout the right hemithorax and of the left lung base. It is difficult to exclude superimposed pneumonia on the patient's known interstitial lung disease. Electronically signed by: Stanford Camacho MD 03/03/2025 03:30 PM KENNETH SUN
[2025-03-03 14:51] VITALS: BP 131/81; PULSE 69; RESP 20; TEMP 36.4; O2SAT 93; BMI 23.6
--- NOTE | 2025-03-03 14:52 | ED.URI ---
HPI - URI/Sore Throat General Chief Complaint: Dyspnea Stated Complaint: Discomfort In R Arm, Cough, Trouble Breathing Time Seen by Provider: 03/03/25 15:07 History of Present Illness ED Provider: Juvenal RUIZ Narrative: The patient is a 69-year-old male with a history of scleroderma, interstitial lung disease, and chronic renal insufficiency who says that he has had intermittent episodes of chest discomfort during the week. Today the discomfort started about 6 hours prior to arrival but did not resolve on its own as his previous episodes have. He therefore came to the emergency room. He says that he has the discomfort primarily in the right side of his chest. It radiates to the right arm. He has had some associated shortness of breath. Related Data Home Medications ?Medication ?Instructions ?Recorded ?Confirmed fluticasone propionate 50 1 spray intranasal DAILY 11/12/22 12/08/24 mcg/actuation nasal spray,suspension vitamin B complex and vitamin C 1 cap PO DAILY 11/12/22 12/08/24 no.20-folic acid 1 mg capsule (Stutsman Caps) ascorbic acid (vitamin C) 500 mg 500 mg PO DAILY 11/25/22 12/08/24 tablet (Vitamin C) nifedipine 30 mg tablet,extended 30 mg PO DAILY 11/25/22 12/08/24 release 24 hr carvedilol 25 mg tablet 25 mg PO BID 09/08/24 12/08/24 furosemide 40 mg tablet (Lasix) 40 mg PO DAILY PRN edema 12/08/24 12/08/24 Previous Rx's ?Medication ?Instructions ?Recorded benzonatate 200 mg capsule 200 mg PO BID PRN cough 30 days 02/17/25 #60 caps ipratropium bromide 42 mcg (0.06 2 spray intranasal TID PRN allergy 02/17/25 %) nasal spray symptoms #15 mL mycophenolate mofetil 500 mg tablet 500 mg PO BID 30 days #60 tabs 02/17/25 Allergies Allergy/AdvReac Type Severity Reaction Status Date / Time No Known Allergies Allergy Verified 03/03/25 14:57 Review of Systems Review of Systems: Yes all other systems are reviewed and are negative PMFSH Past Medical History Medical History (Updated 03/03/25 @ 15:26 by Boris Sanford MD) Chronic restrictive lung disease Chronic renal disease, stage IV History of renal stone Arthritis Hx of acute renal failure HTN (hypertension) History of renal dialysis Surgical History Inguinal hernia (01/01/23) History of biopsy Hx of colonoscopy History of esophagogastroduodenoscopy (EGD) Hx of arthroscopy of knee History of excision of pilonidal cyst History of arthroscopic surgery of shoulder Social History Social History Are you a primary wound care technician to a significant other at home: No Do you presently have visiting nurse or other home services: No Alcohol intake: never Patient Tobacco Use Status: Never used Tobacco Do you have a plan to hurt others: No Plan Current occupational status: employed 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 He looks pale but he does not appear in obvious distress or discomfort. No increased work of breathing. HEENT: Other: Face is symmetrical. Mucous membranes moist. Eyes: Other: Pupils are round equal, conjunctivae are clear, extraocular movements intact Neck: Neck: Yes normal visual inspection, Yes full ROM and Yes no JVD Resp: Effort & Inspection: normal respiratory effort Auscultation: clear to auscultation bilaterally Cardio: Rate: regular rate Rhythm: regular rhythm Heart sounds: S1 normal heart sound present and S2 normal heart sound present GI: Other: Abdomen is soft and nontender Skin: Other: Skin is pale and dry Neuro: Other: The patient is awake and alert with a normal mental status. Cranial nerves are grossly intact. He moves his extremities symmetrically. Extrem: Other: No peripheral edema Course Course Course Narrative: This is a Rapid Medical Exam performed in triage by Yarely Miranda PA-C. Full HPI, ROS and PE to be performed by primary ED provider. 69-year-old male with a past medical history CKD, HTN, anemia, interstitial lung disease, presenting to the ED c/o right-sided chest pain radiating down RUE w/cough & SOB x6 hrs. PE: pale, lungs CTA, ambulating with steady gait. satting 92% on RA Plan: EKG, labs, CXR, SARs Medical Decision Making Medical Decision Making MDM Narrative: The patient is a 69-year-old male with a history of chronic renal insufficiency and scleroderma and interstitial lung disease who presents with chest discomfort. He has no known cardiac history. He says he has been having intermittent episodes of chest discomfort throughout the week. However all of these episodes resolved spontaneously. Today the discomfort did not resolve and was persistent for several hours so he came to the emergency room. He describes his pain as a 6 to 7/10. An EKG was done at triage that shows an obvious anterior STEMI with reciprocal changes. He was placed in a room. He was given aspirin, heparin, and a call to the second floor operator was placed. I spoke to Dr. Arora who asked that the patient also be given 180 mg of ticagrelor with a plan to transfer the patient to the [facility]althouse laborer by ambulance on an emergency basis. Independent Interpretation I performed an independent interpretation of an: EKG Interpretation: EKG at 1500 shows sinus rhythm with a first-degree AV block at 79 beats per minute. There are ST segment elevations anteriorly with reciprocal changes inferiorly. This is consistent with a STEMI. Critical Care Time Critical Care Time Critical Care Time: Yes Total Critical Care Time: 35 Attestation: The patient was critically ill with a high probability of imminent or life-threatening deterioration. ?I spent greater than 30 minutes of discontinuous time evaluating the patient, delivering critical care at the bedside, discussing evaluating data with consultants. ?Critical care time does not include time spent performing separately billable procedures or teaching. ?Time spent performing critical care with 35 minutes. Discharge Plan Discharge Clinical Impression: Acute ST elevation myocardial infarction (STEMI) of anterior wall Patient Disposition: [facility] Transfer Details: [facility] Litigation Docket Manager, Dr. Arora Prescriptions: No Action nifedipine 30 mg tablet extended release 24hr 30 mg PO DAILY ascorbic acid (vitamin C) [Vitamin C] 500 mg Tablet 500 mg PO DAILY Mack Caps 1 mg capsule 1 cap PO DAILY fluticasone propionate 50 mcg/actuation spray,suspension 1 spray intranasal DAILY Rx Instructions: administer into each nostril carvedilol 25 mg tablet 25 mg PO BID Rx Instructions: must administer with a meal/food furosemide [Lasix] 40 mg tablet 40 mg PO DAILY PRN (Reason: edema) ipratropium bromide 42 mcg (0.06 %) spray,non-aerosol 2 spray intranasal TID PRN (Reason: allergy symptoms) Qty: 15 6RF Rx Instructions: administer into each nostril mycophenolate mofetil 500 mg tablet 500 mg PO BID 30 Days Qty: 60 5RF benzonatate 200 mg capsule 200 mg PO BID PRN (Reason: cough) 30 Days Qty: 60 6RF Print Language: French
--- NOTE | 2025-03-03 14:53 | ECG_ITS ---
Test Reason : CP/SOB Blood Pressure : */* mmHG Vent. Rate : 79 BPM Atrial Rate : 79 BPM P-R Int : 236 ms QRS Dur : 104 ms QT Int : 394 ms P-R-T Axes : 66 -65 -12 degrees QTcB Int : 451 ms Sinus rhythm with 1st degree A-V block with Premature supraventricular complexes Left anterior fascicular block ST elevation consider anterolateral injury or acute infarct Anteroseptal injury pattern ACUTE MT / STEMI Abnormal ECG No previous ECGs available Referred By: Yarely Miranda Electronically Signed By: JIA MENDOZA MD
--- NOTE | 2025-03-03 15:18 | PC.NURSE ---
Per MD, patient accepted to skill labor
[2025-03-03 15:21] VITALS: BP 131/78; PULSE 84; RESP 18; O2SAT 87
--- NOTE | 2025-03-03 15:21 | ECG_ITS ---
Test Reason : stemi Blood Pressure : */* mmHG Vent. Rate : 58 BPM Atrial Rate : 58 BPM P-R Int : 224 ms QRS Dur : 100 ms QT Int : 414 ms P-R-T Axes : 23 -54 14 degrees QTcB Int : 406 ms Sinus bradycardia with 1st degree A-V block Left axis deviation ST elevation consider anterolateral injury or acute infarct Anteroseptal injury pattern ACUTE PA / STEMI Abnormal ECG When compared with ECG of 03-Mar-2025 15:00, Premature supraventricular complexes are no longer Present Referred By: Boris Sanford Electronically Signed By: JIA MENDOZA MD
[2025-03-03 15:24] VITALS: BP 128/71; PULSE 79; RESP 20; O2SAT 91
--- NOTE | 2025-03-03 15:27 | PC.NURSE ---
Patient states his daughter called 911 prior to arrival and patient refused transport after seeing his vital signs were normal. has had chest pain/discomfort since 9am
[2025-03-03 15:29] LABS: MANUAL DIFF FLAG NO
[2025-03-03 15:33] LABS: Hematocrit 36.5 % (42.0-52.0); Hemoglobin 11.3 g/dl (14.0-18.0); Imm Gran Abs Auto 0.06 X10*3/uL (0.00-0.03); Imm Gran Pct Auto 0.5 % (0.0-0.4); Lymphocytes Absolute Auto 0.9 X10*3/uL (1.2-4.9); Mean Corpuscular HGB Conc 31.0 g/dl (31.0-36.0); Mean Corpuscular Hemoglobin 27.0 pg (27.0-33.0); Mean Corpuscular Volume 87.1 fL (80.0-98.0); NRBC Abs Auto 0.000 X10*3/uL (0.0-0.012); NRBC Pct Auto 0.0 /100WBC (0.0-0.2); Platelet Count 335 X10*3/uL (160-400); Red Blood Count 4.19 X10*6/uL (4.60-5.80); White Blood Count 13.1 X10*3/uL (4.8-10.8)
--- NOTE | 2025-03-03 15:34 | PC.NURSE ---
ems arrival to department
[2025-03-03 15:35] VITALS: BP 125/72; PULSE 59; RESP 18; O2SAT 95
[2025-03-03 15:41] LABS: Strep A Nucleic Acid Negative (Negative)
--- NOTE | 2025-03-03 15:41 | PC.NURSE ---
on ems stretcher
--- OUTSIDE RECORDS SUMMARY | 2025-03-03 15:41 | XMS_ITS | Clinical Summary ---
Author Organization [facility] Address [address] [place] [id number] Phone Care Team Providers Care Armor Senior Sergeant Name Role Phone Unavailable Primary Care Provider [...] It is not the complete legal health record.[facility]
--- OUTSIDE RECORDS SUMMARY | 2025-03-03 15:41 | XMS_ITS | Clinical Summary ---
Author Organization [facility] Address [address] [place] [address] Phone Care Team Providers Care Pulp Cooker Name Role Phone Gold Daley MD Primary Care Provider [phone]- [phone] Allergies No known active allergies Medications NIFEdipine [...] age to complete this topic Insurance MEDICARE [facility] Advance Directives Documents on File Type Date Recorded Patient Instrument Person Expl anation Health Care Decision (hx) 08/13/2021 AD FORTE DIRECTIVE Health Care Decision (hx) 08/13/2021 AD FORTE DIRECTIVE Health Care Decision (hx) 08/13/2021 AD FORTE DIRECTIVE Health Care Decision (hx) 08/13/2021 AD FORTE DIRECTIVE Health Care Decision (hx) 08/13/2021 AD FORTE DIRECTIVE Care Teams Pulp Cooker Relationship Specialty Start Date End Date Gold Daley MD [facility] [address] [place] [phone] PCP - General 05/29/22
--- OUTSIDE RECORDS SUMMARY | 2025-03-03 15:41 | XMS_ITS | Clinical Summary ---
Author Organization [facility] Address [address] [address] Care Team Providers Care Occupational Safety And Health Manager Name Role Phone Gold Daley MD Primary Care Provider [phone]- [phone] Allergies No known active allergies Medications carvedilol [...] patient's age to complete this topic Insurance [facility] [employer] [address] [place] [address] [facility] [employer] 1,2,3 (VAC[employer]) Care Teams Occupational Safety And Health Manager Relationship Specialty Start Date End Date Gold Daley MD [facility] [address] [place] [address] PCP - General Family Medicine 04/22/22
[2025-03-03 15:42] VITALS: BP 125/72; PULSE 59; RESP 18; TEMP -17.7; TEMP 0; O2SAT 95
[2025-03-03 15:43] LABS: Partial Thromboplastin Time 37.2 SEC (26.7-34.1)
[2025-03-03 16:00] LABS: Alanine Aminotransferase 13 U/L (0-40); Albumin Level 3.9 g/dL (3.5-5.0); Alkaline Phosphatase 75 U/L (39-117); Anion Gap 14 (12-20); Aspartate Amino Transferase 49 U/L (5-37); Blood Urea Nitrogen 38 mg/dL (9-16); Calcium 9.2 mg/dL (8.4-10.2); Carbon Dioxide 19 mmol/L (22-29); Chloride 111 mmol/L (96-108); Creatinine Clr Calc Pharmacy 32.7; Estimated Glomerular Filt Rate 31; Magnesium 2.1 mg/dL (1.6-2.6); Potassium 4.6 mmol/L (3.3-5.1); Sodium 139 mmol/L (135-145); Total Protein 7.8 g/dL (6.5-8.0)
[2025-03-03 16:11] LABS: Resp Syncy Virus RNA Qual PCR NEGATIVE (Negative); SARS COV2 PCR INHOUSE NEGATIVE (Negative)
[2025-03-03 16:22] LABS: Troponin-I High Sensitivity 1055.9 ng/L (<3.5-35.0)
== END 2025-03-03 15:43 | disposition short-term general hospital (02) ==
LOC: HO.ED 15:38
PROVIDERS: Physician Assistant; Emergency Provider Emergency Medicine; PCP Family Medicine
DX: I21.3 ST elevation (STEMI) myocardial infarction of unspecified site (principal); R05.9 Cough, unspecified; I10 Essential (primary) hypertension; R07.9 Chest pain, unspecified; R06.02 Shortness of breath; R94.31 Abnormal electrocardiogram [ECG] [EKG]; I44.0 Atrioventricular block, first degree
CPT/HCPCS: 36415; 71045; 80048; 80076; 83735; 83880; 84484; 85025; 85730; 87637; 87651; 93005; 96374; 99285; 99291; J1644

== ENCOUNTER → 2025-03-03 14:53 | Outpatient (BNV) | payer OTHER, SELFPAY | PROVIDERS: Emergency Provider Emergency Medicine; PCP Family Medicine; Visit Provider Internal Medicine Cardiovascular Disease | DX: I44.0 Atrioventricular block, first degree (principal); I49.3 Ventricular premature depolarization; I44.4 Left anterior fascicular block; R00.1 Bradycardia, unspecified | CPT/HCPCS: 93010 ==

== ENCOUNTER → 2025-03-03 14:53 | Outpatient (BNV) | payer OTHER, SELFPAY | PROVIDERS: Emergency Provider Emergency Medicine; PCP Family Medicine; Visit Provider Radiology Diagnostic Radiology | DX: R91.8 Other nonspecific abnormal finding of lung field (principal) | CPT/HCPCS: 71045 ==